=== PATIENT | male | born 1935 | race Hispanic/Latino ===

== ENCOUNTER 2017-11-13 14:32 | Inpatient (IN) | payer OTHER ==
[2017-11-13 15:50] LABS: Absolute Monocytes 0.7 K/uL (0.1-1.3); Absolute Neutrophil 5.6 K/uL (1.8-8.0); Basophils % 0.9 % (0-1.3); Eosinophils % 1.7 % (0-4.4); Hematocrit 37.2 % (39.6-49.0); Lymphocytes % 23.7 % (15.3-44.8); MCH 30.5 pg (27.0-35.0); MPV 8.4 fL (7.6-11.3); RBC Red Blood Cell Count 4.05 M/uL (4.33-5.43)
[2017-11-13 16:01] LABS: Potassium 4.8 mEq/L (3.6-5.0)
[2017-11-13 16:06] LABS: Albumin 3.4 g/dL (3.2-5.5); Bilirubin Total 0.5 mg/dL (0.3-1.2); Protein, Total 6.9 g/dL (6.0-8.3)
--- NOTE | 2017-11-13 17:07 | RAD REPORT ---
EXAM DESCRIPTION: RAD - Chest Single View - 11/13/2017 5:02 pm CLINICAL HISTORY: Chest pain. COMPARISON: 11/08/2014 FINDINGS: Portable technique limits examination quality. The lungs are grossly clear. The heart is normal in size. No displaced fractures.Mild aortic atherosc lerosis. IMPRESSION: No acute intrathoracic process suspected.
--- NOTE | 2017-11-13 17:12 | EDPHYS ---
Physician Documentation [facility] Name: Sina William Age: 82 yrs Sex: Male : 1935 Arrival Date: 11/13/2017 Time: 14:36 Bed 30 Private MD: Pau Carranza ED Physician Sushant Garcia HPI: 11/13 16:04 This 82 yrs old Male presents to ER via Ambulatory with complaints of Abnormal jmm Lab Results. 16:04 Patient states that he was advised to the go the emergency department by his PCP due to jmm abnormal lab results. Patient states having a history of DM and HTN which he treats with diet and non prescription medications. Patient states he drinks approx 1 gallon of water a day due to being outside in the heat. Patient denies swelling to his legs or inability to urinate. The patient complains of intermittent episodes of sob which are non exertional. . Historical: - Allergies: 15:16 No Known Allergies; iw - PMHx: 17:18 Hypertension; Arthritis; iw - PSHx: 15:16 Disc surgery; cataracts; iw - Immunization history:: Adult Immunizations up to date. - Social history:: Smoking status: . - Ebola Screening: : Patient negative for fever greater than or equal to 101.5 degrees Fahrenheit, and additional compatible Ebola Virus Disease symptoms Patient denies exposure to infectious person Patient denies travel to an Ebola-affected area in the 21 days before illness onset No symptoms or risks identified at this time. ROS: 16:04 Constitutional: Negative for fever, chills, and weight loss, Cardiovascular: Negative jmm for chest pain, palpitations, and edema. 16:04 Back: Negative for injury and pain, MS/Extremity: Negative for injury and deformity, Skin: Negative for injury, rash, and discoloration, Neuro: Negative for headache, weakness, numbness, tingling, and seizure. 16:04 Respiratory: Positive for shortness of breath. 16:04 All other systems are negative. Exam: 16:04 Head/Face: atraumatic. Chest/axilla: Normal chest wall appearance and motion. jmm Nontender with no deformity. No lesions are appreciated. Cardiovascular: Regular rate and rhythm. No gallops, murmurs, or rubs. Full/Equal distal pulses. Respiratory: Lungs have equal breath sounds bilaterally, clear to auscultation. No rales, rhonchi or wheezes noted. No increased work of breathing, no retractions or nasal flaring. 16:04 Constitutional: The patient appears in no acute distress, alert, awake. 16:04 Musculoskeletal/extremity: no pedal edema appreciated. 16:04 Skin: Appearance: Color: normal in color. 16:04 Neuro: Orientation: is normal, Mentation: is normal, Memory: is normal, Gait: is steady. Vital Signs: 15:15 BP 129 / 73; Pulse 69; Resp 18 S; Temp 97.5; Pulse Ox 95% on R/A; Pain 0/10; iw 17:16 BP 146 / 72; Pulse 64; Resp 18 S; Pulse Ox 98% on R/A; Pain 0/10; iw MDM: 16:02 Patient medically screened. [facility] 17:30 Data reviewed: vital signs, nurses notes, lab test result(s), radiologic studies, plain [facility] films. 17:30 Physician consultation: Willem Houser DO accepted admission. [facility] 11/13 15:33 Order name: CBC with Diff; Complete Time: 16:03 11/13 15:38 Order name: CMP; Complete Time: 16:38 [facility] 11/13 17:06 Order name: CPK [facility] 11/13 17:06 Order name: Creatine Phosphokinase [facility] 11/13 17:25 Order name: Urine Dipstick--Ancillary (enter results) 11/13 17:31 Order name: Creatine Phosphokinase [facility] 11/13 17:31 Order name: Urinalysis [facility] 11/13 17:31 Order name: Basic Metabolic Panel [facility] 11/13 17:31 Order name: Basic Metabolic Panel [facility] 11/13 17:31 Order name: Basic Metabolic Panel [facility] 11/13 17:31 Order name: Basic Metabolic Panel [facility] 11/13 17:31 Order name: CBC with Automated Diff [facility] 11/13 17:31 Order name: CBC with Automated Diff [facility] 11/13 16:03 Order name: Chest Single View XRAY; Complete Time: 17:07 [facility] 11/13 17:31 Order name: Echo with Doppler [facility] 11/13 17:31 Order name: CBC with Automated Diff [facility] 11/13 17:31 Order name: CBC with Automated Diff [facility] 11/13 17:31 Order name: Hemoglobin A1C [facility] 11/13 17:31 Order name: Hemoglobin A1C [facility] 11/13 17:31 Order name: Lipid Profile [facility] 11/13 17:31 Order name: Lipid Profile [facility] 11/13 17:31 Order name: Magnesium [facility] 11/13 17:31 Order name: Magnesium [facility] 11/13 17:31 Order name: Magnesium [facility] 11/13 17:31 Order name: Magnesium [facility] 11/13 17:31 Order name: T4 Free [facility] 11/13 17:31 Order name: T4 Free [facility] 11/13 17:31 Order name: Thyroid Stimulating Hormone [facility] 11/13 17:31 Order name: Thyroid Stimulating Hormone [facility] 11/13 15:33 Order name: EKG - Nurse/Tech; Complete Time: 16:17 11/13 15:33 Order name: EKG; Complete Time: 15:34 11/13 17:25 Order name: Urine Dipstick-Ancillary (obtain specimen); Complete Time: 17:25 11/13 17:31 Order name: CONS Physician Consult [facility] 11/13 17:31 Order name: Renal [facility] 11/13 17:31 Order name: Renal Ultrasound-Complete EDMS Administered Medications: No medications were administered Disposition: 18:51 Co-signature as Attending Physician, Sushant Garcia MD I agree with the assessment and kdr plan of care. Disposition: 11/13/17 17:11 Hospitalization ordered by Willem Houser for Inpatient Admission. Preliminary diagnosis is Injury of kidney. - Bed requested for Telemetry/MedSurg (Inpatient). - Status is Inpatient Admission. iw - Condition is Stable. - Problem is new. - Symptoms are unchanged. UTI on Admission? No Signatures: Dis[facility] Merry Sin Kevin, MD MD [facility] Martin Rodriges PA PA jmm Crystal Parkinson, VERNON RN iw Corrections: (The following items were deleted from the chart) 15:44 15:33 BASIC METABOLIC PANEL+C.LAB.BRZ ordered. [facility] 18:00 17:11 Hospitalization Ordered by Willem Houser DO for Inpatient Admission. Preliminary bd diagnosis is Injury of kidney. Bed requested for Telemetry/MedSurg (Inpatient). Status is Inpatient Admission. Condition is Stable. Problem is new. Symptoms are unchanged. UTI on Admission? No. celsom 18:36 18:00 11/13/2017 17:11 Hospitalization Ordered by Willem Houser DO for Inpatient iw Admission. Preliminary diagnosis is Injury of kidney. Bed requested for Telemetry/MedSurg (Inpatient). Status is Inpatient Admission. Condition is Stable. Problem is new. Symptoms are unchanged. UTI on Admission? No. bd 21:22 16:04 Patient states that he was advised to the go the emergency department by his PCP [place] due to abnormal lab results. Patient states having a history of DM and HTN which he treats with diet and non prescription medications. Patient states he drinks approx 1 gallon of water a day. Patient denies swelling to his legs or inability to urinate. The patient complains of intermittent episodes of sob which are non exertional. . [facility]
--- NOTE | 2017-11-13 17:12 | ER ---
Nurse's Notes [facility] Name: Sina William Age: 82 yrs Sex: Male : 1935 Arrival Date: 11/13/2017 Time: 14:36 Bed 30 Private MD: Pau Carranza Diagnosis: Injury of kidney Presentation: 11/13 15:11 Presenting complaint: Patient states: was sent by Dr. Carranza today, had labs drawn iw this morning, was told to come to ER for unknown lab results. Creatinine=5.98, no hx of kidney disease, potassium=5.1. Transition of care: patient was not received from another setting of care. Onset of symptoms was November 13, 2017. Risk Assessment: Do you want to hurt yourself or someone else? Patient reports no desire to harm self or others. Initial Sepsis Screen: Does the patient meet any 2 criteria? No. Patient's initial sepsis screen is negative. Does the patient have a suspected source of infection? No. Patient's initial sepsis screen is negative. Care prior to arrival: None. 15:11 Method Of Arrival: Ambulatory iw 15:11 Acuity: CLYDE 3 iw Historical: - Allergies: 15:16 No Known Allergies; iw - PMHx: 17:18 Hypertension; Arthritis; iw - PSHx: 15:16 Disc surgery; cataracts; iw - Immunization history:: Adult Immunizations up to date. - Social history:: Smoking status: . - Ebola Screening: : Patient negative for fever greater than or equal to 101.5 degrees Fahrenheit, and additional compatible Ebola Virus Disease symptoms Patient denies exposure to infectious person Patient denies travel to an Ebola-affected area in the 21 days before illness onset No symptoms or risks identified at this time. Screenin:44 Abuse screen: Denies threats or abuse. Denies injuries from another. Nutritional iw screening: No deficits noted. Tuberculosis screening: No symptoms or risk factors identified. Fall Risk IV access (20 points). Assessment: 15:45 General: Appears in no apparent distress. Behavior is calm, cooperative. Pain: Denies iw pain. Neuro: Level of Consciousness is awake, alert, obeys commands, Oriented to person, place, time, Moves all extremities. Full function. Cardiovascular: Patient's skin is warm and dry. Respiratory: Respiratory effort is even, unlabored, Respiratory pattern is regular, symmetrical. GI: Abdomen is. GI: Bowel sounds present X 4 quads. Patient currently denies diarrhea, vomiting. : Reports urinary frequency. Derm: Skin is pink, warm \T\ dry. normal. Musculoskeletal: Range of motion:. Vital Signs: 15:15 BP 129 / 73; Pulse 69; Resp 18 S; Temp 97.5; Pulse Ox 95% on R/A; Pain 0/10; iw 17:16 BP 146 / 72; Pulse 64; Resp 18 S; Pulse Ox 98% on R/A; Pain 0/10; iw ED Course: 14:36 Patient arrived in ED. mr 14:36 Pau Carranza MD is Private Physician. mr 15:03 Crystal Parkinson, RN is Primary Nurse. iw 15:14 Triage completed. iw 15:15 Arm band placed on. 15:31 Martin Rodriges PA is PHCP. [facility] 15:31 Sushant Garcia MD is Attending Physician. [facility] 15:44 Initial lab(s) drawn, by la, sent to lab. Inserted saline lock: 20 gauge in right iw antecubital area, using aseptic technique. Blood collected. 15:45 Patient has correct armband on for positive identification. 15:49 EKG done, by supervisor sound technician. reviewed by Martin HILL. 3 16:59 X-ray completed. Portable x-ray completed in exam room. Patient tolerated procedure ml well. 17:01 Chest Single View XRAY In Process Unspecified. EDMS 17:10 Willem Houser DO is Hospitalizing Provider. [facility] 18:36 No provider procedures requiring assistance completed. Patient admitted, IV remains in iw place. Administered Medications: No medications were administered Outcome: 17:11 Decision to Hospitalize by Provider. m 18:35 Admitted to Med/surg accompanied by tech, via wheelchair, room 406, Report called to davonte Kimbrough RN 18:35 Condition: good 18:35 Discharge instructions given to patient, family, Instructed on the need for admit, Demonstrated understanding of instructions. 18:36 Patient left the ED. Signatures: Dispatcher [employer] EDMS Martin Rodriges PA PA Mary Ellen Cooper mr Crystal Parkinson, RN RN Ileana Chance Shakira 3
[2017-11-13] MEDS ORDERED: ACETAMINOPHEN 500 MG TAB PO PRN (17:24)
[2017-11-13] MEDS ORDERED: ONDANSETRON 4 MG/2 ML VIAL IV PRN (17:24)
--- NOTE | 2017-11-13 17:39 | P.HP ---
Certification for Inpatient Patient admitted to: Observation With expected LOS: <2 Midnights Patient will require the following post-hospital care: None Practitioner: I am a practitioner with admitting privileges, knowledge of patient current condition, hospital course, and medical plan of care. Services: Services provided to patient in accordance with Admission requirements found in Title 42 Section 412.3 of the Code of Federal Regulations Patient History Date of Service: 11/13/17 Primary Care Provider: Dr. Carranza Reason for admission: Abnormal lab History of Present Illness: 82 yo HM presented to the ER after he was sent to the ER by his PCP due to abnormal lab. He was told that his renal function was worse. He was seen by the PCP earlier in the week for a follow up. He has DM, HTN, and history of CVA but does not take medication. For the last 3 months he has taken himself off medication for his chronic conditions. He is now only taking multiple oral supplements and vitamins. He is taking an ASA 81 mg daily. He has noted some fatigue. He has been working outside in the sun lately. In the ER, repeat lab was done. His Creatinine was 5.73 with BUN of 84 and GFR of 10. In 12/2016 his creatinine was 1.93 and GFR was 33. CBC is stable. CXR was unremarkable. UA showed some blood and protein. CPK is pending. Patient admitted for further evaluation. He is stable. No other complaints. Allergies No Known Drug Allergies Allergy (Unverified 11/08/14 23:39) Unknown Home medications list reviewed: Yes - Past Medical/Surgical History Diabetic: Yes -: DM-Type 2 -: HTN -: History of CVA -: Former Tobacco use Psychosocial/ Personal History: , Children-9 - Family History Father -: Heart disease, Hypertension, Kidney disease Mother -: Heart disease, Hypertension, Kidney disease - Social History Smoking Status: Former smoker Alcohol use: Yes CD- Drugs: No Caffeine use: Yes Place of Residence: Home Review of Systems General: Weakness, Malaise Eyes: Unremarkable ENT: Unremarkable Respiratory: Shortness of Breath, As per HPI Cardiovascular: Unremarkable Gastrointestinal: Unremarkable Genitourinary: Unremarkable Musculoskeletal: Unremarkable Integumentary: Unremarkable Neurological: Unremarkable Lymphatics: Unremarkable Physical Examination - Physical Exam General: Alert, In no apparent distress, Oriented x3, Cooperative HEENT: Atraumatic, Normocephalic, PERRLA, Mucous membr. moist/pink Neck: Supple, No Thyromegaly Respiratory: Clear to auscultation bilaterally, Normal air movement Cardiovascular: Normal pulses, Regular rate/rhythm Gastrointestinal: Normal bowel sounds, Soft and benign, Non-distended, No tenderness, No masses, No rebound, No guarding Musculoskeletal: No erythema, No tenderness, No warmth Integumentary: No tenderness/swelling, No erythema, No warmth, No cyanosis Neurological: Normal speech, Normal strength at 5/5 x4 extr, Normal tone, Normal affect - Studies Laboratory Data (last 24 hrs) 11/13/17 15:35: Sodium 134 L, Potassium 4.8, BUN 84 H, Creatinine 5.73 H*, Glucose 94, Total Bilirubin 0.5, AST 24, ALT 21, Alkaline Phosphatase 77 11/13/17 15:35: WBC 8.6, Hgb 12.4 L, Hct 37.2 L, Plt Count 293 11/13/17 15:33: Sodium Cancelled, Potassium Cancelled, BUN Cancelled, Creatinine Cancelled, Glucose Cancelled Assessment and Plan - Problems (Diagnosis) (1) Chronic renal disease Current Visit: Yes Status: Acute Plan: Acute on chronic renal disease suspected. Will evaluate for rhabdomyolysis. Will start IV fluids. Will check ECHO and renal US. Will continue Nephrology to address. He has been using multiple vitamins and supplements OTC. He has not taken his medication for HTN/DM in quite some time. Will check and monitor lab. Qualifiers: Chronic kidney disease stage: stage 4 (severe) Qualified Code(s): N18.4 - Chronic kidney disease, stage 4 (severe) (2) Dehydration Current Visit: Yes Status: Acute Plan: Continue as above. Will start IV fluids. (3) HTN (hypertension) Current Visit: Yes Status: Chronic Plan: History of HTN but BP stable. Will provide IV medication as needed. Qualifiers: Hypertension type: essential hypertension Qualified Code(s): I10 - Essential (primary) hypertension (4) Diabetes mellitus Current Visit: Yes Status: Chronic Plan: Will check A1c. Will provide sliding scale. Qualifiers: Diabetes mellitus type: type 2 Diabetes mellitus vermin exterminator insulin use: without vermin exterminator use Diabetes mellitus complication status: with kidney complications Diabetes mellitus complication detail: with chronic kidney disease Chronic kidney disease stage: stage 4 (severe) Qualified Code(s): E11.22 - Type 2 diabetes mellitus with diabetic chronic kidney disease; N18.4 - Chronic kidney disease, stage 4 (severe) (5) History of CVA (cerebrovascular accident) Current Visit: Yes Status: Chronic Plan: Will provide ASA and DVT prophylaxis. Discharge Plan: Home Plan to discharge in: 24 Hours - Advance Directives Does patient have a Living Will: No Does patient have a Durable POA for Healthcare: No - Code Status/Comfort Care Code Status Assessed: Yes Time Spent Managing Pts Care (In Minutes): 55
[2017-11-13 18:39] LABS: Urine Blood 2+ (NEG); Urine Glucose TRACE (NEG); Urine Protein 3+ (NEG)
[2017-11-13] MEDS: NA CHLORIDE 0.9% 1,000 ML IV SCH (19:40)
[2017-11-13] MEDS: ENOXAPARIN 30 MG/0.3 ML SQ SCH (19:41)
[2017-11-13] MEDS: HYDRALAZINE HCL 20 MG/ML VIAL IV PRN (20:33)
[2017-11-13] MEDS: INSULIN -REGULAR HUMAN 50 UNIT/0.5 ML ML SQ SCH (21:00)
--- NOTE | 2017-11-13 21:33 | RAD REPORT ---
EXAM DESCRIPTION: US - Renal Ultrasound-Complete - 11/13/2017 9:14 pm CLINICAL HISTORY: . Acute and chronic renal failure COMPARISON: None. FINDINGS: The right kidney measures 12 cm with an increased echotexture. The left kidney measures 12 cm with an increase echotexture. Hydronephrosis is not seen. IMPRESSION: Unremarkable renal ultrasound.
[2017-11-14] MEDS: NA CHLORIDE 0.9% 1,000 ML IV SCH ×4 (04:27→23:55)
[2017-11-14] MEDS: PANTOPRAZOLE 40MG TABLET PO SCH (05:48)
[2017-11-14 05:58] LABS: Absolute Lymphocytes (CBC) 1.8 K/uL (0.7-4.9); Absolute Monocytes 0.6 K/uL (0.1-1.3); Basophils % 0.7 % (0-1.3); Eosinophils % 4.5 % (0-4.4); Hematocrit 35.2 % (39.6-49.0); Lymphocytes % 26.3 % (15.3-44.8); MCH 30.9 pg (27.0-35.0); MCV 92.7 fL (80-100); MPV 8.6 fL (7.6-11.3); Monocytes % 9.1 % (3.3-12.3)
[2017-11-14 06:12] LABS: Potassium 5.1 mEq/L (3.6-5.0)
[2017-11-14 06:20] LABS: Magnesium 3.1 mg/dL (1.8-2.5)
[2017-11-14 06:57] LABS: Thyroid Stimulating Hormone 8.45 uIU/mL (0.34-5.60)
[2017-11-14] MEDS: INSULIN -REGULAR HUMAN 50 UNIT/0.5 ML ML SQ SCH ×4 (07:30→21:00)
--- NOTE | 2017-11-14 07:56 | EKG ---
Test Date: 2017-11-13 Test Time: 15:41:35 Store Stocker: GREGG MEASUREMENT RESULTS: Intervals: Rate: 59 ND: 190 QRSD: 128 QT: 444 QTc: 439 Hammond: P: -3 ND: 190 QRS: 5 T: 110 INTERPRETIVE STATEMENTS: Sinus bradycardia Right bundle branch block T wave abnormality, consider lateral ischemia Abnormal ECG Compared to ECG 11/08/2014 21:38:01 Atrial premature complex(es) no longer present T-wave abnormality still present Possible ischemia still present Electronically Signed On 11-14-17 07:54:59 CDT by Farhan Shipley
--- NOTE | 2017-11-14 08:28 | P.PN ---
Subjective Date of Service: 11/14/17 Primary Care Provider: Dr. Carranza Chief Complaint: Abnormal lab Subjective: Doing well Physical Examination - Vital Signs Temperature: 97.2 F Blood Pressure: 144/65 Pulse: 53 Respirations: 19 Pulse Ox (%): 97 - Physical Exam General: Alert, In no apparent distress, Oriented x3, Cooperative HEENT: Atraumatic, Mucous membr. moist/pink Neck: Supple Respiratory: Clear to auscultation bilaterally, Normal air movement Cardiovascular: Normal pulses, Regular rate/rhythm Gastrointestinal: Normal bowel sounds, Soft and benign, Non-distended, No tenderness, No masses, No rebound, No guarding Musculoskeletal: No erythema, No tenderness, No warmth Integumentary: No tenderness/swelling, No erythema, No warmth, No cyanosis Neurological: Normal speech, Normal strength at 5/5 x4 extr, Normal tone, Normal affect Lymphatics: No axilla or inguinal lymphadenopathy - Studies Laboratory Data (last 24 hrs) 11/13/17 15:35: Sodium 134 L, Potassium 4.8, BUN 84 H, Creatinine 5.73 H*, Glucose 94, Total Bilirubin 0.5, AST 24, ALT 21, Alkaline Phosphatase 77 11/13/17 15:35: WBC 8.6, Hgb 12.4 L, Hct 37.2 L, Plt Count 293 11/13/17 15:33: Sodium Cancelled, Potassium Cancelled, BUN Cancelled, Creatinine Cancelled, Glucose Cancelled Medications List Reviewed: Yes Assessment & Plan - Problems (Diagnosis) (1) Chronic renal disease Current Visit: Yes Status: Acute Plan: Acute on chronic renal disease suspected. No significant change in renal function. Patient may require dialysis. Renal ultrasound unremarkable. Will discuss case with nephrology. Will continue IV fluids. Hepatitis panel obtained Qualifiers: Chronic kidney disease stage: stage 4 (severe) Qualified Code(s): N18.4 - Chronic kidney disease, stage 4 (severe) (2) Dehydration Current Visit: Yes Status: Acute Plan: Continue as above. Continue with IV fluids. (3) HTN (hypertension) Current Visit: Yes Status: Chronic Plan: History of HTN but BP stable. Will provide IV medication as needed. Qualifiers: Hypertension type: essential hypertension Qualified Code(s): I10 - Essential (primary) hypertension (4) Diabetes mellitus Current Visit: Yes Status: Chronic Plan: Will check A1c. Will provide sliding scale. Patient reports history of diabetes but blood sugars well controlled. Qualifiers: Diabetes mellitus type: type 2 Diabetes mellitus long term care social worker insulin use: without long term care social worker use Diabetes mellitus complication status: with kidney complications Diabetes mellitus complication detail: with chronic kidney disease Chronic kidney disease stage: stage 4 (severe) Qualified Code(s): E11.22 - Type 2 diabetes mellitus with diabetic chronic kidney disease; N18.4 - Chronic kidney disease, stage 4 (severe) (5) History of CVA (cerebrovascular accident) Current Visit: Yes Status: Chronic Plan: Will provide ASA and DVT prophylaxis. (6) Anemia Current Visit: Yes Status: Chronic Plan: This is likely of chronic disease Hemoglobin stable. Will check iron and B12 studies. Qualifiers: Anemia type: due to chronic kidney disease Chronic kidney disease stage: stage 4 (severe) Qualified Code(s): N18.4 - Chronic kidney disease, stage 4 ( severe); D63.1 - Anemia in chronic kidney disease Discharge Plan: Home Plan to discharge in: Greater than 2 days Time Spent Managing Pts Care (In Minutes): 55
[2017-11-14] MEDS ORDERED: ENOXAPARIN 40 MG/0.4 ML SQ SCH (09:00)
[2017-11-14 09:13] LABS: Ferritin 45.1 ng/ml (23.9-336.2)
[2017-11-14] MEDS: ASPIRIN EC 81 MG TAB PO SCH (09:19)
[2017-11-14] MEDS ORDERED: NA CHLORIDE 0.9% 1,000 ML IV ONE (14:22)
[2017-11-14 15:50] LABS: UR CREAT 23.5 mg/dL (20-370); Urine Protein/Creatinine Ratio 4.26 ratio (<0.15)
[2017-11-14] MEDS: ENOXAPARIN 30 MG/0.3 ML SQ SCH (17:39)
[2017-11-15] MEDS: HYDRALAZINE HCL 20 MG/ML VIAL IV PRN (04:03)
[2017-11-15] MEDS: PANTOPRAZOLE 40MG TABLET PO SCH (05:40)
[2017-11-15 05:55] LABS: Absolute Lymphocytes (CBC) 1.5 K/uL (0.7-4.9); Absolute Monocytes 0.7 K/uL (0.1-1.3); Absolute Neutrophil 5.1 K/uL (1.8-8.0); Basophils % 0.8 % (0-1.3); Eosinophils % 5.1 % (0-4.4); Hematocrit 33.8 % (39.6-49.0); Lymphocytes % 19.8 % (15.3-44.8); MCH 31.4 pg (27.0-35.0); MCV 90.8 fL (80-100); MPV 8.2 fL (7.6-11.3); Monocytes % 8.9 % (3.3-12.3); RBC Red Blood Cell Count 3.72 M/uL (4.33-5.43)
[2017-11-15 06:13] LABS: Albumin 2.4 g/dL (3.2-5.5); Magnesium 2.6 mg/dL (1.8-2.5); Phosphorus 4.8 mg/dL (2.5-4.3); Potassium 4.7 mEq/L (3.6-5.0)
[2017-11-15] MEDS: INSULIN -REGULAR HUMAN 50 UNIT/0.5 ML ML SQ SCH ×4 (07:30→21:00)
[2017-11-15] MEDS: ASPIRIN EC 81 MG TAB PO SCH (08:16)
[2017-11-15] MEDS: NA CHLORIDE 0.9% 1,000 ML IV SCH ×2 (08:16→20:41)
[2017-11-15 08:27] LABS: A1c Component 0.55 mg/dL; Hemoglobin A1c 6.5 % (4-6.0)
--- NOTE | 2017-11-15 08:54 | P.PN ---
Subjective Date of Service: 11/15/17 Primary Care Provider: Dr. Carranza Chief Complaint: Abnormal lab Subjective: Doing well Physical Examination - Vital Signs Temperature: 97.1 F Blood Pressure: 131/60 Pulse: 56 Respirations: 18 Pulse Ox (%): 98 - Physical Exam General: Alert, In no apparent distress, Oriented x3, Cooperative HEENT: Atraumatic, Mucous membr. moist/pink Neck: Supple Respiratory: Clear to auscultation bilaterally, Normal air movement Cardiovascular: Normal pulses, Regular rate/rhythm Gastrointestinal: Normal bowel sounds, Soft and benign, Non-distended, No tenderness, No masses, No rebound, No guarding Musculoskeletal: No erythema, No tenderness, No warmth Integumentary: No tenderness/swelling, No erythema, No warmth, No cyanosis Neurological: Normal speech, Normal strength at 5/5 x4 extr, Normal tone, Normal affect Lymphatics: No axilla or inguinal lymphadenopathy - Studies Medications List Reviewed: Yes Assessment & Plan - Problems (Diagnosis) (1) Chronic renal disease Current Visit: Yes Status: Acute Plan: Acute on chronic renal disease suspected. Patient given IV fluids yesterday. Slight improvement in renal function. Will discuss case with nephrology. Will continue to monitor closely. Will continue with IV fluids. Qualifiers: Chronic kidney disease stage: stage 4 (severe) Qualified Code(s): N18.4 - Chronic kidney disease, stage 4 (severe) (2) Dehydration Current Visit: Yes Status: Acute Plan: Continue as above. Continue with IV fluids. (3) HTN (hypertension) Current Visit: Yes Status: Chronic Plan: History of HTN but BP stable. Will provide IV medication as needed. Overall stable. Qualifiers: Hypertension type: essential hypertension Qualified Code(s): I10 - Essential (primary) hypertension (4) Diabetes mellitus Current Visit: Yes Status: Chronic Plan: Hemoglobin A1c 6.5. Will continue with diet. Sliding scale in place. Blood sugars stable. Qualifiers: Diabetes mellitus type: type 2 Diabetes mellitus alf insulin use: without alf use Diabetes mellitus complication status: with kidney complications Diabetes mellitus complication detail: with chronic kidney disease Chronic kidney disease stage: stage 4 (severe) Qualified Code(s): E11.22 - Type 2 diabetes mellitus with diabetic chronic kidney disease; N18.4 - Chronic kidney disease, stage 4 (severe) (5) History of CVA (cerebrovascular accident) Current Visit: Yes Status: Chronic Plan: Will provide ASA and DVT prophylaxis. (6) Anemia Current Visit: Yes Status: Chronic Plan: This is likely of chronic disease. Hemoglobin stable. Will monitor closely. Qualifiers: Anemia type: due to chronic kidney disease Chronic kidney disease stage: stage 4 (severe) Qualified Code(s): N18.4 - Chronic kidney disease, stage 4 ( severe); D63.1 - Anemia in chronic kidney disease Discharge Plan: Home Plan to discharge in: 48 Hours Time Spent Managing Pts Care (In Minutes): 55
--- NOTE | 2017-11-15 14:09 | PN ---
Date of Progress Note: 11/15/2017 Subjective: The patient feeling well. No nausea. No vomiting. The patient had good urine output. Physical Examination: Vital Signs: Blood pressure 131/60, pulse of 56, afebrile. The patient had urine output of 950. Chest: Clear to auscultation. Heart: S1, S2. Regular. Abdomen: Soft, nontender. Extremities: No edema. Neurologic: Alert and oriented x3. No tremor. Laboratory Data: WBC 7.7, H and H 11.7/33.8, platelets 253. Sodium 139, potassium 4.7, bicarb 22, BUN 68, creatinine 5, GFR of 11, calcium of 8, phosphorus 4.8, magnesium 2.6, albumin 2.4. PTH is still pending. TSH 8.4. Urinalysis, protein creatinine 4.2. Serology still pending. Medications: Current medications the patient on its include aspirin, Lovenox, hydralazine, Tylenol, pantoprazole, normal saline at 700 per hour. Assessment And Plan: 1. Acute kidney injury on chronic kidney disease, stage IIIB wih nephrotic range proteinuria UA no activity, but proteinuric. I do not know if this is sequela of his rhabdomyolysis that happened 1 week ago or different incident secondary to dehydration. I am going to continue the IV fluid for another day. We will send for full serology, doubt to be autoimmune disease. We will follow up the serology. If the serology came positive, the patient may need kidney biopsy for evaluation. If his serology neg creatinine continue to improve, it could be this needs slow improvement after long rhabdomyolysis. For that reason, at that time, we can discontinue IV fluid and watch him and followup as outpatient. 2. Hypertension, controlled, optimal. Continue to monitor. I am not going to be in favor of adding any KAYLEY inhibitor for the time being given the kidney function. 3. Nephrotic range of proteinuria as above. 4. Dehydration. Continue IV fluid. 5. Hypothyroidism. We will start the patient on levothyroxine. We will follow up. PATRICIA Voice ID: [id number] Report ID: [id number] MARIANA
[2017-11-15] MEDS: ENOXAPARIN 30 MG/0.3 ML SQ SCH (18:43)
[2017-11-16 05:00] LABS: Absolute Lymphocytes (CBC) 1.7 K/uL (0.7-4.9); Absolute Monocytes 0.5 K/uL (0.1-1.3); Absolute Neutrophil 4.1 K/uL (1.8-8.0); Basophils % 0.6 % (0-1.3); Eosinophils % 4.5 % (0-4.4); Hematocrit 31.2 % (39.6-49.0); Lymphocytes % 25.6 % (15.3-44.8); MCH 30.8 pg (27.0-35.0); MCV 92.7 fL (80-100); MPV 8.5 fL (7.6-11.3); Monocytes % 8.2 % (3.3-12.3); RBC Red Blood Cell Count 3.37 M/uL (4.33-5.43)
[2017-11-16 05:09] LABS: Albumin 2.4 g/dL (3.2-5.5); Magnesium 2.4 mg/dL (1.8-2.5); Phosphorus 4.8 mg/dL (2.5-4.3); Potassium 4.6 mEq/L (3.6-5.0)
[2017-11-16] MEDS: PANTOPRAZOLE 40MG TABLET PO SCH (05:51)
[2017-11-16] MEDS: LEVOTHYROXINE SOD 0.025 MG TAB PO SCH (05:51)
[2017-11-16] MEDS: NA CHLORIDE 0.9% 1,000 ML IV SCH ×2 (06:04→17:33)
[2017-11-16] MEDS: INSULIN -REGULAR HUMAN 50 UNIT/0.5 ML ML SQ SCH ×4 (07:30→21:00)
[2017-11-16] MEDS: ASPIRIN EC 81 MG TAB PO SCH (09:28)
--- NOTE | 2017-11-16 09:53 | CON ---
Date of Consultation: 11/14/2017 Reason For Consultation: Elevated BUN, creatinine. History Of Present Illness: This is a pleasant 82-year-old gentleman with significant past medical h istory of hypertension, diabetes, complicated with neuropathy and nephropathy, chronic kidney disease , baseline creatinine around 1.7 to 1.9, hypertension, CVA without any residual, patient was in his r egular state of health. Apparently, the patient had been convinced that his diabetes can be controll ed by diet. So he stopped his medication and also stopped his blood pressure medication as he was duran ving side effects to it. The patient in the last couple of weeks was feeling weak, shortness of lucretia th. For that reason, he reported to the emergency room. In the emergency room, found to have creati nine 5.7, with GFR of 10, used to have creatinine 1.9 and GFR of 33 back in 2017. The patient denied taking a nonsteroidal. No IV contrast. No recent antibiotic. Allergies: NO KNOWN DRUG ALLERGIES. Medications: Home medications include aspirin, cholecalciferol, and multivitamin. Current medicatio ns include aspirin, Lovenox, hydralazine, Zofran, pantoprazole. Review of Systems: Head and Neck: No red eye. No ear pain. GI: No nausea, no vomiting. : No polyuria. No dysuria. No hematuria. MEDIA SERVICES COORDINATOR: Not applicable. Respiratory: No shortness of breath. Cardiovascular: No chest pain. Neuro: No weakness. Laboratory Data: WBC 6.7, H and H 11.7/35.2, platelet 274. Sodium 139, potassium 5.1, bicarb 25, BU N 84, creatinine 5.8. Calcium 8.5, magnesium 3.1. Urine analysis, protein creatinine is 4. Hepatit is was negative. Renal ultrasound showing normal size kidney 12 x 12. No hydro. Assessment And Plan: 1.Acute kidney injury on chronic kidney disease secondary to diabetes nephropathy, glucose diuresis, poor medication intake superimposed with the KAYLEY inhibitor. a.I am going to start the patient on hydration. b.We will stabilize the patient. c.With nephrotic range of proteinuria, I rather send for full serology and SPEP and will follow up. 2.Hypertension, controlled, optimal. Continue current medication. 3.Secondary hyperparathyroidism, stable. 4.Hyperkalemia has been resolved. 5.Acidosis. Continue bicarb drip. Has oral. Thank you for allowing us to participate in the care of your patient. PATRICIA Voice ID: [id number] Report ID: [id number]
--- NOTE | 2017-11-16 10:57 | ECHO ---
HEIGHT: 5 ft 7 in WEIGHT: 187 lb 11.2 oz DATE OF STUDY: 11/16/[address]: Willem Houser DO 2-DIMENSIONAL: YES M.MODE: YES DOPPLER: YES COLOR FLOW: YES TDS: NO PORTABLE: NO DEFINITY: NO BUBBLE STUDY: NO DIAGNOSIS: ACUTE/CHRONIC RENAL FAILURE, SHORTNESS OF BREATH CARDIAC HISTORY: CATHERIZATION: NO SURGERY: NO PROSTHETIC VALVE: NO PACEMAKER: NO MEASUREMENTS (cm) DIASTOLIC (NORMALS) SYSTOLIC (NORMALS) IVSd 1.2 (0.6-1.2) LA Diam 4.2 (1.9-4.0) LVEF 72% LVIDd 5.1 (3.5-5.7) LVIDs 3.0 (2.0-3.5) %FS 41% LVPWd 1.3 (0.6-1.2) Ao Diam 3.5 (2.0-3.7) 2 DIMENSIONAL ASSESSMENT: RIGHT ATRIUM: NORMAL LEFT ATRIUM: DILATED RIGHT VENTRICLE: NORMAL LEFT VENTRICLE: LEFT VENTRICULAR HYPERTROPHY TRICUSPID VALVE: NORMAL MITRAL VALVE: NORMAL PULMONIC VALVE: NORMAL AORTIC VALVE: MILD SCLEROSIS PERICARDIAL EFFUSION: NONE AORTIC ROOT: NORMAL LEFT VENTRICULAR WALL MOTION: NORMAL. DOPPLER/COLOR FLOW: MILD MITRAL REGURGITATION. IMPAIRED LEFT VENTRICULAR RELAXATION. COMMENTS: NORMAL LEFT VENTRICULAR EJECTION FRACTION. LEFT VENTRICULAR HYPERTROPHY. MILD AORTIC SCLEROSIS WITH NO AORTIC STENOSIS OR REGURGITATION. IMPAIRED LEFT VENTRICULAR RELAXATION. MILD RUSLAN REGURGITATION. TECHNOLOGIST: VERONICA JUAN
--- NOTE | 2017-11-16 14:02 | PN ---
Subjective: The patient is seen and examined. Chart reviewed and case discussed with RN. The patie nt had question about his fluid restrictions. Otherwise, denies any acute events overnight. Review of Systems: Negative except as above. Medications: Reviewed. Physical Examination: Vital Signs: Temperature 97.3, heart rate 52, blood pressure 142/66, respirations 18, O2 99% on room air. General: Awake, alert, oriented x3, not in any acute distress. Elderly male, obese. CV: S1, S2. No murmurs. Regular rate and rhythm. Peripheral pulses present. Respiratory: Diminished breath sounds, otherwise moving air well. Gastrointestinal: Abdomen is soft, nontender, and nondistended. Positive bowel sounds. Extremities: No clubbing, cyanosis. Trace edema. Neuro: Nonfocal. Laboratory Data: Sodium 141, potassium 4.6, chloride 114, CO2 23, BUN 64, creatinine 4.59, glucose 1 05, calcium 7.8, phosphorus 4.8, magnesium 2.4, albumin 2.4. WBC 6.7, H and H 10.4 and 31.2, platele ts 239. Assessment And Plan: An 82-year-old male with: 1.Acute on chronic kidney disease, stage IIIB. Nephrology on board. The patient is on IV fluids. The patient has been noncompliant with his blood pressure medications and diabetes medications for qu ite sometime. The renal ultrasound and echocardiogram are pending. His renal ultrasound did not vernell w any abnormalities. 2.Diabetes mellitus type 2 without long-term use of insulin with chronic kidney disease. We will ch janet hemoglobin A1c 6.5%. We will continue current treatment. Monitor Accu-Chek. 3.Acute dehydration. Continue with IV fluids. 4.Essential hypertension. Continue medications. 5.History of cerebrovascular accident. Continue aspirin. 6.Gastrointestinal and deep venous thrombosis prophylaxis with PPI and Lovenox. 7.Noncompliance. Counseled. Plan: Follow up with Neurology. The patient may need a kidney biopsy. We will discuss with Nephrol marla. /BELLE Voice ID: [id number] Report ID: [id number]
[2017-11-16] MEDS: HYDRALAZINE HCL 20 MG/ML VIAL IV PRN (16:10)
[2017-11-16] MEDS: ENOXAPARIN 30 MG/0.3 ML SQ SCH (17:33)
[2017-11-17] MEDS: NA CHLORIDE 0.9% 1,000 ML IV SCH ×2 (02:00→05:37)
--- NOTE | 2017-11-17 02:03 | PN ---
Date of Progress Note: 11/16/2017 Chief Complaint: Acute kidney injury on chronic kidney disease stage 3. Subjective: The patient was found to have acute kidney injury associated with proteinuria. Renal function has not improved significantly over the last 24 hours. BUN is 64, creatinine 4.59. Yesterday, BUN was 68, creatinine 5.02. The patient has nonoliguric urine output. Electrolytes remain in stable ranges. Review of Systems: The patient denies complaints. Denies fever or chills. Physical Examination: Lungs: Clear to auscultation bilaterally. Heart: S1, S2. Abdomen: Soft, benign. Extremities: No edema. Laboratory Data: Sodium 139, potassium 4.7, chloride 112, CO2 of 22. BUN 68, creatinine 5.02, magnesium 2.6, phosphorus 4.8, and calcium 8.0. Diagnostic Data: Renal ultrasound is unremarkable. Right kidney 12 cm with increased echotexture. Left kidney 12 cm in length with increased echotexture. Urinalysis showed 3+ protein. Urine protein-creatinine ratio is 4.26. Leukocyte esterase negative. Urine blood 2+. Impression And Plan: 1. Acute on chronic kidney injury, remains nonoliguric and electrolytes are stable. The patient has history of underlying chronic kidney disease. Baseline creatinine level was 1.23 up to 1.9. Renal function has been plateauing over the last few days and urine output is nonoliguric. Over last 24 hrs urine output is up 2400 ml which may indicate polyuria of recovery phase. Plan is to monitor electrolytes closely and adjust IV fluids as needed. 2. There is no evidence of obstructive uropathy. There is severe acute kidney injury on chronic kidney disease. Urinalysis showed positive blood. Plan is to check microscopic examination to rule out hematuria. The patient has nephrotic range proteinuria. He may need renal biopsy to evaluate pathology of nephrotic syndrome to find out possible etiology of severe proteinuria. At this point, due to the fact that the patient has acute kidney injury, KAYLEY inhibitor is on hold. I spent total 36 min including 26 min to coordinate care plan. PHILLIP/BELLE Voice ID: [id number] Report ID: [id number] MARIANA
[2017-11-17 04:07] LABS: Absolute Lymphocytes (CBC) 1.8 K/uL (0.7-4.9); Absolute Monocytes 0.7 K/uL (0.1-1.3); Absolute Neutrophil 4.6 K/uL (1.8-8.0); Basophils % 0.7 % (0-1.3); Eosinophils % 4.5 % (0-4.4); Hematocrit 32.7 % (39.6-49.0); Lymphocytes % 23.8 % (15.3-44.8); MCH 30.8 pg (27.0-35.0); MCV 92.1 fL (80-100); MPV 8.3 fL (7.6-11.3); Monocytes % 8.9 % (3.3-12.3); RBC Red Blood Cell Count 3.55 M/uL (4.33-5.43)
[2017-11-17 04:23] LABS: Albumin 2.7 g/dL (3.2-5.5); Phosphorus 4.6 mg/dL (2.5-4.3); Potassium 4.9 mEq/L (3.6-5.0)
[2017-11-17 04:52] VITALS: BMI 29.3
[2017-11-17] MEDS: LEVOTHYROXINE SOD 0.025 MG TAB PO SCH (05:37)
[2017-11-17] MEDS: PANTOPRAZOLE 40MG TABLET PO SCH (05:37)
[2017-11-17 05:41] LABS: Urine Appearance CLEAR; Urine Bilirubin NEGATIVE (NEG); Urine Blood 1+ (NEG); Urine Color YELLOW; Urine Glucose TRACE (NEG); Urine Protein 3+ (NEG); Urine Urobilinogen 0.2 mg/dL (0.2-1.0)
[2017-11-17 05:42] LABS: Urine Bacteria <20 /HPF (NONE SEEN); Urine RBC <5 /HPF (NONE SEEN)
[2017-11-17 05:43] LABS: Urine Culture Reflex Order NOT NEEDED
[2017-11-17] MEDS: INSULIN -REGULAR HUMAN 50 UNIT/0.5 ML ML SQ SCH ×3 (07:30→16:08)
[2017-11-17] MEDS: ASPIRIN EC 81 MG TAB PO SCH (09:08)
[2017-11-17 16:38] VITALS: O2SAT 99
[2017-11-17 16:44] VITALS: BP 170/68; TEMP 97.4
[2017-11-17 23:32] LABS: HBsAG Nonreactive (Nonreactive); Hepatitis A IgM Antibody Nonreactive
--- NOTE | 2017-11-18 02:12 | PN ---
Date of Progress Note: 11/17/2017 Subjective: The patient was admitted with acute kidney injury. Kidney function has been plateaued a fter hydration. Objective: Vital Signs: When I saw the patient, blood pressure of 170/68, pulse of 62. Chest: Clear to auscultation. Heart: S1, S2. Regular. Abdomen: Soft, nontender. Extremities: No edema. Laboratory Data: H and H 10.9/32.7. Sodium 143, potassium 4.9, bicarb 24, BUN 58, creatinine 4.5, c alcium 8.4, phosphorus 4.6. Serology still negative, still pending. Medications: Current medications the patient on is include, 1.Tylenol. 2.Aspirin. 3.Lovenox. 4.Hydralazine p.r.n. 5.Levothyroxine. 6.Pantoprazole. Laboratory Data: As above. 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 Plan for kidney biopsy. The patient been on aspirin. We have to discontinue the aspirin for a week, possibl e discharge the patient, followup as outpatient, and we will arrange for the biopsy. 2.Hypertension, controlled optimal. Continue current medication. 3.Secondary hyperparathyroidism, stable. 4.Nephrotic range of proteinuria. Serology still pending. Waiting for kidney biopsy. PATRICIA Voice ID: [id number] Report ID: [id number]
[2017-11-18 04:04] LABS: Anti-Cardiolipin IgA Antibody <11 APL (<=11)
[2017-11-18 14:37] LABS: HIV 1/2 Antibody Diff Not indicated.; HIV AG/AB 4TH GEN Non-reactive (Non-reactive)
[2017-11-19 17:07] LABS: Scleroderma Antibody (Scl-70) <1.0 AI (<1.0)
[2017-11-19 21:48] LABS: Albumin, (SPE) 2.4 g/dL (3.8-4.8); Alpha-1-Globulins 0.2 g/dL (0.2-0.3); Alpha-2-Globulins 0.8 g/dL (0.5-0.9); Gamma Globulins 0.8 g/dL (0.8-1.7); INTERPRETATION REPORT
[2017-11-21 20:30] LABS: P-ANCA Anti-Myeloperoxidase Ab <1.0 AI (<1.0)
--- NOTE | 2017-11-27 16:13 | DS ---
Date of Discharge: 11/17/2017 Consultants: Lilly Mccormick M.D., with Nephrology. Admitting Diagnosis: 1.Acute on chronic kidney injury stage 4. 2.Dehydration. 3.Essential hypertension. 4.Diabetes mellitus type 2, without long-term use of insulin with kidney complications. 5.History of cerebrovascular accident. Discharge Diagnosis: 1.Acute on chronic kidney disease stage 3B. 2.Diabetes mellitus type 2 with long-term use of insulin with chronic kidney disease. Hemoglobin A1 c 6.5%. 3.Acute dehydration. 4.Noncompliance. 5.Essential hypertension. 6.History of cerebrovascular accident. 7.Hypertensive heart disease. Hospital Course: The patient is an 82-year-old male, who comes into the hospital for abnormal labs, sent by his PCP. Found to have elevated creatinine level. The patient has not been taking his medic ations. His creatinine was found to be 5.73. Baseline in 2017 was 1.93. The patient was admitted t o the hospital, started on IV fluids. He was somewhat dehydrated. Kidney ultrasound was done, which showed unremarkable renal ultrasound. Dr. Lei and Dr. Mccormick with Nephrology were also involved in the case. The patient also had echocardiogram done, which showed EF of 72%, left ventricular hype rtrophy. The patient was continued on IV fluids. His kidney function did not improve significantly, came down to 4.58. His electrolytes remained stable. Hepatitis panel, HIV panel, and immunology khurram dies were sent off. Workup for acute deterioration of kidney function was done. The patient was rec ommended to have a renal biopsy, which will be set up as outpatient. He will have to discontinue asp irin for week and have biopsy arranged. The patient was then stable for discharge. His vital signs were stable. He was afebrile. His kidney function had plateaued and was discharged from Nephrology standpoint. He was then discharged home in a stable condition. Activity: As tolerated. Medications: As per medication reconciliation list. Diet: Renal. Followup: With PCP, Dr. Carranza in 2-3 days. Follow up with electron beam welder, Dr. Mccormick in 1 week. Repeat CMP in 2-3 days. Return to ER for worsening condition. Renal advised to discuss that as ou tpatient. The patient will hold aspirin and had a repeat INR level in a.m. The patient was then dis charged. For physical exam findings, please see progress note dictated. Physical Examination: General: Awake, alert, no acute distress. CV: S1, S2. No murmurs. Respiratory: moving air well bilaterally. Abdomen: Soft, nontender, nondistended. Positive bowel sounds. Extremities: No clubbing, cyanosis, edema. Total time spent discharging the patient was 32 minutes. /BELLE Voice ID: [id number] Report ID: [id number]
--- NOTE | 2017-12-02 16:19 | DS ---
Date of Discharge: 11/17/2017 Consultants: Dr. Mccormick, Nephrology. Admitting Diagnoses: 1.Acute on chronic kidney disease. 2.Dehydration. 3.Essential hypertension. 4.Diabetes mellitus type 2 without long-term use of insulin with kidney complications. 5.History of cerebrovascular accident. Discharge Diagnoses: 1.Acute on chronic kidney injury. 2.History of cerebrovascular accident. 3.Essential hypertension. 4.Diabetes mellitus type 2 without long-term use of insulin with chronic kidney disease. 5.Noncompliance. 6.Hypertensive heart disease. Hospital Course: The patient is an 82-year-old male comes into the hospital for abnormal labs, found by his PCP. The patient does have some chronic kidney dysfunction along with diabetes and hypertens ion. His creatinine was found to be 5.73, last known creatinine was 1.93. This was felt to be due t o rhabdomyolysis and the patient was started on IV fluids. Ultrasound was done of the kidneys, which was unremarkable. Echocardiogram was also obtained, which showed an EF of 72%, left ventricular hyp ertrophy. The patient did not have much improvement with his creatinine with IV fluids. Serology wo rkup and protein electrophoresis were sent off. Nephrology was on the case. The patient was initial ly on bicarb drip as well. The patient's kidney function improved slightly from 5.73 to 4.58. He is making urine well. Immunology with serology workup is still pending. The patient due to the fact t hat he is on aspirin, unable to have renal biopsy done immediately. Therefore, the patient will be s et up as an outpatient for renal biopsy to rule out reversible causes. The patient was then cleared by Nephrology to go home in a stable condition, to follow up with them. The patient will need INR, P T, and PTT in a.m. as outpatient and will have kidney biopsy scheduled with Radiology. Total time spent discharging the patient was 32 minutes. Physical Examination: General: Awake, alert, and oriented. No acute distress. CV: S1, S2. No murmurs. Respiratory: M oving air well bilaterally. No wheezing. Abdomen: Soft, nontender, and nondistended. Positive bow el sounds. Extremities: No clubbing, cyanosis, or edema. Neurologic: Nonfocal. SA/MODL Voice ID: [id number] Report ID: [id number]
== END 2017-11-17 18:21 | disposition home or self-care (01) | DRG 683 ==
LOC: ER 14:32 → ERHOLD 17:25 → INTOOBSV 17:25 → OBSVTOIN 17:25 → 4TH 18:29 → OBSVTOIN 11-17 10:13 → INTOOBSV 11-17 10:14 → OBSVTOIN 11-17 10:14 → UNDODISIN 11-17 18:21
PROVIDERS: ADMIT Family Medicine; ATTEND Family Medicine
DX: N17.9 Acute kidney failure, unspecified (principal); E87.2 Acidosis; M62.82 Rhabdomyolysis; E11.22 Type 2 diabetes mellitus with diabetic chronic kidney disease; E86.0 Dehydration; Z86.73 Personal history of transient ischemic attack (TIA), and cerebral infarction without residual deficits; I13.10 Hypertensive heart and chronic kidney disease without heart failure, with stage 1 through stage 4 chronic kidney disease, or unspecified chronic kidney disease; N18.3 Chronic kidney disease, stage 3 (moderate); Z91.14 Patient's other noncompliance with medication regimen; Z79.82 Long term (current) use of aspirin; N25.81 Secondary hyperparathyroidism of renal origin; E11.40 Type 2 diabetes mellitus with diabetic neuropathy, unspecified; E11.21 Type 2 diabetes mellitus with diabetic nephropathy; E87.5 Hyperkalemia; E03.9 Hypothyroidism, unspecified; D63.1 Anemia in chronic kidney disease; Z87.891 Personal history of nicotine dependence
CPT/HCPCS: 36415; 71045; 76770; 80048; 80053; 80061; 80069; 80074; 81001; 81003; 82550; 82570; 82607; 82728; 82962; 83036; 83520; 83540; 83735; 83970; 84132; 84156; 84165; 84439; 84443; 84466; 85025; 86021; 86038; 86147; 86160; 86225; 86235; 86317; 86704; 87389; 93005; 93306; 99285; G0378; J0360; J1650; J7030

== ENCOUNTER 2017-11-25 08:40 | Day surgery (SDC) | payer OTHER ==
[2017-11-25] MEDS ORDERED: NA CHLORIDE 0.9% 1,000 ML ONE (09:12)
[2017-11-25] MEDS ORDERED: FENTANYL CITR 100 MCG/2 ML ONE (09:50)
[2017-11-25] MEDS ORDERED: MIDAZOLAM HCL 2 MG/2 ML INJ ONE (09:51)
[2017-11-25 10:00] VITALS: BMI 28.3
--- NOTE | 2017-11-25 13:27 | RAD REPORT ---
EXAM DESCRIPTION: - Renal Biopsy CT - 11/25/2017 11:47 am CLINICAL HISTORY: Renal failure, acute on chronic COMPARISON: Renal ultrasound November 13 TECHNIQUE: Patient presents for image guided renal biopsy to evaluate acute on chronic renal failure . The CT-guided biopsy procedure, risks and alternatives were discussed with the patient in detail. A fter answering all questions, both oral and written consent were obtained. A time-out procedure was p erformed. Patient had no contraindicated allergy or medication history. Patient has been off aspirin therapy for 7 days. IV access and physiologic monitors were in place. Preliminary imaging identified an access site in th e lower pole left kidney. Patient was pre-medicated with Versed 1.0 milligram and fentanyl 100 microg valeri IV. Posterior access site was prepped and draped in the usual sterile fashion. Skin and deeper t issues were anesthetized with 1% lidocaine. Under CT guidance the introducer needle was advanced. Tip was placed at the posterior inferior margin of the left kidney. An 18 gauge biopsy needle was advanc ed through the introducer needle. Based on positioning, the needle was angled inferiorly and a 2 cent imeter core biopsy was obtained. A second core biopsy was obtained. The biopsy needle was placed for a third biopsy. CT imaging was repeated to assure positioning. Again, the needle was angled inferiorl y prior to obtaining biopsy. A third and final 2 centimeter core biopsy was obtained. Needle was with drawn and direct pressure applied to the skin puncture site. All biopsy material was given to pathology for histologic evaluation. Conscious sedation time was 30 minutes. Post biopsy imaging was obtained at 5 minutes, 10 minutes an approximately 1 hour after biopsy. The 5 minutes post biopsy image shows small amount of hemorrhage posterior to the lower pole left kid maegan. This increased slightly on the 10 minutes post biopsy image. At 1 hour, there was no further inc rease in the amount of hemorrhage. IMPRESSION: CT-guided left renal biopsy was performed as detailed. There were no immediate complica tions. Vital signs were stable throughout the procedure. Patient was being monitored in same-day surg milagros at the time of this dictation.
[2017-11-25 15:11] VITALS: BP 169/60; TEMP 97.4; O2SAT 99
== END 2017-11-25 14:45 | disposition home or self-care (01) ==
LOC: DS 08:40
PROVIDERS: ATTEND Internal Medicine
DX: N19 Unspecified kidney failure (principal); N04.0 Nephrotic syndrome with minor glomerular abnormality
CPT/HCPCS: 50200; 88300; J2250; J3010; J7030

== ENCOUNTER 2018-01-04 07:12 | Day surgery (SDC) | payer OTHER ==
[2017-12-31 16:03] LABS: Absolute Lymphocytes (CBC) 1.9 K/uL (0.7-4.9); Absolute Monocytes 0.7 K/uL (0.1-1.3); Absolute Neutrophil 4.8 K/uL (1.8-8.0); Basophils % 0.7 % (0-1.3); Eosinophils % 3.5 % (0-4.4); Hematocrit 33.6 % (39.6-49.0); Lymphocytes % 24.7 % (15.3-44.8); MCH 31.5 pg (27.0-35.0); MCV 92.3 fL (80-100); MPV 8.6 fL (7.6-11.3); Monocytes % 9.1 % (3.3-12.3); RBC Red Blood Cell Count 3.64 M/uL (4.33-5.43)
[2017-12-31 16:25] LABS: Potassium 4.6 mmol/L (3.5-5.1)
[~2018-01-04 07:12] MED LIST: CEFAZOLIN/SWI 1gm 1 GM/10 ML SYR IVP SCH
[2018-01-04] MEDS ORDERED: NA CHLORIDE 0.9% 500 ML ONE (07:47)
[2018-01-04] MEDS ORDERED: CEFAZOLIN SODIUM 1 GM/VIAL ONE (07:47)
[2018-01-04] MEDS ORDERED: CEFAZOLIN/SWI 1gm 1 GM/10 ML SYR ONE (07:48)
[2018-01-04] MEDS ORDERED: NS 0.9% VIAL 10 ML ONE (08:11)
[2018-01-04] MEDS ORDERED: HEPARIN 5000 UNIT/ML 1 ML VIAL ONE (08:12)
[2018-01-04] MEDS ORDERED: NA CHLORIDE 0.9% 100 ML IV ONE (08:12)
[2018-01-04] MEDS ORDERED: LIDOCAINE 2% MPF 5 ML VIAL ONE (08:13)
[2018-01-04] MEDS ORDERED: PROPOFOL 200 MG/20 ML VIAL IV ONE (08:13)
[2018-01-04] MEDS ORDERED: LIDOCAINE 1% MPF 5 ML VIAL ONE (08:15)
--- NOTE | 2018-01-04 09:54 | RAD REPORT ---
EXAM DESCRIPTION: RAD - Chest Single View - 01/04/2018 9:42 am CLINICAL HISTORY: Right-side Tessio catheter placement COMPARISON: December 31 TECHNIQUE: AP portable chest image was obtained 0931 hours . FINDINGS: Right-sided Tessio catheter placement performed. Catheter tips are in the proximal and mid SVC. Heart and vasculature are normal. No measurable pleural effusion and no pneumothorax. IMPRESSION: Right-sided Tessio catheter in good position. No pneumothorax.
--- NOTE | 2018-01-04 10:06 | RAD REPORT ---
EXAM DESCRIPTION: RAD - Fluoroscopy <1 Hour - 01/04/2018 9:21 am FINDINGS: Fluoroscopic assisted placement of a Tessio catheter be performed. A single fluoroscopic i mage was submitted. Fluoro time was less than 0.1 minutes. Cumulative dose was calculated as 0.294 mG y.
[2018-01-04] MEDS ORDERED: HYDROCODONE/APAP 7.5/325 MG TAB ONE (10:39)
[2018-01-04 11:12] VITALS: TEMP 97.3; O2SAT 99
--- NOTE | 2018-01-04 11:28 | OP ---
Date of Procedure: 01/04/2018 Surgeon: Luis Fernando Rodriguez MD Preoperative Diagnosis: Acute renal failure. Postoperative Diagnosis: Acute renal failure. Procedure: Placement of right IJ Tesio catheter and interpretation of intraoperative of fluoroscopy. Estimated Blood Loss: Minimal. Specimen: None. Findings: Normal anatomy. Anesthesia: MAC. Complications: None. Disposition: The patient tolerated the procedure in stable condition and taken to Recovery in good g eneral condition. Procedure In Detail: The patient was brought to the OR and placed in supine position. MAC anesthesi a was begun. The patient was prepped and draped in the usual sterile fashion. Lidocaine 1% infiltra susie locally. An 18-gauge needle was used to access the right IJ vein. Guidewire was passed. Positi on was confirmed with fluoroscopy. A counterincision was made. Tunneling device was used to tunnel the catheter between the 2 wounds. Seldinger technique used. Tip of the catheter placed in the SVC under fluoroscopy. Catheter was flushed with heparin and packed with heparin with good blood flow, a nd then 3-0 chromic was used to approximate the subcutaneous tissue and 3-0 nylon was used to secure the tube to the chest wall. Sterile dressing was applied. The patient was awakened and taken to Rec overy in good general condition. Chest x-ray has been ordered. If the chest x-ray is okay, the shira ent will be discharged to home. Disposition: Home. Condition: Stable. Discharge Instructions: Resume home medications and diet. Activity as tolerated. No heavy lifting. Remove outer dressing in 2 days. Shower. Keep wound clean and dry. Follow up in my office in 2 w eeks. Call for appointment. Follow up with dialysis center. /MODL Voice ID: [id number] Report ID: [id number]
[2018-01-04 11:44] VITALS: BP 156/63
== END 2018-01-04 11:30 | disposition home or self-care (01) ==
LOC: OR 07:12
PROVIDERS: ATTEND Surgery
PROC: B513ZZA Fluoroscopy of Right Jugular Veins, Guidance (ICD-10-PCS; 2018-01-04)
PROC: 05HM33Z Insertion of Infusion Device into Right Internal Jugular Vein, Percutaneous Approach (ICD-10-PCS; principal; 2018-01-04 08:30)
DX: I12.9 Hypertensive chronic kidney disease with stage 1 through stage 4 chronic kidney disease, or unspecified chronic kidney disease (principal); E11.22 Type 2 diabetes mellitus with diabetic chronic kidney disease; N18.9 Chronic kidney disease, unspecified; N17.9 Acute kidney failure, unspecified
CPT/HCPCS: 01922; 36415 ×2; 36558; 71045; 71046; 77001; 80048 ×2; 82040; 82962 ×2; 84100; 84550; 85025 ×2; 86704; 86705; 86706; 87340; C1752; J0690; J1644; 76000; 81003; 81015

== ENCOUNTER 2018-01-17 12:30 | Emergency (ER) | payer OTHER ==
[2018-01-17] MEDS ORDERED: NA CHLORIDE 0.9% 250 ML ONE (13:19)
[2018-01-17 13:43] LABS: Absolute Lymphocytes (CBC) 1.3 K/uL (0.7-4.9); Absolute Monocytes 0.7 K/uL (0.1-1.3); Absolute Neutrophil 5.8 K/uL (1.8-8.0); Basophils % 0.8 % (0-1.3); Eosinophils % 1.7 % (0-4.4); Hematocrit 28.4 % (39.6-49.0); Lymphocytes % 16.4 % (15.3-44.8); MCH 31.6 pg (27.0-35.0); MCV 92.4 fL (80-100); MPV 8.4 fL (7.6-11.3); Monocytes % 8.9 % (3.3-12.3); RBC Red Blood Cell Count 3.08 M/uL (4.33-5.43)
[2018-01-17 14:41] LABS: Potassium 3.3 mmol/L (3.5-5.1)
--- NOTE | 2018-01-17 14:45 | RAD REPORT ---
EXAM DESCRIPTION: RAD - Chest Single View - 01/17/2018 2:20 pm CLINICAL HISTORY: Transient alteration of awareness, shortness of breath COMPARISON: January 04 TECHNIQUE: AP portable chest image was obtained 1408 hour . FINDINGS: No peripheral mass, consolidation or pulmonary edema pattern. Dialysis catheter is in plac e. Heart size is prominent but stable. No acute vascular engorgement. No measurable pleural effusion and no pneumothorax. No gross bony abnormality seen. No acute aortic findings suspected. IMPRESSION: No acute cardiopulmonary process. No new or significant finding since prior study.
--- NOTE | 2018-01-17 15:33 | RAD REPORT ---
EXAM DESCRIPTION: CT - Head Brain Wo Cont - 01/17/2018 2:55 pm CLINICAL HISTORY: Transient alteration of awareness COMPARISON: CT study April 2017 TECHNIQUE: Axial 5 mm thick images of the head were obtained without IV contrast. All CT scans are performed using dose optimization technique as appropriate and may include automated exposure control or mA/KV adjustment according to patient size. FINDINGS: No intracranial hemorrhage, mass, edema or shift of mid-line structures. No acute cortical based infarction. No cortical edema or sulcal effacement. Mild to moderate atrophy and chronic ische arya changes are present. Ventricular size is in proportion. No abnormal extra-axial fluid collections . Arterial and physiologic calcifications are present. Intracranial findings are not significantly di fferent from comparison. Mastoid air cells and visualized portions of the paranasal sinuses are clear. No acute bony findings. IMPRESSION: Negative non-contrast CT head examination for acute finding. Mild to moderate atrophy and chronic ischemic change similar to comparison.
--- NOTE | 2018-01-17 16:16 | ER ---
Nurse's Notes [facility] Name: Sina William Age: 82 yrs Sex: Male : 1935 Arrival Date: 01/17/2018 Time: 12:32 Bed 2 Private MD: Pau Carranza Diagnosis: Dizziness and giddiness;End stage renal disease;Hypotension;Pulmonary edema Presentation: 01/17 12:40 Presenting complaint: Presenting complaint: Daughter reports he is dizzy, drowsy, and hb confused today, home SBP 70s, BGL 178. Last seen normal yesterday after HD at approx 1700. 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 Started D 2 weeks ago, //Thu. 12:49 Transition of care: patient was not received from another setting of care. Onset of hb symptoms was January 17, 2018. Risk Assessment: Do you want to hurt yourself or someone else? Patient reports no desire to harm self or others. Care prior to arrival: None. 12:49 Method Of Arrival: Wheelchair hb 12:49 Acuity: CLYDE 2 hb 13:09 Initial Sepsis Screen: Does the patient meet any 2 criteria? No. Patient's initial sv sepsis screen is negative. Does the patient have a suspected source of infection? No. Patient's initial sepsis screen is negative. Historical: - Allergies: 12:55 No Known Allergies; hb - Home Meds: 13:08 levothyroxine 25 mcg tab 1 tab once daily [Active]; carvedilol 3.125 mg oral tab 1 tab sv 2 times per day [Active]; calcifediol [Active]; cod liver oil oral oral [Active]; Glucosamine oral oral [Active]; 13:10 Tums Oral [Active]; sv - PMHx: 12:55 Arthritis; Hypertension; Amyloid CA; HD - //Thu; hb - PSHx: 12:55 cataracts; Disc surgery; hb - Immunization history:: Adult Immunizations up to date. - Social history:: Smoking status: Patient/guardian denies using tobacco. - Ebola Screening: : No symptoms or risks identified at this time. - Family history:: not pertinent. - Hospitalizations: : No recent hospitalization is reported. Screenin:50 Abuse screen: Denies threats or abuse. Denies injuries from another. Nutritional sv screening: No deficits noted. Tuberculosis screening: No symptoms or risk factors identified. Fall Risk None identified. Assessment: 12:50 General: Appears in no apparent distress. comfortable, well developed, Behavior is sv calm, cooperative, appropriate for age. Pain: Denies pain. Neuro: Level of Consciousness is awake, alert, obeys commands, Oriented to person, place, time, situation, Moves all extremities. Full function Gait is steady, Speech is normal. Cardiovascular: Patient's skin is warm and dry. Pulses are 3+ in right radial artery and left radial artery. Cardiovascular: Rhythm is sinus rhythm. Respiratory: Respiratory effort is even, unlabored, Respiratory pattern is regular, symmetrical. Derm: Skin is pink, warm \T\ dry. 13:08 Reassessment: Dr. Casillas for HD, Dr Barnett for oncology, Dr Carranza for PCP. sv 15:00 Reassessment: Patient appears in no apparent distress at this time. Patient and/or sv family updated on plan of care and expected duration. Pain level reassessed. Patient is alert, oriented x 3, equal unlabored respirations, skin warm/dry/pink. 16:31 Reassessment: Patient appears in no apparent distress at this time. Patient and/or sv family updated on plan of care and expected duration. Pain level reassessed. Patient is alert, oriented x 3, equal unlabored respirations, skin warm/dry/pink. Vital Signs: 12:45 BP 79 / 46; Pulse 60; Resp 15; Temp 97.4; Pulse Ox 98% on R/A; Pain 0/10; hb 12:53 BP 95 / 54; hb 13:12 BP 121 / 57; Pulse 61; Resp 18; Pulse Ox 98% ; sv 13:33 BP 112 / 64; Pulse 65; Resp 18; Pulse Ox 97% ; sv 14:15 BP 120 / 59; Pulse 67; Resp 18; Pulse Ox 98% ; sv 14:54 BP 131 / 74; Pulse 68; Resp 16; Pulse Ox 99% on R/A; dh3 15:43 BP 157 / 74; Pulse 57; Resp 15; Pulse Ox 97% ; sv ED Course: 12:32 Patient arrived in ED. sb2 12:32 Pau Carranza MD is Private Physician. sb2 12:41 Eddie Syed MD is Attending Physician. rn 12:50 Patient has correct armband on for positive identification. Bed in low position. Side sv rails up X2. Adult w/ patient. environmental monitoring technician on. Pulse ox on. NIBP on. Door closed. Head of bed elevated. 12:50 Initial lab(s) drawn, by me, sent to lab. Inserted saline lock: 18 gauge in right sv antecubital area, using aseptic technique. Blood collected. Flushed right antecubital with 5 ml normal saline. 12:53 Triage completed. hb 12:53 Arm band placed on right wrist. hb 12:54 Rosanne Vazquez, RN is Primary Nurse. sv 13:30 First set of blood cultures drawn by me, by venipuncture 23G to left ac. Lab(s) dh3 recollected, by me, sent to lab. 14:04 Second set of blood cultures drawn by me, by venipuncture 23G to left forearm. dh3 14:20 XRAY Chest (1 view) In Process Unspecified. EDMS 14:46 Notified ED physician of a critical lab result(s). creatinine 6.2. hb 14:55 CT completed. Patient tolerated procedure well. Patient moved back from CT. bq 14:55 CT Head Brain wo Cont In Process Unspecified. EDMS 16:16 Pau Carranza MD is Referral Physician. rn 16:32 No provider procedures requiring assistance completed. IV discontinued, intact, sv bleeding controlled, No redness/swelling at site. Pressure dressing applied. Administered Medications: 13:22 Drug: NS 0.9% 250 ml Route: IV; Rate: 1 bolus; Site: right antecubital; sv 13:45 Follow up: Response: No adverse reaction; IV Status: Completed infusion; IV Intake: sv 250ml Point of Care Testing: Blood Glucose: 12:59 Blood Glucose: 116 mg/dL; sg Ranges: Intake: 13:45 IV: 250ml; Total: 250ml. sv Outcome: 16:16 Discharge ordered by . rn 16:32 Discharged to home via wheelchair, with family. sv 16:32 Condition: stable 16:32 Discharge instructions given to patient, family, Instructed on discharge instructions, follow up and referral plans. Demonstrated understanding of instructions, follow-up care. 16:32 Patient left the ED. sv Signatures: Dispatcher [employer] EDPR Yisel Garcia RN RN aj1 Taylor, RosanneVERNON logan RN, Steven, RN RN sg Quilty, Betty bq Nieto, Roman, MD MD rn Baxter, Heather, RN RN Callie Huston [facility] Felecia Escalante 2 Corrections: (The following items were deleted from the chart) 12:53 12:40 Presenting complaint: aj1 hb 13:10 13:08 Home Meds: amlodipine 5 mg tab 1 tab once daily; sv sv 15:52 15:43 Pulse 57bpm; Resp 15bpm; Pulse Ox 97%; sv sv
--- NOTE | 2018-01-17 16:17 | EDPHYS ---
Physician Documentation [facility] Name: Sina William Age: 82 yrs Sex: Male : 1935 Arrival Date: 01/17/2018 Time: 12:32 Bed 2 Private MD: Pau Carranza ED Physician Eddie Syed HPI: 01/17 14:06 This 82 yrs old Male presents to ER via Wheelchair with complaints of LOW rn BLOOD PRESSURE. 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 Feels better now that is inside. No fever. . Onset: The symptoms/episode began/occurred this morning. Severity of symptoms: At their worst the symptoms were moderate in the emergency department the symptoms have improved. The patient has experienced similar episodes in the past. The patient has been recently seen by a physician:. Historical: - Allergies: 12:55 No Known Allergies; hb - Home Meds: 13:08 levothyroxine 25 mcg tab 1 tab once daily [Active]; carvedilol 3.125 mg oral tab 1 tab sv 2 times per day [Active]; calcifediol [Active]; cod liver oil oral oral [Active]; Glucosamine oral oral [Active]; 13:10 Tums Oral [Active]; sv - PMHx: 12:55 Arthritis; Hypertension; Amyloid CA; HD - //Thu; hb - PSHx: 12:55 cataracts; Disc surgery; hb - Immunization history:: Adult Immunizations up to date. - Social history:: Smoking status: Patient/guardian denies using tobacco. - Ebola Screening: : No symptoms or risks identified at this time. - Family history:: not pertinent. - Hospitalizations: : No recent hospitalization is reported. ROS: 14:06 Constitutional: Negative for fever, chills, and weight loss, Eyes: Negative for injury, rn pain, redness, and discharge, Neck: Negative for injury, pain, and swelling, Cardiovascular: Negative for chest pain, palpitations Respiratory: Negative for cough, wheezing, and pleuritic chest pain, Abdomen/GI: Negative for abdominal pain, nausea, vomiting, diarrhea, and constipation, MS/Extremity: Negative for injury and deformity, Skin: Negative for injury, rash, and discoloration, Neuro: Negative for headache, numbness, tingling, and seizure. Exam: 16:04 Constitutional: This is a well developed, well nourished patient who is awake, alert, rn and in no acute distress. Head/Face: Normocephalic, atraumatic. Eyes: Pupils equal round and reactive to light, extra-ocular motions intact. Lids and lashes normal. Conjunctiva and sclera are non-icteric and not injected. Cornea within normal limits. Periorbital areas with no swelling, redness, or edema. Neck: Trachea midline, no thyromegaly or masses palpated, and no cervical lymphadenopathy. Supple, full range of motion without nuchal rigidity, or vertebral point tenderness. No Meningismus. Cardiovascular: Regular rate and rhythm with a normal S1 and S2. No gallops, murmurs, or rubs. Normal PMI, no JVD. No pulse deficits. Respiratory: Mild tachypnea, intermittent, light bibasilar crackles, no wheezing, no retractions Abdomen/GI: Soft, non-tender, with normal bowel sounds. No distension or tympany. No guarding or rebound. No evidence of tenderness throughout. MS/ Extremity: Pulses equal, no cyanosis. Neurovascular intact. Full, normal range of motion. Equal circumference. Neuro: Awake and alert, GCS 15, oriented to person, place, time, and situation. Cranial nerves II-XII grossly intact. Motor strength 5/5 in all extremities. Sensory grossly intact. Cerebellar exam normal. Vital Signs: 12:45 BP 79 / 46; Pulse 60; Resp 15; Temp 97.4; Pulse Ox 98% on R/A; Pain 0/10; hb 12:53 BP 95 / 54; hb 13:12 BP 121 / 57; Pulse 61; Resp 18; Pulse Ox 98% ; sv 13:33 BP 112 / 64; Pulse 65; Resp 18; Pulse Ox 97% ; sv 14:15 BP 120 / 59; Pulse 67; Resp 18; Pulse Ox 98% ; sv 14:54 BP 131 / 74; Pulse 68; Resp 16; Pulse Ox 99% on R/A; dh3 15:43 BP 157 / 74; Pulse 57; Resp 15; Pulse Ox 97% ; sv MDM: 12:41 Patient medically screened. rn 16:04 Differential Diagnosis dehydration, PNA, amyloidosis, pulmonary edema. Data reviewed: rn vital signs, nurses notes, lab test result(s), EKG, radiologic studies, CT scan, plain films, and as a result, I will discharge patient. Counseling: I had a detailed discussion with the patient and/or guardian regarding: the historical points, exam findings, and any diagnostic results supporting the discharge/admit diagnosis, lab results, radiology results, the need for outpatient follow up, to return to the emergency department if symptoms worsen or persist or if there are any questions or concerns that arise at home. Response to treatment: the patient's symptoms have markedly improved after treatment, the patient's condition has returned to base line, the patient is now symptom free, and as a result, I will discharge patient. ED course: Offered admission/observation for elevated BNP, trop likely elevated due to pulmonary edema, could benefit from extra dialysis and observation, patient wants to go home, is asymptomatic at this time, only 250cc bolus given and BP currently 159/74, denies chest pain/dyspnea at this time, family discussed with him and all agree to go home, will f/uw ith normally scheduled dialysis in 2 days, return precautions given and understood.. 01/17 13:07 Order name: Basic Metabolic Panel; Complete Time: 14:53 rn 01/17 13:07 Order name: CBC with Diff; Complete Time: 14:53 rn 01/17 13:07 Order name: Troponin (emerg Dept Use Only); Complete Time: 14:53 rn 01/17 13:07 Order name: Blood Culture Adult (2) rn 01/17 13:07 Order name: EKG; Complete Time: 13:07 rn 01/17 13:07 Order name: Cardiac monitoring; Complete Time: 13:11 rn 01/17 13:07 Order name: Procalcitonin; Complete Time: 14:53 rn 01/17 13:07 Order name: XRAY Chest (1 view); Complete Time: 14:53 rn 01/17 13:07 Order name: N-Terminal Pro-brain Natriuretic Peptide; Complete Time: 14:53 rn 01/17 13:46 Order name: Glucose, Ancillary Testing; Complete Time: 14:53 EDMS 01/17 14:10 Order name: CT Head Brain wo Cont; Complete Time: 15:39 rn 01/17 13:07 Order name: EKG - Nurse/Tech; Complete Time: 13:24 rn 01/17 13:07 Order name: IV Saline Lock; Complete Time: 13:11 rn 01/17 13:07 Order name: Labs collected and sent; Complete Time: 13:11 rn 01/17 13:07 Order name: NPO; Complete Time: 13:11 rn 01/17 13:07 Order name: O2 Per Protocol; Complete Time: 13:12 rn 01/17 13:07 Order name: O2 Sat Monitoring; Complete Time: 13:12 rn Administered Medications: 13:22 Drug: NS 0.9% 250 ml Route: IV; Rate: 1 bolus; Site: right antecubital; sv 13:45 Follow up: Response: No adverse reaction; IV Status: Completed infusion; IV Intake: sv 250ml Point of Care Testing: Blood Glucose: 12:59 Blood Glucose: 116 mg/dL; sg Ranges: Critical Glucose Levels:Adult <50 mg/dl or >400 mg/dl <40 mg/dl or >180 mg/dl Disposition: 01/17/18 16:16 Discharged to Home. Impression: Dizziness and giddiness, End stage renal disease, Hypotension, Pulmonary edema. - Condition is Stable. - Discharge Instructions: Dizziness, Pulmonary Edema, Dialysis. - Medication Reconciliation Form, Thank You Letter, Antibiotic Education, Prescription Opioid Use form. - Follow up: Pau Carranza MD; When: As needed; Reason: Recheck today's complaints, Re-evaluation by your physician. - Problem is new. - Symptoms have improved. Signatures: Dispatcher [employer] [facility] Rosanne Vazquez RN RN sv Nieto, Roman, MD MD rn Baxter, Heather, RN RN Corrections: (The following items were deleted from the chart) 13:10 13:08 Home Meds: amlodipine 5 mg tab 1 tab once daily; [facility] 16:32 16:16 01/17/2018 16:16 Discharged to Home. Impression: Dizziness and giddiness; End sv stage renal disease; Hypotension; Pulmonary edema. Condition is Stable. Forms are Medication Reconciliation Form, Thank You Letter, Antibiotic Education, Prescription Opioid Use. Follow up: Pau Carranza; When: As needed; Reason: Recheck today's complaints, Re-evaluation by your physician. Problem is new. Symptoms have improved. rn
[2018-01-17 16:37] VITALS: TEMP 97.4
[2018-01-17 16:44] VITALS: BP 157/74; O2SAT 97
--- NOTE | 2018-01-18 05:43 | EKG ---
Test Date: 2018-01-17 Test Time: 13:19:13 [place] Supervisor: GEOFFREY MEASUREMENT RESULTS: Intervals: Rate: 61 KS: 188 QRSD: 140 QT: 482 QTc: 485 [place]: P: 103 KS: 188 QRS: 18 T: 75 INTERPRETIVE STATEMENTS: Sinus rhythm with premature atrial complexes Incomplete right bundle branch block Abnormal ECG Compared to ECG 11/13/2017 15:41:35 Atrial premature complex(es) now present Sinus bradycardia no longer present Right bundle-branch block no longer present Electronically Signed On 01-18-18 05:43:11 CDT by Bryn Almodovar
== END 2018-01-17 16:32 | disposition home or self-care (01) ==
LOC: ER 12:30
DX: I95.9 Hypotension, unspecified (principal); I12.0 Hypertensive chronic kidney disease with stage 5 chronic kidney disease or end stage renal disease; N18.6 End stage renal disease; Z99.2 Dependence on renal dialysis; J81.1 Chronic pulmonary edema
CPT/HCPCS: 36415; 70450; 71045; 80048; 82962; 83880; 84145; 84484; 85025; 87040; 93005; 96360; 96365; 99285

== ENCOUNTER 2018-06-03 17:09 | Emergency (ER) | payer OTHER ==
--- NOTE | 2018-06-03 18:52 | RAD REPORT ---
EXAM DESCRIPTION: RAD - Knee Left 3 View - 06/03/2018 6:39 pm CLINICAL HISTORY: PAIN Trauma, pain COMPARISON: No comparisons FINDINGS: Moderate medial compartment space narrowing is present with small osteophytes compatible w ith right knee medial compartment osteoarthritis. No acute fracture or dislocation seen. No intra-art icular joint effusion.
--- NOTE | 2018-06-03 18:53 | RAD REPORT ---
EXAM DESCRIPTION: RAD - Knee Right 3 View - 06/03/2018 6:40 pm CLINICAL HISTORY: PAIN COMPARISON: No comparisons Fall, trauma, pain FINDINGS: Moderate right medial compartment space narrowing is present compatible with osteoarthriti s. No acute fracture or dislocation. No intra-articular joint effusion.
--- NOTE | 2018-06-03 18:56 | RAD REPORT ---
EXAM DESCRIPTION: RAD - Foot Right 3 View - 06/03/2018 6:39 pm CLINICAL HISTORY: PAIN Fall, pain COMPARISON: No comparisons FINDINGS: Moderate right flatfoot deformity is seen. Vascular calcifications are noted. No acute fra cture or dislocation. Prominent calcaneal spurs.
--- NOTE | 2018-06-03 19:43 | ER ---
Nurse's Notes [facility] Name: Sina William Age: 83 yrs Sex: Male : 1935 Arrival Date: 06/03/2018 Time: 17:12 Bed 13 Private MD: Pau Carranza Diagnosis: Pain in left knee;Pain in right knee;Fall on same level from slipping, tripping and stumbling;Pain in right foot Presentation: 06/03 17:27 Presenting complaint: Patient states: I got my foot caught up in my walker and tripped ph and fell." Pt reports pain in kate feet and knees worse on R side, denies head injury or LOC. Transition of care: patient was not received from another setting of care. Onset of symptoms was June 03, 2018. Risk Assessment: Do you want to hurt yourself or someone else? Patient reports no desire to harm self or others. Care prior to arrival: None. 17:27 Method Of Arrival: Wheelchair ph 17:27 Acuity: CLYDE 3 ph Historical: - Allergies: 17:31 No Known Drug Allergies; ph - Home Meds: 17:31 levothyroxine 25 mcg tab 1 tab once daily [Active]; calcifediol [Active]; Acyclovir ph Oral [Active]; Dexamethasone Oral [Active]; aspirin 81 mg Oral chew [Active]; sevelamer HCl oral oral [Active]; - PMHx: 17:31 Amyloid CA; Arthritis; HD - //Sat; Hypertension; chemo; Osteoporosis; ph - PSHx: 17:31 cataracts; Disc surgery; ph - Immunization history:: Adult Immunizations up to date. Screenin:09 Abuse screen: Denies threats or abuse. Denies injuries from another. Nutritional aj1 screening: No deficits noted. Tuberculosis screening: No symptoms or risk factors identified. Assessment: 18:09 General: Appears in no apparent distress. uncomfortable, Behavior is calm, cooperative, aj1 appropriate for age. Pain: Complains of pain in dorsum of right foot, right ankle, right knee and left knee Pain does not radiate. Pain currently is 5 out of 10 on a pain scale. Quality of pain is described as aching. Neuro: Level of Consciousness is awake, alert, obeys commands, Oriented to person, place, time, situation. Cardiovascular: Patient's skin is warm and dry. Respiratory: Airway is patent Respiratory effort is even, unlabored, Respiratory pattern is regular, symmetrical. GI: No signs and/or symptoms were reported involving the gastrointestinal system. : EENT: No signs and/or symptoms were reported regarding the EENT system. Derm: No signs and/or symptoms reported regarding the dermatologic system. Skin is pink, warm \\T\\ dry. normal. Musculoskeletal: Range of motion: intact in right ankle limited in left knee and right knee. 19:10 General: Appears in no apparent distress. uncomfortable, Behavior is calm, cooperative, rr5 appropriate for age. Pain: Complains of pain in bilateral knee Pain does not radiate. Pain currently is 4 out of 10 on a pain scale. Quality of pain is described as aching, Pain began suddenly, Is intermittent. 19:10 Neuro: Level of Consciousness is awake, alert, obeys commands, Oriented to person, rr5 place, time, situation. Cardiovascular: Capillary refill < 3 seconds Patient's skin is warm and dry. Respiratory: Airway is patent Respiratory effort is even, unlabored, Respiratory pattern is regular, symmetrical. GI: No signs and/or symptoms were reported involving the gastrointestinal system. : No signs and/or symptoms were reported regarding the genitourinary system. EENT: No signs and/or symptoms were reported regarding the EENT system. Derm: Skin is intact, Skin is pink, warm \\T\\ dry. normal. Derm: Bruising that is dark purple, on bilateral knee. Musculoskeletal: Range of motion: limited in left knee and right knee. 20:06 Reassessment: Patient appears in no apparent distress at this time. Patient and/or rr5 family updated on plan of care and expected duration. Pain level reassessed. discharge instruction given and explained with no complaints made. Patient states symptoms have improved. Vital Signs: 17:31 BP 170 / 73; Pulse 75; Resp 18; Temp 97.8; Pulse Ox 98% on R/A; Weight 77.11 kg; Height ph 5 ft. 7 in. (170.18 cm); 19:10 BP 181 / 75; Pulse 70; Resp 17; Pulse Ox 99% ; Pain 4/10; rr5 20:00 BP 168 / 75; Pulse 71; Resp 17; Pulse Ox 100% ; rr5 17:31 Body Mass Index 26.63 (77.11 kg, 170.18 cm) ED Course: 17:12 Patient arrived in ED. mr 17:14 Pau Carranza MD is Private Physician. mr 17:28 Triage completed. ph 17:32 Arm band placed on. ph 17:36 Yisel Garcia, RN is Primary Nurse. aj1 17:52 Julia Manning FNP-C [facility]. kb 17:52 Faraz Chaney MD is Attending Physician. kb 18:09 Patient has correct armband on for positive identification. Placed in gown. Bed in low aj1 position. Call light in reach. 18:09 No provider procedures requiring assistance completed. aj1 18:40 Foot Right 3 View XRAY In Process Unspecified. EDMS 18:40 Knee Left 3 View XRAY In Process Unspecified. EDMS 18:40 Knee Right 3 View XRAY In Process Unspecified. EDMS 20:07 Patient did not have IV access during this emergency room visit. rr5 Administered Medications: No medications were administered Outcome: 19:42 Discharge ordered by MD. kb 20:00 Discharged to home via wheelchair, with family. rr5 20:00 Condition: stable 20:00 Discharge instructions given to patient, Instructed on discharge instructions, follow up and referral plans. Demonstrated understanding of instructions, follow-up care. 20:08 Patient left the ED. rr5 Signatures: Dispatcher [employer] EDMS Julia Manning, Yisel Miller RN RN [facility] Theodora Hester Jaylyn Davis RN RN Dwayne Edwards RN RN rr5
--- NOTE | 2018-06-03 19:43 | EDPHYS ---
Physician Documentation [facility] Name: Sina William Age: 83 yrs Sex: Male : 1935 Arrival Date: 06/03/2018 Time: 17:12 Bed 13 Private MD: Pau Carranza ED Physician Faraz Chaney HPI: 06/03 19:42 This 83 yrs old Male presents to ER via Wheelchair with complaints of Fall kb Injury. 19:42 Details of fall: The patient fell from an upright position. Onset: The symptoms/episode kb began/occurred today. Associated injuries: The patient sustained right foot and right knee and left knee, painful injury. Severity of symptoms: At their worst the symptoms were mild, moderate, in the emergency department the symptoms are unchanged. The patient has not experienced similar symptoms in the past. The patient has not recently seen a physician. Historical: - Allergies: 17:31 No Known Drug Allergies; ph - Home Meds: 17:31 levothyroxine 25 mcg tab 1 tab once daily [Active]; calcifediol [Active]; Acyclovir ph Oral [Active]; Dexamethasone Oral [Active]; aspirin 81 mg Oral chew [Active]; sevelamer HCl oral oral [Active]; - PMHx: 17:31 Amyloid CA; Arthritis; HD - //Thu; Hypertension; chemo; Osteoporosis; ph - PSHx: 17:31 cataracts; Disc surgery; ph - Immunization history:: Adult Immunizations up to date. ROS: 19:58 Constitutional: Negative for fever, chills, and weight loss, Cardiovascular: Negative kb for chest pain, palpitations, and edema, Respiratory: Negative for shortness of breath, cough, wheezing, and pleuritic chest pain, Abdomen/GI: Negative for abdominal pain, nausea, vomiting, diarrhea, and constipation, Skin: Negative for injury, rash, and discoloration, Neuro: Negative for headache, weakness, numbness, tingling, and seizure. 19:58 MS/extremity: Positive for injury or acute deformity, pain, swelling, tenderness, of the right foot and right knee and left knee. Exam: 19:58 Constitutional: This is a well developed, well nourished patient who is awake, alert, kb and in no acute distress. Head/Face: Normocephalic, atraumatic. Chest/axilla: Normal chest wall appearance and motion. Nontender with no deformity. No lesions are appreciated. Cardiovascular: Regular rate and rhythm with a normal S1 and S2. No gallops, murmurs, or rubs. Normal PMI, no JVD. No pulse deficits. Respiratory: Lungs have equal breath sounds bilaterally, clear to auscultation and percussion. No rales, rhonchi or wheezes noted. No increased work of breathing, no retractions or nasal flaring. Abdomen/GI: Soft, non-tender, with normal bowel sounds. No distension or tympany. No guarding or rebound. No evidence of tenderness throughout. Skin: Warm, dry with normal turgor. Normal color with no rashes, no lesions, and no evidence of cellulitis. Neuro: Awake and alert, GCS 15, oriented to person, place, time, and situation. Cranial nerves II-XII grossly intact. Motor strength 5/5 in all extremities. Sensory grossly intact. Cerebellar exam normal. Normal gait. 19:58 Musculoskeletal/extremity: Extremities: grossly normal except: noted in the right foot and right knee and left knee: decreased ROM, pain, swelling, tenderness, ROM: intact in all extremities, Circulation is intact in all extremities. Sensation intact. Weight bearing: can bear weight with assistance only, uses walker. Vital Signs: 17:31 BP 170 / 73; Pulse 75; Resp 18; Temp 97.8; Pulse Ox 98% on R/A; Weight 77.11 kg; Height ph 5 ft. 7 in. (170.18 cm); 19:10 BP 181 / 75; Pulse 70; Resp 17; Pulse Ox 99% ; Pain 4/10; rr5 20:00 BP 168 / 75; Pulse 71; Resp 17; Pulse Ox 100% ; rr5 17:31 Body Mass Index 26.63 (77.11 kg, 170.18 cm) ph MDM: 17:52 Patient medically screened. kb 19:55 Data reviewed: vital signs, nurses notes. Data interpreted: Pulse oximetry: on room air kb is 98 %. Interpretation: normal. Counseling: I had a detailed discussion with the patient and/or guardian regarding: the historical points, exam findings, and any diagnostic results supporting the discharge/admit diagnosis, radiology results, the need for outpatient follow up, a family practitioner, to return to the emergency department if symptoms worsen or persist or if there are any questions or concerns that arise at home. 06/03 17:57 Order name: Foot Right 3 View XRAY; Complete Time: 18:57 kb 06/03 17:57 Order name: Knee Left 3 View XRAY; Complete Time: 18:56 kb 06/03 17:57 Order name: Knee Right 3 View XRAY; Complete Time: 18:56 kb Administered Medications: No medications were administered Disposition: 06/03/18 19:42 Discharged to Home. Impression: Pain in left knee, Pain in right knee, Fall on same level from slipping, tripping and stumbling, Pain in right foot. - Condition is Stable. - Discharge Instructions: Musculoskeletal Pain, Fall Prevention in the Home, [id number]. - Medication Reconciliation Form, Thank You Letter, Antibiotic Education, Prescription Opioid Use form. - Follow up: Emergency Department; When: As needed; Reason: Worsening of condition. Follow up: Private Physician; When: 2 - 3 days; Reason: Recheck today's complaints, Continuance of care, Re-evaluation by your physician. Addendum: 06/05/2018 15:34 Co-signature as Attending Physician, Faraz Chaney MD. m a2 Signatures: Dispatcher [employer] EDMS Julia Manning, FAMILY LAW SPECIALIST-C FAMILY LAW SPECIALIST-Ckb Yisel Garcia RN RN aj1 Jaylyn Davis RN RN Faraz Chaney MD MD ma2 Dwayne Edwards RN RN rr5 Corrections: (The following items were deleted from the chart) 06/03 20:08 19:42 06/03/2018 19:42 Discharged to Home. Impression: Pain in left knee; Pain in right rr5 knee; Fall on same level from slipping, tripping and stumbling; Pain in right foot. Condition is Stable. Forms are Medication Reconciliation Form, Thank You Letter, Antibiotic Education, Prescription Opioid Use. Follow up: Emergency Department; When: As needed; Reason: Worsening of condition. Follow up: Private Physician; When: 2 - 3 days; Reason: Recheck today's complaints, Continuance of care, Re-evaluation by your physician. kb
[2018-06-03 21:20] VITALS: TEMP 97.8
[2018-06-03 21:22] VITALS: BP 168/75; O2SAT 100
== END 2018-06-03 20:08 | disposition home or self-care (01) ==
LOC: ER 17:09
DX: M25.561 Pain in right knee (principal); M25.562 Pain in left knee; M79.671 Pain in right foot; W01.0XXA Fall on same level from slipping, tripping and stumbling without subsequent striking against object, initial encounter; M77.31 Calcaneal spur, right foot; M21.41 Flat foot [pes planus] (acquired), right foot; I10 Essential (primary) hypertension; M19.90 Unspecified osteoarthritis, unspecified site; M81.0 Age-related osteoporosis without current pathological fracture; Z79.82 Long term (current) use of aspirin; Z79.899 Other long term (current) drug therapy
CPT/HCPCS: 99283

== ENCOUNTER 2018-08-15 23:28 | Emergency (ER) | payer OTHER ==
[2018-08-16] MEDS ORDERED: cloNIDine HCl 0.1 MG TAB ONE (01:34)
--- NOTE | 2018-08-16 02:26 | EDPHYS ---
Physician Documentation [facility] Name: Sina William Age: 83 yrs Sex: Male : 1935 Arrival Date: 08/16/2018 Time: 00:12 Bed 17 Private MD: ED Physician Mike Menjivar HPI: 08/16 02:32 This 83 yrs old Male presents to ER via Ambulatory with complaints of Blood tw4 Pressure Problem. 02:32 The patient has elevated blood pressure and discovered this at home, with a home tw4 device. Onset: The symptoms/episode began/occurred today. Modifying factors:. Associated signs and symptoms: The patient has no apparent associated signs or symptoms. Severity of symptoms: At its worst the blood pressure was 200 mm Hg. The patient has not experienced similar symptoms in the past. Historical: - Allergies: 00:24 No Known Allergies; bb - Home Meds: 00:24 metoprolol succinate 25 mg oral Tb24 1 tab once daily [Active]; aspirin 81 mg Oral chew bb [Active]; Acyclovir Oral [Active]; cod liver oil Oral [Active]; calcifediol [Active]; sevelamer HCl Oral [Active]; levothyroxine 25 mcg tab 1 tab once daily [Active]; - PMHx: 00:24 Amyloid CA; Arthritis; HD - //Thu; Hypertension; Osteoporosis; bb - PSHx: 00:24 cataracts; Disc surgery; bb - Immunization history:: Adult Immunizations up to date. - Social history:: Smoking status: Patient/guardian denies using tobacco. - Ebola Screening: : No symptoms or risks identified at this time. ROS: 02:32 Constitutional: Negative for fever, chills, and weight loss, Eyes: Negative for injury, tw4 pain, redness, and discharge, Cardiovascular: Negative for chest pain, palpitations, and edema, Respiratory: Negative for shortness of breath, cough, wheezing, and pleuritic chest pain, Abdomen/GI: Negative for abdominal pain, nausea, vomiting, diarrhea, and constipation, Back: Negative for injury and pain, MS/Extremity: Negative for injury and deformity, Skin: Negative for injury, rash, and discoloration, Neuro: Negative for headache, weakness, numbness, tingling, and seizure. Exam: 02:32 Constitutional: This is a well developed, well nourished patient who is awake, alert, tw4 and in no acute distress. Head/Face: Normocephalic, atraumatic. Chest/axilla: Normal chest wall appearance and motion. Nontender with no deformity. No lesions are appreciated. Cardiovascular: Regular rate and rhythm with a normal S1 and S2. No gallops, murmurs, or rubs. Normal PMI, no JVD. No pulse deficits. Respiratory: Lungs have equal breath sounds bilaterally, clear to auscultation and percussion. No rales, rhonchi or wheezes noted. No increased work of breathing, no retractions or nasal flaring. Abdomen/GI: Soft, non-tender, with normal bowel sounds. No distension or tympany. No guarding or rebound. No evidence of tenderness throughout. Back: No spinal tenderness. No costovertebral tenderness. Full range of motion. MS/ Extremity: Pulses equal, no cyanosis. Neurovascular intact. Full, normal range of motion. Neuro: Awake and alert, GCS 15, oriented to person, place, time, and situation. Cranial nerves II-XII grossly intact. Motor strength 5/5 in all extremities. Sensory grossly intact. Cerebellar exam normal. Normal gait. Psych: Awake, alert, with orientation to person, place and time. Behavior, mood, and affect are within normal limits. Vital Signs: 00:24 BP 198 / 80; Pulse 61; Resp 18 S; Temp 98.8(O); Pulse Ox 95% on R/A; Weight 77.11 kg bb (R); Height 5 ft. 7 in. (170.18 cm) (R); Pain 5/10; 00:42 BP 192 / 74; Pulse 57; Resp 18; Pulse Ox 98% on R/A; tl2 01:30 BP 177 / 72; Pulse 51; Resp 18; Pulse Ox 96% on R/A; tl2 02:02 BP 138 / 65; Pulse 48; Resp 18; Pulse Ox 96% on R/A; tl2 00:24 Body Mass Index 26.63 (77.11 kg, 170.18 cm) bb MDM: 00:59 Patient medically screened. tw4 02:32 Differential diagnosis: hypertensive crisis, Malignant HTN. Data reviewed: vital signs, tw4 nurses notes. Data interpreted: quality assurance monitor chassis: Pulse oximetry: Interpretation: normal. Counseling: I had a detailed discussion with the patient and/or guardian regarding: the historical points, exam findings, and any diagnostic results supporting the discharge/admit diagnosis. Special discussion: I discussed with the patient/guardian in detail that at this point there is no indication for admission to the hospital. It is understood, however, that if the symptoms persist or worsen the patient needs to return immediately for re-evaluation. 02:34 Medication response: clonidine reduced the patient's elevated blood pressure to within tw4 acceptable limits. Response to treatment: and as a result, I will discharge patient. Administered Medications: 01:23 CANCELLED (Duplicate Order): cloNIDine 0.2 mg PO once bb 01:26 Drug: cloNIDine 0.2 mg Route: PO; tl2 02:32 Follow up: Response: No adverse reaction; Blood pressure is lowered tl2 Disposition: 08/16/18 02:25 Discharged to Home. Impression: Hypertension secondary to other renal disorders. - Condition is Stable. - Discharge Instructions: Hypertension, Hypertension, [id number]. - Medication Reconciliation Form, Thank You Letter, Antibiotic Education, Prescription Opioid Use form. - Follow up: Private Physician; When: Upon discharge from the Emergency Department; Reason: If symptoms return, Recheck today's complaints, Continuance of care. - Problem is new. - Symptoms have improved. Signatures: Trina Molina RN RN bb Yudi Rodríguez RN RN tl2 Mike Menjivar MD MD tw4 Corrections: (The following items were deleted from the chart) 01:23 01:00 cloNIDine 0.2 mg PO once ordered. tl2 bb 02:34 02:25 08/16/2018 02:25 Discharged to Home. Impression: Hypertension secondary to other tl2 renal disorders. Condition is Stable. Forms are Medication Reconciliation Form, Thank You Letter, Antibiotic Education, Prescription Opioid Use. Follow up: Private Physician; When: Upon discharge from the Emergency Department; Reason: If symptoms return, Recheck today's complaints, Continuance of care. Problem is new. Symptoms have improved. tw4
--- NOTE | 2018-08-16 02:26 | ER ---
Nurse's Notes [facility] Name: Sina William Age: 83 yrs Sex: Male : 1935 Arrival Date: 08/16/2018 Time: 00:12 Bed 17 Private MD: Diagnosis: Hypertension secondary to other renal disorders Presentation: 08/16 00:19 Presenting complaint: Patient states: he has been having blood pressure problems for bb about a week with his BP being elevated pt was recently put on new BP medication and pt is a dialysis pt. Transition of care: patient was not received from another setting of care. Onset of symptoms is unknown. Risk Assessment: Do you want to hurt yourself or someone else? Patient reports no desire to harm self or others. Initial Sepsis Screen: Does the patient meet any 2 criteria? No. Patient's initial sepsis screen is negative. Does the patient have a suspected source of infection? No. Patient's initial sepsis screen is negative. Care prior to arrival: None. 00:19 Method Of Arrival: Ambulatory bb 00:19 Acuity: CLYDE 2 bb Historical: - Allergies: 00:24 No Known Allergies; bb - Home Meds: 00:24 metoprolol succinate 25 mg oral Tb24 1 tab once daily [Active]; aspirin 81 mg Oral chew bb [Active]; Acyclovir Oral [Active]; cod liver oil Oral [Active]; calcifediol [Active]; sevelamer HCl Oral [Active]; levothyroxine 25 mcg tab 1 tab once daily [Active]; - PMHx: 00:24 Amyloid CA; Arthritis; HD - //Thu; Hypertension; Osteoporosis; bb - PSHx: 00:24 cataracts; Disc surgery; bb - Immunization history:: Adult Immunizations up to date. - Social history:: Smoking status: Patient/guardian denies using tobacco. - Ebola Screening: : No symptoms or risks identified at this time. Screenin:42 Abuse screen: Denies threats or abuse. Nutritional screening: No deficits noted. tl2 Tuberculosis screening: No symptoms or risk factors identified. Fall Risk None identified. Assessment: 00:42 General: Appears in no apparent distress. comfortable, Behavior is calm, cooperative, tl2 appropriate for age, Pt reports that his BP med was changed from Amlodipine 5 mg to Metoprolol 25 mg last week and his BP has been high since then. Pain: Denies pain. Neuro: Level of Consciousness is awake, alert, obeys commands, Oriented to person, place, time, situation. Cardiovascular: Denies chest pain. Respiratory: Airway is patent Respiratory effort is even, unlabored, Respiratory pattern is regular, symmetrical. GI: No signs and/or symptoms were reported involving the gastrointestinal system. : No signs and/or symptoms were reported regarding the genitourinary system. Derm: Skin is pink, warm \T\ dry. 01:30 Reassessment: Patient appears in no apparent distress at this time. Patient and/or tl2 family updated on plan of care and expected duration. Pain level reassessed. Patient is alert, oriented x 3, equal unlabored respirations, skin warm/dry/pink. 02:30 Reassessment: Patient appears in no apparent distress at this time. Patient and/or tl2 family updated on plan of care and expected duration. Pain level reassessed. Patient is alert, oriented x 3, equal unlabored respirations, skin warm/dry/pink. pt verbalized understanding of discharge instructions, need for follow up Patient states feeling better. Vital Signs: 00:24 BP 198 / 80; Pulse 61; Resp 18 S; Temp 98.8(O); Pulse Ox 95% on R/A; Weight 77.11 kg bb (R); Height 5 ft. 7 in. (170.18 cm) (R); Pain 5/10; 00:42 BP 192 / 74; Pulse 57; Resp 18; Pulse Ox 98% on R/A; tl2 01:30 BP 177 / 72; Pulse 51; Resp 18; Pulse Ox 96% on R/A; tl2 02:02 BP 138 / 65; Pulse 48; Resp 18; Pulse Ox 96% on R/A; tl2 00:24 Body Mass Index 26.63 (77.11 kg, 170.18 cm) bb ED Course: 00:12 Patient arrived in ED. es 00:20 Triage completed. bb 00:24 Arm band placed on Patient placed in an exam room, on a stretcher, on electronic device monitor, bb on pulse oximetry. 00:35 Yudi Rodríguez, RN is Primary Nurse. tl2 00:42 Patient has correct armband on for positive identification. Bed in low position. Call tl2 light in reach. Side rails up X 1. 00:59 Mike Menjivar MD is Attending Physician. tw4 02:30 No provider procedures requiring assistance completed. Patient did not have IV access tl2 during this emergency room visit. Administered Medications: 01:23 CANCELLED (Duplicate Order): cloNIDine 0.2 mg PO once bb 01:26 Drug: cloNIDine 0.2 mg Route: PO; tl2 02:32 Follow up: Response: No adverse reaction; Blood pressure is lowered tl2 Outcome: 02:25 Discharge ordered by . tw4 02:30 Discharged to home ambulatory. tl2 02:30 Condition: stable 02:30 Discharge instructions given to patient, Instructed on discharge instructions, follow up and referral plans. Demonstrated understanding of instructions, follow-up care. 02:34 Patient left the ED. tl2 Signatures: Melinda Poe Brenda RN RN bb Yudi Rodríguez RN RN tl2 Mike Menjivar MD MD tw4
[2018-08-16 03:12] VITALS: TEMP 98.8
[2018-08-16 03:15] VITALS: O2SAT 96
[2018-08-16 03:16] VITALS: BP 138/65
== END 2018-08-16 02:34 | disposition home or self-care (01) ==
LOC: ER 23:28
DX: I15.1 Hypertension secondary to other renal disorders (principal); M81.0 Age-related osteoporosis without current pathological fracture; Z79.82 Long term (current) use of aspirin
CPT/HCPCS: 99283

== ENCOUNTER 2018-09-05 16:45 | Emergency (ER) | payer OTHER ==
[2018-09-05] MEDS ORDERED: cloNIDine HCl 0.1 MG TAB ONE (18:28)
[2018-09-05 18:29] LABS: Absolute Monocytes 0.7 K/uL (0.1-1.3); Basophils % 0.5 % (0-1.3); Eosinophils % 6.1 % (0-4.4); Hematocrit 36.3 % (39.6-49.0); Lymphocytes % 20.7 % (15.3-44.8); MPV 8.9 fL (7.6-11.3); Monocytes % 13.6 % (3.3-12.3); RBC Red Blood Cell Count 3.68 M/uL (4.33-5.43)
[2018-09-05 18:41] LABS: Potassium 4.8 mmol/L (3.5-5.1)
--- NOTE | 2018-09-05 18:51 | RAD REPORT ---
EXAM DESCRIPTION: CT - Head Brain Wo Cont - 09/05/2018 6:44 pm CLINICAL HISTORY: Hyperglycemia, transient alteration of awareness, headache, hypertension COMPARISON: CT study January 2018 TECHNIQUE: Axial 5 mm thick images of the head were obtained without IV contrast. All CT scans are performed using dose optimization technique as appropriate and may include automated exposure control or mA/KV adjustment according to patient size. FINDINGS: No intracranial hemorrhage, mass, edema or shift of mid-line structures. No acute infarcti on changes seen. No cortical edema or sulcal effacement. Moderate atrophy and chronic ischemic change s are present. Ventricular size is in proportion to the amount of volume loss. Arterial and physiolog ic calcifications are present. Mastoid air cells and visualized portions of the paranasal sinuses are clear. No acute bony findings. IMPRESSION: Moderate severity for age atrophy and chronic ischemic change. Findings are similar to A ugust 2018. No hemorrhage, mass or acute intracranial finding.
--- NOTE | 2018-09-05 18:56 | EDPHYS ---
Physician Documentation [facility] Name: Sina William Age: 83 yrs Sex: Male : 1935 Arrival Date: 09/05/2018 Time: 16:45 Bed 6 Private MD: out of town, doctor ED Physician Eddie Syed HPI: 09/05 18:22 This 83 yrs old Male presents to ER via Wheelchair with complaints of High rn Blood Pressure. 18:22 The patient has elevated blood pressure and discovered this at home. Onset: The rn symptoms/episode began/occurred at an unknown time. Modifying factors:. Severity of symptoms: At its worst the blood pressure was moderate, in the emergency department the blood pressure is improved. The patient has experienced similar episodes in the past. Reports dialysis patient, has had high blood pressure for a while, more difficult to control recently, just had lisinopril increased to BID, denies focal neurological complaints, no chest pain, had mild sob today but now resolved, no abd pain/vomiting. Told by home health nurse to come in for evaluation. Last dialysis yesterday. . Historical: - Allergies: 17:13 No Known Allergies; la1 - Home Meds: 17:13 Acyclovir Oral [Active]; aspirin 81 mg Oral chew [Active]; calcifediol [Active]; cod hj liver oil Oral [Active]; levothyroxine 25 mcg tab 1 tab once daily [Active]; metoprolol succinate 25 mg Oral Tb24 1 tab once daily [Active]; sevelamer HCl Oral [Active]; - PMHx: 17:13 Amyloid CA; Arthritis; HD - //Thu; Hypertension; Osteoporosis; la1 - PSHx: 17:13 cataracts; Disc surgery; hj - Immunization history:: Adult Immunizations up to date. - Social history:: Smoking status: Patient/guardian denies using tobacco. - Ebola Screening: : No symptoms or risks identified at this time. - Family history:: not pertinent. - Hospitalizations: : No recent hospitalization is reported. ROS: 18:22 Constitutional: Negative for fever, chills, and weight loss, Eyes: Negative for injury, rn pain, redness, and discharge, Neck: Negative for injury, pain, and swelling, Cardiovascular: Negative for chest pain, palpitations, and edema, Respiratory: Negative for cough, wheezing, and pleuritic chest pain, Abdomen/GI: Negative for abdominal pain, nausea, vomiting, diarrhea, and constipation, MS/Extremity: Negative for injury and deformity, Skin: Negative for injury, rash, and discoloration, Neuro: Negative for weakness, numbness, tingling, and seizure. Exam: 18:22 Constitutional: This is a well developed, well nourished patient who is awake, alert, rn and in no acute distress. Head/Face: Normocephalic, atraumatic. Eyes: Pupils equal round and reactive to light, extra-ocular motions intact. Lids and lashes normal. Conjunctiva and sclera are non-icteric and not injected. Cornea within normal limits. Periorbital areas with no swelling, redness, or edema. ENT: MMM Cardiovascular: Regular rate and rhythm, No pulse deficits. Respiratory: Lungs have equal breath sounds bilaterally, clear to auscultation, No increased work of breathing, no retractions or nasal flaring. Abdomen/GI: soft, non-tender Skin: Warm, dry MS/ Extremity: + LUE thrill over AV fistula Neuro: Awake and alert, GCS 15, oriented to person, place, time, and situation. Cranial nerves II-XII grossly intact. Motor strength 5/5 in all extremities. Sensory grossly intact. Cerebellar exam normal. Vital Signs: 17:13 BP 196 / 75; Pulse 56; Resp 16; Temp 97.4; Pulse Ox 98% on R/A; Weight 77.11 kg; Height la1 5 ft. 7 in. (170.18 cm); Pain 0/10; 17:48 BP 209 / 83; Pulse 56; Resp 18; Pulse Ox 100% on R/A; hj 18:21 BP 206 / 87; Pulse 57; Resp 18; Pulse Ox 100% on R/A; hj 18:35 BP 191 / 82; Pulse 59; Resp 18; Pulse Ox 97% on R/A; hj 17:13 Body Mass Index 26.63 (77.11 kg, 170.18 cm) la1 MDM: 17:53 Patient medically screened. rn 18:25 ED course: Had long discussion with patient and family regarding hypertension and rn especially regarding hypertension in dialysis patients, will rule out hypertensive emergency with ct head and labs, but anticipate dc home if all normal, recommend BP diary, and PCP f/u for further BP management. Told him anticipate addition of 1 or 2 more BP medication down the road.. 18:54 Differential diagnosis: hypertensive crisis, Malignant HTN. Data reviewed: vital signs, rn nurses notes, lab test result(s), EKG, radiologic studies, CT scan, and as a result, I will discharge patient. Counseling: I had a detailed discussion with the patient and/or guardian regarding: the historical points, exam findings, and any diagnostic results supporting the discharge/admit diagnosis, lab results, radiology results, the need for outpatient follow up, to return to the emergency department if symptoms worsen or persist or if there are any questions or concerns that arise at home. Response to treatment: the patient's symptoms have mildly improved after treatment, and as a result, I will discharge patient. Special discussion: I discussed with the patient/guardian in detail that at this point there is no indication for admission to the hospital. It is understood, however, that if the symptoms persist or worsen the patient needs to return immediately for re-evaluation. 09/05 18:14 Order name: CBC with Diff; Complete Time: 18:46 rn 09/05 18:14 Order name: Basic Metabolic Panel; Complete Time: 18:46 rn 09/05 17:49 Order name: EKG - Nurse/Tech; Complete Time: 17:49 09/05 18:14 Order name: CT Head Brain wo Cont; Complete Time: 18:54 rn 09/05 18:14 Order name: IV Start; Complete Time: 18:15 rn 09/05 18:14 Order name: EKG - Nurse/Tech; Complete Time: 18:15 rn Administered Medications: 18:14 Drug: cloNIDine 0.2 mg Route: PO; 18:19 Follow up: Response: No adverse reaction; Blood sugar is lowered Disposition: 09/05/18 18:55 Discharged to Home. Impression: End stage renal disease, Hypertension. - Condition is Stable. - Discharge Instructions: Hypertension, End-Stage Kidney Disease. - Medication Reconciliation Form, Thank You Letter, Antibiotic Education, Prescription Opioid Use form. - Follow up: Private Physician; When: 2 - 3 days; Reason: Recheck today's complaints, Re-evaluation by your physician. - Problem is an ongoing problem. - Symptoms have improved. Signatures: Dispatcher [employer] EDEddie Romeo MD MD rn Attema, Tyron, RN RN la1 Luis Fay RN VERNON Corrections: (The following items were deleted from the chart) 18:24 18:22 Constitutional: Negative for fever, chills, and weight loss, Eyes: Negative for rn injury, pain, redness, and discharge, Neck: Negative for injury, pain, and swelling, Cardiovascular: Negative for chest pain, palpitations, and edema, Respiratory: Negative for cough, wheezing, and pleuritic chest pain, Abdomen/GI: Negative for abdominal pain, nausea, vomiting, diarrhea, and constipation, MS/Extremity: Negative for injury and deformity, Skin: Negative for injury, rash, and discoloration, Neuro: Negative for headache, weakness, numbness, tingling, and seizure, rn 19:08 18:55 09/05/2018 18:55 Discharged to Home. Impression: End stage renal disease; la1 Hypertension. Condition is Stable. Forms are Medication Reconciliation Form, Thank You Letter, Antibiotic Education, Prescription Opioid Use. Follow up: Private Physician; When: 2 - 3 days; Reason: Recheck today's complaints, Re-evaluation by your physician. Problem is an ongoing problem. Symptoms have improved. rn
--- NOTE | 2018-09-05 18:56 | ER ---
Nurse's Notes [facility] Name: Sina William Age: 83 yrs Sex: Male : 1935 Arrival Date: 09/05/2018 Time: 16:45 Bed 6 Private MD: out of town, doctor Diagnosis: End stage renal disease;Hypertension Presentation: 09/05 17:12 Presenting complaint: Patient states: I am a dialysis pt and my BP is running high, it la1 has been in the 180s-200s systolic for the last couple weeks but today it hit 205 systolic. Pt denies CP, reports some SOB. Transition of care: patient was not received from another setting of care. Onset of symptoms was September 05, 2018. Risk Assessment: Do you want to hurt yourself or someone else? Patient reports no desire to harm self or others. Initial Sepsis Screen: Does the patient meet any 2 criteria? No. Patient's initial sepsis screen is negative. Does the patient have a suspected source of infection? No. Patient's initial sepsis screen is negative. Care prior to arrival: None. 17:12 Method Of Arrival: Wheelchair la1 17:27 Acuity: CLYDE 3 la1 Triage Assessment: 17:45 General: Appears in no apparent distress. uncomfortable, Behavior is calm, cooperative, hj appropriate for age. Pain: Denies pain. Historical: - Allergies: 17:13 No Known Allergies; la1 - Home Meds: 17:13 Acyclovir Oral [Active]; aspirin 81 mg Oral chew [Active]; calcifediol [Active]; cod hj liver oil Oral [Active]; levothyroxine 25 mcg tab 1 tab once daily [Active]; metoprolol succinate 25 mg Oral Tb24 1 tab once daily [Active]; sevelamer HCl Oral [Active]; - PMHx: 17:13 Amyloid CA; Arthritis; HD - //Sat; Hypertension; Osteoporosis; la1 - PSHx: 17:13 cataracts; Disc surgery; hj - Immunization history:: Adult Immunizations up to date. - Social history:: Smoking status: Patient/guardian denies using tobacco. - Ebola Screening: : No symptoms or risks identified at this time. - Family history:: not pertinent. - Hospitalizations: : No recent hospitalization is reported. Screenin:44 Abuse screen: Denies threats or abuse. Denies injuries from another. Nutritional hj screening: No deficits noted. Tuberculosis screening: No symptoms or risk factors identified. Fall Risk None identified. Assessment: 17:13 General: Appears in no apparent distress. uncomfortable, Behavior is calm, cooperative, hj appropriate for age. Pain: Denies pain. Neuro: Level of Consciousness is awake, alert, obeys commands, Oriented to person, place, time, situation, Appropriate for age. Cardiovascular: Capillary refill < 3 seconds Patient's skin is warm and dry. Respiratory: Airway is patent Respiratory effort is even, unlabored, Respiratory pattern is regular, symmetrical. GI: No signs and/or symptoms were reported involving the gastrointestinal system. : No signs and/or symptoms were reported regarding the genitourinary system. EENT: No signs and/or symptoms were reported regarding the EENT system. Derm: No signs and/or symptoms reported regarding the dermatologic system. Musculoskeletal: No signs and/or symptoms reported regarding the musculoskeletal system. 18:36 Reassessment: sent to CT;. hj 18:49 Reassessment: Patient and/or family updated on plan of care and expected duration. Pain hj level reassessed. Patient is alert, oriented x 3, equal unlabored respirations, skin warm/dry/pink. back from CT:. Vital Signs: 17:13 BP 196 / 75; Pulse 56; Resp 16; Temp 97.4; Pulse Ox 98% on R/A; Weight 77.11 kg; Height la1 5 ft. 7 in. (170.18 cm); Pain 0/10; 17:48 BP 209 / 83; Pulse 56; Resp 18; Pulse Ox 100% on R/A; hj 18:21 BP 206 / 87; Pulse 57; Resp 18; Pulse Ox 100% on R/A; hj 18:35 BP 191 / 82; Pulse 59; Resp 18; Pulse Ox 97% on R/A; hj 17:13 Body Mass Index 26.63 (77.11 kg, 170.18 cm) la1 ED Course: 16:45 Patient arrived in ED. mr 16:45 out of town, doctor is Private Physician. mr 17:13 Arm band placed on left wrist. la1 17:27 Triage completed. la1 17:44 Luis Fay, RN is Primary Nurse. hj 17:45 Patient has correct armband on for positive identification. Placed in gown. Bed in low hj position. Call light in reach. Side rails up X 1. Adult w/ patient. 17:49 EKG done, by ED staff. jb1 17:50 Inserted saline lock: 20 gauge in right antecubital area, using aseptic technique. jb1 Blood collected. 17:53 Eddie Syed MD is Attending Physician. rn 18:44 CT Head Brain wo Cont In Process Unspecified. EDMS 19:07 No provider procedures requiring assistance completed. IV discontinued, intact, la1 bleeding controlled, No redness/swelling at site. Pressure dressing applied. Administered Medications: 18:14 Drug: cloNIDine 0.2 mg Route: PO; hj 18:19 Follow up: Response: No adverse reaction; Blood sugar is lowered hj Outcome: 18:55 Discharge ordered by . rn 19:08 Discharged to home via wheelchair, with family. la1 19:08 Condition: stable 19:08 Discharge instructions given to patient, family, Instructed on discharge instructions, follow up and referral plans. Demonstrated understanding of instructions, follow-up care. 19:08 Patient left the ED. la1 Signatures: Dispatcher [employer] EDMS Nikko Agustin jb1 MirTheodora mr Eddie Syed MD MD rn Attema, Lee, RN RN la1 Joaquin, Henry, RN RN
[2018-09-05 19:14] VITALS: TEMP 97.4
[2018-09-05 19:19] VITALS: BP 191/82; O2SAT 97
== END 2018-09-05 19:08 | disposition home or self-care (01) ==
LOC: ER 16:45
DX: I12.0 Hypertensive chronic kidney disease with stage 5 chronic kidney disease or end stage renal disease (principal); N18.6 End stage renal disease; Z99.2 Dependence on renal dialysis; Z79.82 Long term (current) use of aspirin
CPT/HCPCS: 36415; 70450; 80048; 85025; 99284

== ENCOUNTER 2018-09-14 08:38 | Observation (INO) | payer OTHER ==
[2018-09-14 09:08] LABS: Absolute Lymphocytes (CBC) 0.9 K/uL (0.7-4.9); Absolute Monocytes 0.6 K/uL (0.1-1.3); Absolute Neutrophil 3.6 K/uL (1.8-8.0); Basophils % 0.8 % (0-1.3); Eosinophils % 5.1 % (0-4.4); Hematocrit 33.3 % (39.6-49.0); Lymphocytes % 16.4 % (15.3-44.8); MPV 9.1 fL (7.6-11.3); Monocytes % 10.9 % (3.3-12.3); RBC Red Blood Cell Count 3.39 M/uL (4.33-5.43)
[2018-09-14 09:13] LABS: Protime INR 0.97
--- NOTE | 2018-09-14 09:13 | RAD REPORT ---
EXAM DESCRIPTION: CT - Head Brain Wo Cont - 09/14/2018 9:04 am CLINICAL HISTORY: right leg weakness, muscle spasm Headache, hypertension, history of CVA COMPARISON: Head Brain Wo Cont dated 09/05/2018; Head Brain Wo Cont dated 01/17/2018 TECHNIQUE: All CT scans are performed using dose optimization technique as appropriate and may inclu de automated exposure control or mA/KV adjustment according to patient size. FINDINGS: No intracranial hemorrhage, hydrocephalus or extra-axial fluid collection.Mild generalized brain atrophy is present with mild periventricular and deep white matter chronic microvascular ische arya changes.No areas of brain edema or evidence of midline shift. The paranasal sinuses and mastoids are clear. The calvarium is intact. Right vertebral artery is athe rosclerotic. IMPRESSION: No acute intracranial abnormality.
[2018-09-14 09:37] LABS: Magnesium 2.7 mg/dL (1.8-2.4); Potassium 5.4 mmol/L (3.5-5.1); Troponin (Emerg Dept Use Only) 0.11 ng/mL (0.0-0.045)
[2018-09-14] MEDS ORDERED: LORazepam 2 MG/ML VIAL ONE (10:19)
--- NOTE | 2018-09-14 10:27 | ER ---
Nurse's Notes [facility] Name: Sina William Age: 83 yrs Sex: Male : 1935 Arrival Date: 09/14/2018 Time: 08:41 Bed 23 Private MD: Diagnosis: Myoclonus;Weakness;End stage renal disease Presentation: 09/14 08:47 Presenting complaint: EMS states: WHOLE BODY TWITCHING, RLE TINGLING SINCE THURSDAY. bp Transition of care: patient was not received from another setting of care. Onset of symptoms is unknown. Risk Assessment: Do you want to hurt yourself or someone else? Patient reports no desire to harm self or others. Initial Sepsis Screen: Does the patient meet any 2 criteria? No. Patient's initial sepsis screen is negative. Does the patient have a suspected source of infection? No. Patient's initial sepsis screen is negative. Care prior to arrival: Glucose check: 95. 08:47 Method Of Arrival: EMS: [facility] bp 08:47 Acuity: CLYDE 3 bp Triage Assessment: 08:54 General: Appears distressed, comfortable, Behavior is cooperative, appropriate for age, bp anxious. Pain: Denies pain. 08:54 EENT: No deficits noted. Neuro: Denies TWITCHING. bp 08:54 Cardiovascular: Rhythm is sinus rhythm. Respiratory: Airway is patent Respiratory bp effort is even, unlabored, Respiratory pattern is regular, symmetrical. GI: No signs and/or symptoms were reported involving the gastrointestinal system. : No signs and/or symptoms were reported regarding the genitourinary system. Derm: No deficits noted. Musculoskeletal: DECREASED STRENGTH RLE. Historical: - Allergies: 08:54 No Known Allergies; bp - Home Meds: 08:54 acyclovir 200 mg oral cap 1 cap daily [Active]; aspirin 81 mg Oral chew 1 tab once bp daily [Active]; cod liver oil oral cap daily [Active]; sevelamer HCl 800 MG Oral 1 tab daily [Active]; lisinopril 10 mg oral tab 1 tab twice a day [Active]; gabapentin 300 mg oral cap 1 cap twice a day [Active]; - PMHx: 08:54 Amyloid CA; Arthritis; HD - //Sat; Hypertension; Osteoporosis; CVA; bp - Immunization history:: Adult Immunizations up to date. - Social history:: Smoking status: Patient/guardian denies using tobacco. - Ebola Screening: : Patient negative for fever greater than or equal to 101.5 degrees Fahrenheit, and additional compatible Ebola Virus Disease symptoms Patient denies exposure to infectious person Patient denies travel to an Ebola-affected area in the 21 days before illness onset No symptoms or risks identified at this time. - Family history:: not pertinent. - Hospitalizations: : No recent hospitalization is reported. Screenin:03 Abuse screen: Denies threats or abuse. Denies injuries from another. Nutritional bp screening: No deficits noted. Tuberculosis screening: No symptoms or risk factors identified. Fall Risk None identified. Assessment: 09:00 General: SEE TRIAGE NOTE. bp 10:34 Reassessment: MRI PENDING, ADMIT IN PROCESS. VS STABLE ON MONITOR. bp 10:44 Reassessment: PT TO MRI WITH TRADE MARK ATTORNEY. bp 19:14 Reassessment: patient in dialysis unit now. mg2 Vital Signs: 09:00 BP 157 / 77; Pulse 66; Resp 17; Temp 98; Pulse Ox 96% ; Weight 79.38 kg; bp 09:48 BP 168 / 100; Pulse 66; Resp 18; Pulse Ox 95% ; bp 10:33 BP 159 / 99; Pulse 55; Resp 16; Pulse Ox 92% ; bp ED Course: 08:41 Patient arrived in ED. bp 08:42 Eddie Syed MD is Attending Physician. rn 08:45 Arm band placed on. bp 08:46 Sam Taveras, VERNON is Primary Nurse. bp 08:48 Triage completed. bp 09:00 Maintain EMS IV. Dressing intact. Good blood return noted. Site clean \T\ dry. Gauge \T\ bp site: 22 GAUGE R AC. 09:02 CT completed. Patient tolerated procedure well. Patient moved to CT via stretcher. [id number] Patient moved back from CT. 09:03 Patient has correct armband on for positive identification. Placed in gown. Bed in low bp position. Call light in reach. Side rails up X2. Adult w/ patient. 09:04 CT Head Brain wo Cont In Process Unspecified. EDMS 09:22 EKG done, by gas technician. reviewed by Eddie Syed MD. at1 10:26 Sally De MD is Hospitalizing Provider. rn 11:10 Patient moved to MRI via stretcher. em2 12:44 No provider procedures requiring assistance completed. Patient admitted, IV remains in bp place. Administered Medications: 09:23 CANCELLED (BP improved): cloNIDine 0.2 mg PO once rn 10:00 Drug: Ativan 0.5 mg Route: IVP; Site: right antecubital; bp Outcome: 10:26 Decision to Hospitalize by Provider. rn 19:46 Patient left the ED. bb Signatures: Dispatcher [employer] EDMS Trina Molina RN RN bb Eddie Syed MD MD rn Montes, Enrique em2 Keren Jimenez, bunker worker EKG Tat1 Sam Taveras RN RN bp Slava Vega RN RN [facility] [place] Dia jg6 Corrections: (The following items were deleted from the chart) : 08:54 BP 210 / 100; bp bp
--- NOTE | 2018-09-14 10:27 | EDPHYS ---
Physician Documentation [facility] Name: Sina William Age: 83 yrs Sex: Male : 1935 Arrival Date: 09/14/2018 Time: 08:41 Bed 23 Private MD: ED Physician Eddie Seyd HPI: 09/14 09:06 This 83 yrs old Male presents to ER via EMS with complaints of Tremor. rn 09:06 Reports not feeling right since Thursday, reports trouble speaking, + whole body tremor, rn and increased RLE weakness. NO headache/chest pain/sob/abd pain. . Severity of symptoms: At their worst the symptoms were moderate in the emergency department the symptoms are unchanged. The patient has not experienced similar symptoms in the past. Seen by me for HTN last week, seen by PCP, only medication change was increase in lisinopril. . Historical: - Allergies: 08:54 No Known Allergies; bp - Home Meds: 08:54 acyclovir 200 mg oral cap 1 cap daily [Active]; aspirin 81 mg Oral chew 1 tab once bp daily [Active]; cod liver oil oral cap daily [Active]; sevelamer HCl 800 MG Oral 1 tab daily [Active]; lisinopril 10 mg oral tab 1 tab twice a day [Active]; gabapentin 300 mg oral cap 1 cap twice a day [Active]; - PMHx: 08:54 Amyloid CA; Arthritis; HD - Tu/Th/Sat; Hypertension; Osteoporosis; CVA; bp - Immunization history:: Adult Immunizations up to date. - Social history:: Smoking status: Patient/guardian denies using tobacco. - Ebola Screening: : Patient negative for fever greater than or equal to 101.5 degrees Fahrenheit, and additional compatible Ebola Virus Disease symptoms Patient denies exposure to infectious person Patient denies travel to an Ebola-affected area in the 21 days before illness onset No symptoms or risks identified at this time. - Family history:: not pertinent. - Hospitalizations: : No recent hospitalization is reported. ROS: 09:06 Constitutional: Negative for fever, chills, and weight loss, Eyes: Negative for injury, rn pain, redness, and discharge, Neck: Negative for injury, pain, and swelling, Cardiovascular: Negative for chest pain, palpitations, and edema, Respiratory: Negative for shortness of breath, cough, wheezing, and pleuritic chest pain, Abdomen/GI: Negative for abdominal pain, nausea, vomiting, diarrhea, and constipation, MS/Extremity: Negative for injury and deformity, Skin: Negative for injury, rash, and discoloration, Neuro: + tremor and weakness Exam: 09:06 Constitutional: This is a well developed, well nourished patient who is awake, alert, rn appears frustrates and frequent tremor/twitches Head/Face: Normocephalic, atraumatic. Eyes: Pupils equal round and reactive to light, extra-ocular motions intact. Lids and lashes normal. Conjunctiva and sclera are non-icteric and not injected. Cornea within normal limits. Periorbital areas with no swelling, redness, or edema. ENT: MMM Neck: Trachea midline, no thyromegaly or masses palpated, and no cervical lymphadenopathy. Supple, full range of motion without nuchal rigidity, or vertebral point tenderness. No Meningismus. Cardiovascular: Regular rate and rhythm, No pulse deficits. Respiratory: Lungs have equal breath sounds bilaterally, clear to auscultation Abdomen/GI: soft, non-tender MS/ Extremity: Pulses equal, no cyanosis. Neurovascular intact. Full, normal range of motion. Equal circumference. Neuro: Awake and alert, GCS 15, oriented to person, place, time, and situation. Cranial nerves II-XII grossly intact. Motor strength 5/5 in all extremities. Sensory grossly intact. + mild slurred speech difficult to assess due to frequent muscular contractions. 4-/5 strength RLE, 5/5 strength elsewhere. 10:15 ECG was reviewed by the Attending Physician. rn Vital Signs: 09:00 BP 157 / 77; Pulse 66; Resp 17; Temp 98; Pulse Ox 96% ; Weight 79.38 kg; bp 09:48 BP 168 / 100; Pulse 66; Resp 18; Pulse Ox 95% ; bp 10:33 BP 159 / 99; Pulse 55; Resp 16; Pulse Ox 92% ; bp MDM: 08:42 Patient medically screened. rn 10:24 Differential Diagnosis metabolic derangement, myoclonus from gabapentin, CVA. Data rn reviewed: vital signs, nurses notes, lab test result(s), radiologic studies, CT scan, and as a result, I will admit patient. Counseling: I had a detailed discussion with the patient and/or guardian regarding: the historical points, exam findings, and any diagnostic results supporting the discharge/admit diagnosis, lab results, radiology results, the need for further work-up and treatment in the hospital. Response to treatment: the patient's symptoms have mildly improved after treatment, and as a result, I will admit patient. Admission orders: after a detailed discussion of the patient's condition and case, the admit orders are written by me. ED course: Pt most likely with myoclonus from gabapentin as he has had an adverse reaction to it before, still having symptoms, last dose last night, will hold and admit given unable to walk and having speech problems. CT head negative, getting MRI, and admitted to Dr. De. . 18:05 ED course: Awake, feels better, and finished his meal, less twitching/myoclonus. rn 09/14 08:44 Order name: Basic Metabolic Panel; Complete Time: 09:41 rn 09/14 08:44 Order name: CBC with Diff; Complete Time: 09:15 rn 09/14 08:44 Order name: CPK; Complete Time: 09:41 rn 09/14 08:44 Order name: Magnesium; Complete Time: 09:41 rn 09/14 08:44 Order name: Protime (+inr); Complete Time: 09:22 rn 09/14 08:44 Order name: Ptt, Activated; Complete Time: 09:22 rn 09/14 08:44 Order name: CT Head Brain wo Cont; Complete Time: 09:15 rn 09/14 08:44 Order name: Troponin (emerg Dept Use Only); Complete Time: 09:41 rn 09/14 09:42 Order name: Brain Wo Cont MRI rn 09/14 09:52 Order name: N-Terminal Pro-brain Natriuretic Peptide; Complete Time: 12:10 rn 09/14 12:34 Order name: MRI; Complete Time: 13:09 EDMS 09/14 14:53 Order name: RAD; Complete Time: 18:05 EDMS 09/14 08:44 Order name: EKG; Complete Time: 08:45 rn 09/14 08:44 Order name: Cardiac monitoring; Complete Time: 09:09 rn 09/14 08:44 Order name: EKG - Nurse/Tech; Complete Time: 09:10 rn 09/14 08:44 Order name: IV Saline Lock; Complete Time: rn 09/14 08:44 Order name: Labs collected and sent; Complete Time: rn 09/14 08:44 Order name: NPO; Complete Time: rn 09/14 08:44 Order name: O2 Per Protocol; Complete Time: rn 09/14 08:44 Order name: O2 Sat Monitoring; Complete Time: rn EC:15 Rate is 63 beats/min. Rhythm is regular. QRS [place] is Normal. NC interval is normal. QRS rn interval is prolonged. QT interval is normal. No Q waves. T waves are Normal. No ST changes noted. Clinical impression: NSR w/ Non-specific ST/T Changes. Interpreted by me. Reviewed by me. Administered Medications: 09:23 CANCELLED (BP improved): cloNIDine 0.2 mg PO once rn 10:00 Drug: Ativan 0.5 mg Route: IVP; Site: right antecubital; bp Disposition: 09/14/18 10:26 Hospitalization ordered by Sally De for Observation. Preliminary diagnosis are Myoclonus, Weakness, End stage renal disease. - Bed requested for Telemetry/MedSurg (observation). - Status is Observation. bb - Condition is Stable. - Problem is new. - Symptoms have improved. UTI on Admission? No Signatures: Dispatcher [employer] EDNM Trina Molina RN Crystal De La Cruz RN VERNON iw Eddie Syed MD MD rn Fitzgerald, Diane, Sam Saul RN RN RN bp Corrections: (The following items were deleted from the chart) 09:23 09:16 cloNIDine 0.2 mg PO once ordered. rn rn 09:55 09:53 PROBNP+C.LAB.BRZ ordered. EDNM EDMS 11:49 10:26 Hospitalization Ordered by Sally De MD for Observation. Preliminary diagnosis iw is Myoclonus; Weakness; End stage renal disease. Bed requested for Telemetry/MedSurg (observation). Status is Observation. Condition is Stable. Problem is new. Symptoms have improved. UTI on Admission? No. rn 11:49 11:49 09/14/2018 10:26 Hospitalization Ordered by Sally De MD for Observation. iw Preliminary diagnosis is Myoclonus; Weakness; End stage renal disease. Bed requested for [facility] ER HOLD. Status is Observation. Condition is Stable. Problem is new. Symptoms have improved. UTI on Admission? No. iw 18:30 11:49 09/14/2018 10:26 Hospitalization Ordered by Sally De MD for Observation. df Preliminary diagnosis is Myoclonus; Weakness; End stage renal disease. Bed requested for [facility] ER HOLD. Status is Observation. Condition is Stable. Problem is new. Symptoms have improved. UTI on Admission? No. iw 19:46 18:30 09/14/2018 10:26 Hospitalization Ordered by Sally De MD for Observation. bb Preliminary diagnosis is Myoclonus; Weakness; End stage renal disease. Bed requested for Telemetry/MedSurg (observation). Status is Observation. Condition is Stable. Problem is new. Symptoms have improved. UTI on Admission? No. df
--- NOTE | 2018-09-14 11:43 | EKG ---
Test Date: 2018-09-14 Test Time: 09:17:39 Surgical Scrub Technologist: PRASANNA MEASUREMENT RESULTS: Intervals: Rate: 63 AZ: 184 QRSD: 134 QT: 466 QTc: 476 Grady: P: AZ: 184 QRS: 19 T: 49 INTERPRETIVE STATEMENTS: Normal sinus rhythm Right bundle branch block Abnormal ECG Compared to ECG 09/05/2018 17:41:44 Right bundle-branch block now present Sinus bradycardia no longer present Myocardial infarct finding no longer present Electronically Signed On 09-14-18 09:57:25 CDT by Bryn Almodovar
--- NOTE | 2018-09-14 12:33 | RAD REPORT ---
EXAM DESCRIPTION: MRI - Brain Wo Cont - 09/14/2018 12:22 pm CLINICAL HISTORY: weakness, speech problem Headache, CVA symptomology COMPARISON: Head Brain Wo Cont dated 09/14/2018 TECHNIQUE: Multi-sequence, multiplanar MR imaging of the brain was performed without contrast. FINDINGS: No intracranial hemorrhage, hydrocephalus or extra-axial fluid collections.Mild brain atro phy is seen with mild to moderate periventricular and deep white matter chronic microvascular ischemi c changes. No edema or shift of midline structures. No findings to suspect brain mass. DWI is negativ e for acute CVA. Midline structures are normally formed. Mastoid air cells and paranasal sinuses are clear. IMPRESSION: Negative for acute CVA or other acute intracranial process.
--- NOTE | 2018-09-14 14:52 | RAD REPORT ---
EXAM DESCRIPTION: RAD - Lumbar Spine 3 Views - 09/14/2018 2:47 pm CLINICAL HISTORY: pain Radiculopathy COMPARISON: LSPINE WITH BENDING VIEWS dated 01/27/2014 FINDINGS: Mild degenerative dextroscoliosis of the lumbar spine is present. Multilevel degenerative changes present at the lower lumbar levels with prominent facet hypertrophy. 8 mm degenerative retrol isthesis L2 on 3 is seen. No acute compression fracture present.
[2018-09-14] MEDS ORDERED: NA CHLORIDE 0.9% 1,000 ML IV PRN (15:34)
[2018-09-14] MEDS: HYDRALAZINE HCL 25 MG TABLET PO SCH ×2 (16:00→22:57)
[2018-09-14] MEDS ORDERED: ALBUMIN HUMAN 25% 50 ML IV SCH (16:00)
[2018-09-14] MEDS ORDERED: CARVEDILOL 6.25 MG TAB ONE (17:10)
[2018-09-14] MEDS: CARVEDILOL 25 MG TAB PO SCH (17:49)
--- NOTE | 2018-09-14 17:58 | CON ---
Date of Consultation: 09/14/2018 Additional Consulting Physician: Dr. AGUIRRE. Reason For Consultation: Elevated BUN and creatinine, hyperkalemia. 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 The patient is dialysis dependent apparently for the last few weeks. The patient blood pressure duran s been uncontrolled even after we increase his blood pressure medication including doubling on the li sinopril to be 20 b.i.d. and we will start challenging the patient to establish better volume control . The patient blood pressure continue to be high around 190. According to the family today, the pat ruben started having tremor or generalized body shaking with altered mental status. For that reason, they brought him to the hospital. The patient also started having recurrent fall and has pain with w eakness on the leg, more prominent on the right leg. The patient when arrived has hyperkalemia, bloo d pressure around 170. According to the family when the EMS arrived, blood pressure was around 200. Past Medical History: Include: 1.Diabetes complicated with neuropathy and nephropathy. 2.Hypertension. 3.Hyperlipidemia. 4.End-stage renal disease, on hemodialysis, TTS at [facility]. 5.Hypertension. 6.Multiple myeloma. Allergies: NO KNOWN DRUG ALLERGY. Review of Systems: Head and Neck: No red eye. No ear pain. GI: No nausea, no vomiting. : No polyuria, no dysuria, no hematuria. Casino Worker: Not applicable. Respiratory: No shortness of breath. Cardiovascular: Has elevation in blood pressure. No leg edema. Endocrine: No polydipsia. Skin: No rash. Neuro: Has a tremor, has neuropathy. Musculoskeletal: No joint pain. Medications: Home medications include levothyroxine, gabapentin, carvedilol 3.125 b.i.d., amlodipine 5, lisinopril 20 b.i.d. Current medications, the patient is still in the ER. Allergies: NO KNOWN DRUGS ALLERGY. Social History: Denies smoking, denies drinking, denies drug abuse. Past Surgical History: Includes AV fistula, bone marrow, PermCath placement. Physical Examination: Vital Signs: When I saw the patient, blood pressure 170/68, pulse of 62. Chest: Faint crackles bilateral. Heart: S1, S2. Systolic murmur. Abdomen: Soft, nontender. Extremities: Trace edema. Neuro: The patient receive Ativan. Moving 4 extremity without any weakness. Laboratory Data: H and H 10.9/33.3. Sodium 136, potassium 5.4, bicarb 24, BUN 107, creatinine 12.3, calcium 8.3, magnesium 2.7. Chest x-ray, cardiomegaly. CT head was negative. MRI of the brain neg ative for CVA. Assessment And Plan: 1.End-stage renal disease, over volume and hyperkalemia. We will get the patient for dialysis today . We will challenge the patient and we will do dialysis today and tomorrow. 2.Secondary hyperparathyroidism, stable. 3.Anemia of chronic kidney disease/multiple myeloma. Continue LAMAR. 4.Hyperkalemia. The patient is going to be dialyzed on low-potassium bath. 5.Hypertension, uncontrolled. Resume lisinopril, add hydralazine, increase carvedilol and we will f ollow up the patient. 6.Questionable seizure, altered mental status as by primary. CVA has been ruled out. ASCENCION/BELLE Voice ID: [id number] Report ID: [id number]
--- NOTE | 2018-09-14 18:05 | P.HP ---
Certification for Inpatient Patient admitted to: Observation With expected LOS: <2 Midnights Practitioner: I am a practitioner with admitting privileges, knowledge of patient current condition, hospital course, and medical plan of care. Services: Services provided to patient in accordance with Admission requirements found in Title 42 Section 412.3 of the Code of Federal Regulations Patient History Date of Service: 09/14/18 Reason for admission: "Could not walk, could not talk" History of Present Illness: This is a 83 yr old male with a Hx of DM2, HTN, Hx of CVA and ESRD on HD admitted for myoclonus. Per patient, he was in his usual state of health 2 days prior to admission. The day prior to admission, he stated that he was started on gabapentin by his PCP. He started to develop myoclonus, tremors, unable to walk or talk. This got progressively worse and scared him which brought him to the hospital. He denied any other symptoms of cp, sob, headache , vision changes, fevers, chills, GI or complaints. In the ED, patient initially was having tremors and shaking. He was given Ativan in the ED, which helped his symptoms. His labs were unremarkable except for Creatinine of 12.3 and potassium of 5.4, and troponin of 0.11. His CT head was negative for any acute abnormalities and MRI of the head was negative for acute CVA. He did miss his dialysis session today. At the time of my exam, patient was AAOx3, in no acute distress and hemodynamically stable. Patient stated that his tremors were much improved, his speech was also much improved. Allergies No Known Drug Allergies Allergy (Verified 01/04/18 08:15) Unknown No Known Allergies Allergy (Uncoded 01/17/18 16:37) Unknown Home medications list reviewed: Yes Home Medications: Amlodipine [Norvasc*] 5 mg PO DAILY 01/04/18 Calcifediol [Rayaldee] 1 tab PO DAILY 01/04/18 Carvedilol [Coreg*] 3.125 mg PO BID 01/04/18 Cod Liver Oil 1 tab PO DAILY 01/04/18 Glucosamine/D3/Boswellia Elise [Glucosamine Complex Tablet] 1 each PO DAILY Levothyroxine [Synthroid*] 0.05 mg PO DAILY 01/04/18 Gabapentin 1 tab PO BID 09/14/18 - Past Medical/Surgical History Has patient received pneumonia vaccine in the past: Yes Diabetic: Yes -: DM-Type 2 -: HTN -: History of CVA -: Former Tobacco use -: disc surgery -: cataract surgery Psychosocial/ Personal History: , Children-9 - Family History Father -: Heart disease, Hypertension, Kidney disease Mother -: Heart disease, Hypertension, Kidney disease - Social History Smoking Status: Never smoker Alcohol use: No CD- Drugs: No Caffeine use: Yes Review of Systems 10-point ROS is otherwise unremarkable Physical Examination - Vital Signs Temperature: 98 F Blood Pressure: 211/91 Pulse: 67 Respirations: 18 Pulse Ox (%): 98 - Physical Exam General: Alert, In no apparent distress, Oriented x3 HEENT: Atraumatic, PERRLA, Mucous membr. moist/pink, EOMI, Sclerae nonicteric Neck: Supple, 2+ carotid pulse no bruit, No LAD, Without JVD or thyroid abnormality Respiratory: Clear to auscultation bilaterally, Normal air movement Cardiovascular: Regular rate/rhythm, Normal S1 S2 Gastrointestinal: Normal bowel sounds, No tenderness Musculoskeletal: No tenderness Integumentary: No rashes Neurological: Normal speech, Normal strength at 5/5 x4 extr, Normal tone, Cranial nerves 3-12 intact, Normal affect, Other (Gait not tested in ED; Generalized, intermittent whole body tremors noted during exam. ) Lymphatics: No axilla or inguinal lymphadenopathy - Studies Laboratory Data (last 24 hrs) 09/14/18 08:55: PT 11.5, INR 0.97, APTT 28.3 09/14/18 08:55: WBC 5.4, Hgb 10.9 L, Hct 33.3 L, Plt Count 166 09/14/18 08:55: Sodium 136, Potassium 5.4 H, BUN 107 H, Creatinine 12.30 H* D, Glucose 93, Magnesium 2.7 H Assessment and Plan - Problems (Diagnosis) (1) Myoclonus Current Visit: Yes Status: Acute (2) Adverse drug reaction Current Visit: Yes Status: Acute (3) Hyperkalemia Current Visit: Yes Status: Acute (4) ESRD (end stage renal disease) on dialysis Current Visit: Yes Status: Chronic (5) Thyroid disease Current Visit: No Status: Chronic (6) Diabetes mellitus Onset Date: 11/16/17 Current Visit: No Status: Chronic Qualifiers: Diabetes mellitus type: type 2 Diabetes mellitus chemical plant manager insulin use: without chemical plant manager use Diabetes mellitus complication status: with kidney complications Diabetes mellitus complication detail: with chronic kidney disease Chronic kidney disease stage: stage 4 (severe) Qualified Code(s): E11.22 - Type 2 diabetes mellitus with diabetic chronic kidney disease; N18.4 - Chronic kidney disease, stage 4 (severe) (7) HTN (hypertension) Onset Date: 11/16/17 Current Visit: No Status: Chronic Qualifiers: Hypertension type: essential hypertension Qualified Code(s): I10 - Essential (primary) hypertension (8) History of CVA (cerebrovascular accident) Current Visit: No Status: Chronic - Plan This is a 83 year old male with: Myoclonus Drug adverse reaction Symptoms are imroving. Will hold gabapentin to see if this is the cause Imaging of the head negative so far. Will continue to monitor Ativan prn ESRD on HD Hyperkalemia Nephrology, Dr. Mccormick consulted. Patient is due for his dialysis today. Will conitnue to monitor via AM labs. DM2 Accu-cheks ACHS and mild sliding scale insulin We will continue to adjust as needed. HTN Stable, Continue home coreg and amlodipine Hx of CVA Stable, continue home medications. MRI of head negative for acute CVA Hypothyroid Continue home medications DVT Prophylaxis: Lovenox GI prophylaxis: None Diet: Renal Disposition: Admit to floor for obs with tele. Pending dialysis today. - Advance Directives Does patient have a Living Will: No Does patient have a Durable POA for Healthcare: No
[2018-09-14] MEDS ORDERED: CARVEDILOL 3.125 MG TAB PO SCH (21:00)
[2018-09-14] MEDS ORDERED: GABAPENTIN 300 MG CAP PO SCH (21:00)
[2018-09-14] MEDS: LISINOPRIL 20 MG TAB PO SCH (22:57)
[2018-09-15 04:34] LABS: Absolute Lymphocytes (CBC) 0.6 K/uL (0.7-4.9); Absolute Monocytes 0.4 K/uL (0.1-1.3); Absolute Neutrophil 2.7 K/uL (1.8-8.0); Basophils % 0.8 % (0-1.3); Eosinophils % 7.4 % (0-4.4); Hematocrit 31.6 % (39.6-49.0); Lymphocytes % 13.9 % (15.3-44.8); MPV 9.4 fL (7.6-11.3); Monocytes % 11.2 % (3.3-12.3); RBC Red Blood Cell Count 3.24 M/uL (4.33-5.43)
[2018-09-15 05:00] LABS: Albumin 3.1 g/dL (3.4-5.0); Bilirubin Total 0.5 mg/dL (0.2-1.0); Potassium 4.6 mmol/L (3.5-5.1); Protein, Total 6.3 g/dL (6.4-8.2)
[2018-09-15] MEDS: CARVEDILOL 25 MG TAB PO SCH ×2 (06:00→17:03)
[2018-09-15] MEDS: LEVOTHYROXINE SOD 0.05 MG TABLET PO SCH (06:34)
[2018-09-15] MEDS ORDERED: COD LIVER OIL PO SCH (09:00)
[2018-09-15] MEDS ORDERED: D3 PO SCH (09:00)
[2018-09-15] MEDS ORDERED: GLUCOSAMINE PO SCH (09:00)
[2018-09-15] MEDS ORDERED: BOSWELLIA SERRA PO SCH (09:00)
[2018-09-15] MEDS ORDERED: CALCIFEDIOL PO SCH (09:00)
[2018-09-15] MEDS: HYDRALAZINE HCL 25 MG TABLET PO SCH ×3 (10:17→21:49)
[2018-09-15] MEDS: LISINOPRIL 20 MG TAB PO SCH ×2 (10:18→21:50)
[2018-09-15] MEDS ORDERED: EPOETIN ALFA 10,000 UNIT/ML VIAL IV SCH (10:30)
[2018-09-15] MEDS ORDERED: GLUCAGON 1 MG/VIAL IM PRN (10:52)
[2018-09-15] MEDS ORDERED: D50W 25 GM/50 ML SYRINGE IV PRN (10:52)
[2018-09-15] MEDS: INSULIN -REGULAR HUMAN 50 UNIT/0.5 ML ML SQ SCH ×3 (11:30→21:00)
--- NOTE | 2018-09-15 16:05 | PN ---
Date of Progress Note: 09/15/2018 Subjective: The patient was admitted with altered mental status, tremor/seizure, uncontrolled seizur e, uncontrolled blood pressure. The patient was started on carvedilol and lisinopril. The patient's blood pressure being controlled better. The patient had dialysis yesterday, tolerated dialysis well. Physical Examination: Vital Signs: Blood pressure 160/70, pulse of 60. Afebrile. Chest: Clear to auscultation. Heart: S1, S2. Systolic murmur. Abdomen: Soft, nontender. Extremities: Trace edema. Laboratory Data: H and H 10.5/31.6. Sodium 136, potassium 4.6, bicarb 27, BUN 61, creatinine 8.1, c alcium 7.9. Current Medications: The patient on its include; 1.Hydralazine 50 t.i.d. 2.Carvedilol 25 b.i.d. 3.Lisinopril 20 b.i.d. 4.Levothyroxine. 5.Rayaldee. 6.Liver oil. Assessment And Plan: 1.End-stage renal disease. We will continue the patient on dialysis. The patient is going to be sc heduled for another dialysis tomorrow and we will follow up the patient. We will continue to challen ge the patient. 2.Hypertension, better controlled. We just increased carvedilol and hydralazine. Blood pressure ye sterday after dialysis in the 130s. I am going to go ahead and continue current treatment. We will consider rechallenge the patient tomorrow to establish better volume control and we will follow up. 3.Hyperkalemia, resolved. 4.Tremor, questionable if it is related to medication gabapentin/uncontrolled blood pressure. We wi ll follow up tomorrow. Keep holding gabapentin. 5.Anemia of chronic kidney disease. Given that the blood pressure currently controlled, I am going to resume his Epogen. 6.Low back pain, weakness on the right leg, giving the history of multiple myeloma. X-ray was negat ute. We will go ahead and proceed with the MRI. 7.Secondary hyperparathyroidism, discontinue Rayaldee as the patient in end-stage renal disease. ASCENCION/BELLE Voice ID: [id number] Report ID: [id number]
--- NOTE | 2018-09-15 18:12 | P.PN ---
Subjective Date of Service: 09/15/18 Chief Complaint: "Could not walk, could not talk" Patient seen and examined at bedside. No family at bedside. Chart reviewed and case discussed with nursing staff. Symptoms much improved. Seen sitting up in chair, walking around a walker. Tremors of improved. No acute events noted overnight. No complaints this morning. Review of Systems 10-point ROS is otherwise unremarkable Physical Examination - Vital Signs Temperature: 97.7 F Blood Pressure: 162/72 Pulse: 52 Respirations: 16 Pulse Ox (%): 98 - Physical Exam General: Alert, In no apparent distress HEENT: Atraumatic, PERRLA, EOMI Neck: Supple, JVD not distended Respiratory: Clear to auscultation bilaterally, Normal air movement Cardiovascular: Regular rate/rhythm, Normal S1 S2 Gastrointestinal: Normal bowel sounds, No tenderness Musculoskeletal: No tenderness Integumentary: No rashes Neurological: Normal speech, Normal tone, Normal affect Lymphatics: No axilla or inguinal lymphadenopathy Assessment And Plan - Current Problems (Diagnosis) (1) Myoclonus Current Visit: Yes Status: Acute (2) Adverse drug reaction Current Visit: Yes Status: Acute (3) Hyperkalemia Current Visit: Yes Status: Acute (4) ESRD (end stage renal disease) on dialysis Current Visit: Yes Status: Chronic (5) Thyroid disease Current Visit: No Status: Chronic (6) Diabetes mellitus Onset Date: 11/16/17 Current Visit: No Status: Chronic Qualifiers: Diabetes mellitus type: type 2 Diabetes mellitus intermediate project manager insulin use: without group home use Diabetes mellitus complication status: with kidney complications Diabetes mellitus complication detail: with chronic kidney disease Chronic kidney disease stage: stage 4 (severe) Qualified Code(s): E11.22 - Type 2 diabetes mellitus with diabetic chronic kidney disease; N18.4 - Chronic kidney disease, stage 4 (severe) (7) HTN (hypertension) Onset Date: 11/16/17 Current Visit: No Status: Chronic Qualifiers: Hypertension type: essential hypertension Qualified Code(s): I10 - Essential (primary) hypertension (8) History of CVA (cerebrovascular accident) Current Visit: No Status: Chronic - Plan This is a 83 year old male with: Myoclonus Drug adverse reaction Symptoms are improving. Continue to hold gabapentin to see if this is the cause. We will discontinue this medication on discharge Imaging of the head negative so far. Will continue to monitor Ativan prn ESRD on HD Hyperkalemia Nephrology, Dr. Mccormick consulted. Patient is due for his dialysis today. Will conitnue to monitor via AM labs. DM2 Accu-cheks ACHS and mild sliding scale insulin We will continue to adjust as needed. HTN Uncontrolled, at home. Dosage of coreg increased. Continue hydralazine and lisinopril. Hx of CVA Stable, continue home medications. MRI of head negative for acute CVA Hypothyroid Continue home medications History of multiple myeloma Chronic back pain Chronic left lower extremity weakness Patient with a history of multiple myeloma, he did receive some treatment in the past but it was stopped as patient was thought to be unresponsive to treatment. MRI of the lumbar region of ordered, pending Physical therapy consult DVT Prophylaxis: Lovenox GI prophylaxis: None Diet: Renal Disposition: Continue to monitor floor. Continue to monitor another 24 hr, he will receive dialysis tomorrow. Potential discharge after dialysis tomorrow if continues remain stable.
[2018-09-15 18:50] VITALS: BMI 24.7
--- NOTE | 2018-09-15 20:31 | RAD REPORT ---
EXAM DESCRIPTION: MRI - Lumbar Spine Wo Con - 09/15/2018 8:08 pm CLINICAL HISTORY: Lumbar pain radiating into the right lower extremity, history of falls COMPARISON: None. TECHNIQUE: Sagittal T1-weighted, T2-weighted and T2-STIR weighted sequences were obtained. Axial T1 -weighted and heavily T2-weighted sequenceswere obtained through the lumbar disc levels. FINDINGS: Lumbar bodies are normal in height. No acute compression fracture. No marrow edema or santiago ow replacing process. Patient has a large hemangioma filling the majority of the right L3 body. Heman gioma changes are present in T12-L2 as well. Patient has scattered fatty marrow degenerative changes. Anterior subluxation of L4 on L5 noted secondary to degenerative changes subsequently detailed. Conus is normal with no clumping or thickening of the cauda equina. T12-L1 level: No significant findings. L1-2 level: Disc is desiccated. Bulging of disc material is seen across the central canal and minimal ly into each exit foramen. No spinal stenosis or significant foraminal encroachment. Mild facet degen erative change present. L2-3 level: Loss in disc height with desiccation. Disc bulge and endplate spurring changes extend acr oss the central canal and into each exit foramen. No central spinal stenosis. Right foraminal encroac hment is mild to moderate. Significant left foraminal stenosis is present with effacement of the yvette neural fat. L3-4 level: Mild desiccation changes are present. There is bilateral foraminal disc bulge without farrah tral canal disc bulge. Facet degenerative changes mild. Mild to moderate foraminal encroachment murray es are present from the disc bulge. L4-5 level: Disc is desiccated. There is circumferential bulging of disc material. Focal herniation i s present midline and left central canal. There is flattening of the thecal sac. Severe facet joint d egenerative changes are present. Fluid is present in the facet joints. Central spinal stenosis to 3-4 mm is present from the combined effects of disc herniation, disc bulge, endplate spurring, ligamento us thickening and severe facet degenerative change. Severe stenosis extends into the L5 left lateral recess. Moderate right-sided and severe left-sided foraminal stenosis. L5-S1 level: Disc bulge and desiccation present. No central spinal stenosis. Facet degenerative murray es are present. Moderate right and moderately severe left foraminal stenosis. IMPRESSION: Severe central spinal stenosis L4-5 down to 3-4 mm. Significant foraminal stenosis also present. L4-5 changes are secondary to disc bulge, left paracentral disc herniation, severe facet joint degene rative change and ligamentous thickening. Degenerative changes are present elsewhere in the lumbar spine as detailed above. No other central sp inal stenosis seen. Multiple levels show significant foraminal stenosis. Fatty marrow degenerative changes and multiple vertebral body hemangiomas are present. No compression fracture or acute marrow process.
[2018-09-15] MEDS: ACETAMINOPHEN 325 MG TABLET PO PRN (22:00)
[2018-09-16 01:44] VITALS: O2SAT 94
[2018-09-16] MEDS: CARVEDILOL 25 MG TAB PO SCH (06:00)
[2018-09-16] MEDS: LEVOTHYROXINE SOD 0.05 MG TABLET PO SCH (06:26)
[2018-09-16] MEDS: INSULIN -REGULAR HUMAN 50 UNIT/0.5 ML ML SQ SCH ×2 (07:30→11:30)
[2018-09-16] MEDS: LISINOPRIL 20 MG TAB PO SCH (08:27)
[2018-09-16] MEDS: HYDRALAZINE HCL 25 MG TABLET PO SCH (08:27)
[2018-09-16] MEDS ORDERED: COD LIVER OIL PO SCH (09:00)
[2018-09-16] MEDS ORDERED: GLUCOSAMINE CHONDROITIN MSM PO SCH (09:00)
[2018-09-16] MEDS: ACETAMINOPHEN 325 MG TABLET PO PRN (11:00)
[2018-09-16] MEDS ORDERED: CARVEDILOL 6.25 MG TAB PO ONE (12:57)
[2018-09-16] MEDS ORDERED: HYDRALAZINE HCL 25 MG TABLET PO SCH (14:00)
--- NOTE | 2018-09-16 15:51 | P.DS ---
Admission Date: 09/14/18 Discharge Date: 09/16/18 Disposition: ROUTINE DISCHARGE Discharge Condition: GOOD Reason for Admission: "Could not walk, could not talk" Consultations: Nephrology, Dr Mccormick - Problems (1) Myoclonus Current Visit: Yes Status: Acute (2) Adverse drug reaction Current Visit: Yes Status: Acute (3) Hyperkalemia Current Visit: Yes Status: Acute (4) ESRD (end stage renal disease) on dialysis Current Visit: Yes Status: Chronic (5) Thyroid disease Current Visit: No Status: Chronic (6) Diabetes mellitus Onset Date: 11/16/17 Current Visit: No Status: Chronic Qualifiers: Diabetes mellitus type: type 2 Diabetes mellitus lobsterman insulin use: without lobsterman use Diabetes mellitus complication status: with kidney complications Diabetes mellitus complication detail: with chronic kidney disease Chronic kidney disease stage: stage 4 (severe) Qualified Code(s): E11.22 - Type 2 diabetes mellitus with diabetic chronic kidney disease; N18.4 - Chronic kidney disease, stage 4 (severe) (7) HTN (hypertension) Onset Date: 11/16/17 Current Visit: No Status: Chronic Qualifiers: Hypertension type: essential hypertension Qualified Code(s): I10 - Essential (primary) hypertension (8) History of CVA (cerebrovascular accident) Current Visit: No Status: Chronic (9) Multiple myeloma Current Visit: No Status: Chronic Brief History of Present Illness: This is a 83 yr old male with a Hx of DM2, HTN, Hx of CVA and ESRD on HD admitted for myoclonus. Per patient, he was in his usual state of health 2 days prior to admission. The day prior to admission, he stated that he was started on gabapentin by his PCP. He started to develop myoclonus, tremors, unable to walk or talk. This got progressively worse and scared him which brought him to the hospital. He denied any other symptoms of cp, sob, headache , vision changes, fevers, chills, GI or complaints. In the ED, patient initially was having tremors and shaking. He was given Ativan in the ED, which helped his symptoms. His labs were unremarkable except for Creatinine of 12.3 and potassium of 5.4, and troponin of 0.11. His CT head was negative for any acute abnormalities and MRI of the head was negative for acute CVA. He did miss his dialysis session today. At the time of my exam, patient was AAOx3, in no acute distress and hemodynamically stable. Patient stated that his tremors were much improved, his speech was also much improved. Hospital Course: This is a 83 year old male with: Myoclonus Drug adverse reaction This could have been possibly secondary to gabapentin. Medication was help and his Symptoms did resolve. We will discontinue this medication on discharge Imaging of the head negative. ESRD on HD Hyperkalemia Nephrology, Dr. Mccormick consulted. Patient received dialysis per schedule. DM2 Stable, no medication changes at discharge. HTN Uncontrolled, at home. His blood pressure was also uncontrolled throughout the stay. His BP medications were adjusted to incfreased hydralazine 100 TID, lisnoprili 20 mg daily and coreg 6.25 mg daily. His BP improved prior to discharge. He will follow up with Dr. Mccormick in 1-2 weeks. Hx of CVA Stable, continue home medications. MRI of head was negative for acute CVA Hypothyroid Continue home medications History of multiple myeloma Chronic back pain Chronic left lower extremity weakness Patient with a history of multiple myeloma, he did receive some treatment in the past but it was stopped as patient was thought to be unresponsive to treatment. MRI of the lumbar region of ordered, it does show severe central spinal stenosis in L4-5, foraminal stenosis, disc bulge. Results were discussed with him and it was discussed that he will need outpatient follow up for further management. Vital Signs/Physical Exam: Temp Pulse Resp BP Pulse Ox 97.8 F 62 16 164/76 H 97 09/16/18 12:45 09/16/18 14:05 09/16/18 12:45 09/16/18 14:05 09/16/18 12:45 General: Alert, In no apparent distress, Oriented x3 HEENT: Atraumatic, PERRLA, EOMI Neck: Supple, JVD not distended Respiratory: Clear to auscultation bilaterally, Normal air movement Cardiovascular: Regular rate/rhythm, Normal S1 S2 Gastrointestinal: Normal bowel sounds, No tenderness Musculoskeletal: No tenderness Integumentary: No rashes Neurological: Normal speech, Normal tone, Normal affect Lymphatics: No axilla or inguinal lymphadenopathy Laboratory Data at Discharge: WBC 4.0 K/uL (4.3-10.9) L D 09/15/18 03:48 Hgb 10.5 g/dL (13.6-17.9) L 09/15/18 03:48 Hct 31.6 % (39.6-49.0) L 09/15/18 03:48 Plt Count 154 K/uL (152-406) 09/15/18 03:48 PT 11.5 SECONDS (9.5-12.5) 09/14/18 08:55 INR 0.97 09/14/18 08:55 APTT 28.3 SECONDS (24.3-36.9) 09/14/18 08:55 Sodium 138 mmol/L (136-145) 09/16/18 13:13 Potassium 4.0 mmol/L (3.5-5.1) 09/16/18 13:13 BUN 37 mg/dL (7-18) H D 09/16/18 13:13 Creatinine 5.79 mg/dL (0.55-1.3) H* D 09/16/18 13:13 Glucose 87 mg/dL (74-106) 09/16/18 13:13 Magnesium 2.7 mg/dL (1.8-2.4) H 09/14/18 08:55 Total Bilirubin 0.5 mg/dL (0.2-1.0) 09/15/18 03:48 AST 24 U/L (15-37) 09/15/18 03:48 ALT 21 U/L (12-78) 09/15/18 03:48 Alkaline Phosphatase 87 U/L (45-117) 09/15/18 03:48 Home Medications: Calcifediol [Rayaldee] 1 tab PO DAILY 01/04/18 Cod Liver Oil 1 tab PO DAILY 01/04/18 Glucosamine/D3/Boswellia Elise [Glucosamine Complex Tablet] 1 each PO DAILY Levothyroxine [Synthroid*] 0.05 mg PO DAILY 01/04/18 Sevelamer Carbonate [Renvela*] 800 mg PO TIDWM 09/15/18 Carvedilol [Coreg] 6.25 mg PO BID #60 tab 09/16/18 Hydralazine HCl [Apresoline] 100 mg PO TID #90 tablet 09/16/18 Lisinopril [Prinivil*] 20 mg PO BID #60 tab 09/16/18 New Medications: Carvedilol [Coreg] 6.25 mg PO BID #60 tab Hydralazine HCl [Apresoline] 100 mg PO TID #90 tablet Lisinopril [Prinivil*] 20 mg PO BID #60 tab Patient Discharge Instructions: Please follow up with your Primary care physician in 1-2 weeks. Meidcation changes: (1) Disconitnue Gabapentin (2) Start Hydralazine 100 mg three times a day. (3) Lisinopril 20 mg twice a day (4 ) Coreg 6.25 mg twice a day. Monitor your Blood pressure at home. Return to the Emergency room with worsening symptoms. Diet: Renal Activity: Ad july Followup: Lilly Mccormick MD [ACTIVE - CAN ADMIT] - 1-2 Weeks Time spent managing pt's care (in minutes): 55
[2018-09-16 16:27] VITALS: BP 175/75; TEMP 98
--- NOTE | 2018-09-17 03:28 | PN ---
Date of Progress Note: 09/16/2018 Subjective: The patient was admitted with tremor, questionable seizure, uncontrolled blood pressure. The patient after being dialyzed [id number] and with challenge the patient's blood pressure being maintained better. Physical Examination: Vital Signs: When I saw the patient, blood pressure of 162/76, pulse of 52. Chest: Clear to auscultation. Heart: S1 and S2. Systolic murmur. Abdomen: Soft, nontender. Extremities: Trace edema. Neuro: Oriented x3. No focal. Laboratory Data: H and H 10.5/31.6, platelet of 154. Sodium 138, potassium 4, bicarb 31, BUN 37, cr eatinine 5.7, calcium of 9. Current Medications: The patient on its include hydralazine 50 t.i.d., carvedilol 6.25 b.i.d., Epoge n, lisinopril 20 daily. Assessment And Plan: 1.End-stage renal disease, slightly on the wet side, status post dialysis today. We managed to lian ve 3.5 L. We will continue to challenge the patient. 2.Hypertension, uncontrolled, but better. I am going to go ahead and increase hydralazine to 100, i ncrease carvedilol to 25, and we will follow up the patient. 3.Diabetes, as by primary. 4.Spinal stenosis confirmed with MRI complicated with weakness in the arm and the leg. We will refe r to Neurology for further evaluation. The patient is cleared from the renal standpoint for discharge planning to follow up in the office on the dialysis. PATRICIA Voice ID: [id number] Report ID: [id number]
== END 2018-09-16 18:15 | disposition home or self-care (01) ==
LOC: ER 08:38 → ERHOLD 11:25 → 4TH 22:21
PROVIDERS: ADMIT Family Medicine; ATTEND Family Medicine
PROC: 5A1D70Z Performance of Urinary Filtration, Intermittent, Less than 6 Hours Per Day (ICD-10-PCS; principal; 2018-09-14)
PROC: 5A1D70Z Performance of Urinary Filtration, Intermittent, Less than 6 Hours Per Day (ICD-10-PCS; 2018-09-16)
DX: G25.3 Myoclonus (principal); T42.6X5A Adverse effect of other antiepileptic and sedative-hypnotic drugs, initial encounter; E87.5 Hyperkalemia; E11.22 Type 2 diabetes mellitus with diabetic chronic kidney disease; I12.0 Hypertensive chronic kidney disease with stage 5 chronic kidney disease or end stage renal disease; N18.6 End stage renal disease; N18.4 Chronic kidney disease, stage 4 (severe); E07.9 Disorder of thyroid, unspecified; D63.1 Anemia in chronic kidney disease; M48.061 Spinal stenosis, lumbar region without neurogenic claudication; C90.00 Multiple myeloma not having achieved remission; Y92.9 Unspecified place or not applicable; Z99.2 Dependence on renal dialysis; Z86.73 Personal history of transient ischemic attack (TIA), and cerebral infarction without residual deficits
CPT/HCPCS: 93005; 85025 ×2; 80048 ×2; 36415 ×2; 83735; 82550; 85610; 82962 ×7; 85730; 84484; 80053; 83880; 70450; 72100; 90935 ×2; 70551; 72148; 96374; 99285; Q4081; J1644 ×2; G0378 ×2

== ENCOUNTER 2018-10-06 17:14 | Emergency (ER) | payer OTHER ==
--- NOTE | 2018-10-06 18:22 | EDPHYS ---
Physician Documentation [facility] Name: Sina William Age: 83 yrs Sex: Male : 1935 Arrival Date: 10/06/2018 Time: 17:17 Bed 16 Private MD: ED Physician Faraz Chaney HPI: 10/06 18:08 This 83 yrs old Male presents to ER via Wheelchair with complaints of Surgical jr8 site reopened. 18:08 The affected area is on the chest. The patient has not experienced similar symptoms in jr8 the past. The patient has been recently seen by a physician: the patient's primary care provider. Patient had dialysis catheter removed this afternoon from right jugular. Incision site at right chest wall. Daughter of patient stated that he was pushing and pulling on stuff at home and popped one of his stitches. Noticed mild bleeding and mild swelling since then. Had some swelling and bruising earlier from procedure . Historical: - Allergies: 17:30 No Known Allergies; aa5 - PMHx: 17:30 Amyloid CA; Arthritis; CVA; HD - //Thu; Hypertension; Osteoporosis; aa5 - Immunization history:: Adult Immunizations up to date. - Ebola Screening: : No symptoms or risks identified at this time. - Social history:: Smoking status: Patient/guardian denies using tobacco. ROS: 18:08 Eyes: Negative for injury, pain, redness, and discharge, ENT: Negative for injury, jr8 pain, and discharge, Neck: Negative for injury, pain, and swelling, Cardiovascular: Negative for chest pain, palpitations, and edema, Respiratory: Negative for shortness of breath, cough, wheezing, and pleuritic chest pain, Abdomen/GI: Negative for abdominal pain, nausea, vomiting, diarrhea, and constipation, Back: Negative for injury and pain, MS/Extremity: Negative for injury and deformity, Neuro: Negative for headache, weakness, numbness, tingling, and seizure. 18:08 Skin: Positive for ecchymosis, swelling, of the chest. Exam: 18:08 Eyes: Pupils equal round and reactive to light, extra-ocular motions intact. Lids and jr8 lashes normal. Conjunctiva and sclera are non-icteric and not injected. Cornea within normal limits. Periorbital areas with no swelling, redness, or edema. ENT: Nares patent. No nasal discharge, no septal abnormalities noted. Tympanic membranes are normal and external auditory canals are clear. Oropharynx with no redness, swelling, or masses, exudates, or evidence of obstruction, uvula midline. Mucous membranes moist. Neck: Trachea midline, no thyromegaly or masses palpated, and no cervical lymphadenopathy. Supple, full range of motion without nuchal rigidity, or vertebral point tenderness. No Meningismus. Cardiovascular: Regular rate and rhythm with a normal S1 and S2. No gallops, murmurs, or rubs. Normal PMI, no JVD. No pulse deficits. Respiratory: Lungs have equal breath sounds bilaterally, clear to auscultation and percussion. No rales, rhonchi or wheezes noted. No increased work of breathing, no retractions or nasal flaring. Abdomen/GI: Soft, non-tender, with normal bowel sounds. No distension or tympany. No guarding or rebound. No evidence of tenderness throughout. Back: No spinal tenderness. No costovertebral tenderness. Full range of motion. Skin: Warm, dry with normal turgor. Normal color with no rashes, no lesions, and no evidence of cellulitis. MS/ Extremity: Pulses equal, no cyanosis. Neurovascular intact. Full, normal range of motion. Neuro: Awake and alert, GCS 15, oriented to person, place, time, and situation. Cranial nerves II-XII grossly intact. Motor strength 5/5 in all extremities. Sensory grossly intact. Cerebellar exam normal. Normal gait. 18:08 Chest/axilla: Patient has approximately 2.5 cm incision site noted where dialysis catheter was removed. No active bleeding at this time. [address] Mild bruising with small hematoma noted to anterior right chest wall . Vital Signs: 17:49 BP 150 / 70; Pulse 54; Resp 18; Temp 98.1(O); Pulse Ox 96% on R/A; mh5 18:30 BP 141 / 65; Pulse 56; Resp 16; Temp 98.1; Pulse Ox 96% ; bp MDM: 17:44 Patient medically screened. 8 18:08 Data reviewed: vital signs, nurses notes, and as a result, I will discharge patient. 8 Data interpreted: Pulse oximetry: on room air is 96 %. Interpretation: normal. Counseling: I had a detailed discussion with the patient and/or guardian regarding: the historical points, exam findings, and any diagnostic results supporting the discharge/admit diagnosis, the need for outpatient follow up, a family practitioner, to return to the emergency department if symptoms worsen or persist or if there are any questions or concerns that arise at home. ED course: Discussed with daughter and patient that he should do no physical activity for next 5 days to allow for healing. Two keep close eye on wound to see if more hematoma were to form. Light pressure with ice periodically at home to help with hemostasis. If worse or more hematoma were to form to come back for reevaluation . Administered Medications: No medications were administered Disposition: 18:39 Co-signature as Attending Physician, Faraz Chaney MD. ma2 Disposition: 10/06/18 18:20 Discharged to Home. Impression: Hematoma right chest wall . - Condition is Stable. - Discharge Instructions: Hematoma. - Medication Reconciliation Form, Thank You Letter, Antibiotic Education, Prescription Opioid Use form. - Follow up: Private Physician; When: 1 - 2 days; Reason: Wound Recheck, Recheck today's complaints, Continuance of care, Re-evaluation by your physician. - Problem is new. - Symptoms have improved. Signatures: Cherrie Segura RN RN aa5 Andrey Marsh PA PA jr8 Sam Taveras RN RN bp Faraz Chaney MD MD ma2 Corrections: (The following items were deleted from the chart) 18:32 18:20 10/06/2018 18:20 Discharged to Home. Impression: Hematoma right chest wall . bp Condition is Stable. Forms are Medication Reconciliation Form, Thank You Letter, Antibiotic Education, Prescription Opioid Use. Follow up: Private Physician; When: 1 - 2 days; Reason: Wound Recheck, Recheck today's complaints, Continuance of care, Re-evaluation by your physician. Problem is new. Symptoms have improved. jr8
--- NOTE | 2018-10-06 18:22 | ER ---
Nurse's Notes [facility] Name: Sina William Age: 83 yrs Sex: Male : 1935 Arrival Date: 10/06/2018 Time: 17:17 Bed 16 Private MD: Diagnosis: Hematoma right chest wall Presentation: 10/06 17:33 Presenting complaint: Pt's family states "he just got his dialysis port taken out in [address] today but one of the sutures come out and it's bleeding". 17:33 Transition of care: patient was not received from another setting of care. Onset of [facility] symptoms was October 06, 2018. Risk Assessment: Do you want to hurt yourself or someone else? Patient reports no desire to harm self or others. Care prior to arrival: None. 17:33 Method Of Arrival: Wheelchair [facility] 17:33 Acuity: CLYDE 4 aa5 17:35 Initial Sepsis Screen: Does the patient meet any 2 criteria? No. Patient's initial bp sepsis screen is negative. Does the patient have a suspected source of infection? No. Patient's initial sepsis screen is negative. Triage Assessment: 17:30 General: Appears in no apparent distress. comfortable, Behavior is calm, cooperative, bp appropriate for age. Pain: Denies pain. EENT: No deficits noted. Neuro: No deficits noted. Cardiovascular: No deficits noted. Respiratory: Airway is patent Respiratory effort is even, unlabored, Respiratory pattern is regular, symmetrical. GI: No signs and/or symptoms were reported involving the gastrointestinal system. : No signs and/or symptoms were reported regarding the genitourinary system. Derm: No deficits noted. Musculoskeletal: Circulation, motion, and sensation intact. Range of motion: intact in all extremities. Historical: - Allergies: 17:30 No Known Allergies; aa5 - PMHx: 17:30 Amyloid CA; Arthritis; CVA; HD - //Sat; Hypertension; Osteoporosis; aa5 - Immunization history:: Adult Immunizations up to date. - Ebola Screening: : No symptoms or risks identified at this time. - Social history:: Smoking status: Patient/guardian denies using tobacco. Screenin:30 Abuse screen: Denies threats or abuse. Denies injuries from another. Nutritional bp screening: No deficits noted. Tuberculosis screening: No symptoms or risk factors identified. Fall Risk None identified. Assessment: 17:30 General: SEE TRIAGE NOTE. bp 18:30 Reassessment: PT D/C HOME VIA W/C WITH FAMILY, DX WITH RIGHT CHEST WALL HEMATOMA. bp Vital Signs: 17:49 BP 150 / 70; Pulse 54; Resp 18; Temp 98.1(O); Pulse Ox 96% on R/A; mh5 18:30 BP 141 / 65; Pulse 56; Resp 16; Temp 98.1; Pulse Ox 96% ; bp ED Course: 17:17 Patient arrived in ED. mr 17:30 Patient has correct armband on for positive identification. Bed in low position. Call bp light in reach. Side rails up X2. Adult w/ patient. 17:33 Arm band placed on Patient placed in an exam room, on a stretcher. aa5 17:34 Sam Taveras, VERNON is Primary Nurse. bp 17:38 Triage completed. aa5 17:44 Andrey Marsh PA is PHCP. [facility] 17:44 Faraz Chaney MD is Attending Physician. jr8 18:11 No provider procedures requiring assistance completed. Patient did not have IV access bp during this emergency room visit. Wound care: to SURGICAL located on anterior aspect of right upper chest was dressed with 4X4s, Patient tolerated well. Administered Medications: No medications were administered Outcome: 18:20 Discharge ordered by . jr8 18:31 Discharged to home via wheelchair, with family. bp 18:31 Condition: stable 18:31 Discharge instructions given to patient, Instructed on discharge instructions, follow up and referral plans. wound care, Demonstrated understanding of instructions, follow-up care, wound care. 18:32 Patient left the ED. bp Signatures: Theodora Hester mr SeguraCherrie, VERNON RN Andrey Coulter PA PA Mary Ellen Feliciano [facility] Sam Taveras, VERNON RN bp
[2018-10-06 18:57] VITALS: TEMP 98.1; O2SAT 96
[2018-10-06 18:58] VITALS: BP 141/65
== END 2018-10-06 18:32 | disposition home or self-care (01) ==
LOC: ER 17:14
DX: S20.211A Contusion of right front wall of thorax, initial encounter (principal); Z99.2 Dependence on renal dialysis

== ENCOUNTER 2019-04-11 17:11 | Observation (INO) | payer OTHER ==
[2019-04-11] MEDS ORDERED: ACETAMINOPHEN 500 MG TAB ONE (18:14)
[2019-04-11 18:29] LABS: Absolute Lymphocytes (CBC) 0.3 K/uL (0.7-4.9); Basophils % 0.3 % (0-1.3); Hematocrit 32.9 % (39.6-49.0); Lymphocytes % 6.2 % (15.3-44.8); MPV 9.8 fL (7.6-11.3); RBC Red Blood Cell Count 3.37 M/uL (4.33-5.43)
[2019-04-11 18:45] LABS: Albumin 3.3 g/dL (3.4-5.0); Bilirubin Direct 0.2 mg/dL (0-0.2); Bilirubin Total 0.5 mg/dL (0.2-1.0); Potassium 4.8 mmol/L (3.5-5.1); Troponin (Emerg Dept Use Only) 0.08 ng/mL (0.0-0.045)
[2019-04-11 19:07] LABS: Protime INR 1.04
--- NOTE | 2019-04-11 19:56 | RAD REPORT ---
EXAM DESCRIPTION: RAD - Chest Single View - 04/11/2019 6:24 pm CLINICAL HISTORY: Cough, fever COMPARISON: January 24 TECHNIQUE: AP portable chest image was obtained 1807 hours . FINDINGS: No focal mass or consolidation. Lung markings are prominent but not clearly different. No significant failure or volume overload. Heart and vasculature are normal. No measurable pleural effusion and no pneumothorax. No acute bony abnormality seen. No acute aortic findings suspected. IMPRESSION: No acute cardiopulmonary process. No significant change from comparison.
--- NOTE | 2019-04-11 20:33 | EDPHYS ---
Physician Documentation [facility] Name: Sina William Age: 83 yrs Sex: Male : 1935 Arrival Date: 04/11/2019 Time: 17:17 Bed 24 Private MD: ED Physician Brady Wilkins HPI: 04/11 18:14 This 83 yrs old Male presents to ER via EMS with complaints of Fever, General wa Weakness. 18:14 The patient reports fever, not measured (subjective). Onset: The symptoms/episode wa began/occurred 4 day(s) ago. Modifying factors: there are no obvious modifying factors. Associated signs and symptoms: Pertinent negatives: night sweats, runny nose, sore throat, swelling. Severity of symptoms: At their worst the symptoms were moderate in the emergency department the symptoms are unchanged. The patient has not recently seen a physician. ESRD. cough x 4 days. SOB. subjective fever. denied chest pain. Historical: - Allergies: 17:31 GABAPENTIN; tr5 - Home Meds: 17:31 acyclovir 200 mg Oral cap 1 cap daily [Active]; aspirin 81 mg Oral chew 1 tab once tr5 daily [Active]; cod liver oil Oral cap daily [Active]; lisinopril 10 mg Oral tab 1 tab twice a day [Active]; sevelamer HCl 800 MG Oral 1 tab daily [Active]; - PMHx: 17:31 Diabetes - NIDDM; Amyloid CA; Arthritis; CVA; HD - //Sat; Hypertension; tr5 Osteoporosis; ADD/ADHD; - Immunization history:: Adult Immunizations up to date. - Social history:: Smoking status: unknown. - Ebola Screening: : No symptoms or risks identified at this time. - Family history:: not pertinent. - Hospitalizations: : No recent hospitalization is reported. ROS: 18:17 Eyes: Negative for injury, pain, redness, and discharge, ENT: Negative for injury, wa pain, and discharge, Neck: Negative for injury, pain, and swelling, Cardiovascular: Negative for chest pain, palpitations, and edema, Abdomen/GI: Negative for abdominal pain, nausea, vomiting, diarrhea, and constipation, Back: Negative for injury and pain, : Negative for injury, bleeding, discharge, and swelling, MS/Extremity: Negative for injury and deformity, Skin: Negative for injury, rash, and discoloration, Neuro: Negative for headache, weakness, numbness, tingling, and seizure, Psych: Negative for depression, anxiety, suicide ideation, homicidal ideation, and hallucinations. 18:17 Constitutional: Positive for body aches, chills, fever, Negative for malaise, poor PO intake, weight loss. 18:17 Respiratory: Positive for cough, shortness of breath, at rest. 18:17 All other systems are negative. Exam: 18:18 Constitutional: This is a well developed, well nourished patient who is awake, alert, wa and in no acute distress. Head/Face: Normocephalic, atraumatic. Eyes: Pupils equal round and reactive to light, extra-ocular motions intact. Lids and lashes normal. Conjunctiva and sclera are non-icteric and not injected. Cornea within normal limits. Periorbital areas with no swelling, redness, or edema. ENT: Nares patent. No nasal discharge, no septal abnormalities noted. Tympanic membranes are normal and external auditory canals are clear. Oropharynx with no redness, swelling, or masses, exudates, or evidence of obstruction, uvula midline. Mucous membranes moist. Neck: Trachea midline, no thyromegaly or masses palpated, and no cervical lymphadenopathy. Supple, full range of motion without nuchal rigidity, or vertebral point tenderness. No Meningismus. Chest/axilla: Normal chest wall appearance and motion. Nontender with no deformity. No lesions are appreciated. Abdomen/GI: Soft, non-tender, with normal bowel sounds. No distension or tympany. No guarding or rebound. No evidence of tenderness throughout. Back: No spinal tenderness. No costovertebral tenderness. Full range of motion. Skin: Warm, dry with normal turgor. Normal color with no rashes, no lesions, and no evidence of cellulitis. MS/ Extremity: Pulses equal, no cyanosis. Neurovascular intact. Full, normal range of motion. Neuro: Awake and alert, GCS 15, oriented to person, place, time, and situation. Cranial nerves II-XII grossly intact. Motor strength 5/5 in all extremities. Sensory grossly intact. Cerebellar exam normal. Normal gait. Psych: Awake, alert, with orientation to person, place and time. Behavior, mood, and affect are within normal limits. 18:18 Cardiovascular: Rate: normal, Rhythm: regular, Pulses: no pulse deficits are appreciated, Heart sounds: normal, Edema: is not appreciated, JVD: is noted bilaterally, to 1 cm. 18:18 Respiratory: the patient does not display signs of respiratory distress, Respirations: normal, Breath sounds: crackles. bilateral. Vital Signs: 17:31 BP 164 / 67; Pulse 66; Resp 17; Temp 98.9; Pulse Ox 90% on R/A; Weight 74.39 kg; Height tr5 5 ft. 7 in. (170.18 cm); 18:32 BP 165 / 65; Pulse 63; Resp 21; Pulse Ox 95% on 3 lpm NC; rv 19:30 BP 140 / 56; Pulse 60; Resp 18; Pulse Ox 96% on 2 lpm NC; rv 20:15 BP 156 / 61; Pulse 60; Resp 15; Pulse Ox 97% on 2 lpm NC; rv 21:00 BP 145 / 69; Pulse 60; Resp 16; Pulse Ox 96% on 2 lpm NC; rv 22:22 BP 156 / 61; Pulse 60; Resp 16; Pulse Ox 97% on 2 lpm NC; rv 17:31 Body Mass Index 25.69 (74.39 kg, 170.18 cm) tr5 MDM: 17:23 Patient medically screened. oh 18:19 Differential diagnosis: viral Infection, bacterial infection, URI, bronchitis, wa pneumonia. Data reviewed: vital signs, nurses notes. 20:29 Test interpretation: by ED physician or midlevel provider: labs noted for anemia at wa 10.9/32.9. plt 141. mild trop elevation at 0.08. EKG: interp by me. HR 63. nml sinus. LAD. RBBB. Response to treatment: the patient's symptoms have markedly improved after treatment. ED course: CXR does not show significant infiltrate however due to pt's comorbities, will cover with abx, admit for obs and reassessment. 04/11 17:46 Order name: Basic Metabolic Panel; Complete Time: 19:12 oh 04/11 17:46 Order name: Blood Culture Adult (2) oh 04/11 17:46 Order name: CBC with Diff; Complete Time: 19:12 oh 04/11 17:46 Order name: CPK; Complete Time: 19:13 oh 04/11 17:46 Order name: Lactate; Complete Time: 19:13 oh 04/11 17:46 Order name: LFT's; Complete Time: 19:13 oh 04/11 17:46 Order name: Lipase; Complete Time: 19:13 oh 04/11 17:46 Order name: Procalcitonin; Complete Time: 19:13 oh 04/11 17:46 Order name: Protime (+inr); Complete Time: 20:28 oh 04/11 17:46 Order name: Troponin (emerg Dept Use Only); Complete Time: 19:13 oh 04/11 17:46 Order name: Urine Microscopic Only oh 04/11 17:46 Order name: Flu; Complete Time: 19:12 oh 04/11 21:54 Order name: CBC with Automated Diff EDMS 04/11 21:54 Order name: CBC with Automated Diff EDMS 04/11 17:46 Order name: Chest Single View XRAY; Complete Time: 20:06 oh 04/11 17:46 Order name: Accucheck; Complete Time: 18:01 oh 04/11 17:46 Order name: Cardiac monitoring; Complete Time: 18:01 oh 04/11 17:46 Order name: EKG - Nurse/Tech; Complete Time: 18:01 oh 04/11 21:54 Order name: CONS Pharmacy Consult [facility] 04/11 21:54 Order name: CONS Physician Consult [facility] 04/11 21:54 Order name: Renal EDAZ 04/11 21:54 Order name: Comprehensive Metabolic Panel [facility] 04/11 21:54 Order name: Comprehensive Metabolic Panel [facility] 04/11 21:54 Order name: Chest Single View EDAZ 04/11 21:54 Order name: Chest Single View EDAZ 04/11 21:56 Order name: NT PRO-BNP EDAZ 04/11 21:56 Order name: NT PRO-BNP EDAZ 04/11 17:46 Order name: IV Saline Lock - Large Bore; Complete Time: 18:02 oh 04/11 17:46 Order name: Labs collected and sent; Complete Time: 18:02 oh 04/11 17:46 Order name: O2 Per Protocol; Complete Time: 18:02 oh 04/11 17:46 Order name: O2 Sat Monitoring; Complete Time: 18:02 oh Administered Medications: 19:30 Drug: Rocephin - (cefTRIAXone) 2 grams Route: IVPB; Infused Over: 30 mins; Site: right rv antecubital; 20:16 Follow up: IV Status: Completed infusion rv 20:16 Drug: Zithromax 500 mg Route: IVPB; Infused Over: 1 hrs; Site: right antecubital; rv 22:23 Follow up: IV Status: Completed infusion rv 22:24 Not Given (N/A): Tylenol 1000 mg PO once rv Disposition: 04/11/19 20:32 Hospitalization ordered by Faraz Ponce for Observation. Preliminary diagnosis are Generalized wekaness, fever, cough. - Bed requested for Telemetry/MedSurg (observation). - Status is Observation. rv - Condition is Stable. - Problem is new. - Symptoms have improved. UTI on Admission? No Signatures: Dispatcher [employer] Carolyn Gorman, VERNON RN Brady Wilkins MD MD wa Vicente, Ronaldo, RN RN Josue Donald RN RN tr5 Corrections: (The following items were deleted from the chart) 22:07 20:32 Hospitalization Ordered by Faraz Ponce MD for Observation. Preliminary cg diagnosis is Generalized wekaness; fever; cough. Bed requested for Telemetry/MedSurg (observation). Status is Observation. Condition is Stable. Problem is new. Symptoms have improved. UTI on Admission? No. oh 22:33 22:07 04/11/2019 20:32 Hospitalization Ordered by Faraz Ponce MD for Observation. rv Preliminary diagnosis is Generalized wekaness; fever; cough. Bed requested for Telemetry/MedSurg (observation). Status is Observation. Condition is Stable. Problem is new. Symptoms have improved. UTI on Admission? No.
--- NOTE | 2019-04-11 20:33 | ER ---
Nurse's Notes [facility] Name: Sina William Age: 83 yrs Sex: Male : 1935 Arrival Date: 04/11/2019 Time: 17:17 Bed 24 Private MD: Diagnosis: Generalized wekaness;fever;cough Presentation: 04/11 17:21 Presenting complaint: EMS states: Patient has been feeling weak all over and has had tr5 some fevers so he wanted to come in to get checked out .Pt goes to dialysis //Thu. He was unable to do dialysis due to problems with his fistula so he went today to get dialyzed and is supposed to return tomorrow to be dialyzed again. Transition of care: patient was not received from another setting of care. Onset of symptoms was April 11, 2019. Risk Assessment: Do you want to hurt yourself or someone else? Patient reports no desire to harm self or others. Initial Sepsis Screen: Does the patient meet any 2 criteria? No. Patient's initial sepsis screen is negative. Does the patient have a suspected source of infection? No. Patient's initial sepsis screen is negative. Care prior to arrival: IV initiated. 18 GA, in the right antecubital area. 17:21 Method Of Arrival: EMS: [facility] tr5 17:21 Acuity: CLYDE 5 tr5 17:21 Acuity: CLYDE 4 tr5 Historical: - Allergies: 17:31 GABAPENTIN; tr5 - Home Meds: 17:31 acyclovir 200 mg Oral cap 1 cap daily [Active]; aspirin 81 mg Oral chew 1 tab once tr5 daily [Active]; cod liver oil Oral cap daily [Active]; lisinopril 10 mg Oral tab 1 tab twice a day [Active]; sevelamer HCl 800 MG Oral 1 tab daily [Active]; - PMHx: 17:31 Diabetes - NIDDM; Amyloid CA; Arthritis; CVA; HD - //Thu; Hypertension; tr5 Osteoporosis; ADD/ADHD; - Immunization history:: Adult Immunizations up to date. - Social history:: Smoking status: unknown. - Ebola Screening: : No symptoms or risks identified at this time. - Family history:: not pertinent. - Hospitalizations: : No recent hospitalization is reported. Screenin:31 Abuse screen: Denies threats or abuse. Denies injuries from another. Nutritional rv screening: No deficits noted. Tuberculosis screening: No symptoms or risk factors identified. Fall Risk None identified. Assessment: 18:30 General: Appears in no apparent distress. comfortable, Behavior is calm, cooperative. rv Pain: Denies pain. Neuro: Level of Consciousness is awake, alert, obeys commands, Oriented to person, place, time, situation. Cardiovascular: Patient's skin is warm and dry. Respiratory: Reports. GI: No signs and/or symptoms were reported involving the gastrointestinal system. : No signs and/or symptoms were reported regarding the genitourinary system. EENT: No signs and/or symptoms were reported regarding the EENT system. Derm: Skin is intact. Musculoskeletal: Reports weakness in general. 20:00 Reassessment: Patient appears in no apparent distress at this time. Patient and/or rv family updated on plan of care and expected duration. Pain level reassessed. Patient is alert, oriented x 3, equal unlabored respirations, skin warm/dry/pink. 21:04 Reassessment: Patient appears in no apparent distress at this time. Patient and/or rv family updated on plan of care and expected duration. Pain level reassessed. Patient is alert, oriented x 3, equal unlabored respirations, skin warm/dry/pink. awaiting admitting orders. patient updated on plan of care. Vital Signs: 17:31 BP 164 / 67; Pulse 66; Resp 17; Temp 98.9; Pulse Ox 90% on R/A; Weight 74.39 kg; Height tr5 5 ft. 7 in. (170.18 cm); 18:32 BP 165 / 65; Pulse 63; Resp 21; Pulse Ox 95% on 3 lpm NC; rv 19:30 BP 140 / 56; Pulse 60; Resp 18; Pulse Ox 96% on 2 lpm NC; rv 20:15 BP 156 / 61; Pulse 60; Resp 15; Pulse Ox 97% on 2 lpm NC; rv 21:00 BP 145 / 69; Pulse 60; Resp 16; Pulse Ox 96% on 2 lpm NC; rv 22:22 BP 156 / 61; Pulse 60; Resp 16; Pulse Ox 97% on 2 lpm NC; rv 17:31 Body Mass Index 25.69 (74.39 kg, 170.18 cm) tr5 ED Course: 17:17 Patient arrived in ED. tr5 17:20 Maintain EMS IV. Dressing intact. Good blood return noted. Site clean \T\ dry. Gauge \T\ rv site: 20 right AC. 17:20 First set of blood cultures drawn by me. rv 17:21 Josue Donald, RN is Primary Nurse. tr5 17:23 Brady Wilkins MD is Attending Physician. wa 17:26 Triage completed. tr5 17:55 Second set of blood cultures drawn by me. rv 18:01 Raciel Leal RN is Primary Nurse. rv 18:24 Chest Single View XRAY In Process Unspecified. EDMS 18:31 Patient has correct armband on for positive identification. Placed in gown. Bed in low rv position. Call light in reach. Side rails up X 1. Pulse ox on. NIBP on. 18:32 Splint/sling/ice applied as appropriate. Patient placed in the treatment room, on a rv stretcher, on security program manager, on pulse oximetry, Patient notified of wait time. 18:55 Notified ED physician of a critical lab result(s). Creatinine 7.61. tr5 20:31 Faraz Ponce MD is Hospitalizing Provider. wa 22:31 No provider procedures requiring assistance completed. Patient admitted, IV remains in rv place. Administered Medications: 19:30 Drug: Rocephin - (cefTRIAXone) 2 grams Route: IVPB; Infused Over: 30 mins; Site: right rv antecubital; 20:16 Follow up: IV Status: Completed infusion rv 20:16 Drug: Zithromax 500 mg Route: IVPB; Infused Over: 1 hrs; Site: right antecubital; rv 22:23 Follow up: IV Status: Completed infusion rv 22:24 Not Given (N/A): Tylenol 1000 mg PO once rv Outcome: 20:32 Decision to Hospitalize by Provider. wa 22:32 Admitted to Med/surg accompanied by tech, via wheelchair, room 214, with chart, Report rv called to nolan grimm 22:32 Condition: good 22:32 Instructed on the need for admit. 22:33 Patient left the ED. rv Signatures: Dispatcher [employer] EDMN Brady Wilkins MD MD wa Vicente, Ronaldo, VERNON RN rv Josue Donald RN RN tr5 Corrections: (The following items were deleted from the chart) 22:32 22:31 Patient did not have IV access during this emergency room visit. rv rv
[2019-04-11] MEDS ORDERED: ALBUTEROL 2.5 MG/3 ML NEB SOL NEB PRN (21:46)
[2019-04-11] MEDS ORDERED: MORPHINE 2 MG/ML SYR IV PRN (21:46)
[2019-04-11] MEDS ORDERED: ACETAMINOPHEN 500 MG TAB PO PRN (21:46)
[2019-04-11] MEDS ORDERED: IPRATROPIUM BROM 0.5MG/2.5ML NEB PRN (21:46)
[2019-04-11] MEDS ORDERED: ONDANSETRON 4 MG/2 ML VIAL IV PRN (21:46)
[2019-04-11] MEDS ORDERED: HYDROCODONE/CHLORPHEN 5 ML/OSYR PO PRN (21:55)
[2019-04-11 23:07] VITALS: BMI 24.7
[2019-04-11] MEDS: HYDRALAZINE HCL 25 MG TABLET PO SCH (23:11)
[2019-04-11] MEDS: METHYLPREDNISOLONE 125 MG INJ IV SCH (23:11)
[2019-04-11] MEDS: CEFTRIAXONE/SWI 1gm 1 GM/10 ML SYR IV SCH (23:16)
[2019-04-11] MEDS ORDERED: PNEUMOCOCCAL VACCINE 0.5 ML IMVAC ONE (23:42)
[2019-04-12] MEDS: METHYLPREDNISOLONE 125 MG INJ IV SCH ×3 (05:25→17:30)
[2019-04-12 05:41] LABS: Absolute Lymphocytes (CBC) 0.3 K/uL (0.7-4.9); Basophils % 0.1 % (0-1.3); Hematocrit 33.8 % (39.6-49.0); Lymphocytes % 5.9 % (15.3-44.8); MPV 9.6 fL (7.6-11.3); RBC Red Blood Cell Count 3.46 M/uL (4.33-5.43)
[2019-04-12 05:49] LABS: Albumin 3.3 g/dL (3.4-5.0); Bilirubin Total 0.5 mg/dL (0.2-1.0); Potassium 4.9 mmol/L (3.5-5.1); Protein, Total 7.4 g/dL (6.4-8.2)
[2019-04-12 08:17] LABS: Blood Morphology Comment NOT SEEN (NOT SEEN); Platelet Estimate ADEQ
--- NOTE | 2019-04-12 08:19 | RAD REPORT ---
EXAM DESCRIPTION: Manuel Single View04/12/2019 6:49 am CLINICAL HISTORY: Cough COMPARISON: April 11 FINDINGS: The lungs appear clear of acute infiltrate. The heart is borderline enlarged IMPRESSION: No acute abnormalities displayed
[2019-04-12] MEDS: HYDRALAZINE HCL 25 MG TABLET PO SCH ×2 (08:36→13:13)
[2019-04-12] MEDS: CEFTRIAXONE/SWI 1gm 1 GM/10 ML SYR IV SCH (08:36)
[2019-04-12] MEDS: SEVELAMER CARBONATE 800 MG TABLET PO SCH ×3 (08:37→17:00)
[2019-04-12] MEDS ORDERED: carvediloL 6.25 MG TAB PO SCH (09:00)
--- NOTE | 2019-04-12 09:01 | P.HP ---
Certification for Inpatient Patient admitted to: Observation With expected LOS: <2 Midnights Patient will require the following post-hospital care: None Practitioner: I am a practitioner with admitting privileges, knowledge of patient current condition, hospital course, and medical plan of care. Services: Services provided to patient in accordance with Admission requirements found in Title 42 Section 412.3 of the Code of Federal Regulations Patient History Date of Service: 04/11/19 Reason for admission: Shortness of breath History of Present Illness: Patient is an 83-year-old gentleman who came to the hospital with shortness of breath. Patient had cough and congestion and came into the emergency room. However, the workup in the ER did not reveal any significant abnormality. Patient has not been feeling well and he missed dialysis. There is an issue with his hemodialysis fistula. Apparently had profuse bleeding afterwards. He apparently has not been dialyzed since this weekend. We will go ahead and admit him to the hospital and monitor his upper respiratory symptoms. Will also talk with Nephrology in the morning and discuss if patient needs any intervention prior to hemodialysis. If not then hopefully we can dialyze him and afterwards he will be discharged home. There is concern that he is fluid overloaded even though this was not see on the x-ray. It is on like him to cough as much as he had been. He is having some pleuritic chest pain with the persistent coughing. Will need observation. Allergies gabapentin Allergy (Verified 04/11/19 23:16) Itching No Known Drug Allergies Allergy (Verified 01/04/18 08:15) Unknown No Known Allergies Allergy (Uncoded 01/17/18 16:37) Unknown Home Medications: Calcifediol [Rayaldee] 1 tab PO DAILY 01/04/18 Cod Liver Oil 1 tab PO DAILY 01/04/18 Glucosamine/D3/Boswellia Elise [Glucosamine Complex Tablet] 1 each PO DAILY Levothyroxine [Synthroid*] 0.05 mg PO DAILY 01/04/18 Sevelamer Carbonate [Renvela*] 800 mg PO TIDWM 09/15/18 Carvedilol [Coreg] 6.25 mg PO BID #60 tab 09/16/18 Hydralazine HCl [Apresoline] 100 mg PO TID #90 tablet 09/16/18 Lisinopril [Prinivil*] 20 mg PO BID #60 tab 09/16/18 - Past Medical/Surgical History Has patient received pneumonia vaccine in the past: No Diabetic: Yes -: DM-Type 2 -: HTN -: History of CVA -: Former Tobacco use -: ESRD -: disc surgery -: cataract surgery -: fistula Psychosocial/ Personal History: , Children-9 - Family History Father Medical History: Heart disease, Hypertension, Kidney disease Mother Medical History: Heart disease, Hypertension, Kidney disease - Social History Smoking Status: Never smoker Alcohol use: No CD- Drugs: No Caffeine use: Yes Place of Residence: Home Review of Systems 10-point ROS is otherwise unremarkable Physical Examination - Vital Signs Temperature: 97.8 F Blood Pressure: 182/84 Pulse: 73 Respirations: 16 Pulse Ox (%): 93 - Physical Exam General: Alert, In no apparent distress, Oriented x3 HEENT: Atraumatic, PERRLA, Mucous membr. moist/pink, EOMI, Sclerae nonicteric Neck: Supple, 2+ carotid pulse no bruit, No LAD, Without JVD or thyroid abnormality Respiratory: Diminished, Crackles/rales Cardiovascular: Regular rate/rhythm, Normal S1 S2, Systolic murmur Gastrointestinal: Normal bowel sounds, Soft and benign, Non-distended, No tenderness Musculoskeletal: No clubbing, No swelling, No tenderness Integumentary: No rashes Neurological: Normal gait, Normal speech, Normal strength at 5/5 x4 extr, Normal tone, Sensation intact, Cranial nerves 3-12 intact, Normal affect Lymphatics: No axilla or inguinal lymphadenopathy - Studies Laboratory Data (last 24 hrs) 04/11/19 17:20: PT 12.2, INR 1.04 04/11/19 17:20: WBC 5.4, Hgb 10.9 L, Hct 32.9 L, Plt Count 141 L 04/11/19 17:20: Sodium 135 L, Potassium 4.8, BUN 59 H, Creatinine 7.61 H*, Glucose 89, Total Bilirubin 0.5, AST 38 H, ALT 30, Alkaline Phosphatase 93, Lipase 134 Microbiology Data (last 24 hrs): 04/11/19 18:00 Nasopharnyx Influenza Type A Antigen Screen - Final 04/11/19 18:00 Nasopharnyx Influenza Type B Antigen Screen - Final Assessment & Plan - Problems (Diagnosis) (1) COPD (chronic obstructive pulmonary disease) Status: Chronic Qualifiers: COPD type: chronic bronchitis (2) Cough Status: Acute (3) Diabetes mellitus Onset Date: 11/16/17 Status: Chronic Qualifiers: Diabetes mellitus type: type 2 Diabetes mellitus buttermaker continuous churn insulin use: with group home use Diabetes mellitus complication status: with kidney complications Diabetes mellitus complication detail: with chronic kidney disease Chronic kidney disease stage: on chronic dialysis Qualified Code(s) : E11.22 - Type 2 diabetes mellitus with diabetic chronic kidney disease; N18.6 - End stage renal disease; Z79.4 - penitentiary (current) use of insulin; Z99.2 - Dependence on renal dialysis (4) ESRD (end stage renal disease) on dialysis Status: Chronic (5) HTN (hypertension) Onset Date: 11/16/17 Status: Chronic Qualifiers: Hypertension type: essential hypertension (6) History of CVA (cerebrovascular accident) Status: Chronic (7) Multiple myeloma Status: Chronic Qualifiers: Multiple myeloma remission status: in remission Qualified Code(s): C90.01 - Multiple myeloma in remission - Plan 1. Nephrology consultation for HD 2. DISCUSSED WITH NEPHROLOGY REGARDING FISTULA 3. COUGH MEDICATION 4. REPEAT CHEST X-RAY IN THE MORNING 5. STRICT BLOOD PRESSURE AND BLOOD SUGAR CONTROL 6. GI AND DVT PROPHYLAXIS Discharge Plan: Home Plan to discharge in: Greater than 2 days - Advance Directives Does patient have a Living Will: No Does patient have a Durable POA for Healthcare: No - Code Status/Comfort Care Code Status Assessed: Yes Code Status: Full Code Critical Care: No Time Spent Managing PTS Care (In Minutes): 45
--- NOTE | 2019-04-12 11:55 | P.SSS ---
Patient History Date of Service: 04/12/19 Reason for admission: Shortness of breath History of Present Illness: See HPI Allergies gabapentin Allergy (Verified 04/11/19 23:16) Itching No Known Drug Allergies Allergy (Verified 01/04/18 08:15) Unknown No Known Allergies Allergy (Uncoded 01/17/18 16:37) Unknown Home Medications: Calcifediol [Rayaldee] 1 tab PO DAILY 01/04/18 Cod Liver Oil 1 tab PO DAILY 01/04/18 Glucosamine/D3/Boswellia Elise [Glucosamine Complex Tablet] 1 each PO DAILY Levothyroxine [Synthroid*] 0.05 mg PO DAILY 01/04/18 Sevelamer Carbonate [Renvela*] 800 mg PO TIDWM 09/15/18 Carvedilol [Coreg] 6.25 mg PO BID #60 tab 09/16/18 Hydralazine HCl [Apresoline] 100 mg PO TID #90 tablet 09/16/18 Lisinopril [Prinivil*] 20 mg PO BID #60 tab 09/16/18 - Past Medical/Surgical History Has patient received pneumonia vaccine in the past: No Diabetic: Yes -: DM-Type 2 -: HTN -: History of CVA -: Former Tobacco use -: disc surgery -: cataract surgery Psychosocial/ Personal History: , Children-9 - Family History Father -: Heart disease, Hypertension, Kidney disease Mother -: Heart disease, Hypertension, Kidney disease - Social History Smoking Status: Never smoker Alcohol use: No CD- Drugs: No Caffeine use: Yes Place of Residence: Home Review of Systems 10-point ROS is otherwise unremarkable Physical Examination - Vital Signs Temperature: 97.8 F Blood Pressure: 182/84 Pulse: 73 Respirations: 16 Pulse Ox (%): 93 - Physical Exam General: Alert, In no apparent distress HEENT: Atraumatic, PERRLA, Mucous membr. moist/pink, EOMI, Sclerae nonicteric Neck: Supple, 2+ carotid pulse no bruit, No LAD, Without JVD or thyroid abnormality Respiratory: Clear to auscultation bilaterally, Normal air movement Cardiovascular: Regular rate/rhythm, Normal S1 S2 Gastrointestinal: Normal bowel sounds, No tenderness Musculoskeletal: No tenderness Integumentary: No rashes Neurological: Normal gait, Normal speech, Normal strength at 5/5 x4 extr, Normal tone, Normal affect Lymphatics: No axilla or inguinal lymphadenopathy - Studies Laboratory Data (last 24 hrs) 04/11/19 17:20: PT 12.2, INR 1.04 04/11/19 17:20: WBC 5.4, Hgb 10.9 L, Hct 32.9 L, Plt Count 141 L 04/11/19 17:20: Sodium 135 L, Potassium 4.8, BUN 59 H, Creatinine 7.61 H*, Glucose 89, Total Bilirubin 0.5, AST 38 H, ALT 30, Alkaline Phosphatase 93, Lipase 134 Microbiology Data (last 24 hrs): 04/11/19 18:00 Nasopharnyx Influenza Type A Antigen Screen - Final 04/11/19 18:00 Nasopharnyx Influenza Type B Antigen Screen - Final - Diagnosis (Problem(s)) (1) Volume overload Current Visit: Yes Status: Resolved Qualifiers: Hypervolemia type: other Qualified Code(s): E87.79 - Other fluid overload (2) COPD (chronic obstructive pulmonary disease) Current Visit: Yes Status: Chronic Qualifiers: COPD type: chronic bronchitis (3) Diabetes mellitus Onset Date: 11/16/17 Current Visit: No Status: Chronic Qualifiers: Diabetes mellitus type: type 2 Diabetes mellitus termite helper insulin use: with halfway use Diabetes mellitus complication status: with kidney complications Diabetes mellitus complication detail: with chronic kidney disease Chronic kidney disease stage: on chronic dialysis Qualified Code(s) : E11.22 - Type 2 diabetes mellitus with diabetic chronic kidney disease; N18.6 - End stage renal disease; Z79.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; Z99.2 - Dependence on renal dialysis (4) ESRD (end stage renal disease) on dialysis Current Visit: No Status: Chronic (5) HTN (hypertension) Onset Date: 11/16/17 Current Visit: No Status: Chronic Qualifiers: Hypertension type: essential hypertension (6) History of CVA (cerebrovascular accident) Current Visit: No Status: Chronic (7) Multiple myeloma Current Visit: No Status: Chronic Qualifiers: Multiple myeloma remission status: in remission Qualified Code(s): C90.01 - Multiple myeloma in remission (8) Thyroid disease Current Visit: No Status: Chronic Treatment Summary: Patient was initially admitted to the hospital for dyspnea was found to have volume overload. Patient had missed hemodialysis which probably was causing his volume overload. Patient was scheduled for hemodialysis here in the hospital after nephrology was consulted. Patient had dialysis done here in the hospital had marked improvement in his symptoms. Repeated x-ray showed marked improvement in his volume status. Patient thus was discharged home under stable condition was asked to continue with his dialysis outpatient. Patient demonstrate understanding and thus he was discharged home under stable condition. - Disposition Disposition: ROUTINE DISCHARGE Condition: GOOD Diet: Regular Activity: Ad july
--- NOTE | 2019-04-12 12:21 | EKG ---
Test Date: 2019-04-11 Test Time: 19:34:21 Supervising Airplane Pilot: JOYT MEASUREMENT RESULTS: Intervals: Rate: 63 WA: 176 QRSD: 126 QT: 468 QTc: 478 [place]: P: 102 WA: 176 QRS: -49 T: 60 INTERPRETIVE STATEMENTS: Normal sinus rhythm Left axis deviation Right bundle branch block Abnormal ECG Compared to ECG 09/14/2018 09:17:39 Left-axis deviation now present Electronically Signed On 04-12-19 12:19:26 COMMAND AND CONTROL SPECIALIST by Farhan Shipley
[2019-04-12] MEDS ORDERED: NA CHLORIDE 0.9% 1,000 ML IV PRN (14:54)
[2019-04-12] MEDS ORDERED: ALBUMIN HUMAN 25% 50 ML IV SCH (15:00)
--- NOTE | 2019-04-12 15:31 | CON ---
Date of Consultation: 04/12/2019 Reason For Consultation: Over volume, elevated BUN and creatinine, end-stage renal disease. History Of Present Illness: This is a pleasant 83-year-old gentleman, well known to me from dialysis with significant past medical history of end-stage renal disease on hemodialysis at [facility] odialysis Unit through left arm AV fistula TTS, diabetes complicated with neuropathy and nephropathy, CVA without any residual, multiple myeloma. Patient yesterday apparently in the dialysis. He came for extra treatment, but he developed hematoma. For that reason, dialysis was not complete. Patient today could not get up from bed, feeling weak with shortness of breath. For that reason, family tamar led EMS, approached to the hospital, found hypoxemia, over volume. For that reason, we have been con sulted. We took the patient for urgent dialysis. Patient denied taking any nonsteroidal, no IV cont rast. Past Medical History: 1.Diabetes complicated with neuropathy and nephropathy. 2.Hypertension. 3.Hyperlipidemia. 4.End-stage renal disease, on hemodialysis TTS through left arm AV fistula. 5.Multiple myeloma. Allergies: NO KNOWN DRUG ALLERGIES. Past Surgical History: AV fistula creation, bone marrow biopsy, PermCath placement and removal. Social History: Denies smoking. Denies drinking. Denies drug abuse. Review of Systems: Head and Neck: No red eye. No ear pain. GI: No nausea. No vomiting. : No polyuria. No dysuria. No hematuria. SVP BUSINESS DEVELOPMENT: Not applicable. Respiratory: Has shortness of breath. Has cough. Cardiovascular: No chest pain. Endocrine: No polydipsia. Skin: No rash. Neuro: Has neuropathy. Musculoskeletal: Low back pain. Medications: Home medications include Renvela 800 with each meal, lisinopril 20 b.i.d., levothyroxin e, hydralazine 100 t.i.d., carvedilol, Rayaldee. Current medications in hospital include carvedilol, ceftriaxone, hydralazine, Solu-Medrol, Renvela. Assessment And Plan: 1.End-stage renal disease, over volume. We will challenge the patient today. 2.Hypertension. We will utilize blood pressure for more ultrafiltration. 3.Secondary hyperparathyroidism. Continue Renvela. 4.Anemia of chronic kidney disease. No need for LAMAR. 5.Congestive heart failure exacerbation secondary to missing dialysis. We will challenge today the patient. We will repeat chest x-ray. If chest x-ray has been improved, patient will be cleared from the renal standpoint for discharge planning. 6.Diabetes, as by primary. Dr. Edmondson for allowing us to participate in the care of your patient. PATRICIA Voice ID: [id number] Report ID: [id number]
[2019-04-12 19:04] VITALS: O2SAT 94
[2019-04-12 22:31] VITALS: BP 182/84; TEMP 97.8
--- OUTSIDE RECORDS SUMMARY | 2019-04-17 21:47 | XMS REPORT ---
:1935 [facility] Address [address] [place] [address] Dr. Ramirez [address] [place] [id number] Care Team Providers Name Role Phone Unavailable Unavailable Unavailable Problems This patient has no known problems. Allergies, Adverse Reactions, Alerts This patient has no known allergies or adverse reactions. Medications This patient has no known medications.
== END 2019-04-12 19:41 | disposition home or self-care (01) ==
LOC: ER 17:11 → ERHOLD 22:17 → 2ND 22:18
PROVIDERS: ADMIT Hospitalist; ATTEND Family Medicine
PROC: 5A1D70Z Performance of Urinary Filtration, Intermittent, Less than 6 Hours Per Day (ICD-10-PCS; principal; 2019-04-12)
DX: I13.2 Hypertensive heart and chronic kidney disease with heart failure and with stage 5 chronic kidney disease, or end stage renal disease (principal); E11.40 Type 2 diabetes mellitus with diabetic neuropathy, unspecified; E11.22 Type 2 diabetes mellitus with diabetic chronic kidney disease; N18.6 End stage renal disease; J44.9 Chronic obstructive pulmonary disease, unspecified; C90.01 Multiple myeloma in remission; N25.81 Secondary hyperparathyroidism of renal origin; D63.1 Anemia in chronic kidney disease; I50.9 Heart failure, unspecified; Z23 Encounter for immunization; Z99.2 Dependence on renal dialysis; Z87.891 Personal history of nicotine dependence; Z86.73 Personal history of transient ischemic attack (TIA), and cerebral infarction without residual deficits
CPT/HCPCS: 96365; 96367; 93005; 87040 ×2; 85025 ×2; 80048; 36415 ×2; 82550; 85610; 82947 ×3; 80076; 83605; 84484; 83690; 80053; 84145; 83880; 87804 ×2; 71045 ×2; 90935; 90471; 90670; 99285; 96366; J1644; J0696; J2930 ×3; G0378 ×3

== ENCOUNTER 2019-06-30 16:34 | Observation (INO) | payer OTHER ==
--- OUTSIDE RECORDS SUMMARY | 2019-06-30 16:36 | XMS REPORT ---
:1935 [facility] Address [address] [place] [address] Dr. Ramirez [address] [place] [id number] Care Team Providers Name Role Phone Unavailable Unavailable Unavailable Problems This patient has no known problems. Allergies, Adverse Reactions, Alerts This patient has no known allergies or adverse reactions. Medications This patient has no known medications.
--- NOTE | 2019-06-30 17:43 | RAD REPORT ---
EXAM DESCRIPTION: RAD - Chest Single View - 06/30/2019 5:38 pm CLINICAL HISTORY: hypotension Chest pain. COMPARISON: No comparisonsChest Single View dated 04/12/2019; Chest Single View dated 04/11/2019; Ches t Pa And Lat (2 Views) dated 01/24/2019; Chest Pa And Lat (2 Views) dated 10/11/2018 FINDINGS: Portable technique limits examination quality. The lungs are grossly clear. The heart is normal in size. No displaced fractures.Aortic atheroscleros is. IMPRESSION: No acute intrathoracic process suspected.
[2019-06-30 17:58] LABS: Absolute Lymphocytes (CBC) 0.9 K/uL (0.7-4.9); Basophils % 0.9 % (0-1.3); Hematocrit 40.5 % (39.6-49.0); Lymphocytes % 20.9 % (15.3-44.8); MPV 7.9 fL (7.6-11.3); RBC Red Blood Cell Count 4.05 M/uL (4.33-5.43)
[2019-06-30 18:09] LABS: Protime INR 0.96
[2019-06-30] MEDS ORDERED: NA CHLORIDE 0.9% 250 ML ONE ×2 (18:23→19:52)
[2019-06-30 19:00] LABS: Albumin 4.2 g/dL (3.4-5.0); Bilirubin Direct 0.2 mg/dL (0-0.2); Bilirubin Total 0.5 mg/dL (0.2-1.0); Magnesium 2.6 mg/dL (1.8-2.4); Potassium 5.1 mmol/L (3.5-5.1); Troponin (Emerg Dept Use Only) 0.02 ng/mL (0.0-0.045)
--- NOTE | 2019-06-30 19:35 | EDPHYS ---
Physician Documentation [facility] Name: Sina William Age: 84 yrs Sex: Male : 1935 Arrival Date: 06/30/2019 Time: 16:35 Bed 7 Private MD: Yobani Edmondson ED Physician Eddie Syed HPI: 06/30 17:25 This 84 yrs old Male presents to ER via Wheelchair with complaints of Low bp. cp 17:25 low blood pressure. cp 17:25 Onset: The symptoms/episode began/occurred this morning. Severity of symptoms: in the emergency department the symptoms are unchanged. Patient reports he was at dialysis this morning and blood pressure was measured to be low. Patient reports he completed dialysis. Historical: - Allergies: 17:00 GABAPENTIN; iw - Home Meds: 17:00 acyclovir 200 mg Oral cap 1 cap daily [Active]; aspirin 81 mg Oral chew 1 tab once iw daily [Active]; cod liver oil Oral cap daily [Active]; lisinopril 10 mg Oral tab 1 tab twice a day [Active]; sevelamer HCl 800 mg Oral 1 tab daily [Active]; - PMHx: 17:00 ADD/ADHD; Amyloid CA; Arthritis; CVA; Diabetes - NIDDM; HD - //Thu; Hypertension; iw Osteoporosis; Anemia; - Immunization history:: Adult Immunizations up to date. - Social history:: Smoking status: Patient denies any tobacco usage or history of. - Ebola Screening: : Patient negative for fever greater than or equal to 101.5 degrees Fahrenheit, and additional compatible Ebola Virus Disease symptoms Patient denies exposure to infectious person Patient denies travel to an Ebola-affected area in the 21 days before illness onset No symptoms or risks identified at this time. ROS: 17:30 Constitutional: Negative for body aches, chills, fever, poor PO intake. cp 17:30 Eyes: Negative for injury, pain, redness, and discharge. cp 17:30 ENT: Negative for drainage from ear(s), ear pain, sore throat, difficulty swallowing, difficulty handling secretions. 17:30 Cardiovascular: Negative for chest pain, edema, palpitations. 17:30 Respiratory: Negative for cough, shortness of breath, wheezing. 17:30 Abdomen/GI: Negative for abdominal pain, nausea, vomiting, and diarrhea, black/tarry stool, rectal bleeding. 17:30 Skin: Negative for rash. 17:30 Neuro: Negative for altered mental status, dizziness, headache, weakness. 17:30 All other systems are negative. Exam: 17:35 Constitutional: The patient appears in no acute distress, alert, awake, cp non-diaphoretic, non-toxic, well developed, well nourished. 17:35 Head/Face: Normocephalic, atraumatic. cp 17:35 Eyes: Periorbital structures: appear normal, Pupils: equal, round, and reactive to light and accomodation, Extraocular movements: intact throughout, Conjunctiva: normal, no exudate, no injection, Sclera: no appreciated abnormality, Lids and lashes: appear normal, bilaterally. 17:35 ENT: External ear(s): are unremarkable, Ear canal(s): are normal, clear, TM's: bulging, is not appreciated, bilaterally, dullness, bilaterally, erythema, is not appreciated, bilaterally, Nose: is normal, Mouth: Lips: moist, Oral mucosa: pink and intact, moist, Posterior pharynx: is normal, airway is patent, no erythema, no exudate. 17:35 Neck: ROM/movement: is normal, is supple, no meningismus, no nuchal rigidity. 17:35 Chest/axilla: Inspection: normal, Palpation: is normal, no crepitus, no tenderness. 17:35 Cardiovascular: Rate: normal, Rhythm: regular, Edema: is not appreciated, JVD: is not appreciated. 17:35 Respiratory: the patient does not display signs of respiratory distress, Respirations: normal, no use of accessory muscles, no retractions, labored breathing, is not present, Breath sounds: decreased breath sounds, are not appreciated, wheezing: is not appreciated. 17:35 Abdomen/GI: Inspection: abdomen appears normal, Palpation: abdomen is soft and non-tender, in all quadrants. 17:35 Skin: no rash present. 17:35 Neuro: Orientation: to person, place \T\ time. Mentation: is normal, Cerebellar function: is grossly normal, Motor: moves all fours, strength is normal. Vital Signs: 17:00 BP 84 / 59; Pulse 67; Resp 16; Temp 97.8; Pulse Ox 96% ; Weight 68.04 kg; Pain 0/10; iw 18:19 BP 109 / 64; Pulse 62; Pulse Ox 95% ; tw2 19:00 BP 139 / 64; Pulse 59; Resp 16; Pulse Ox 99% on R/A; rv 19:30 BP 143 / 69; Pulse 58; Resp 15; Pulse Ox 100% on R/A; rv 20:00 BP 116 / 63; Pulse 57; Resp 16; Pulse Ox 97% on R/A; rv 21:00 BP 128 / 66; Pulse 61; Resp 16; Pulse Ox 99% on R/A; rv 21:46 BP 122 / 52; Pulse 60; Resp 16; Pulse Ox 100% ; rv MDM: 17:19 Patient medically screened. cp 06/30 17:19 Order name: Basic Metabolic Panel; Complete Time: 19:18 cp 06/30 19:18 Interpretation: Normal except: BUN 33; CRE 6.23; GFR 9. cp 06/30 17:19 Order name: CBC with Diff; Complete Time: 18:34 cp 06/30 18:34 Interpretation: Normal except: WBC 4.1; RBC 4.05; HGB 13.4; MCV 100.1; RDW 18.5. cp 06/30 17:19 Order name: LFT's; Complete Time: 19:18 cp 06/30 17:19 Order name: Magnesium; Complete Time: 19:18 cp 06/30 17:19 Order name: NT PRO-BNP; Complete Time: 19:18 cp 06/30 17:19 Order name: PT-INR; Complete Time: 18:34 cp 06/30 17:19 Order name: Troponin (emerg Dept Use Only); Complete Time: 19:18 cp 06/30 17:19 Order name: XRAY Chest (1 view); Complete Time: 18:34 cp 06/30 17:20 Order name: Blood Culture Adult (2) cp 06/30 17:20 Order name: Procalcitonin; Complete Time: 19:18 cp 06/30 17:20 Order name: Lactate; Complete Time: 18:34 cp 06/30 18:35 Order name: Urine Microscopic Only cp 06/30 17:19 Order name: EKG; Complete Time: 17:20 cp 06/30 17:19 Order name: Cardiac monitoring; Complete Time: 18:44 cp 06/30 17:19 Order name: EKG - Nurse/Tech; Complete Time: 18:44 cp 06/30 17:19 Order name: IV Saline Lock; Complete Time: 18:44 cp 06/30 17:19 Order name: Labs collected and sent; Complete Time: 18:44 cp 06/30 17:19 Order name: O2 Per Protocol; Complete Time: 18:44 cp 06/30 17:19 Order name: O2 Sat Monitoring; Complete Time: 18:44 cp 06/30 19:25 Order name: Cath; Complete Time: 20:01 cp Administered Medications: 18:17 Drug: NS 0.9% 250 ml Route: IV; Rate: bolus; Site: right antecubital; hb 20:02 Follow up: IV Status: Completed infusion rv 19:55 Drug: Cefepime 2 grams Route: IVPB; Rate: 200 ml/hr; Infused Over: 30 mins; Site: right rv antecubital; 21:05 Follow up: IV Status: Completed infusion; IV Intake: 100ml rv 21:05 Drug: vancoMYCIN 1 grams Route: IVPB; Infused Over: 2 hrs; Site: right antecubital; rv 21:47 Follow up: IV Status: Completed infusion; IV Intake: 250ml rv Disposition: 06/30/19 19:35 Hospitalization ordered by Rosalinda Mallory for Inpatient Admission. Preliminary diagnosis is Hypotension. - Bed requested for Telemetry/MedSurg (Inpatient). - Status is Inpatient Admission. rv - Condition is Stable. - Problem is new. - Symptoms have improved. UTI on Admission? No Addendum: 07/02/2019 19:47 Co-signature as Attending Physician, Eddie Syed MD. r n Signatures: Dispatcher [employer] Crystal Asencio RN RN iw Nieto, Roman, MD MD rn Page, Corey, PA PA cp Carolyn Dia RN RN cg Beatriz Deras, VERNON JUNIOR Raciel Leal RN RN rv Corrections: (The following items were deleted from the chart) 06/30 21:11 19:35 Hospitalization Ordered by Rosalinda Mallory MD for Inpatient Admission. Preliminary cg diagnosis is Hypotension. Bed requested for Telemetry/MedSurg (Inpatient). Status is Inpatient Admission. Condition is Stable. Problem is new. Symptoms have improved. UTI on Admission? No. cp 22:26 21:11 06/30/2019 19:35 Hospitalization Ordered by Rosalinda Mallory MD for Inpatient rv Admission. Preliminary diagnosis is Hypotension. Bed requested for Telemetry/MedSurg (Inpatient). Status is Inpatient Admission. Condition is Stable. Problem is new. Symptoms have improved. UTI on Admission? No. cg
--- NOTE | 2019-06-30 19:35 | ER ---
Nurse's Notes [facility] Name: Sina William Age: 84 yrs Sex: Male : 1935 Arrival Date: 06/30/2019 Time: 16:35 Bed 7 Private MD: Yobani Edmondson Diagnosis: Hypotension Presentation: 06/30 16:57 Presenting complaint: Patient states: BP was low this morning and at dialysis it was iw low, has not had any BP meds since this morning, pt state she feels the same whether his BP was high or low, daughter states when he was on the phone earlier he was barely talking to her. Transition of care: patient was not received from another setting of care. Onset of symptoms was June 30, 2019. Risk Assessment: Do you want to hurt yourself or someone else? Patient reports no desire to harm self or others. Initial Sepsis Screen: Does the patient meet any 2 criteria? No. Patient's initial sepsis screen is negative. Does the patient have a suspected source of infection? No. Patient's initial sepsis screen is negative. Care prior to arrival: None. 16:57 Method Of Arrival: Wheelchair iw 16:57 Acuity: CLYDE 3 iw Historical: - Allergies: 17:00 GABAPENTIN; iw - Home Meds: 17:00 acyclovir 200 mg Oral cap 1 cap daily [Active]; aspirin 81 mg Oral chew 1 tab once iw daily [Active]; cod liver oil Oral cap daily [Active]; lisinopril 10 mg Oral tab 1 tab twice a day [Active]; sevelamer HCl 800 mg Oral 1 tab daily [Active]; - PMHx: 17:00 ADD/ADHD; Amyloid CA; Arthritis; CVA; Diabetes - NIDDM; HD - //Sat; Hypertension; iw Osteoporosis; Anemia; - Immunization history:: Adult Immunizations up to date. - Social history:: Smoking status: Patient denies any tobacco usage or history of. - Ebola Screening: : Patient negative for fever greater than or equal to 101.5 degrees Fahrenheit, and additional compatible Ebola Virus Disease symptoms Patient denies exposure to infectious person Patient denies travel to an Ebola-affected area in the 21 days before illness onset No symptoms or risks identified at this time. Screenin:24 Abuse screen: Denies threats or abuse. Denies injuries from another. Nutritional hb screening: No deficits noted. Tuberculosis screening: No symptoms or risk factors identified. Fall Risk None identified. Assessment: 17:25 General: Appears in no apparent distress. Behavior is calm, cooperative. Pain: Denies hb pain. Neuro: Level of Consciousness is awake, alert, obeys commands, Oriented to person, place, time, situation. Cardiovascular: Heart tones S1 S2 present Capillary refill < 3 seconds Patient's skin is warm and dry. Respiratory: Airway is patent Respiratory effort is even, unlabored, Respiratory pattern is regular, symmetrical, Breath sounds are clear bilaterally. GI: No signs and/or symptoms were reported involving the gastrointestinal system. : No signs and/or symptoms were reported regarding the genitourinary system. EENT: No signs and/or symptoms were reported regarding the EENT system. Derm: Skin is pink, warm \T\ dry. Musculoskeletal: No signs and/or symptoms reported regarding the musculoskeletal system. 18:30 Reassessment: Patient appears in no apparent distress at this time. Patient and/or hb family updated on plan of care and expected duration. Pain level reassessed. Patient is alert, oriented x 3, equal unlabored respirations, skin warm/dry/pink. 20:02 Reassessment: straight cath was done but with no urine output. referred to tamy Dos Santos. Vital Signs: 17:00 BP 84 / 59; Pulse 67; Resp 16; Temp 97.8; Pulse Ox 96% ; Weight 68.04 kg; Pain 0/10; iw 18:19 BP 109 / 64; Pulse 62; Pulse Ox 95% ; tw2 19:00 BP 139 / 64; Pulse 59; Resp 16; Pulse Ox 99% on R/A; rv 19:30 BP 143 / 69; Pulse 58; Resp 15; Pulse Ox 100% on R/A; rv 20:00 BP 116 / 63; Pulse 57; Resp 16; Pulse Ox 97% on R/A; rv 21:00 BP 128 / 66; Pulse 61; Resp 16; Pulse Ox 99% on R/A; rv 21:46 BP 122 / 52; Pulse 60; Resp 16; Pulse Ox 100% ; rv ED Course: 16:35 Patient arrived in ED. mr 16:35 Apolinar Edmondson MD is Private Physician. mr 16:35 Yobani Edmondson DO is Private Physician. mr 16:59 Triage completed. iw 17:00 Bed in low position. Call light in reach. Side rails up X2. ekg monitor on. Pulse tw2 ox on. NIBP on. 17:15 Ted Fernando PA is PHCP. cp 17:15 Eddie Syed MD is Attending Physician. cp 17:24 Arm band placed on. hb 17:25 Inserted saline lock: 20 gauge in right antecubital area, using aseptic technique. hb Blood collected. 17:28 Beatriz Deras, VERNON is Primary Nurse. hb 17:38 XRAY Chest (1 view) In Process Unspecified. EDMS 19:34 Rosalinda Mallory MD is Hospitalizing Provider. cp 21:51 No provider procedures requiring assistance completed. Patient admitted, IV remains in rv place. Administered Medications: 18:17 Drug: NS 0.9% 250 ml Route: IV; Rate: bolus; Site: right antecubital; hb 20:02 Follow up: IV Status: Completed infusion rv 19:55 Drug: Cefepime 2 grams Route: IVPB; Rate: 200 ml/hr; Infused Over: 30 mins; Site: right rv antecubital; 21:05 Follow up: IV Status: Completed infusion; IV Intake: 100ml rv 21:05 Drug: vancoMYCIN 1 grams Route: IVPB; Infused Over: 2 hrs; Site: right antecubital; rv 21:47 Follow up: IV Status: Completed infusion; IV Intake: 250ml rv Intake: 21:05 IV: 100ml; Total: 100ml. rv 21:47 IV: 250ml; Total: 350ml. rv Outcome: 19:35 Decision to Hospitalize by Provider. cp 21:51 Admitted to Med/surg accompanied by tech, room 221, with chart, Report called to rv VALERIA JUNIOR 21:51 Condition: good 21:51 Discharge instructions given to patient, Instructed on the need for admit, Demonstrated understanding of instructions. 22:26 Patient left the ED. rv Signatures: Dispatcher [employer] EDMI Theodora HesterCrystal, RN VERNON Ted Fernando PA PA cp Beatriz Deras, VERNON JUNIOR Marivel Verde RN RN tw2 Raciel Leal RN RN rv
[2019-06-30] MEDS ORDERED: CEFEPIME 2 GM VIAL ONE (19:52)
[2019-06-30] MEDS ORDERED: VANCOMYCIN 1 GM/VIAL ONE (19:52)
[2019-06-30] MEDS ORDERED: NA CHLORIDE 0.9% 100 ML IV ONE (19:52)
[2019-06-30] MEDS ORDERED: ONDANSETRON 4 MG/2 ML VIAL IV PRN (21:01)
[2019-06-30] MEDS ORDERED: ACETAMINOPHEN 325 MG TABLET PO PRN (21:01)
[2019-06-30] MEDS: INSULIN -REGULAR HUMAN 50 UNIT/0.5 ML ML SQ SCH (21:01)
--- NOTE | 2019-06-30 21:15 | P.HP ---
Certification for Inpatient Patient admitted to: Observation With expected LOS: <2 Midnights Patient will require the following post-hospital care: None Practitioner: I am a practitioner with admitting privileges, knowledge of patient current condition, hospital course, and medical plan of care. Services: Services provided to patient in accordance with Admission requirements found in Title 42 Section 412.3 of the Code of Federal Regulations Patient History Date of Service: 06/30/19 Reason for admission: hypotension/lightheadedness History of Present Illness: misha britton is a 84yoM w/ pmhx of ESRD on HD on TTS, with amyloid cancer/ bone marrow issue, DM, HTN and BRANDEN on CPAP who presents to the ED on the recommendation of the HD clinic due to his low BP. he states that he was only supposed to take one of his antiHTN medications in the morning but instead he took 3 pills to control and lower his BP and then went to HD in the morning. he reports that although his BP was low he still underwent his HD treatment but then was recommended to seek further medical care in the ER due to sustained hypotension, which was noted to have as low of SBP as 84. He denies any fever, chills, REYNOLDS, dizziness, CP, SOB, N/V/lower extremity swelling, blood in stool/urine/cough, cough, AVILEZ, orthopnea or sick contacts. he states that he feels ok and currently during evaluation SBP ~113. he denies tobacco and drugs he reports occasionally drinking 1/2 glass of wine at night. Allergies gabapentin Allergy (Verified 04/11/19 23:16) Itching No Known Drug Allergies Allergy (Verified 01/04/18 08:15) Unknown No Known Allergies Allergy (Uncoded 01/17/18 16:37) Unknown Home Medications: Calcifediol [Rayaldee] 1 tab PO DAILY 01/04/18 Cod Liver Oil 1 tab PO DAILY 01/04/18 Glucosamine/D3/Boswellia Elise [Glucosamine Complex Tablet] 1 each PO DAILY Levothyroxine [Synthroid*] 0.05 mg PO DAILY 01/04/18 Sevelamer Carbonate [Renvela*] 800 mg PO TIDWM 09/15/18 Hydralazine HCl [Apresoline] 100 mg PO TID #90 tablet 09/16/18 carvediloL [Coreg] 6.25 mg PO BID #60 tab 09/16/18 lisinopriL [Prinivil*] 20 mg PO BID #60 tab 09/16/18 - Past Medical/Surgical History Diabetic: Yes -: DM-Type 2 -: HTN -: History of CVA -: Former Tobacco use -: ESRD -: disc surgery -: cataract surgery -: fistula Psychosocial/ Personal History: , Children-9 - Family History Father -: Heart disease, Hypertension, Kidney disease Mother -: Heart disease, Hypertension, Kidney disease - Social History Alcohol use: No CD- Drugs: No Caffeine use: Yes Review of Systems General: As per HPI Eyes: As per HPI ENT: As per HPI Respiratory: As per HPI Cardiovascular: Other (hypotension), As per HPI Gastrointestinal: As per HPI Genitourinary: As per HPI Musculoskeletal: Unremarkable Integumentary: Unremarkable Neurological: Unremarkable Physical Examination - Physical Exam General: Alert, Oriented x3, Cooperative, Other (well groomed, interactive, conversational. a/ox3, NAD. no distress or confusion) Neck: Supple Respiratory: Clear to auscultation bilaterally, Normal air movement Cardiovascular: No edema, Normal pulses, Regular rate/rhythm Capillary refill: <2 Seconds Gastrointestinal: Normal bowel sounds, Soft and benign, Non-distended, No guarding Neurological: Normal speech, Other (gait not tested ) External genitalia: Deferred Rectal: Deferred - Studies Laboratory Data (last 24 hrs) 06/30/19 17:40: PT 11.4, INR 0.96 06/30/19 17:40: WBC 4.1 L, Hgb 13.4 L, Hct 40.5, Plt Count 256 06/30/19 17:40: Sodium 137, Potassium 5.1, BUN 33 H, Creatinine 6.23 H*, Glucose 98, Magnesium 2.6 H, Total Bilirubin 0.5, AST 23, ALT 27, Alkaline Phosphatase 89 Assessment and Plan - Plan 84yoMadmitted w/ hypotension - likely 2/2 medication overdose admitted to obs orthostatics in AM, amb w/ assistance tele and supplemental o2 as needed procal, tsh, a1c and lipid profile will trend CE and as well trend BP. ESRD completed his HD today will monitor and consider repeat session tomorrow if needed amyloid/bone marrow cancer follows up w/ outpatient H/O BRANDEN - family at the bedside states that they will bring his CPAP machine monitor o2 sat - Advance Directives Does patient have a Living Will: No Does patient have a Durable POA for Healthcare: No
[2019-06-30 22:16] VITALS: BMI 23.6
[2019-06-30 23:37] LABS: Thyroid Stimulating Hormone 2.13 uIU/mL (0.360-3.740); Troponin I 0.02 ng/mL (0.0-0.045)
[2019-07-01 06:08] LABS: Albumin 3.1 g/dL (3.4-5.0); Bilirubin Total 0.5 mg/dL (0.2-1.0); CKMB Creatine Kinase MB 1.2 ng/mL (0.3-3.6); Magnesium 2.6 mg/dL (1.8-2.4); Potassium 5.3 mmol/L (3.5-5.1); Protein, Total 6.7 g/dL (6.4-8.2); Troponin I 0.02 ng/mL (0.0-0.045)
[2019-07-01 06:16] LABS: Absolute Lymphocytes (CBC) 0.9 K/uL (0.7-4.9); Basophils % 0.6 % (0-1.3); Hematocrit 33.4 % (39.6-49.0); Lymphocytes % 18.8 % (15.3-44.8); RBC Red Blood Cell Count 3.29 M/uL (4.33-5.43)
[2019-07-01] MEDS: INSULIN -REGULAR HUMAN 50 UNIT/0.5 ML ML SQ SCH (07:30)
[2019-07-01 08:54] VITALS: BP 154/70; TEMP 98.2
[2019-07-01 09:40] VITALS: O2SAT 93
--- NOTE | 2019-07-01 13:15 | P.DS ---
Admission Date: 06/30/19 Discharge Date: 07/01/19 Disposition: ROUTINE DISCHARGE Discharge Condition: GOOD Reason for Admission: hypotension/lightheadedness - Problems (1) Hypotension due to drugs Status: Acute (2) Adverse drug reaction Status: Acute Brief History of Present Illness: "misha britton is a 84yoM w/ pmhx of ESRD on HD on TTS, with amyloid cancer/ bone marrow issue, DM, HTN and BRANDEN on CPAP who presents to the ED on the recommendation of the HD clinic due to his low BP. he states that he was only supposed to take one of his antiHTN medications in the morning but instead he took 3 pills to control and lower his BP and then went to HD in the morning. he reports that although his BP was low he still underwent his HD treatment but then was recommended to seek further medical care in the ER due to sustained hypotension, which was noted to have as low of SBP as 84. He denies any fever, chills, REYNOLDS, dizziness, CP, SOB, N/V/lower extremity swelling, blood in stool/urine/cough, cough, AVILEZ, orthopnea or sick contacts. he states that he feels ok and currently during evaluation SBP ~113. he denies tobacco and drugs he reports occasionally drinking 1/2 glass of wine at night" Hospital Course: Mr. Britton is 84-year-old male with a history of end-stage renal disease on HD who presented to the hospital with lightheadedness. Patient took 3 of his blood pressure medications, not as directed. After hemodialysis, he became hypotensive and symptomatic with lightheadedness. Patient was brought to the ER where he received IV fluid boluses. He was admitted to observation and monitor closely. There was no evidence of acute infection. Patient's procalcitonin was in elevated however chronic. He has clinically improved. His blood pressure has returned to baseline and now asymptomatic. He has been advised to take medications as directed. He remained hemodynamically stable for discharge home. Vital Signs/Physical Exam: Temp Pulse Resp BP Pulse Ox 98.2 F 58 15 154/70 H 93 07/01/19 08:00 07/01/19 08:00 07/01/19 08:00 07/01/19 08:00 07/01/19 08:00 General: Alert, In no apparent distress HEENT: Atraumatic, PERRLA, EOMI Neck: Supple, JVD not distended Respiratory: Clear to auscultation bilaterally, Normal air movement Cardiovascular: Regular rate/rhythm, Normal S1 S2 Gastrointestinal: Normal bowel sounds, No tenderness Musculoskeletal: No tenderness Integumentary: No rashes Neurological: Normal speech, Normal tone, Normal affect Lymphatics: No axilla or inguinal lymphadenopathy Laboratory Data at Discharge: WBC 4.7 K/uL (4.3-10.9) D 07/01/19 05:28 Hgb 11.0 g/dL (13.6-17.9) L 07/01/19 05:28 Hct 33.4 % (39.6-49.0) L D 07/01/19 05:28 Plt Count 188 K/uL (152-406) D 07/01/19 05:28 PT 11.8 SECONDS (9.5-12.5) 07/01/19 05:28 INR 1.00 07/01/19 05:28 Sodium 140 mmol/L (136-145) 07/01/19 05:28 Potassium 5.3 mmol/L (3.5-5.1) H 07/01/19 05:28 BUN 50 mg/dL (7-18) H 07/01/19 05:28 Creatinine 7.35 mg/dL (0.55-1.3) H* D 07/01/19 05:28 Glucose 87 mg/dL (74-106) 07/01/19 05:28 Magnesium 2.6 mg/dL (1.8-2.4) H 07/01/19 05:28 Total Bilirubin 0.5 mg/dL (0.2-1.0) 07/01/19 05:28 AST 17 U/L (15-37) 07/01/19 05:28 ALT 23 U/L (12-78) 07/01/19 05:28 Alkaline Phosphatase 70 U/L (45-117) 07/01/19 05:28 Troponin I 0.02 ng/mL (0.0-0.045) 07/01/19 05:28 Triglycerides 72 mg/dL (<150) 07/01/19 05:28 Cholesterol 120 mg/dL (<200) 07/01/19 05:28 HDL Cholesterol 55 mg/dL (40-60) 07/01/19 05:28 Cholesterol/HDL Ratio 2.18 07/01/19 05:28 Home Medications: Levothyroxine [Synthroid*] 50 mcg PO DAILY 01/04/18 Sevelamer Carbonate [Renvela*] 800 mg PO TIDWM 09/15/18 Hydralazine HCl [Apresoline] 100 mg PO TID #90 tablet 09/16/18 lisinopriL [Prinivil*] 20 mg PO BID #60 tab 09/16/18 Atorvastatin Calcium [Lipitor*] 20 mg PO DAILY 07/01/19 carvediloL [Coreg*] 12.5 mg PO BID 07/01/19 Patient Discharge Instructions: Take medications only as directed Diet: Renal Activity: Fall precautions Followup: Yobani Edmondson, [Primary Care Provider] - 1 Week
== END 2019-07-01 11:30 | disposition home or self-care (01) ==
LOC: ER 16:34 → ERHOLD 20:24 → 2ND 21:46
PROVIDERS: ADMIT Internal Medicine; ATTEND Hospitalist
DX: T46.5X1A Poisoning by other antihypertensive drugs, accidental (unintentional), initial encounter (principal); I95.2 Hypotension due to drugs; Y92.009 Unspecified place in unspecified non-institutional (private) residence as the place of occurrence of the external cause; I12.0 Hypertensive chronic kidney disease with stage 5 chronic kidney disease or end stage renal disease; E11.22 Type 2 diabetes mellitus with diabetic chronic kidney disease; N18.6 End stage renal disease; Z86.73 Personal history of transient ischemic attack (TIA), and cerebral infarction without residual deficits
CPT/HCPCS: 36415; 71045; 80048; 80053; 80061; 80076; 82553; 82947; 83036; 83605; 83735; 83880; 84145; 84443; 84484; 85025; 85610; 87040; 96361; 96365; 96367; 99285; G0378; J0692; J7030

== ENCOUNTER 2020-01-25 09:56 | Emergency (ER) | payer OTHER ==
[2020-01-25 10:52] LABS: Absolute Lymphocytes (CBC) 0.4 K/uL (0.7-4.9); Basophils % 0.5 % (0-1.3); Hematocrit 35.3 % (39.6-49.0); Lymphocytes % 6.6 % (15.3-44.8); MPV 8.8 fL (7.6-11.3); RBC Red Blood Cell Count 3.54 M/uL (4.33-5.43)
[2020-01-25 11:02] LABS: Protime INR 0.97
--- NOTE | 2020-01-25 11:03 | RAD REPORT ---
EXAM DESCRIPTION: RAD - Chest Single View - 01/25/2020 10:45 am CLINICAL HISTORY: vomiting, headache COMPARISON: Portable June 30, 2019 TECHNIQUE: AP portable chest image was obtained 01/25/2020 10:45 am . FINDINGS: Low lung volumes noted. No peripheral mass or consolidation. No significant failure or vol ume overload. Interstitial pattern is similar to comparison. Heart and vasculature are normal. No measurable pleural effusion and no pneumothorax. No acute bony abnormality seen. No acute aortic findings suspected. IMPRESSION: No acute cardiopulmonary process. No significant change from comparison.
[2020-01-25] MEDS ORDERED: ONDANSETRON 4 MG/2 ML VIAL ONE (11:07)
[2020-01-25] MEDS ORDERED: ACETAMINOPHEN 325 MG TABLET ONE (11:07)
[2020-01-25 11:37] LABS: Albumin 3.8 g/dL (3.4-5.0); Bilirubin Direct 0.3 mg/dL (0-0.2); Bilirubin Total 0.5 mg/dL (0.2-1.0); Magnesium 2.5 mg/dL (1.8-2.4); Potassium 5.2 mmol/L (3.5-5.1); Protein, Total 7.8 g/dL (6.4-8.2); Troponin (Emerg Dept Use Only) 0.03 ng/mL (0.0-0.045)
--- NOTE | 2020-01-25 11:52 | RAD REPORT ---
EXAM DESCRIPTION: CT - Head Brain Wo Cont - 01/25/2020 11:17 am CLINICAL HISTORY: HEADACHE COMPARISON: Head Brain Wo Cont dated 09/14/2018 TECHNIQUE: Axial 5 mm thick images of the head were obtained without IV contrast. All CT scans are performed using dose optimization technique as appropriate and may include automated exposure control or mA/KV adjustment according to patient size. FINDINGS: No intracranial hemorrhage, mass, edema or shift of mid-line structures. No acute infarcti on changes seen. No cortical edema or sulcal effacement. Moderate severity atrophy and chronic ischem ic changes are present. Ventricles are in proportion to volume loss. Findings are similar to the Apri l 2019 study. Dense arterial tree calcifications are present. Mastoid air cells and visualized portions of the paranasal sinuses are clear. No acute bony findings. IMPRESSION: No hemorrhage or other acute intracranial finding. Moderate severity atrophy and chronic ischemic change similar to comparison. Chronic ischemic change can mask acute nonhemorrhagic ischemia. They have CVA is a clinical consider ation, MR imaging could be performed as warranted.
[2020-01-25] MEDS ORDERED: lisinopriL 20 MG TAB ONE (12:48)
[2020-01-25 12:57] LABS: Blood Morphology Comment NOT SEEN (NOT SEEN); Platelet Estimate ADEQ; White Blood Cell Scan OK
--- NOTE | 2020-01-25 14:41 | ER ---
Nurse's Notes [facility] Name: Sina William Age: 84 yrs Sex: Male : 1935 Arrival Date: 01/25/2020 Time: 09:58 Bed 13 Private MD: Diagnosis: Hypertensive heart disease-Poorly controlled Presentation: 01/24 10:04 Chief complaint: Patient states: BP was high this morning over 200 systolic, took his iw BP meds this morning, also has a mild headache and not feeling well, vomited once this morning, thinks he threw up his BP medicine , is a , , Sat dialysis , last dialyzed yesterday. Coronavirus screen: At this time, the client does not indicate any symptoms associated with coronavirus-19. Ebola Screen: Patient negative for fever greater than or equal to 101.5 degrees Fahrenheit, and additional compatible Ebola Virus Disease symptoms Patient denies exposure to infectious person. Patient denies travel to an Ebola-affected area in the 21 days before illness onset. No symptoms or risks identified at this time. Initial Sepsis Screen: Does the patient meet any 2 criteria? No. Patient's initial sepsis screen is negative. Does the patient have a suspected source of infection? No. Patient's initial sepsis screen is negative. Risk Assessment: Do you want to hurt yourself or someone else? Patient reports no desire to harm self or others. Onset of symptoms was January 25, 2020. 10:04 Method Of Arrival: Wheelchair iw 10:04 Acuity: CLYDE 3 iw Historical: - Allergies: 10:06 GABAPENTIN; iw - Home Meds: 10:06 acyclovir 200 mg Oral cap 1 cap daily [Active]; aspirin 81 mg Oral chew 1 tab once iw daily [Active]; cod liver oil Oral cap daily [Active]; lisinopril 10 mg Oral tab 1 tab twice a day [Active]; sevelamer HCl 800 mg Oral 1 tab daily [Active]; - PMHx: 10:06 ADD/ADHD; Amyloid CA; Anemia; Arthritis; CVA; Diabetes - NIDDM; HD - //Sat; iw Hypertension; Osteoporosis; - Immunization history:: Adult Immunizations up to date. - Social history:: Smoking status: Patient denies any tobacco usage or history of. Screenin:15 Abuse screen: Denies threats or abuse. Denies injuries from another. Nutritional jr10 screening: No deficits noted. Tuberculosis screening: No symptoms or risk factors identified. Fall Risk IV access (20 points). Assessment: 10:00 General: Appears in no apparent distress. Behavior is calm, cooperative, appropriate jr10 for age. Pain: Complains of pain in generalized REYNOLDS pain. Neuro: No deficits noted. Level of Consciousness is awake, alert, obeys commands, Oriented to person, place, time, situation, Appropriate for age Wine Maker are equal bilaterally Moves all extremities. Gait is steady, Speech is normal, Facial symmetry appears normal, Pupils are PERRLA, Intact Reports headache Denies blurred vision dizziness. Cardiovascular: No deficits noted. Denies chest pain, Rhythm is sinus rhythm. Respiratory: No deficits noted. Airway is patent Respiratory effort is even, unlabored, Respiratory pattern is regular, symmetrical, Breath sounds are clear bilaterally. Denies shortness of breath. GI: No deficits noted. No signs and/or symptoms were reported involving the gastrointestinal system. Reports nausea, Patient currently denies vomiting. : No deficits noted. No signs and/or symptoms were reported regarding the genitourinary system. : pt is HD Tues, Th, Sat. Reports last dialysis completed yesterday; fistula noted to left lower arm with +thrill/bruit. EENT: No deficits noted. No signs and/or symptoms were reported regarding the EENT system. Derm: No deficits noted. No signs and/or symptoms reported regarding the dermatologic system. Musculoskeletal: No deficits noted. No signs and/or symptoms reported regarding the musculoskeletal system. 10:15 Reassessment: Pt noted to have short episode of v tach on monitor, at the time of jr10 occurrence this nurse was in the room completing initial assessment. Pt denies any cp, sob at time of occurrence. Pt appears in NAD, denies any hx of irregular heartbeat, reports that he went to dialysis yesterday and was able to complete treatment. 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 Dr Garcia notified and aware of occurrence, EKG obtained and shown to Dr. Garcia. Pt remains on cardiac cath lab manager with NSR noted, will continue to monitor and assess. 11:32 Reassessment: Pt family contact information: Michelle Jama (daughter): [phone]. jr10 Vital Signs: 10:04 BP 170 / 79; Pulse 82; Resp 16; Temp 98.1; Pulse Ox 98% on R/A; Weight 70.31 kg; Height iw 5 ft. 7 in. (170.18 cm); Pain 3/10; 10:30 BP 180 / 73; Pulse 73; Resp 20; Pulse Ox 98% on R/A; jr10 11:30 BP 192 / 80; Pulse 75; Resp 20; Pulse Ox 99% on R/A; jr10 12:30 BP 182 / 80; Pulse 72; Resp 20; Pulse Ox 99% on R/A; jr10 14:00 BP 181 / 75; Pulse 74; Resp 19; Pulse Ox 98% on R/A; mt 14:26 BP 166 / 63; Pulse 78; Resp 17; Pulse Ox 98% on R/A; mt 10:04 Body Mass Index 24.28 (70.31 kg, 170.18 cm) iw ED Course: 09:58 Patient arrived in ED. rg4 10:03 Sushant Garcia MD is Attending Physician. kdr 10:06 Triage completed. iw 10:07 Arm band placed on. iw 10:09 Judy Hester, VERNON is Primary Nurse. jr10 10:15 Patient has correct armband on for positive identification. Bed in low position. Call jr10 light in reach. Side rails up X2. residential monitor on. Pulse ox on. NIBP on. 10:20 Inserted saline lock: 20 gauge in right forearm, using aseptic technique. IV is patent, jr10 is intact, with good blood return, Flushed. 10:40 No provider procedures requiring assistance completed. jr10 10:45 XRAY Chest (1 view) In Process Unspecified. EDMS 11:17 CT Head Brain wo Cont In Process Unspecified. EDMS 15:03 IV discontinued, intact, bleeding controlled, No redness/swelling at site. Pressure jr10 dressing applied. Administered Medications: 11:40 Drug: Tylenol 650 mg Route: PO; jr10 12:01 Follow up: Response: No adverse reaction jr10 11:40 Drug: Zofran (Ondansetron) 4 mg Route: IVP; Site: right forearm; jr10 12:01 Follow up: Response: No adverse reaction jr10 12:42 Drug: Lisinopril 20 mg Route: PO; jr10 15:02 Follow up: Response: No adverse reaction; Blood pressure is lowered jr10 Outcome: 14:40 Discharge ordered by . kdr 15:03 Discharged to home via wheelchair. jr10 15:03 Condition: improved 15:03 Discharge instructions given to patient, Instructed on discharge instructions, follow up and referral plans. Demonstrated understanding of instructions, follow-up care, medications, Prescriptions given X 1. 15:03 Patient left the ED. jr10 Signatures: Dispatcher [employer] EDMS Sushant Garcia MD MD kdr Williams, Irene, RN RN Jenifer Ortiz4 Richie Kooah Judy Kerr RN RN jr10
--- NOTE | 2020-01-25 14:41 | EDPHYS ---
Physician Documentation [facility] Name: Sina William Age: 84 yrs Sex: Male : 1935 Arrival Date: 01/25/2020 Time: 09:58 Bed 13 Private MD: ED Physician Sushant Garcia HPI: 01/25 12:28 This 84 yrs old Male presents to ER via Wheelchair with complaints of High kdr Blood Pressure. 12:28 The patient has elevated blood pressure and discovered this at home, with a home kdr device. Onset: The symptoms/episode began/occurred at an unknown time. The patient has a prior history - this seems to be an exacerbation. Modifying factors: The symptoms are aggravated by Though the patient took his BP meds this morning, he may have vomited them up a short time later. Associated signs and symptoms: Pertinent positives: nausea, vomiting, Pertinent negatives: chest pain, dizziness, dyspnea, headache, lightheadedness, visual changes, weakness. Severity of symptoms: At its worst the blood pressure was severe, just prior to arrival, 200 mm Hg, in the emergency department the blood pressure is improved, moderately. The patient has not experienced similar symptoms in the past. The patient has not recently seen a physician. Historical: - Allergies: 01/24 10:06 GABAPENTIN; iw - Home Meds: 10:06 acyclovir 200 mg Oral cap 1 cap daily [Active]; aspirin 81 mg Oral chew 1 tab once iw daily [Active]; cod liver oil Oral cap daily [Active]; lisinopril 10 mg Oral tab 1 tab twice a day [Active]; sevelamer HCl 800 mg Oral 1 tab daily [Active]; - PMHx: 10:06 ADD/ADHD; Amyloid CA; Anemia; Arthritis; CVA; Diabetes - NIDDM; HD - //Thu; iw Hypertension; Osteoporosis; - Immunization history:: Adult Immunizations up to date. - Social history:: Smoking status: Patient denies any tobacco usage or history of. ROS: 01/25 12:28 Constitutional: Negative for fever, chills, and weight loss, Eyes: Negative for injury, kdr pain, redness, and discharge, ENT: Negative for injury, pain, and discharge, Neck: Negative for injury, pain, and swelling, Cardiovascular: Negative for chest pain, palpitations, and edema, Respiratory: Negative for shortness of breath, cough, wheezing, and pleuritic chest pain, Back: Negative for injury and pain, : Negative for injury, bleeding, discharge, and swelling, MS/Extremity: Negative for injury and deformity, Skin: Negative for injury, rash, and discoloration, Neuro: Negative for headache, weakness, numbness, tingling, and seizure activity. Psych: Negative for depression, anxiety, suicide ideation, homicidal ideation, and hallucinations, Allergy/Immunology: Negative for hives, rash, and allergies, Endocrine: Negative for neck swelling, polydipsia, polyuria, polyphagia, and marked weight changes, Hematologic/Lymphatic: Negative for swollen nodes, abnormal bleeding, and unusual bruising. Abdomen/GI: Positive for nausea and vomiting, Negative for abdominal pain, diarrhea, constipation, abdominal cramps, abdominal distension, anorexia, dysphagia, hematemesis, black/tarry stool, rectal pain. Exam: 01/24 19:32 ECG was reviewed by the Attending Physician. kdr 01/25 12:28 Constitutional: This is a well developed, well nourished patient who is awake, alert, kdr and in no acute distress. Head/Face: Normocephalic, atraumatic. Eyes: Pupils equal round and reactive to light, extra-ocular motions intact. Lids and lashes normal. Conjunctiva and sclera are non-icteric and not injected. Cornea within normal limits. Periorbital areas with no swelling, redness, or edema. Neck: Trachea midline, no thyromegaly or masses palpated, and no cervical lymphadenopathy. Supple, full range of motion without nuchal rigidity, or vertebral point tenderness. No Meningismus. Chest/axilla: Normal chest wall appearance and motion. Nontender with no deformity. No lesions are appreciated. Cardiovascular: Regular rate and rhythm with a normal S1 and S2. No gallops, murmurs, or rubs. Normal PMI, no JVD. No pulse deficits. Respiratory: Lungs have equal breath sounds bilaterally, clear to auscultation and percussion. No rales, rhonchi or wheezes noted. No increased work of breathing, no retractions or nasal flaring. Abdomen/GI: Soft, non-tender, with normal bowel sounds. No distension or tympany. No guarding or rebound. No evidence of tenderness throughout. Back: No spinal tenderness. No costovertebral tenderness. Full range of motion. Skin: Warm, dry with normal turgor. Normal color with no rashes, no lesions, and no evidence of cellulitis. MS/ Extremity: Pulses equal, no cyanosis. Neurovascular intact. Full, normal range of motion. Neuro: Awake and alert, GCS 15, oriented to person, place, time, and situation. Cranial nerves II-XII grossly intact. Motor strength 5/5 in all extremities. Sensory grossly intact. Cerebellar exam normal. Normal gait. Psych: Awake, alert, with orientation to person, place and time. Behavior, mood, and affect are within normal limits. Vital Signs: 01/24 10:04 BP 170 / 79; Pulse 82; Resp 16; Temp 98.1; Pulse Ox 98% on R/A; Weight 70.31 kg; Height iw 5 ft. 7 in. (170.18 cm); Pain 3/10; 10:30 BP 180 / 73; Pulse 73; Resp 20; Pulse Ox 98% on R/A; jr10 11:30 BP 192 / 80; Pulse 75; Resp 20; Pulse Ox 99% on R/A; jr10 12:30 BP 182 / 80; Pulse 72; Resp 20; Pulse Ox 99% on R/A; jr10 14:00 BP 181 / 75; Pulse 74; Resp 19; Pulse Ox 98% on R/A; mt 14:26 BP 166 / 63; Pulse 78; Resp 17; Pulse Ox 98% on R/A; mt 10:04 Body Mass Index 24.28 (70.31 kg, 170.18 cm) iw MDM: 14:40 Patient medically screened. kdr 01/25 12:28 Data reviewed: vital signs, nurses notes, lab test result(s), EKG, radiologic studies. kdr Counseling: I had a detailed discussion with the patient and/or guardian regarding: the historical points, exam findings, and any diagnostic results supporting the discharge/admit diagnosis, lab results, radiology results, the need for outpatient follow up. 01/24 10:32 Order name: Basic Metabolic Panel; Complete Time: 12:08 iw 01/24 10:32 Order name: CBC with Diff; Complete Time: 13:26 iw 01/24 10:32 Order name: LFT's; Complete Time: 12:08 iw 01/24 10:32 Order name: Magnesium; Complete Time: 12:08 iw 01/24 10:32 Order name: NT PRO-BNP; Complete Time: 12:08 iw 01/24 10:32 Order name: PT-INR; Complete Time: 12:08 iw 01/24 10:32 Order name: Troponin (emerg Dept Use Only); Complete Time: 12:08 iw 01/24 10:32 Order name: XRAY Chest (1 view); Complete Time: 12:08 iw 01/24 10:32 Order name: EKG; Complete Time: 10:33 iw 01/24 10:47 Order name: CT Head Brain wo Cont; Complete Time: 12:08 kdr 01/24 12:57 Order name: CBC Smear Scan; Complete Time: 13:26 EDMS 01/24 10:32 Order name: Cardiac monitoring; Complete Time: 10:36 iw 01/24 10:32 Order name: EKG - Nurse/Tech; Complete Time: 10:36 iw 01/24 10:32 Order name: IV Saline Lock; Complete Time: 10:36 iw 01/24 10:32 Order name: Labs collected and sent; Complete Time: 10:36 iw 01/24 10:32 Order name: O2 Per Protocol; Complete Time: 10:36 iw 01/24 10:32 Order name: O2 Sat Monitoring; Complete Time: 10:36 iw EC/19 19:32 Rate is 74 beats/min. Rhythm is regular, Normal Sinus Rhythm with No ectopy, Right kdr bundle branch block. QRS Sheldon is Normal. CO interval is normal. QRS interval is normal. QT interval is normal. Clinical impression: NSR w/ Non-specific ST/T Changes. Administered Medications: 11:40 Drug: Tylenol 650 mg Route: PO; jr10 12:01 Follow up: Response: No adverse reaction jr10 11:40 Drug: Zofran (Ondansetron) 4 mg Route: IVP; Site: right forearm; jr10 12:01 Follow up: Response: No adverse reaction jr10 12:42 Drug: Lisinopril 20 mg Route: PO; jr10 15:02 Follow up: Response: No adverse reaction; Blood pressure is lowered jr10 Disposition: 01/25/20 14:40 Discharged to Home. Impression: Hypertensive heart disease - Poorly controlled. - Condition is Stable. - Discharge Instructions: Hypertension, [id number], Vomiting, Adult. - Prescriptions for Zofran 4 mg Oral Tablet - take 1 tablet by ORAL route every 12 hours As needed; 6 tablet. - Medication Reconciliation Form, Thank You Letter form. - Follow up: Private Physician; When: 2 - 3 days; Reason: If symptoms return, Recheck today's complaints, Continuance of care, Re-evaluation by your physician. - Problem is new. - Symptoms have improved. - Notes: Continue your medications as directed and as usual. Signatures: Dispatcher [employer] EDMS Sushant Garcia MD MD kdr Crystal Parkinson RN RN iw Judy Hester RN RN jr10 Corrections: (The following items were deleted from the chart) 15:03 14:40 01/25/2020 14:40 Discharged to Home. Impression: Hypertensive heart disease - jr10 Poorly controlled. Condition is Stable. Forms are Medication Reconciliation Form, Thank You Letter, Antibiotic Education, Prescription Opioid Use. Follow up: Private Physician; When: 2 - 3 days; Reason: If symptoms return, Recheck today's complaints, Continuance of care, Re-evaluation by your physician. Problem is new. Symptoms have improved. kdr
[2020-01-25 15:30] VITALS: TEMP 98.1
[2020-01-25 15:35] VITALS: O2SAT 98
[2020-01-25 15:36] VITALS: BP 166/63
--- NOTE | 2020-01-26 08:43 | EKG ---
Test Date: 2020-01-25 Test Time: 10:25:09 Crew Director: GOVIND MEASUREMENT RESULTS: Intervals: Rate: 74 WV: 204 QRSD: 136 QT: 454 QTc: 503 [place]: P: WV: 204 QRS: 29 T: 27 INTERPRETIVE STATEMENTS: Normal sinus rhythm Right bundle branch block Abnormal ECG Compared to ECG 04/11/2019 19:34:21 Left-axis deviation no longer present Electronically Signed On 01-26-20 08:38:37 CDT by Farhan Shipley
== END 2020-01-25 15:03 | disposition home or self-care (01) ==
LOC: ER 09:56
DX: I11.9 Hypertensive heart disease without heart failure (principal); I10 Essential (primary) hypertension; E11.9 Type 2 diabetes mellitus without complications; Z79.82 Long term (current) use of aspirin; Z88.8 Allergy status to other drugs, medicaments and biological substances
CPT/HCPCS: 93005; 85025; 80048; 36415; 83735; 85610; 80076; 84484; 83880; 70450; 71045; 96374; 99284; J2405

== ENCOUNTER 2020-01-29 15:18 | Observation (INO) | payer OTHER ==
--- OUTSIDE RECORDS SUMMARY | 2020-01-29 15:20 | XMS REPORT | Clinical Summary ---
:1935 Author Organization [facility] Address [address] [place] [id number] Care Team Providers Name Role Phone Yobani Edmondson Primary Care Provider Allergies Active Allergy Reactions Severity Noted Date Comments Gabapentin 01/15/2019 Medications Medication Sig Dispensed Refills Start Date End Date Status acyclovir (ZOVIRAX) 200 3 04/30/2018 Active MG capsule amLODIPine (NORVASC) 5 mg TK 1 T PO QD 3 06/07/2018 Active tablet cyclophosphamide 2 06/10/2018 Ac tive (CYTOXAN) 50 mg chemo capsule dexamethasone (DECADRON) 3 05/21/2018 Active 4 MG tablet levothyroxine (SYNTHROID, TK 1 T PO QAM 5 8 Active LEVOXYL) 50 mcg tablet ON EMPTY STOMACH sevelamer (RENVELA) 800 take 1 tablet 0 06/11/2018 Active mg tablet with each meal and 1 tablet with each snack hydrALAZINE (APRESOLINE) Take 100 mg by 0 Active 100 MG tablet mouth 3 (three) times a day. aspirin (ECOTRIN) 81 MG Take 81 mg by 0 Active enteric coated tablet mouth daily. lisinopril Take 20 mg by 0 Activ e (PRINIVIL,ZESTRIL) 20 mg mouth 2 (two) tablet times a day. carvedilol (COREG) 6.25 Take 6.25 mg by 0 Active MG tablet mouth 2 (two) times a day with meals. vit B complex-vitamin Take 1 tablet 0 Active C-folic acid (NEPHRO-JOSE E by mouth daily. OTC) 0.8 mg tablet NON FORMULARY Take 1 tablet 0 Ac tive by mouth daily. Calcium lactate NON FORMULARY Take 1 tablet 0 Ac tive by mouth daily. 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 Last Filed Vital Signs Not on file Plan of Treatment Health Maintenance Due Date Last Done Comments DIABETIC RETINAL EYE EXAM 1935 DIABETIC FOOT EXAM 1945 URINE MICROALBUMIN 1945 SHINGLES VACCINES (#1) 1984 65+ PNEUMOCOCCAL VACCINE (1 of 2 - PCV13) 1999 INFLUENZA VACCINE 03/08/2020 Implants Implanted Type Area Medical Staff Physician Device Shelf Model / Identifier Expiration Serial / Date Lot Catheter Hmodial Dura-Flow Prcrv Bsc Valved Pelbl Shth 28cm - [id number] Central N/A: N/A [employer] [id number] / Implanted: 01/17/2019 at [facility] (Quantity not on file) Ven[employer] / Catheters Results Not on fileafter 01/28/2019 Insurance Payer Benefit Plan / Subscriber ID Effective Dates Phone Addre ss Type Group MEDICARE MEDICARE PART A xxxxxxxxxxx 1999-Present [place] Medicare AND B FOR LIFE xxxxxxxxxxx 2001-Present [facility] SUPPLEMENT Advance Directives For more information, please contact: [phone] Type Date Recorded Patient Patient Service Technician Pst Explanati on Advance Directives, Living Will 01/15/2019 1:55 PM and Medical Power of Manager Mobility
--- OUTSIDE RECORDS SUMMARY | 2020-01-29 15:20 | XMS REPORT | Continuity of Care Document ---
:1935 Author Organization [facility] t Address [address] [place] [address] Care Team Providers Name Role Phone Yobani Edmondsonesh Primary Care Physician Problems Condition Condition Condition Status Onset Resolution Last Treating Co mments Source Name Details Category Date Date Treatment Clinician Date 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 01-15 [facility] graft for graft for 00:00: st dialysis dialysis 00 Hypertensi Hypertensi Disease Active [place] on on 01-15 [facility] 00:00: st 00 Type 2 Type 2 Disease Active [place] diabetes diabetes 01-15 [facility] mellitus mellitus 00:00: st 00 ESRD (end ESRD (end Disease Active Nathan ston stage stage 8 [facility] renal renal 00:00: st disease) disease) 00 on on dialysis dialysis H/O: H/O: Disease Active [place] stroke stroke 01-15 [facility] 00:00: st 00 Hyperkalem Hyperkalem Disease Active [facility] [place] 01-15 [facility] 00:00: st 00 Anemia of Anemia of Disease Active Nathan ston chronic chronic 01-15 [facility] illness illness 00:00: st 00 Allergies, Adverse Reactions, Alerts Allergy Allergy Status Severity Reaction(s) Onset Inactive Treating Comm ents Source Name Type Date Date Clinician Gabapent Propensi Active [place] in ty to 810 [facility] adverse 00:00: st reaction 00 s to drug Social History Social Habit Start Date Stop Date Quantity Comments Source History of tobacco Cigar Smoker [place] [facility] use Sex Assigned At Mel[facility] Cuauhtemoc dunne Alcohol intake 2019-01-19 2019-01-19 [facility] 00:00:00 00:00:00 Smoking Status Start Date Stop Date Source Former smoker 2019-01-19 00:00:00 2019-01-19 00:00:00 [facility] Medications Ordered Filled Start Stop Current Ordering Indication Dosage Frequency Signature Comments Components Source Medication Medication Date Date Medication? Clinician (SIG) Name Name hydrALAZINE Yes 100mg [id number] Take 100 Melendrez (APRESOLINE 8-14 [id number] mg by Cuauhtemoc castanon ) 100 MG 13:34: 3D mouth 3 st tablet 48 (three) times a day. aspirin Yes 81mg QD Take 81 mg [place] (ECOTRIN) 8-14 by mouth [facility] i 81 MG 13:34: daily. st enteric 48 coated tablet lisinopril Yes 20mg Q.5D Take 20 mg [place] (PRINIVIL,Z 8-14 by mouth 2 Me thodi ESTRIL) 20 13:34: (two) st mg tablet 48 times a day. carvedilol Yes 6.25mg Q.5D Take 6.25 Melendrez (COREG) 8-14 mg by [facility] 6.25 MG 13:34: mouth 2 st tablet 48 (two) times a day with meals. vit B Yes 1{tbl} QD Take 1 Melendrez complex-vit 8-14 tablet by Met marilyn gupta 13:34: mouth st C-folic 48 daily. acid (NEPHRO-VIT E OTC) 0.8 mg tablet NON Yes 1{tbl} QD Take 1 [place] FORMULARY 8-14 tablet by Metho di 13:34: mouth st 48 daily. Calcium lactate NON 2019- Yes 1{tbl} QD Take 1 [place] FORMULARY 8-14 tablet by Metho di 13:34: mouth st 48 daily. Tumeric triple gold sevelamer Yes take 1 [place] (RENVELA) 1-04 tablet [facility] 800 mg 00:00: with each st tablet 00 meal and 1 tablet with each snack cyclophosph 2018- Yes [place] amide 1-03 [facility] (CYTOXAN) 00:00: st 50 mg chemo 00 capsule amLODIPine 2018-1 Yes TK 1 T PO [place] ne[place] (NORVASC) 5 2-31 QD [facility] mg tablet 00:00: st 00 dexamethaso 2017-06 Yes [place] n ne 2-14 [facility] (DECADRON) 00:00: st 4 MG tablet 00 acyclovir 2017-06 Yes Aneesh (ZOVIRAX) 1-23 [facility] 200 MG 00:00: st capsule 00 levothyroxi 2017-06 Yes TK 1 T PO [place] ne 1-03 QAM ON [facility] (SYNTHROID, 00:00: EMPTY st LEVOXYL) 50 00 STOMACH mcg tablet Procedures This patient has no known procedures. Plan of Care Planned Activity Planned Date Details Comments Source Future Scheduled 2020-03-08 INFLUENZA VACCINE [facility] Test 00:00:00 [code = INFLUENZA VACCINE] Future Scheduled 1999 65+ PNEUMOCOCCAL [facility] Test 00:00:00 VACCINE (1 of 2 - PCV13) [code = 65+ PNEUMOCOCCAL VACCINE (1 of 2 - PCV13)] Future Scheduled 1984 SHINGLES VACCINES (#1) [place] [facility] Test 00:00:00 [code = SHINGLES VACCINES (#1)] Future Scheduled 1944 DIABETIC FOOT EXAM [place] [facility] 00:00:00 [code = DIABETIC FOOT EXAM] Future Scheduled 1944 URINE MICROALBUMIN [place] [facility] Test 00:00:00 [code = URINE MICROALBUMIN] Future Scheduled 1934 DIABETIC RETINAL EYE Nathan cheng [facility] Test 00:00:00 EXAM [code = DIABETIC RETINAL EYE EXAM] Results This patient has no known results.
[2020-01-29 16:15] LABS: Absolute Lymphocytes (CBC) 0.7 K/uL (0.7-4.9); Basophils % 0.6 % (0-1.3); Hematocrit 34.7 % (39.6-49.0); Lymphocytes % 13.4 % (15.3-44.8); MPV 8.9 fL (7.6-11.3); RBC Red Blood Cell Count 3.45 M/uL (4.33-5.43)
[2020-01-29] MEDS ORDERED: cloNIDine HCL 0.1 MG TAB ONE (16:18)
[2020-01-29 16:19] LABS: Protime INR 0.92
--- NOTE | 2020-01-29 16:34 | RAD REPORT ---
EXAM DESCRIPTION: CT - Head Brain Wo Cont - 01/29/2020 4:17 pm CLINICAL HISTORY: elevated bp, double vision, hypertension COMPARISON: Head Brain Wo Cont dated 01/25/2020 TECHNIQUE: Axial 5 mm thick images of the head were obtained without IV contrast. All CT scans are performed using dose optimization technique as appropriate and may include automated exposure control or mA/KV adjustment according to patient size. FINDINGS: No intracranial hemorrhage, mass, edema or shift of mid-line structures. No acute infarcti on changes seen. No cortical edema or sulcal effacement. Moderate atrophy changes are present. Ventri cles are in proportion. Arterial and physiologic calcifications are present. Moderate severity chroni c ischemic changes are present. Dense arterial tree calcifications. Mastoid air cells and visualized portions of the paranasal sinuses are clear. No acute bony findings. IMPRESSION: No acute intracranial finding identifiable. Moderate severity atrophy chronic ischemic change similar to comparison.
[2020-01-29 17:13] LABS: Albumin 3.9 g/dL (3.4-5.0); Bilirubin Direct 0.2 mg/dL (0-0.2); Bilirubin Total 0.5 mg/dL (0.2-1.0); Magnesium 2.4 mg/dL (1.8-2.4); Potassium 4.4 mmol/L (3.5-5.1); Protein, Total 7.6 g/dL (6.4-8.2); Troponin (Emerg Dept Use Only) 0.04 ng/mL (0.0-0.045)
[2020-01-29] MEDS ORDERED: HYDRALAZINE HCL 20 MG/ML VIAL ONE (17:30)
[2020-01-29] MEDS ORDERED: ACETAMINOPHEN 325 MG TABLET ONE (17:41)
[2020-01-29] MEDS ORDERED: LABETALOL 20 MG/4ML SYRINGE IV ONE (18:08)
--- NOTE | 2020-01-29 18:13 | RAD REPORT ---
EXAM DESCRIPTION: CT - Stone Protocol - 01/29/2020 5:59 pm CLINICAL HISTORY: abdominal pain, vomiting COMPARISON: No comparisons TECHNIQUE: Axial [address] imaging of the abdomen and pelvis was performed without IV contrast. No IV contrast was given because of allergy, abnormal renal function, patient refusal or physician re quest. No oral contrast administered. All CT scans are performed using dose optimization technique as appropriate and may include automated exposure control or mA/KV adjustment according to patient size. FINDINGS: No suspicious findings in the lung bases. Liver shows no suspicious finding. No spleen or pancreatic abnormality. The least 1 large gallstone i s present and a well filled gallbladder. Additional stones could be occult. Gallbladder wall does not appear thickened or edematous. No pericholecystic fluid seen. Biliary tree is not dilated. No hydronephrosis or suspicious renal mass. No significant adrenal finding. Isodense renal masses an d pyelonephritis cannot be excluded in the absence of IV contrast. Patient has marked enlargement of the prostate gland at least 8 cm in transverse diameter. Urinary bladder is fully contracted which pr ecludes accurate assessment of any possible wall thickening or mass. No bladder calculi seen. Patient has numerous phleboliths along with arterial tree calcifications along the pelvic floor. No dilated bowel loops or bowel wall thickening. Moderate stool volume throughout the colon. Prominen t sigmoid diverticulosis is present. No acute diverticulitis identified. No free air, free fluid or i nflammatory stranding. No bulky lymphadenopathy, omental thickening or large mass lesion. Prominent disc and bony degenerative changes are present in the spine. No compression fracture or acu te bone finding. IMPRESSION: Patient has at least 1 large gallstone in a well filled gallbladder. No wall thickening or pericholecystic fluid. Additional stones could be occult. No biliary tree dilatation. No acute pancreatic process seen. No acute GI process seen. Moderate stool volume present throughout the colon. There is prominent sigm oid diverticulosis without diverticulitis. Significant enlargement of the prostate gland projecting into the base of a collapsed urinary bladder . Bladder cannot be adequately assessed in this setting. Full assessment is limited is the absence of IV contrast.
--- NOTE | 2020-01-29 18:14 | RAD REPORT ---
EXAM DESCRIPTION: RAD - Chest Single View - 01/29/2020 6:07 pm CLINICAL HISTORY: SOB COMPARISON: Portable January 24 TECHNIQUE: AP portable chest image was obtained 01/29/2020 6:07 pm . FINDINGS: Lungs are clear. Interstitial pattern matches comparison. Heart and vasculature are normal . No measurable pleural effusion and no pneumothorax. No acute bony abnormality seen. No acute aortic findings suspected. IMPRESSION: No acute cardiopulmonary process.
--- NOTE | 2020-01-29 18:32 | ER ---
Nurse's Notes [facility] Name: Sina William Age: 84 yrs Sex: Male : 1935 Arrival Date: 01/29/2020 Time: 15:20 Bed 4 Private MD: Yobani Edmondson Diagnosis: Hypertension;Headache;Vomiting Presentation: 01/28 15:31 Chief complaint: Patient's son or daughter states: "He was here last week and released jl7 with a BP of 168 over I don't know what the other number was, and I don't think he should have been released with that high blood pressure." Pt is on dialysis T/T/S and had dialysis yesterday. "His BP is really high and he's been nauseous and vomiting and having a bad headache.". Coronavirus screen: Client denies travel out of the [place] in the last 14 days. At this time, the client does not indicate any symptoms associated with coronavirus-19. Ebola Screen: No symptoms or risks identified at this time. Initial Sepsis Screen: Does the patient meet any 2 criteria? No. Patient's initial sepsis screen is negative. Does the patient have a suspected source of infection? No. Patient's initial sepsis screen is negative. Risk Assessment: Do you want to hurt yourself or someone else? Patient reports no desire to harm self or others. Onset of symptoms is unknown. Care prior to arrival: None. Transition of care: patient was not received from another setting of care. 15:31 Method Of Arrival: Wheelchair jl7 15:31 Acuity: CLYDE 2 jl7 Triage Assessment: 15:39 General: Appears in no apparent distress. uncomfortable, Behavior is calm, cooperative, jl7 appropriate for age. Pain: Complains of pain in REYNOLDS Pain currently is 4 out of 10 on a pain scale. Historical: - Allergies: 15:38 GABAPENTIN; jl7 - Home Meds: 15:38 aspirin 81 mg Oral chew 1 tab once daily [Active]; cod liver oil Oral cap daily jl7 [Active]; lisinopril 10 mg Oral tab 1 tab twice a day [Active]; Lipitor Oral [Active]; 18:58 hydralazine 100 mg oral tab 1 tab 2 times per day [Active]; nifedipine 30 mg oral TbER jl7 1 tab once daily [Active]; levothyroxine 50 mcg oral tab 1 tab once daily [Active]; sevelamer HCl 800 mg Oral 3 tabs with each meal [Active]; - PMHx: 15:38 ADD/ADHD; Amyloid CA; Anemia; Arthritis; CVA; Diabetes - NIDDM; HD - //Thu; jl7 Hypertension; Osteoporosis; - Immunization history:: Adult Immunizations up to date. - Social history:: Smoking status: Patient denies any tobacco usage or history of. Screenin:45 Abuse screen: Denies threats or abuse. Denies injuries from another. Nutritional bp screening: No deficits noted. Tuberculosis screening: No symptoms or risk factors identified. Fall Risk None identified. Assessment: 15:45 General: SEE TRIAGE NOTE. bp 16:15 Reassessment: PT TO RADIOLOGY. bp 17:14 Reassessment: Received lab alert for Creatinine 7.21, VERNON Vargas notified. rb1 17:49 Reassessment: CT PENDING. PT REMAINS HYPERTENSIVE. bp 19:30 General: Appears in no apparent distress. comfortable, Behavior is calm, cooperative. mg2 Pain: Denies pain. Neuro: Level of Consciousness is awake, alert, obeys commands, Oriented to person, place, time, situation. Cardiovascular: Capillary refill < 3 seconds Patient's skin is warm and dry. Respiratory: Airway is patent Respiratory effort is even, unlabored, Respiratory pattern is regular, symmetrical. GI: No signs and/or symptoms were reported involving the gastrointestinal system. : No signs and/or symptoms were reported regarding the genitourinary system. EENT: No signs and/or symptoms were reported regarding the EENT system. Derm: Skin is intact, is healthy with good turgor. Musculoskeletal: Circulation, motion, and sensation intact. Capillary refill < 3 seconds. Vital Signs: 15:31 BP 203 / 83; Pulse 67; Resp 19 S; Temp 98.1(O); Pulse Ox 98% on R/A; Weight 68.04 kg jl7 (R); Pain 4/10; 16:14 BP 210 / 75; Pulse 67; Resp 16; Pulse Ox 99% ; bp 17:14 BP 209 / 92; Pulse 70; Resp 7; Pulse Ox 100% ; bp 17:44 BP 201 / 83; Pulse 72; Resp 14; Pulse Ox 99% ; bp 18:30 BP 193 / 78; Pulse 69; Resp 19; Pulse Ox 99% ; rb1 18:45 BP 182 / 76; Pulse 67; Resp 16; Pulse Ox 96% on 2 lpm NC; bp 19:30 BP 174 / 72; Pulse 63; Resp 18; Pulse Ox 99% on R/A; mg2 20:56 BP 161 / 63; Pulse 62; Resp 18; Temp 98.1; Pulse Ox 98% on R/A; mg2 ED Course: 15:20 Patient arrived in ED. ag5 15:20 Apolinar Edmondson MD is Private Physician. ag5 15:20 Yobani Edmondson DO is Private Physician. ag5 15:34 Triage completed. jl7 15:39 Arm band placed on right wrist. jl7 15:40 Martin Rodriges PA is PHCP. jmm 15:40 Ted Carrillo MD is Attending Physician. jmm 15:45 Patient has correct armband on for positive identification. Bed in low position. Call bp light in reach. Side rails up X2. 16:03 Sam Taveras, VERNON is Primary Nurse. bp 16:05 Initial lab(s) drawn, by sc, sent to lab. Inserted saline lock: in right antecubital kj1 area, using aseptic technique. Blood collected. 16:18 CT Head Brain wo Cont In Process Unspecified. EDMS 17:59 CT Stone Protocol In Process Unspecified. EDMS 18:06 Chest Single View XRAY In Process Unspecified. EDMS 18:30 Chano Batista MD is Hospitalizing Provider. jmm 18:33 Dustin Mcpherson MD is Hospitalizing Provider. jmm 19:08 Dwayne Syed MD is Hospitalizing Provider. la1 19:30 No provider procedures requiring assistance completed. mg2 20:55 Patient admitted, IV remains in place. mg2 Administered Medications: 16:05 Drug: cloNIDine 0.2 mg Route: PO; bp 16:45 Follow up: Response: No adverse reaction bp 17:23 Drug: hydrALAZINE 10 mg {Note: bp 209/92, p 65.} Route: IV; Rate: calculated rate; rb1 Site: right antecubital; 18:10 Drug: Labetalol 5 mg Route: IVP; Site: right antecubital; bp 19:29 Follow up: Response: No adverse reaction mg2 18:10 Drug: Tylenol 650 mg Route: PO; bp 19:29 Follow up: Response: No adverse reaction mg2 Outcome: 18:32 Decision to Hospitalize by Provider. akosua 20:55 Admitted to Med/surg accompanied by tech, via stretcher, room 203, with chart, Report mg2 called to VERNON Mooney 20:55 Condition: stable 20:55 Instructed on the need for admit, Demonstrated understanding of instructions. 20:59 Patient left the ED. mg2 Signatures: Dispatcher [employer] EDMS Martin Rodriges PA PA Tyron Tamayo, PRODUCTION MATERIAL HANDLER-C PRODUCTION MATERIAL HANDLER-Cla1 Mercedes Trevino, RN RN rb1 Brent Mayer RN RN jl7 Sam Taveras RN RN bp Slava Vega RN RN mg2 Tanja Myers 5 Sandra Manning kj1 Corrections: (The following items were deleted from the chart) 18:58 15:38 Home Meds: Hydralazine Oral; jl7 jl7 18:58 15:38 Home Meds: Nifedipine Oral; ryley7 jl7 18:58 15:38 Home Meds: levothyroxine oral; jl7 jl7 18:58 15:38 Home Meds: sevelamer HCl 800 mg Oral 1 tab daily; jl7 jl7
--- NOTE | 2020-01-29 18:32 | EDPHYS ---
Physician Documentation [facility] Name: Sina William Age: 84 yrs Sex: Male : 1935 Arrival Date: 01/29/2020 Time: 15:20 Bed 4 Private MD: Yobani Edmondson ED Physician Ted Carrillo HPI: 01/28 15:55 This 84 yrs old Male presents to ER via Wheelchair with complaints of High jmm Blood Pressure. 15:55 Onset: The symptoms/episode began/occurred gradually, 4 day(s) ago. Modifying factors:. jm Associated signs and symptoms: Pertinent positives: visual changes, vomiting, Pertinent negatives: chest pain, dizziness. This is an 84 year old male with a history of HTN, CVA, DM that presents to the ED with complaints of elevated blood pressure. Patient states having some double vision, denies headache but states he vomited twice today. Denies chest pain, denies shortness of breath. . Historical: - Allergies: 15:38 GABAPENTIN; jl7 - Home Meds: 15:38 aspirin 81 mg Oral chew 1 tab once daily [Active]; cod liver oil Oral cap daily jl7 [Active]; lisinopril 10 mg Oral tab 1 tab twice a day [Active]; Lipitor Oral [Active]; 18:58 hydralazine 100 mg oral tab 1 tab 2 times per day [Active]; nifedipine 30 mg oral TbER jl7 1 tab once daily [Active]; levothyroxine 50 mcg oral tab 1 tab once daily [Active]; sevelamer HCl 800 mg Oral 3 tabs with each meal [Active]; - PMHx: 15:38 ADD/ADHD; Amyloid CA; Anemia; Arthritis; CVA; Diabetes - NIDDM; HD - //Thu; jl7 Hypertension; Osteoporosis; - Immunization history:: Adult Immunizations up to date. - Social history:: Smoking status: Patient denies any tobacco usage or history of. ROS: 15:55 Constitutional: Negative for fever, chills, and weight loss. jmm 15:55 ENT: Negative for injury, pain, and discharge, Neck: Negative for injury, pain, and swelling, Cardiovascular: Negative for chest pain, palpitations, and edema, Respiratory: Negative for shortness of breath, cough, wheezing, and pleuritic chest pain, Abdomen/GI: Negative for abdominal pain, nausea, diarrhea, and constipation. 15:55 Eyes: Positive for double vision. 15:55 Abdomen/GI: Positive for vomiting. 15:55 Neuro: Positive for visual changes. 15:55 All other systems are negative. Exam: 15:55 Constitutional: This is a well developed, well nourished patient who is awake, alert, jmm and in no acute distress. Head/Face: atraumatic. Eyes: EOMI, no conjunctival erythema appreciated ENT: Moist Mucus Membranes Neck: Trachea midline, Supple Chest/axilla: Normal chest wall appearance and motion. Cardiovascular: Regular rate and rhythm. No edema appreciated Respiratory: Normal respirations, no respiratory distress appreciated Abdomen/GI: Non distended, soft Back: Normal ROM Skin: General appearance color normal MS/ Extremity: Moves all extremities, no obvious deformities appreciated, no edema noted to the lower extremities Neuro: Awake and alert, normal gait Psych: Behavior is normal, Mood is normal, Patient is cooperative and pleasant 16:51 ECG was reviewed by the Attending Physician. [facility] Vital Signs: 15:31 BP 203 / 83; Pulse 67; Resp 19 S; Temp 98.1(O); Pulse Ox 98% on R/A; Weight 68.04 kg jl7 (R); Pain 4/10; 16:14 BP 210 / 75; Pulse 67; Resp 16; Pulse Ox 99% ; bp 17:14 BP 209 / 92; Pulse 70; Resp 7; Pulse Ox 100% ; bp 17:44 BP 201 / 83; Pulse 72; Resp 14; Pulse Ox 99% ; bp 18:30 BP 193 / 78; Pulse 69; Resp 19; Pulse Ox 99% ; rb1 18:45 BP 182 / 76; Pulse 67; Resp 16; Pulse Ox 96% on 2 lpm NC; bp 19:30 BP 174 / 72; Pulse 63; Resp 18; Pulse Ox 99% on R/A; mg2 20:56 BP 161 / 63; Pulse 62; Resp 18; Temp 98.1; Pulse Ox 98% on R/A; mg2 MDM: 15:46 Patient medically screened. [facility] 18:30 Data reviewed: vital signs, nurses notes. Counseling: I had a detailed discussion with [facility] the patient and/or guardian regarding: the historical points, exam findings, and any diagnostic results supporting the discharge/admit diagnosis, lab results, the need for further work-up and treatment in the hospital. ED course: I discussed the patient with Tyron Ramos whom accepted the patient. 01/28 15:52 Order name: Basic Metabolic Panel [facility] 01/28 15:52 Order name: CBC with Diff; Complete Time: 16:28 [facility] 01/28 15:52 Order name: LFT's [facility] 01/28 15:52 Order name: Magnesium; Complete Time: 17:26 [facility] 01/28 15:52 Order name: NT PRO-BNP; Complete Time: 17:26 [facility] 01/28 15:52 Order name: PT-INR; Complete Time: 16:49 [facility] 01/28 15:52 Order name: Troponin (emerg Dept Use Only); Complete Time: 17:26 [facility] 01/28 15:52 Order name: CT Head Brain wo Cont; Complete Time: 16:49 [facility] 01/28 15:52 Order name: Basic Metabolic Panel; Complete Time: 17:26 [facility] 01/28 15:52 Order name: Liver (Hepatic) Function; Complete Time: 17:26 [facility] 01/28 16:55 Order name: CT Stone Protocol; Complete Time: 18:18 [facility] 01/28 17:27 Order name: Chest Single View XRAY; Complete Time: 18:18 [facility] 01/28 20:48 Order name: COVID-19 bb 01/28 15:52 Order name: EKG; Complete Time: 15:52 [facility] 01/28 15:52 Order name: Cardiac monitoring; Complete Time: 16:11 [facility] 01/28 15:52 Order name: EKG - Nurse/Tech; Complete Time: 16:46 [facility] 01/28 15:52 Order name: IV Saline Lock; Complete Time: 16:11 [facility] 01/28 15:52 Order name: Labs collected and sent; Complete Time: 16:11 [facility] 01/28 15:52 Order name: O2 Per Protocol; Complete Time: 16:14 [facility] 01/28 15:52 Order name: O2 Sat Monitoring; Complete Time: 16:14 [facility] EC:51 Rate is 68 beats/min. Rhythm is regular. QRS [place] is Normal. SD interval is normal. QRS jmm interval is normal. QT interval is normal. No Q waves. T waves are Inverted in lead V1. No ST changes noted. Reviewed by me. Administered Medications: 16:05 Drug: cloNIDine 0.2 mg Route: PO; bp 16:45 Follow up: Response: No adverse reaction bp 17:23 Drug: hydrALAZINE 10 mg {Note: bp 209/92, p 65.} Route: IV; Rate: calculated rate; rb1 Site: right antecubital; 18:10 Drug: Labetalol 5 mg Route: IVP; Site: right antecubital; bp 19:29 Follow up: Response: No adverse reaction mg2 18:10 Drug: Tylenol 650 mg Route: PO; bp 19:29 Follow up: Response: No adverse reaction mg2 Disposition: 01/29 11:59 Co-signature as Attending Physician, Ted Carrillo MD I agree with the assessment and elizabeth plan of care. Disposition: 01/29/20 18:32 Hospitalization ordered by Dwayne Syed for Inpatient Admission. Preliminary diagnosis are Hypertension, Headache, Vomiting. - Bed requested for Telemetry/MedSurg (Inpatient). - Status is Inpatient Admission. mg2 - Condition is Stable. - Problem is new. - Symptoms have improved. Signatures: Dispatcher [employer] EDTed Brown MD MD cha Mickail, Joel, PA PA [facility] Tyron Ramos, BRUSH HAND-C BRUSH HAND-Cla1 Carolyn Dia, RN RN Mercedes Trevino, RN RN rb1 Brent Mayer RN RN jl7 Sam Taveras, VERNON RN bp Slava Vega, RN RN mg2 Corrections: (The following items were deleted from the chart) 01/28 18:33 18:32 Hospitalization Ordered by Chano Batista MD for Inpatient Admission. [facility] Preliminary diagnosis is Hypertension; Headache; Vomiting. Bed requested for Telemetry/MedSurg (Inpatient). Status is Inpatient Admission. Condition is Stable. Problem is new. Symptoms have improved. [facility] 18:58 15:38 Home Meds: Hydralazine Oral; jl7 jl7 18:58 15:38 Home Meds: Nifedipine Oral; ryley7 jl7 18:58 15:38 Home Meds: levothyroxine oral; ryley7 jl7 18:58 15:38 Home Meds: sevelamer HCl 800 mg Oral 1 tab daily; jl7 jl7 19:08 18:33 01/29/2020 18:32 Hospitalization Ordered by Dustin Mcpherson MD for Inpatient la1 Admission. Preliminary diagnosis is Hypertension; Headache; Vomiting. Bed requested for Telemetry/MedSurg (Inpatient). Status is Inpatient Admission. Condition is Stable. Problem is new. Symptoms have improved. jmm 19:58 19:08 01/29/2020 18:32 Hospitalization Ordered by Dwayne Syed MD for Inpatient cg Admission. Preliminary diagnosis is Hypertension; Headache; Vomiting. Bed requested for Telemetry/MedSurg (Inpatient). Status is Inpatient Admission. Condition is Stable. Problem is new. Symptoms have improved. la1 20:59 19:58 01/29/2020 18:32 Hospitalization Ordered by Dwayne Syed MD for Inpatient mg2 Admission. Preliminary diagnosis is Hypertension; Headache; Vomiting. Bed requested for Telemetry/MedSurg (Inpatient). Status is Inpatient Admission. Condition is Stable. Problem is new. Symptoms have improved. cg
--- NOTE | 2020-01-29 19:26 | P.HP ---
Certification for Inpatient Patient admitted to: Inpatient With expected LOS: >2 Midnights Patient will require the following post-hospital care: Home Health Services Practitioner: I am a practitioner with admitting privileges, knowledge of patient current condition, hospital course, and medical plan of care. Services: Services provided to patient in accordance with Admission requirements found in Title 42 Section 412.3 of the Code of Federal Regulations Patient History Date of Service: 01/29/20 Primary Care Provider: PCP- Delvis, Nephrology- Gina, Oncology- Anibal Reason for admission: Maligninat HTN History of Present Illness: 84-year-old male with history of end-stage renal disease on hemodialysis, hypertension, hyperlipidemia, diabetes mellitus type 2, and the like cancer presents emergency department with severe headache, significant hypertension, visual disturbances, vomiting. Patient reports he has been having the symptoms ongoing on and off for approximately 1 week. Patient with recent ED visit approximately 4 days ago where he was evaluated and discharged. Patient has since had worsening of his symptoms. During his evaluation in the emergency department patient was found to be hypertensive with blood pressure systolic around 210/100. Patient was given multiple rounds of IV blood pressure medications including hydralazine and labetalol, also some oral clonidine but his blood pressure maintained around 180s systolic. ED provider wishes to admit patient for further evaluation and management as he was significantly symptomatic upon time arrival. Patient also had CT scan of the head to rule out any intracranial bleeds or lesions. This was negative. When I saw the patient in the emergency department his blood pressure was approximately 186/95, he was alert, oriented x4 but reports that he is having increased memory loss recently and also today had severe headache and vomiting. At this time patient appears stable reports headache has improved. Patient was admitted for further evaluation and management. Allergies gabapentin Allergy (Verified 04/11/19 23:16) Itching No Known Drug Allergies Allergy (Verified 01/04/18 08:15) Unknown No Known Allergies Allergy (Uncoded 01/17/18 16:37) Unknown Home Medications: Levothyroxine [Synthroid*] 50 mcg PO DAILY 01/04/18 Sevelamer Carbonate [Renvela*] 800 mg PO TIDWM 09/15/18 Hydralazine HCl [Apresoline] 100 mg PO TID #90 tablet 09/16/18 lisinopriL [Prinivil*] 20 mg PO BID #60 tab 09/16/18 Atorvastatin Calcium [Lipitor*] 20 mg PO DAILY 07/01/19 carvediloL [Coreg*] 12.5 mg PO BID 07/01/19 - Past Medical/Surgical History Diabetic: Yes -: DM-Type 2 -: HTN -: History of CVA -: Former Tobacco use -: ESRD on dialysis TTS -: disc surgery -: cataract surgery -: fistula Psychosocial/ Personal History: , Children-9, currently living with her granddaughter - Family History Father -: Heart disease, Hypertension, Kidney disease Mother -: Heart disease, Hypertension, Kidney disease - Social History Smoking Status: Former smoker Alcohol use: Yes CD- Drugs: No Caffeine use: Yes Place of Residence: Home Review of Systems 10-point ROS is otherwise unremarkable Gastrointestinal: Nausea, Vomiting Neurological: As per HPI (Headache, changes in vision with hypertension) Physical Examination - Physical Exam General: Alert, In no apparent distress, Oriented x3 HEENT: Atraumatic, Normocephalic, PERRLA Neck: Supple Respiratory: Clear to auscultation bilaterally, Normal air movement Cardiovascular: No edema, Regular rate/rhythm, Normal S1 S2 Capillary refill: <2 Seconds Gastrointestinal: Normal bowel sounds, Soft and benign Musculoskeletal: No contractures, No erythema, No tenderness Integumentary: No significant lesion, No tenderness/swelling, No erythema Neurological: Normal speech, Normal strength at 5/5 x4 extr, Normal tone - Studies Laboratory Data (last 24 hrs) 01/29/20 16:07: PT 10.9, INR 0.92 01/29/20 16:07: WBC 5.5, Hgb 11.7 L, Hct 34.7 L, Plt Count 186 01/29/20 16:07: Sodium 136, Potassium 4.4, BUN 39 H, Creatinine 7.21 H*, Glucose 87, Magnesium 2.4, Total Bilirubin 0.5, AST 23, ALT 23, Alkaline Phosphatase 83 Assessment and Plan - Plan Assessment Malignant hypertension with headache, vomiting End-stage renal disease on hemodialysis Thursday Diabetes mellitus type 2 Amyloid cancer Memory loss History CVA Plan Malignant hypertension with headache, vomiting: Obtain home medications from daughter, have continued them. P.r.n. medications also in place. Blood pressure at this time around 180s systolic. Will continue to monitor throughout the night. Patient remain on telemetry throughout this hospitalization. Will also consult with nephrology in regards to adjustment of medications. Did increase lisinopril from 10 mg p.o. daily to 20 mg p.o. daily. DVT prophylaxis with heparin 5000 units subcutaneous twice daily. End-stage renal disease on hemodialysis Thursday: Consult Nephrology. Patient has been compliant with dialysis does not appear overloaded at this time. Diabetes mellitus type 2: A.c. HS Accu-Cheks, sliding scale insulin therapy. Will obtain A1c with morning labs. Amyloid cancer: Continue outpatient treatment. Patient not currently on chemo or radiation. This follows oncology. Memory loss: Patient likely benefit from seeing neurology on outpatient basis. No acute changes in mental status at this time. History CVA: Will continue patient's home medications. Discharge Plan: Home Plan to discharge in: 48 Hours - Advance Directives Does patient have a Living Will: No Does patient have a Durable POA for Healthcare: No - Code Status/Comfort Care Code Status Assessed: Yes (Patient is full code) Critical Care: No Time Spent Managing Pts Care (In Minutes): 55
[2020-01-29] MEDS: INSULIN -REGULAR HUMAN 50 UNIT/0.5 ML ML SQ SCH (21:36)
[2020-01-29] MEDS ORDERED: HYDRALAZINE HCL 20 MG/ML VIAL IV PRN (21:36)
[2020-01-29] MEDS: HYDRALAZINE HCL 25 MG TABLET PO SCH (22:15)
[2020-01-29] MEDS: HEPARIN 5000 UNIT/ML 1 ML VIAL SQ SCH (22:15)
[2020-01-30] MEDS ORDERED: NA CHLORIDE 0.9% 250 ML IV PRN (04:56)
[2020-01-30] MEDS: ACETAMINOPHEN 500 MG TAB PO PRN ×2 (05:13→09:39)
[2020-01-30] MEDS ORDERED: NA CHLORIDE 0.9% 250 ML ONE (05:18)
[2020-01-30 06:26] LABS: Absolute Lymphocytes (CBC) 0.9 K/uL (0.7-4.9); Basophils % 0.9 % (0-1.3); Hematocrit 31.5 % (39.6-49.0); Lymphocytes % 19.7 % (15.3-44.8); RBC Red Blood Cell Count 3.18 M/uL (4.33-5.43)
[2020-01-30 07:03] LABS: Potassium 4.3 mmol/L (3.5-5.1); Thyroid Stimulating Hormone 1.65 uIU/mL (0.360-3.740)
[2020-01-30] MEDS: INSULIN -REGULAR HUMAN 50 UNIT/0.5 ML ML SQ SCH ×4 (07:30→21:00)
[2020-01-30] MEDS: ONDANSETRON 4 MG/2 ML VIAL IV PRN (08:39)
[2020-01-30] MEDS: NIFEDIPINE XL 30 MG TABLET PO SCH (09:29)
[2020-01-30] MEDS: HYDRALAZINE HCL 25 MG TABLET PO SCH ×2 (09:29→20:59)
[2020-01-30] MEDS: lisinopriL 20 MG TAB PO SCH (09:30)
[2020-01-30] MEDS: SEVELAMER CARBONATE 800 MG TABLET PO SCH ×3 (09:31→16:50)
[2020-01-30] MEDS: HEPARIN 5000 UNIT/ML 1 ML VIAL SQ SCH ×2 (09:32→21:00)
--- NOTE | 2020-01-30 16:45 | P.PN ---
Subjective Date of Service: 01/30/20 Primary Care Provider: PCP- Delvis, Nephrology- Gina, Oncology- Anibal Chief Complaint: Maligninat HTN patient reports significant improvement this morning, continues with minor headache. Vision changes have resolved, denies chest pain, SOB, abdominal pain, new numbness/tingling. Physical Examination - Vital Signs Temperature: 97.4 F Blood Pressure: 141/64 Pulse: 60 Respirations: 18 Pulse Ox (%): 97 - Physical Exam General: Alert, In no apparent distress, Oriented x3 HEENT: EOMI, Sclerae nonicteric Neck: Supple, No Thyromegaly Respiratory: Clear to auscultation bilaterally, Normal air movement Cardiovascular: Regular rate/rhythm, Normal S1 S2 Capillary refill: <2 Seconds Gastrointestinal: Normal bowel sounds, Soft and benign, No tenderness Musculoskeletal: No swelling, No erythema Integumentary: No rashes, No breakdown Neurological: Normal speech, Normal affect - Studies Laboratory Data (last 24 hrs) 01/29/20 16:07: Sodium 136, Potassium 4.4, BUN 39 H, Creatinine 7.21 H*, Glucose 87, Magnesium 2.4, Total Bilirubin 0.5, AST 23, ALT 23, Alkaline Phosphatase 83 Assessment & Plan Plan to discharge in: 24 Hours Physician Review Additional Text: Medical Problem List: Malignant hypertension with headache, vomiting End-stage renal disease on hemodialysis Thursday Diabetes mellitus type 2 Amyloid cancer Memory loss History CVA Plan Malignant hypertension with headache, vomiting -pt reports some mild increase in confusion over past few days, unsure if he was taking his medication appropriately -continued on home medications, much improved. PRN as needed. Lisinopril increased from 10 -> 20mg daily PO -Nephrology consulted - appreciate assistance -DVT prophylaxis with heparin 5000 units subcutaneous twice daily. End-stage renal disease on hemodialysis Thursday -Consult Nephrology. Patient has been compliant with dialysis does not appear overloaded at this time. -possible dialysis today Diabetes mellitus type 2 -A.c. HS Accu-Cheks, sliding scale insulin therapy. A1c: 5.1 this morning Amyloid cancer: Continue outpatient treatment. Patient not currently on chemo or radiation. follows w/ oncology. Memory loss: Patient likely benefit from seeing neurology on outpatient basis. No acute changes in mental status at this time. History CVA: Will continue patient's home medications. Dispo: anticipate dc home in next 24 hours Time Spent Managing Pts Care (In Minutes): 35
--- NOTE | 2020-01-31 02:52 | CON ---
Date of Consultation: 01/30/2020 Chief Complaint: End-stage renal disease, on dialysis. History Of Present Illness: The patient has been dialyzed 3 times per week on Thursday, , and Thursday. He came to the hospital yesterday because of generalized weakness. He was found to have severe malignant hypertension and was started on IV medication for blood pressure control. He is 84- year-old man with history of end-stage renal disease, on dialysis. He has history of hypertension, d iabetes mellitus, and diabetic kidney disease. He presented to the hospital emergency department bec ause of severe headache, was found to have uncontrolled hypertension with visual disturbances, associ ated with vomiting. The patient was complaining of some progressively worse headache and weakness ov er the last several days. He came to emergency room approximately 4 days ago and was evaluated and d ischarged to home with additional recommendation to control blood pressure. The patient had a CT scan done to rule out intracranial abnormalities. It was negative for intracran ial bleed or any lesion. Blood pressure improved after IV medications were started and in the emerge ncy room was 186/95. The patient was alert, oriented, and he was complaining of some decreased memor y over recent days. Did not have melena, hematemesis. Review of Systems: Constitutional: Denies fever, chills. Eyes: Denies vision changes. Ears, Nose, Mouth, and Throat: Denies sore throat, earache. Respiratory: Denies PND, orthopnea. Cardiovascular: Denies chest pain, palpitation. GI: Denies nausea, vomiting. : Denies dysuria, hematuria. Musculoskeletal: Denies muscle aches or joint swelling. All other systems reviewed and all are negative. Past Medical History: Diabetes mellitus, hypertension, CVA, former tobacco smoker, end-stage renal d isease on dialysis, disk surgery, cataract surgery, AV fistula creation. Family History: Heart disease, hypertension, kidney. Social History: Currently, he denies tobacco. He is a former smoker. Denies alcohol, illicit drug. Physical Examination: General: Not in acute distress. Eyes: Anicteric sclerae. EOMI. Ears, Nose, Mouth, and Throat: Oral mucosa moist. No pallor. Neck: Supple. No bruits. Lungs: Diminished breath sounds at bases. Heart: S1, S2. Abdomen: Soft, benign. Extremities: No edema. Impression And Plan: 1.Malignant hypertension, improving with blood pressure adjustment. Continue by mouth medication to day. Blood pressure is at baseline. The patient denies any new complaints today. 2.Dialysis will be done to obtain negative fluid balance and ultrafiltration. 3.Anemia. Monitor hemoglobin level. LAMAR on hold. Hemoglobin is 11.7. 4.Diabetes mellitus. Continue insulin. 5.Renal osteodystrophy. Continue renal diet and binders. EB/MODL Voice ID: [id number] Report ID: [id number]
[2020-01-31] MEDS: ACETAMINOPHEN 500 MG TAB PO PRN ×4 (04:55→22:45)
[2020-01-31 06:41] LABS: Basophils % 0.7 % (0-1.3); Hematocrit 32.1 % (39.6-49.0); Lymphocytes % 18.2 % (15.3-44.8); RBC Red Blood Cell Count 3.26 M/uL (4.33-5.43)
[2020-01-31 07:00] LABS: Potassium 4.2 mmol/L (3.5-5.1)
[2020-01-31] MEDS: INSULIN -REGULAR HUMAN 50 UNIT/0.5 ML ML SQ SCH ×4 (07:30→21:00)
[2020-01-31] MEDS: ONDANSETRON 4 MG/2 ML VIAL IV PRN ×2 (08:13→22:36)
[2020-01-31] MEDS: HEPARIN 5000 UNIT/ML 1 ML VIAL SQ SCH ×2 (08:14→22:34)
[2020-01-31] MEDS: lisinopriL 20 MG TAB PO SCH ×2 (08:15→22:35)
[2020-01-31] MEDS: SEVELAMER CARBONATE 800 MG TABLET PO SCH ×3 (08:15→17:19)
[2020-01-31] MEDS: NIFEDIPINE XL 30 MG TABLET PO SCH (08:15)
[2020-01-31] MEDS: HYDRALAZINE HCL 25 MG TABLET PO SCH ×3 (08:16→23:31)
[2020-01-31] MEDS: DOXAZOSIN 2 MG TAB PO SCH ×2 (10:14→22:34)
--- NOTE | 2020-01-31 11:44 | RAD REPORT ---
EXAM DESCRIPTION: CT - CT ANGIO ABD/PELVIS W CONTRAST - 01/31/2020 10:58 am CLINICAL HISTORY: Abdominal pain/hypertension COMPARISON: January 29, 2020 cat scan TECHNIQUE: Dynamically enhanced 3 mm thick images of the chest, abdomen, and pelvis were obtained d uring administration of approximately 150mL Isovue 370 IV contrast. Sagittal and coronal reconstructi on images were generated and reviewed. 3D MIPS reconstruction performed All CT scans are performed using dose optimization technique as appropriate and may include automated exposure control or mA/KV adjustment according to patient size. FINDINGS: One main renal artery bilaterally There is a 6 millimeter area of moderate narrowing of the proximal right renal artery Mild narrowing involves the proximal left renal artery. Mild narrowing involves the celiac artery. Mild calcified plaque is present within the abdominal aorta, iliac and common femoral arteries. Spondylosis involves lumbar spine resulting spinal stenosis IMPRESSION: Moderate stenosis proximal right renal artery estimated to be between 55-65%
[2020-01-31] MEDS: LABETALOL 20 MG/4ML SYRINGE IV PRN (12:43)
--- NOTE | 2020-01-31 14:07 | PN ---
Date of Progress Note: 01/31/2020 Subjective: The patient was admitted with urgent hypertension symptomatic with headache. No nausea. No vomiting. The patient's blood pressure is still elevated. The patient denied any fevers, any chills. Physical Examination: Vital Signs: Blood pressure 198/85, pulse of 67, afebrile. Chest: Clear to auscultation. Heart: S1, S2 regular. Abdomen: Soft, nontender. Extremities: No edema. Neurologic: Alert and oriented x3. Nonfocal. Laboratory Data: WBC 5.3, H and H 11.1/32.1, platelet 162. Sodium 137, potassium 4.2, bicarb 29, BUN 29, creatinine 6.1, calcium of 8. Current Medications: The patient on include hydralazine 100 b.i.d., lisinopril 20 daily, nifedipine 30, Renvela. Assessment And Plan: 1. End-stage renal disease. I am going to continue the patient on dialysis Thursday, Thursday, Thursday and we will follow up the patient. I am going to try to challenge the patient to establish better volume control to help with the blood pressure. 2. Hypertension, not controlled in the presence of renal failure and the urgent hypertension. The patient has been on multiple medication. I am going to go ahead and increase lisinopril to b.i.d., hydralazine to 3 times a day, and nifedipine to 60, and we will go ahead and proceed with CT angio to evaluate the renal artery stenosis and we will follow up. 3. Anemia of chronic kidney disease with the presence of the degree of hypertension and hemoglobin. I am going to hold on LAMAR. 4. Secondary hyperparathyroidism. Continue binder. time 35 min discussing [facility] and arrange treatment with the staff ASCENCION/BELLE Voice ID: [id number] Report ID: [id number] MARIANA
--- NOTE | 2020-01-31 20:55 | P.PN ---
Subjective Date of Service: 01/31/20 Primary Care Provider: PCP- Delvis, Nephrology- Gina, Oncology- Anibal Chief Complaint: Maligninat HTN patient with elevated bP again this morning, with double vision and mild headache. Otherwise denies chest pain, SOB, abdominal pain, new numbness/t ingling. Review of Systems General: Unremarkable Eyes: Vision Change ENT: Unremarkable Respiratory: Unremarkable Cardiovascular: Unremarkable Gastrointestinal: Unremarkable Genitourinary: Unremarkable Musculoskeletal: Unremarkable Integumentary: Unremarkable Neurological: Unremarkable Lymphatics: Unremarkable Physical Examination - Vital Signs Temperature: 98.5 F Blood Pressure: 95/50 Pulse: 60 Respirations: 17 Pulse Ox (%): 95 - Physical Exam General: Alert, In no apparent distress HEENT: PERRLA, Mucous membr. moist/pink, EOMI Neck: Supple, No LAD Respiratory: Clear to auscultation bilaterally, Normal air movement Cardiovascular: Regular rate/rhythm, Normal S1 S2 Gastrointestinal: Normal bowel sounds, Soft and benign, Non-distended, No tenderness Musculoskeletal: No erythema, No tenderness Integumentary: No rashes Neurological: Normal speech, Normal affect Assessment & Plan Physician Review Additional Text: Medical Problem List: Malignant hypertension with headache, vomiting End-stage renal disease on hemodialysis Thursday Diabetes mellitus type 2 Amyloid cancer Memory loss History CVA Plan Malignant hypertension with headache, vomiting -pt reports some mild increase in confusion over past few days, unsure if he was taking his medication appropriately - discussed with daughter, she isn't 100% sure either, requesting neuro consult -still uncontrolled HTN (urgency), continues to be symptomatic, difficult to control necessitating inpatient management, medications increased today -Nephrology consulted - appreciate assistance, ordered CT angio to eval the r enal artery stenosis -DVT prophylaxis with heparin 5000 units subcutaneous twice daily. End-stage renal disease on hemodialysis Thursday -Consult Nephrology. Patient has been compliant with dialysis does not appear overloaded at this time. Diabetes mellitus type 2 -A.c. HS Accu-Cheks, sliding scale insulin therapy. A1c: 5.1 this morning Amyloid cancer: Continue outpatient treatment. Patient not currently on chemo or radiation. follows w/ oncology. Memory loss: Patient likely benefit from seeing neurology on outpatient basis. No acute changes in mental status at this time. History CVA: Will continue patient's home medications. Dispo: anticipate home in 24-48 hrs Time Spent Managing Pts Care (In Minutes): 35
[2020-02-01 05:49] LABS: Hematocrit 31.5 % (39.6-49.0); MPV 9.1 fL (7.6-11.3); RBC Red Blood Cell Count 3.19 M/uL (4.33-5.43)
[2020-02-01 06:12] LABS: Albumin 3.2 g/dL (3.4-5.0); Bilirubin Total 0.5 mg/dL (0.2-1.0); Potassium 4.5 mmol/L (3.5-5.1); Protein, Total 6.6 g/dL (6.4-8.2)
[2020-02-01] MEDS: ACETAMINOPHEN 500 MG TAB PO PRN ×3 (06:27→16:56)
[2020-02-01] MEDS: LABETALOL 20 MG/4ML SYRINGE IV PRN (06:42)
[2020-02-01] MEDS: INSULIN -REGULAR HUMAN 50 UNIT/0.5 ML ML SQ SCH ×4 (07:30→21:00)
--- NOTE | 2020-02-01 08:47 | RAD REPORT ---
EXAM DESCRIPTION: US - CP - 02/01/2020 8:32 am CLINICAL HISTORY: poss tia COMPARISON: No comparisons TECHNIQUE: Real-time sonographic evaluation of bilateral carotid and vertebral systems was performed . Bolden scale and Doppler interrogation were performed with waveform tracing bilaterally. FINDINGS: Normal high resistance waveforms are noted in both external carotid arteries. The common c arotid arteries and internal carotid arteries show normal low resistance waveforms. Calcified plaquing changes are present in the right carotid bulb and proximal internal carotid artery . Calcified plaquing changes are present in the left carotid bulb and in the midportion of the left i nternal carotid artery. On visual inspection, of the lumen narrowing is not regarded as significant. Internal carotid artery velocities are relatively elevated. ICA/CCA ratios are abnormally high a elana uring 1.9 on the right and 2.3 on the left. This likely exaggerates the severity of carotid stenosis due to relatively low common carotid artery velocities. No significant disease seen in either common carotid artery. Antegrade flow seen in both vertebral arteries. Velocity values and ratios were recorded and are retained in the patient's imaging records. IMPRESSION: Bilateral carotid bulb, proximal right ICA and mid left ICA hard calcified plaques. The ICA/ CCA ratios are abnormally high suggesting 60-80% stenoses. However, visual inspection does n ot support this degree of luminal narrowing. True degree of luminal narrowing is estimated at 50%. If warranted, CT angiography or MR angiography could be performed for further characterization.
[2020-02-01] MEDS: SEVELAMER CARBONATE 800 MG TABLET PO SCH ×3 (08:48→16:44)
[2020-02-01] MEDS: HEPARIN 5000 UNIT/ML 1 ML VIAL SQ SCH (08:48)
[2020-02-01] MEDS: HYDRALAZINE HCL 25 MG TABLET PO SCH ×3 (09:00→23:34)
[2020-02-01] MEDS: DOXAZOSIN 2 MG TAB PO SCH ×3 (09:00→21:56)
[2020-02-01] MEDS ORDERED: NIFEDIPINE XL 60 MG TABLET PO SCH (09:00)
[2020-02-01] MEDS: lisinopriL 20 MG TAB PO SCH ×2 (09:11→21:56)
--- NOTE | 2020-02-01 12:39 | P.PN ---
Subjective Date of Service: 02/01/20 Primary Care Provider: PCP- Delvis, Nephrology- Gina, Oncology- Anibal Chief Complaint: Maligninat HTN reports headache has improved but still present intermittently, continues with double vision, reports from left eye. Improves when he covers left eye with hand. Otherwise denies chest pain, SOB, abdominal pain, new numbness/tingling/weakness. Review of Systems 10-point ROS is otherwise unremarkable Physical Examination - Vital Signs Temperature: 97.4 F Blood Pressure: 212/95 Pulse: 64 Respirations: 16 Pulse Ox (%): 97 - Physical Exam General: Alert, In no apparent distress, Oriented x3 HEENT: Other (double vision from left eye, normalized when covering left eye with hand), EOMI Neck: JVD not distended Respiratory: Clear to auscultation bilaterally, Normal air movement Cardiovascular: No edema, Regular rate/rhythm, Normal S1 S2 Gastrointestinal: Soft and benign, Non-distended, No tenderness Musculoskeletal: No tenderness Integumentary: No rashes Neurological: Normal strength at 5/5 x4 extr, Normal affect Assessment & Plan Physician Review Additional Text: Medical Problem List: Malignant hypertension with headache, vomiting End-stage renal disease on hemodialysis Thursday Double vision Memory loss Amyloid cancer History CVA Diabetes mellitus type 2 Plan Malignant hypertension with headache, vomiting -pt reports some mild increase in confusion over past few days prior to admission, unsure if he was taking his medication appropriately - discussed with daughter, she isn't 100% sure either, requesting neuro consult (placed yesterday) -still uncontrolled HTN (urgency), continues to be symptomatic, difficult to control necessitating inpatient management -Nephrology consulted - appreciate assistance, CT angio: moderate ~55-60% one sided STEPHANI, unclear significance End-stage renal disease on hemodialysis Thursday -Consulted Nephrology. Patient has been compliant with dialysis does not appear overloaded at this time. -for dialysis today () now Double vision -seems related to when patient is hypertensive, however given focality of it today and h/o cancer/CVA, will obtain MRI -hold DVT prophylaxis until results Memory loss: -Neurology consulted. No acute changes in mental status at this time. Amyloid cancer: Continue outpatient treatment. Patient not currently on chemo or radiation. follows w/ oncology. History CVA: Will continue patient's home medications. Diabetes mellitus type 2 -A.c. HS Accu-Cheks, sliding scale insulin therapy. A1c: 5.1 this admission Dispo: anticipate home in 24-48 hrs Time Spent Managing Pts Care (In Minutes): 40
--- NOTE | 2020-02-01 14:56 | PN ---
Date of Progress Note: 02/01/2020 Subjective: The patient was admitted with urgent hypertension. Patient is today complaining of blurred vision. No weakness. Physical Examination: Vital Signs: When I saw the patient, patient had incident of low blood pressure down to 116 and 95 yesterday after medicating him. Currently, blood pressure 178/71, pulse of 62 afebrile. Chest: Clear to auscultation. Heart: S1, S2. Systolic murmur. Abdomen: Soft, nontender. Extremities: No edema. Neuro: Patient had decreased vision with double vision on the left eye. Ophthalmo exam could not appreciate any bleed. Laboratory Data: WBC 5.6, H and H 10.9/31.5. Sodium 135, potassium 4.5, bicarb 29, BUN 41, creatinine 8.3, calcium of 8. Current Medications: The patient on include Cardura 1 mg b.i.d., lisinopril 20 b.i.d., nifedipine. Renvela. Tylenol. Assessment And Plan: 1. End-stage renal disease. The patient is due for dialysis today. Patient is going to be dialyzed today. No heparin given the neuro symptoms. 2. Hypertension, currently better controlled. Given the incident of low blood pressure, I am going to hold nifedipine and we will monitor the patient after dialysis. 3. Blurred vision with the finding of blood pressure upon admission. I am going to go ahead and get MRI for the brain. We will consult Neurology and we will follow up the patient. time spent for face to face care , placing order and dicussing with staff and patient/ patient family 35 min PATRICIA Voice ID: [id number] Report ID: [id number] MTDRosa
--- NOTE | 2020-02-01 16:55 | RAD REPORT ---
EXAM DESCRIPTION: MRI - Brain Wo Cont - 02/01/2020 4:31 pm CLINICAL HISTORY: Blurred vision COMPARISON: January 25, [address] TECHNIQUE: Axial, sagittal, and coronal magnetic images of the brain were obtained. Contrast was not requested FINDINGS: Mild to moderate increased signal within periventricular, subcortical white matter probabl y ischemic changes secondary to small vessel disease. Diffusion-weighted/ADC mapping does not reveal evidence of acute infarction. The ventricles are normal caliber. An extra-axial fluid collection is not present Fluid within the sinuses/mastoids is not noted IMPRESSION: No acute abnormality is displayed
[2020-02-01] MEDS: PANTOPRAZOLE 40 MG INJ IVP SCH (22:01)
[2020-02-02 00:32] VITALS: O2SAT 96
--- NOTE | 2020-02-02 01:03 | CON ---
Date of Consultation: 01/31/2020 The patient was admitted on 01/29/[address] Syed. He was seen on 01/31/2020. Reason For Consultation: Hypertensive crisis, possible renal stenosis, and possible carotid stenosis . History Of Present Illness: Mr. William is an 84-year-old male. He is known to us from previous office visits. He is 84, has a history of end-stage renal disease on hemodialysis, hypertension, katty betes, CVA, attention deficit disorder. He came in with what was really altered mental status. He w as very hypertensive with blood pressure of 200. Did not really have any nausea or vomiting, but has had some diaphoresis. Had some confusion. He had some headache, had some blurry vision. He did duran ve some slight chest pain that was sharp. He denied any PND, orthopnea, pedal edema, palpitations, o r syncope. Denied any fever or chills. His workup so far has been fairly unremarkable from a cardio vascular standpoint. His creatinine was 8.34. His last blood pressure was 177/74. Troponin was 0.0 5. Past Medical History: As stated above. Allergies: TO NEURONTIN. Review of Systems: Negative. Social History: Negative. Family History: Noncontributory. Medications: Include aspirin, lisinopril, nifedipine, hydralazine, Renvela, and thyroid. Physical Examination: Vital Signs: Mr. William' blood pressure was 177/74. He was in a sinus rhythm, afebrile. HEENT: Negative. Neck: Supple without any bruit, lymphadenopathy, JVD, or thyromegaly. Chest: Clear to auscultation and percussion. Cardiac: Revealed a regular rhythm and rate without any murmurs or rubs. He had positive S4 gallops . Abdomen: Benign. Extremities: Revealed no clubbing, cyanosis, or edema. Diagnostic Data: Stated earlier. Impression And Plan: 1.Hypertensive crisis. CTA for renal stenosis is pending. He is on Hytrin, hydralazine, labetalol, lisinopril, and nifedipine. I think a carotid Doppler is indicated to rule out any carotid stenosis considering his symptoms. We will see what that shows before making any final decisions regarding a ngiography. 2.End-stage renal disease, on hemodialysis. 3.Hypertension. 4.Diabetes. 5.History of cerebrovascular accident. 6.Attention deficit disorder. 7.Elevated troponin 0.05, very nonspecific with his kidney failure. We will see what the carotid sh ows. Continue to follow. Agree with the plan. We will see what the CTA shows and the carotid Doppl er shows. CHIARA/BELLE Voice ID: [id number] Report ID: [id number]
--- NOTE | 2020-02-02 01:10 | PN ---
Date of Progress Note: 02/01/2020 Mr. William was seen for hypertensive crisis, possible carotid stenosis. He has end-stage renal d isease, hypertension, diabetes, CVA, and ADD. This morning, he is fairly asymptomatic, alert and cooper ented x3. Blood pressure has improved. He is on Hytrin, hydralazine, labetalol, lisinopril, and nif edipine. Carotid Doppler, which was ordered today, was read as bilateral carotid bulb, proximal righ t ICA and left ICA hard calcified plaque. The ratio suggested a 60% to 80% stenosis. However, visua l inspection does not support the degree of luminal narrowing. It is estimated to be at 50%. I thin k considering Mr. William' age and overall functional status, I think I would prefer not to do any angiography on him at this point. I am comfortable with him going home whenever it is okay with Dr. Syed. I will see him in the office as an outpatient. We will do a carotid Doppler on him in the n ext 6 months to a year and make further decisions then. CHIARA/BELLE Voice ID: [id number] Report ID: [id number]
[2020-02-02 06:21] LABS: MPV 9.3 fL (7.6-11.3)
[2020-02-02 06:39] VITALS: BMI 23.1
[2020-02-02 06:45] LABS: Potassium 3.9 mmol/L (3.5-5.1)
[2020-02-02] MEDS: INSULIN -REGULAR HUMAN 50 UNIT/0.5 ML ML SQ SCH ×4 (07:30→21:00)
[2020-02-02] MEDS: HYDRALAZINE HCL 25 MG TABLET PO SCH ×3 (08:45→22:50)
[2020-02-02] MEDS: PANTOPRAZOLE 40 MG INJ IVP SCH ×2 (08:45→22:50)
[2020-02-02] MEDS: SEVELAMER CARBONATE 800 MG TABLET PO SCH ×3 (08:45→16:01)
[2020-02-02] MEDS: lisinopriL 20 MG TAB PO SCH ×2 (08:46→22:50)
[2020-02-02] MEDS: DOXAZOSIN 2 MG TAB PO SCH ×2 (08:46→22:49)
[2020-02-02] MEDS: SODIUM CHLORIDE 0.9% 10ML INJ IV PRN (08:46)
[2020-02-02] MEDS: ACETAMINOPHEN 500 MG TAB PO PRN (12:29)
--- NOTE | 2020-02-02 15:28 | P.PN ---
Subjective Date of Service: 02/02/20 Primary Care Provider: PCP- Delvis, Nephrology- Gina, Oncology- Anibal Chief Complaint: Maligninat HTN continues with vision changes, improves temporarily with improvement with blood pressure. Sees double vision out of either eye, even with other one closed blood pressure remains very difficult to control. Continues to have mild level of congnitive impairment, forgets some of our previous conversations headache remains intermittent, currently mild Patient underwent dialysis yesterday, BP dropped temporarily to 90s/40s. Physical Examination - Vital Signs Temperature: 97.8 F Blood Pressure: 150/70 Pulse: 67 Respirations: 16 Pulse Ox (%): 97 - Physical Exam General: Alert, Oriented x2 HEENT: PERRLA, Other (covers one eye during converstion. +vertical diplopia), EOMI Neck: JVD not distended, No LAD Respiratory: Clear to auscultation bilaterally, Normal air movement Cardiovascular: No edema, Regular rate/rhythm, Normal S1 S2 Gastrointestinal: Normal bowel sounds, Soft and benign, Non-distended Musculoskeletal: No tenderness Neurological: Normal speech, Cranial nerves 3-12 intact, Normal affect Assessment & Plan Physician Review Additional Text: Medical Problem List: Malignant hypertension with headache, vomiting End-stage renal disease on hemodialysis Thursday Double vision Memory loss Amyloid cancer History CVA Diabetes mellitus type 2 Plan Malignant hypertension with headache, vomiting, diplopia -HTN urgency/emergency (neuro symptoms, persistent diplopia ?end organ damage) has been very difficult to control during his hospitalization, he continues to have neurologic symptoms as noted above, and their severity are directly related to his blood pressure -this is further complicated by his ESRD and requiring dialysis. This has made it difficult to lower his BP without dropping in severely -he is responding to oral medications and less IV medications have been needed, but a careful balance has been difficult, necessitating him to remain in the hospital -Nephrology has been consulted and assisting with BP regimen -In addition, CTangio showed moderate ~55-60% one sided renal artery stenosis, which may be contributing to the complexity of his BP management. -He reportedly was very sensitive to changes in his intravascular volume during dialysis yesterday -changes to his BP regimen have been made (jason) dc'd to avoid low BP in setting of HTN urgency / emergency -if patient remains stable (some permissive HTN) and dialysis goes well, he may likely be discharged home tomorrow End-stage renal disease on hemodialysis Thursday -Consulted Nephrology. Patient has been compliant with dialysis does not appear overloaded at this time. -for dialysis today (--) now Double vision -seems related to when patient is hypertensive -MRI done yesterday, no acute abnormalities -MRI consistent with small vessel ischemic changes - may explain some part of his ongoing confusion (?vascular dementia) -may need ophtho eval as outpatient if persists despite BP control -DVT prophylaxis restarted Memory loss: -Neurology consulted - ?vascular dementia as noted above Amyloid cancer: Continue outpatient treatment. Patient not currently on chemo or radiation. follows w/ oncology. History CVA: Will continue patient's home medications. Diabetes mellitus type 2 -ACHS Accu-Cheks, sliding scale insulin therapy. A1c: 5.1 this admission Dispo: anticipate home discharge tomorrow, will receive dialysis tomorrow discussed patient's case and relevant updates at length with his Daughter, Michelle Time Spent Managing Pts Care (In Minutes): 55 (more than 50% of time sepnt on counseling / coordination of care)
--- NOTE | 2020-02-02 15:49 | PN ---
Date of Progress Note: 02/02/2020 Subjective: The patient doing better today, has nausea only with smelling the egg. No vomiting. His headache has been subside. Still have some blurred vision on the left eye, but MRI was done yesterday and it was negative. Physical Examination: General: When I saw the patient was lying comfortable. Vital Signs: Blood pressure 144/67, pulse of 66, afebrile. Chest: Clear to auscultation. Heart: S1 and S2. Systolic murmur. Abdomen: Soft, nontender. Extremities: No edema. Neurologic: Alert and oriented. Has decrease vision on the left eye. No focality. Laboratory Data: WBC 5, H and H 10.5/31, platelets 150. Sodium 136, potassium 3.9, bicarb 29, BUN 23, creatinine 5.7, calcium 7.9. Current Medications: The patient on its include Cardura 1 mg b.i.d., hydralazine 100 t.i.d., lisinopril 20 b.i.d., Renvela, pantoprazole. Assessment/plan: 1. End-stage renal disease, looked to me normal volume. We going to continue dialysis Thursday, Thursday, Thursday. I am going to schedule the patient for hemodialysis tomorrow and we will monitor the patient. I am going to try to be conservative on the fluid removal as patient may have component of renal artery stenosis make him so sensitive to the fluid challenge. 2. Hypertension with questionable of renal artery stenosis. As above, we will continue maintaining current blood pressure medication and we will follow up. 3. Carotid stenosis, as by Cardiology. 4. Secondary hyperparathyroid, stable. 5. Anemia of chronic kidney disease, stable. Continue LAMAR. 6. Questionable of amyloid. The patient's MRI did not show any lighting up. We will follow up as outpatient with Dr. Gates. time spent for face to face care , placing order and dicussing with staff, other oracle drm consultant and patient/ patient family 35 min ASCENCION/BELLE Voice ID: [id number] Report ID: [id number] MARIANA
[2020-02-02] MEDS: ONDANSETRON 4 MG/2 ML VIAL IV PRN (16:04)
[2020-02-02 19:58] LABS: HBsAG Nonreactive (Nonreactive)
[2020-02-02] MEDS: HEPARIN 5000 UNIT/ML 1 ML VIAL SQ SCH (22:50)
[2020-02-03 05:07] LABS: Potassium 4.7 mmol/L (3.5-5.1)
[2020-02-03] MEDS: INSULIN -REGULAR HUMAN 50 UNIT/0.5 ML ML SQ SCH ×3 (07:30→15:55)
[2020-02-03 08:01] VITALS: TEMP 97.6
[2020-02-03] MEDS: lisinopriL 20 MG TAB PO SCH ×2 (09:00→14:43)
[2020-02-03] MEDS: HYDRALAZINE HCL 25 MG TABLET PO SCH ×3 (09:00→14:43)
[2020-02-03] MEDS: DOXAZOSIN 2 MG TAB PO SCH ×2 (09:00→14:43)
[2020-02-03] MEDS: SEVELAMER CARBONATE 800 MG TABLET PO SCH ×4 (09:33→15:55)
[2020-02-03] MEDS: PANTOPRAZOLE 40 MG INJ IVP SCH (09:33)
[2020-02-03] MEDS: SODIUM CHLORIDE 0.9% 10ML INJ IV PRN (09:34)
[2020-02-03] MEDS: HEPARIN 5000 UNIT/ML 1 ML VIAL SQ SCH (09:34)
--- NOTE | 2020-02-03 10:48 | P.PN ---
Subjective Date of Service: 02/03/20 Primary Care Provider: PCP- Delvis, Nephrology- Gina, Oncology- Anibal Chief Complaint: Maligninat HTN Subjective pt with ESRD on HD, HTN , admitted for headache, HTN urgency , and Diplopia Have vision problems , seen by noodle catalyst maker last month Today BP high , but better controlled HD today can be discharged from nephrology point of view Physical exam general: AAOX3, NAD , Rt eye patch Neck; Supple, No elevated JVD hear: RRR, normal S1,2 no murmur or rub Chest: CTAB, no rlaes or wheezes Abdomen: Soft , Nt Extremities No edema or ulcer End-stage renal disease, HD MWF HD today renal dose meds Hypertension with questionable of renal artery stenosis. better controlled cont current meds HD MWF Carotid stenosis, as by Cardiology. Questionable of amyloid. We will follow up as outpatient with Dr. Gates. Diplopia stable f/u with opthalmologist as an OP Physical Examination - Vital Signs Temperature: 97.6 F Blood Pressure: 159/68 Pulse: 65 Respirations: 16 Pulse Ox (%): 95
[2020-02-03 17:00] VITALS: BP 160/80
--- NOTE | 2020-02-03 21:30 | P.DS ---
Admission Date: 01/29/20 Discharge Date: 02/04/20 Primary Care Provider: PCP- Delvis, Nephrology- Gina, Oncology- Anibal Disposition: ROUTINE DISCHARGE Discharge Condition: GOOD Reason for Admission: Maligninat HTN Consultations: Nephrology, Cardiology Procedures: CT - Head Brain Wo Cont - 01/29/2020 4:17 pm IMPRESSION: No acute intracranial finding identifiable. Moderate severity atrophy chronic ischemic change similar to comparison. CT - Stone Protocol - 01/29/2020 5:59 pm IMPRESSION: Patient has at least 1 large gallstone in a well filled gallbladder. No wall thickening or pericholecystic fluid. Additional stones could be occult. No biliary tree dilatation. No acute pancreatic process seen. No acute GI process seen. Moderate stool volume present throughout the colon. There is prominent sigmoid diverticulosis without diverticulitis. Significant enlargement of the prostate gland projecting into the base of a collapsed urinary bladder. Bladder cannot be adequately assessed in this setting. Full assessment is limited is the absence of IV contrast. CT - CT ANGIO ABD/PELVIS W CONTRAST - 01/31/2020 10:58 am IMPRESSION: Moderate stenosis proximal right renal artery estimated to be between 55-65% MRI - Brain Wo Cont - 02/01/2020 4:31 pm IMPRESSION: No acute abnormality is displayed US - CP - 02/01/2020 8:32 am IMPRESSION: Bilateral carotid bulb, proximal right ICA and mid left ICA hard calcified plaques. The ICA/ CCA ratios are abnormally high suggesting 60-80% stenoses. However, visual inspection does not support this degree of luminal narrowing. True degree of luminal narrowing is estimated at 50%. If warranted, CT angiography or MR angiography could be performed for further characterization Problem List Malignant hypertension with headache (Hypertensive Urgency, with possible emerge ncy) End-stage renal disease on hemodialysis Thursday Diabetes mellitus type 2 Amyloid cancer Memory loss History CVA Brief History of Present Illness: 84-year-old male with history of end-stage renal disease on hemodialysis, hypertension, hyperlipidemia, diabetes mellitus type 2, and the like cancer presents emergency department with severe headache, significant hypertension, visual disturbances, vomiting. Patient reports he has been having the symptoms ongoing on and off for approximately 1 week. Patient with recent ED visit approximately 4 days ago where he was evaluated and discharged. Patient has since had worsening of his symptoms. During his evaluation in the emergency department patient was found to be hypertensive with blood pressure systolic around 210/100. Patient was given multiple rounds of IV blood pressure medications including hydralazine and labetalol, also some oral clonidine but his blood pressure maintained around 180s systolic. ED provider wishes to admit patient for further evaluation and management as he was significantly symptomatic upon time arrival. Patient also had CT scan of the head to rule out any intracranial bleeds or lesions. This was negative Hospital Course: Briefly, patient was admitted for further evaluation and management of his hypertensive urgency / possible emergency (visual disturbances). His hospitalization was complicated due to difficult to manage elevated BP and avoiding hypotension with dialysis. After further discussion and evaluation of his double vision, there was concern for possible stroke due to its association with elevated BP (severity of vision changes directly correlated with severity of hypertension). He underwent MRI which did not show acute pathology. Neurology was consulted for vision changes and recent history of worsening memory loss. Given MRI results, it was felt there was possibly a component of vascular dementia. He underwent CT angio: moderate ~55-60% one sided renal artery stenosis, which may be contributing to the complexity of his BP management. He reportedly was very sensitive to changes in his intravascular volume during dialysis yesterday. On the day prior to discharge, patient's daughter remembered patient had seen an sheet mill supervisor several weeks prior to admission and was told patient "had a weak eye muscle", however patient reports everything was normal at that time. He was instructed to follow-up with an sheet mill supervisor upon discharge regarding his double vision. Vital Signs/Physical Exam: Temp Pulse Resp BP Pulse Ox 97.6 F 70 16 160/80 H 97 02/03/20 15:56 02/03/20 16:30 02/03/20 15:56 02/03/20 16:30 02/03/20 15:56 General: Alert, In no apparent distress HEENT: PERRLA, EOMI, Sclerae nonicteric Neck: Supple, No LAD Respiratory: Clear to auscultation bilaterally, Normal air movement Cardiovascular: Regular rate/rhythm, Normal S1 S2 Gastrointestinal: Normal bowel sounds, No tenderness Musculoskeletal: No tenderness Integumentary: No rashes Neurological: Normal speech, Normal tone, Normal affect Laboratory Data at Discharge: WBC 5.0 K/uL (4.3-10.9) 02/02/20 05:11 Hgb 10.5 g/dL (13.6-17.9) L 02/02/20 05:11 Hct 31.0 % (39.6-49.0) L 02/02/20 05:11 Plt Count 150 K/uL (152-406) L 02/02/20 05:11 PT 10.9 SECONDS (9.5-12.5) 01/29/20 16:07 INR 0.92 01/29/20 16:07 Sodium 139 mmol/L (136-145) 02/03/20 04:15 Potassium 4.7 mmol/L (3.5-5.1) 02/03/20 04:15 BUN 31 mg/dL (7-18) H 02/03/20 04:15 Creatinine 7.48 mg/dL (0.55-1.3) H* D 02/03/20 04:15 Glucose 85 mg/dL (74-106) 02/03/20 04:15 Magnesium 2.4 mg/dL (1.8-2.4) 01/29/20 16:07 Total Bilirubin 0.5 mg/dL (0.2-1.0) 02/01/20 05:10 AST 18 U/L (15-37) 02/01/20 05:10 ALT 17 U/L (12-78) 02/01/20 05:10 Alkaline Phosphatase 72 U/L (45-117) 02/01/20 05:10 Troponin I 0.05 ng/mL (0.0-0.045) H 01/29/20 23:39 Home Medications: Levothyroxine [Synthroid*] 50 mcg PO DAILY 01/04/18 Sevelamer Carbonate [Renvela*] 3 tab PO SEECOM 09/15/18 Aspirin [Aspirin EC 81 MG] 1 tab PO DAILY 01/30/20 Cod Liver Oil 1 cap PO DAILY 01/30/20 Doxazosin [Cardura*] 1 mg PO BID 60 Days #30 tab 02/03/20 Hydralazine [Apresoline*] 100 mg PO TID 30 Days #90 tab 02/03/20 lisinopriL [Prinivil*] 20 mg PO BID 30 Days #60 tab 02/03/20 New Medications: Hydralazine [Apresoline*] 100 mg PO TID 30 Days #90 tab Doxazosin [Cardura*] 1 mg PO BID 60 Days #30 tab lisinopriL [Prinivil*] 20 mg PO BID 30 Days #60 tab Patient Discharge Instructions: follow up with PCP within 1 week. Continue dialysis Mondays, Wednesdays, and Fridays. Follow up with Ophthalmology. Follow up with Cardiology (Dr. Shipley) within 1 month Diet: Renal Activity: Fall precautions Followup: Lilly Mccormick MD [ACTIVE - CAN ADMIT] - Farhan Shipley MD [ACTIVE - CAN ADMIT] - Carlos Mendoza MD [ASSOCIATE-ACTIVE - CAN ADMIT] - Time spent managing pt's care (in minutes): 45
--- NOTE | 2020-02-06 14:55 | CON ---
Reason For Consultation: Consultation called because of altered mental status and headaches. History Of Present Illness: Mr. William is an 84-year-old patient with end-stage renal disease, o n hemodialysis; hypertension; dyslipidemia; and diabetes mellitus type 2, who comes in with episodes of malignant hypertension with severe headaches, some blurred and double vision, and vomiting. He wa s admitted to [facility] on 01/29/2020. He was seen on 01/31/2020. The symptoms have been ongoing for about a week prior to his admission. At [facility], his blood pressure was foun d to be in the 220s/100, and during that time, he had some disorientation and confusion . His head CT scan showed no acute ischemic or hemorrhagic change. Subsequent brain MRI stroke protoco l ruled out presence of an acute ischemic or hemorrhagic stroke. His carotid artery studies showed a bout 50% plaque in the bilateral carotid arteries and otherwise, no evidence of focal findings in ter ms of brain imaging. The patient's blood pressure actually improved to the 170s to 180s systolic. A t the time of my evaluation, he has been following all commands appropriately including commands acro ss the midline and knew who he was, where he was, and his reason for hospital admission. The brain M RI, it should be noted, did show [id number] small-vessel ischemic disease, probably related to his chronic hypertension, end-stage renal disease, and diabetes mellitus. Past Medical History: As indicated. In addition to tobacco use, it should be noted as well that the patient did have a history of multiple falls and imaging done on September 15, 2018, identifying severe L4-5 central canal stenosis down to 3-4 mm with severe left L5 and moderate right L5 nerve root steno sis. His brain MRI also noted on September 14, 2018, showed moderate diffuse atrophy and the more recent MRI was also consistent with that. The patient is not known to have back surgery. There is a report , however, of disk surgery, but that is not confirmed at this point. He has had cataract surgery and a fistula for dialysis. Allergies: GABAPENTIN. Medications: Medications at home levothyroxine 50 mcg daily, Renvela 800 mg 3 times daily, apresolin e 100 mg 3 times daily, lisinopril 20 mg twice daily, Lipitor 20 mg daily, Coreg 12.5 mg twice daily. Family History: Positive for heart disease, hypertension, kidney disease in father as well as mother . Social History: In addition to smoking in the past, he drinks alcohol and drinks caffeinated beverag es. Review of Systems: Does admit to the nausea, vomiting, intermittent headaches, double vision, blurred vision. It is oth erwise negative in terms of his 10 point systems review in terms of respiratory system, his genitouri nary system, his dermatological system. His skin or integument is intact without difficulty. No psy chiatric complaints. Physical Examination: Vital Signs: Blood pressure 160/70, pulse 69, respiratory rate 16, temperature 97.5, weight 150 poun ds, height 5 feet 7 inches. General: Mr. William is resting in bed. He is in no acute distress. HEENT: He appears normocephalic, atraumatic. His sclerae are anicteric. Oropharynx is moist and pi nk. Neck: Supple. Chest: Clear. Heart: Regular. Extremities: Show no cyanosis or edema. Fistula is in place for hemodialysis. Neurologic: He is alert and oriented to situation, place, and person. He does follow commands inclu ding crossing midline without difficulty. He said he knew he felt more disoriented or lost in the la st few days that was intermittent. Cranial nerves show no focal deficits on 2 through 12. Motor, he has no focal weakness in upper and lower extremities. Sensory exam, stocking-glove loss to light to uch, temperature, coordination slow and intact however in the upper and lower extremities. Reflexes are absent in upper and lower extremities, and gait, the patient no difficulty with his ba juan r and coordination. Laboratory Studies: Complete blood count with differential shows normal white blood cell count of 5. 6, hemoglobin 10.9, platelets 154. INR 0.92. Chemistries; sodium 135, potassium 4.5, chloride 99, c arbon dioxide 29, BUN and creatinine elevated at 8.39, he does have dialysis scheduled. _ , calcium low 8.0. He has hepatitis panel pending and his COVID-19 negative. Assessment: Mr. William is an 84-year-old patient with malignant hypertension, likely producing a false localizing findings in terms of cranial nerves where he may have intermittent double vision. My examination did not find any diplopia or significant loss of visual acuity. Also, his motor exami nation shows no focal deficits. Sensory exam showed no focal deficits as well. He does have a histo ry with imaging and history of multiple falls, severe spinal stenosis, not yet had a surgical managem ent for that. Plan: Continue with more aggressive management of hypertension, but not a precipitous drop over the next 5 days. His blood pressure should be back more towards 130-140 systolic. He should continue on medications for stroke risk reduction, which should include if there is no cont raindication at least aspirin 81 mg daily and benefit from folic acid or folate 1 mg daily. Continue high dose statin and continue with the agents of blood thinners, which appear to be controlled. At some point, he will need a surgical evaluation. The neurosurgeon is in the area Dr. Keith Che. I nformation was given to the patient's hospitalist, Dr. Syed the patient followup possibly this Thursday in Dr. Che's office. May follow up with Dr. Che in 1 month after his discharge. NANCY/BELLE Voice ID: [id number] Report ID: [id number]
== END 2020-02-03 16:58 | disposition home or self-care (01) ==
LOC: ER 15:18 → ERHOLD 19:10 → INTOOBSV 19:10 → 2ND 20:57
PROVIDERS: ADMIT Hospitalist; ATTEND Hospitalist
DX: I16.9 Hypertensive crisis, unspecified (principal); I12.0 Hypertensive chronic kidney disease with stage 5 chronic kidney disease or end stage renal disease; E11.22 Type 2 diabetes mellitus with diabetic chronic kidney disease; N18.6 End stage renal disease; D63.1 Anemia in chronic kidney disease; N25.0 Renal osteodystrophy; I70.1 Atherosclerosis of renal artery; E85.89 Other amyloidosis; Z99.2 Dependence on renal dialysis; R11.10 Vomiting, unspecified; Z20.828 Contact with and (suspected) exposure to other viral communicable diseases; R41.3 Other amnesia; R79.89 Other specified abnormal findings of blood chemistry; M48.061 Spinal stenosis, lumbar region without neurogenic claudication; N25.81 Secondary hyperparathyroidism of renal origin; K80.20 Calculus of gallbladder without cholecystitis without obstruction; K57.30 Diverticulosis of large intestine without perforation or abscess without bleeding; N40.0 Benign prostatic hyperplasia without lower urinary tract symptoms; I65.23 Occlusion and stenosis of bilateral carotid arteries; E78.5 Hyperlipidemia, unspecified; F90.9 Attention-deficit hyperactivity disorder, unspecified type; Z79.82 Long term (current) use of aspirin; Z79.899 Other long term (current) drug therapy; Z86.73 Personal history of transient ischemic attack (TIA), and cerebral infarction without residual deficits; Z87.891 Personal history of nicotine dependence; Z91.81 History of falling; Z82.49 Family history of ischemic heart disease and other diseases of the circulatory system
CPT/HCPCS: 93005; 85025 ×3; 80048 ×5; 36415 ×4; 83735; 85610; 82947 ×19; 80076; 84443; 83036; 85027 ×3; 84484 ×2; 84439; 80053; 86704; 83880; 87340; 86706; 86803; 70450; 76377; 74176; 71045; 74174; 90935 ×3; 93880; 70551; 97116; 97161; 96375; 96374; 99285; U0003; Q9967; J0360; J1644 ×8; C9113 ×4; G0378 ×8; J7050; J2405 ×4

== ENCOUNTER 2020-07-04 13:51 | Emergency (ER) | payer OTHER ==
--- OUTSIDE RECORDS SUMMARY | 2020-07-04 14:35 | XMS REPORT | Clinical Summary ---
:1935 Author Organization [facility] Address [address] [place] [id number] Care Team Providers Name Role Phone Yobani Edmondson DO Primary Care Provider [phone] Allergies Active Allergy Reactions Severity Noted Date [...] Hyperkalemia 01/15/2019 Anemia of chronic illness 01/15/2019 Surgical History Surgery Date Site/Laterality Comments INSERTION, CATHETER, CENTRAL Right VENOUS, TUNNELED, FOR HEMODIALYSIS CREATION, AV FISTULA, USING 06/28/2018 Arm Upper/Left Proc edure: CREATION, AV GRAFT FISTULA,LEFT UPP ER EXTREMITY; Surg noa: Kyung Navarro MD; Location: [facility] OR; Service: Vascula r; Laterality: Left ; EYE SURGERY INSERTION, CATHETER, CENTRAL 01/17/2019 Chest/Right Pro cedure: Tunnelled VENOUS, TUNNELED, WITH PORT, katty lysis catheter insertion WITH C-ARM FLUOROSCOPIC right ch est; Surgeon: Paco Mann MD; Location: [facility] OR; Service: Cardiot horacic; Laterality: Righ t; Medical devices from this surgery are in t he Implants section. Medical History Medical History Date Comments Type 2 diabetes mellitus (HCC) Renal failure Stroke (HCC) 2010 Amyloid disease (HCC) Hypertension Social History Tobacco Use Types Packs/Day Years Used Date Former Smoker Cigars 15 Smokeless Tobacco: Never Used Alcohol Use Drinks/Week oz/Week Comments Defer Sex Assigned at Date Recorded Not on file Last Filed Vital Signs Not on file Plan of Treatment Health Maintenance Due Date Last Done Comments DIABETES: RETINAL EYE EXAM 1944 DIABETIC FOOT EXAM 1944 URINE MICROALBUMIN 1944 COVID-19 VACCINE (1 of 2) 1950 SHINGLES VACCINES (#1) 1984 65+ PNEUMOCOCCAL VACCINE (1 of 1 - PPSV23) 1999 INFLUENZA VACCINE 01/07/2020 Implants Implanted Type Area Catheter Builder Device Shelf Model / Identifier Expiration Serial / Date Lot Catheter Hmodial Dura-Flow Prcrv Bsc Valved Pelbl Shth 28cm - [id number] Central N/A: N/A ANGIODYNAMICS [id number] / Implanted: 01/17/2019 at [facility] (Quantity not on file) Venous INC / Catheters Results Not on fileafter 07/04/2019 Insurance Payer Benefit Plan / Subscriber ID Effective Dates Phone Addre ss Type Group MEDICARE MEDICARE PART A [id number] 1999-Present [facility] [place] Medicare AND B FOR LIFE [id number] 2001-Present [facility] SUPPLEMENT Advance Directives For more information, please contact: [phone] Type Date Recorded 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
--- NOTE | 2020-07-04 16:05 | ER ---
Nurse's Notes [facility] Name: Sina William Age: 85 yrs Sex: Male : 1935 Arrival Date: 07/04/2020 Time: 13:53 Bed 27 Private MD: Diagnosis: Left Forearm Skin Tear Presentation: 07/04 14:20 Chief complaint: Patient states: "the dog jumped on my arm and cut my skin". Skin tear aa5 noted to left FA, dressing applied. Coronavirus screen: Client denies travel out of the [place] in the last 14 days. Ebola Screen: Patient negative for fever greater than or equal to 101.5 degrees Fahrenheit, and additional compatible Ebola Virus Disease symptoms. Initial Sepsis Screen: Does the patient meet any 2 criteria? No. Patient's initial sepsis screen is negative. Does the patient have a suspected source of infection? No. Patient's initial sepsis screen is negative. Risk Assessment: Do you want to hurt yourself or someone else? Patient reports no desire to harm self or others. Onset of symptoms was July 04, 2020. 14:20 Method Of Arrival: Wheelchair aa5 14:20 Acuity: CLYDE 5 aa5 Historical: - Allergies: 14:23 GABAPENTIN; aa5 - PMHx: 14:23 ADD/ADHD; Amyloid CA; Anemia; Arthritis; CVA; Diabetes - NIDDM; HD - //Sat; aa5 Hypertension; Osteoporosis; Dementia; Vital Signs: 14:25 BP 150 / 73; Pulse 75; Resp 18; Temp 97.9; Pulse Ox 97% on R/A; aa5 ED Course: 13:53 Patient arrived in ED. as 14:20 Arm band placed on. aa5 14:27 Triage completed. aa5 15:26 Ted Fernando PA is PHCP. cp 15:26 Faraz Chaney MD is Attending Physician. cp 15:33 Crystal Parkinson, VERNON is Primary Nurse. iw 16:01 Wound care: to skin tear located on left arm was dressed with Neosporin, 4X4s, Kerlix. 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 Exp: iw 08/28/2020. Lot #: [id number]. } Route: IM; Site: right deltoid; Outcome: 16:03 Discharge ordered by . cp 17:04 Patient left the ED. iw Signatures: Chacha Fletcher Irene RN RN iw Arya Fletcher em1 Cherrie Segura RN RN aa5 Ted Fernando PA PA cp Corrections: (The following items were deleted from the chart) 14:27 14:23 Arm band placed on aa5 aa5
--- NOTE | 2020-07-04 16:05 | EDPHYS ---
Physician Documentation [facility] Name: Sina William Age: 85 yrs Sex: Male : 1935 Arrival Date: 07/04/2020 Time: 13:53 Bed 27 Private MD: ED Physician Faraz Chaney HPI: 07/04 15:50 This 85 yrs old Male presents to ER via Wheelchair with complaints of Skin cp Tear(s). 15:50 The patient or guardian complains of skin tear. cp 15:50 The complaints affect the dorsal aspect of left forearm. Context: Patient reports cp family dog jumped into lap causing skin tear to left forearm. Denies bite wound. Onset: The symptoms/episode began/occurred today. Treatment prior to arrival includes: wound dressed. Associated signs and symptoms: Pertinent negatives: active bleeding. Historical: - Allergies: 14:23 GABAPENTIN; aa5 - PMHx: 14:23 ADD/ADHD; Amyloid CA; Anemia; Arthritis; CVA; Diabetes - NIDDM; HD - //Thu; aa5 Hypertension; Osteoporosis; Dementia; ROS: 15:55 Skin: Positive for of the left forearm, skin tear. cp 15:55 Constitutional: Negative for fever. cp 15:55 Cardiovascular: Negative for chest pain. 15:55 Respiratory: Negative for cough, shortness of breath. 15:55 All other systems are negative. Exam: 15:58 Constitutional: The patient appears in no acute distress, alert, awake, non-toxic, well cp developed, well nourished. 15:58 Cardiovascular: Rate: normal, Dialysis shunt: with palpable thrill. cp 15:58 Respiratory: the patient does not display signs of respiratory distress, Respirations: normal. 15:58 Skin: injury, that can be described as clean, no foreign body, irregular, without bleeding, noted to left forearm, skin tear. Vital Signs: 14:25 BP 150 / 73; Pulse 75; Resp 18; Temp 97.9; Pulse Ox 97% on R/A; aa5 MDM: 15:36 Patient medically screened. cp 16:00 Differential diagnosis: open fracture, laceration, skin tear. cp 16:03 Data reviewed: vital signs, nurses notes. cp 16:03 Counseling: I had a detailed discussion with the patient and/or guardian regarding: the cp historical points, exam findings, and any diagnostic results supporting the discharge/admit diagnosis, to return to the emergency department if symptoms worsen or persist or if there are any questions or concerns that arise at home. ED course: VSS. Wound cleaned and dressed. Tetanus updated. Will discharge to home for continued monitoring. 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 Exp: iw 08/28/2020. Lot #: [id number]. } Route: IM; Site: right deltoid; Disposition: 16:15 Chart complete. cp Disposition: 07/04/20 16:03 Discharged to Home. Impression: Left Forearm Skin Tear. - Condition is Stable. - Discharge Instructions: Skin Tear Care. - Prescriptions for Augmentin 875- 125 mg Oral Tablet - take 1 tablet by ORAL route every 12 hours for 7 days; 14 tablet. - Medication Reconciliation Form, Thank You Letter, Antibiotic Education, Prescription Opioid Use form. - Follow up: Private Physician; When: 1 - 2 days; Reason: Wound Recheck. - Problem is new. - Symptoms have improved. Addendum: 07/07/2020 07:10 Co-signature as Attending Physician, Faraz Chaney MD. m a2 Signatures: Crystal Parkinson RN VERNON Cherrie Segura RN RN aa5 Ted Fernando PA PA Faraz Chaney MD MD ma2 Corrections: (The following items were deleted from the chart) 07/04 17:04 16:03 07/04/2020 16:03 Discharged to Home. Impression: Left Forearm Skin Tear. iw Condition is Stable. Forms are Medication Reconciliation Form, Thank You Letter, Antibiotic Education, Prescription Opioid Use. Follow up: Private Physician; When: 1 - 2 days; Reason: Wound Recheck. Problem is new. Symptoms have improved. cp
[2020-07-04] MEDS ORDERED: TETANUS & DIPHTHERIA TOX,ADULT 0.5 ML VIAL ONE (17:11)
[2020-07-04 17:19] VITALS: BP 150/73; TEMP 97.9; O2SAT 97
== END 2020-07-04 17:04 | disposition home or self-care (01) ==
LOC: ER 13:51
DX: S51.812A Laceration without foreign body of left forearm, initial encounter (principal); W54.0XXA Bitten by dog, initial encounter; Y93.9 Activity, unspecified; Z23 Encounter for immunization
CPT/HCPCS: 90471; 90714; 99283

== ENCOUNTER 2020-09-21 09:31 | Emergency (ER) | payer OTHER ==
[2020-09-21] MEDS ORDERED: ACETAMINOPHEN 325 MG TABLET ONE (10:43)
[2020-09-21] MEDS ORDERED: TRAMADOL HCL 50 MG TAB ONE (10:46)
--- NOTE | 2020-09-21 11:09 | RAD REPORT ---
EXAM DESCRIPTION: RAD - Humerus Right - 09/21/2020 10:59 am CLINICAL HISTORY: fall;Pain COMPARISON: Clavicle Right dated 09/21/2020 FINDINGS: Right humerus and right clavicle - multiple projections are submitted No clavicular fracture evident. Mild AC joint and glenohumeral joint arthritic changes are present. N o acute fracture or dislocation is seen. Moderate soft tissue swelling is seen adjacent to the olecra non process.
--- NOTE | 2020-09-21 11:20 | ER ---
Nurse's Notes [facility] Name: Sina William Age: 85 yrs Sex: Male : 1935 Arrival Date: 09/21/2020 Time: 09:35 Bed 13 Private MD: Diagnosis: Pain in right shoulder-from fall;Pain in right elbow-from fall Presentation: 09/21 09:45 Chief complaint: Patient's son or daughter states: pt fell a few days ago while sitting iw in his wheelchair, fell back, did not hit his head but did land no his right shoulder and elbow. Coronavirus screen: At this time, the client does not indicate any symptoms associated with coronavirus-19. Ebola Screen: Patient negative for fever greater than or equal to 101.5 degrees Fahrenheit, and additional compatible Ebola Virus Disease symptoms Patient denies exposure to infectious person. Patient denies travel to an Ebola-affected area in the 21 days before illness onset. No symptoms or risks identified at this time. Initial Sepsis Screen: Does the patient meet any 2 criteria? No. Patient's initial sepsis screen is negative. Does the patient have a suspected source of infection? No. Patient's initial sepsis screen is negative. Risk Assessment: Do you want to hurt yourself or someone else? Patient reports no desire to harm self or others. Onset of symptoms was September 18, 2020. 09:45 Method Of Arrival: Wheelchair iw 09:45 Acuity: CLYDE 4 iw Triage Assessment: 12:25 General: Appears in no apparent distress. uncomfortable, Behavior is calm, cooperative, bw appropriate for age. Historical: - Allergies: 09:48 GABAPENTIN; iw - Home Meds: 09:48 aspirin 81 mg Oral chew 1 tab once daily [Active]; cod liver oil Oral cap daily iw [Active]; hydralazine 100 mg Oral tab 1 tab 2 times per day [Active]; levothyroxine 50 mcg tab 1 tab once daily [Active]; Lipitor Oral [Active]; lisinopril 10 mg Oral tab 1 tab twice a day [Active]; nifedipine 30 mg Oral TbER 1 tab once daily [Active]; sevelamer HCl 800 mg Oral 3 tabs with each meal [Active]; - PMHx: 09:48 ADD/ADHD; Amyloid CA; Anemia; Arthritis; CVA; Dementia; Diabetes - NIDDM; HD - iw //Sat; Hypertension; Osteoporosis; - Immunization history:: Adult Immunizations up to date, Client reports receiving the 2nd dose of the Covid vaccine. - Social history:: Smoking status: Patient denies any tobacco usage or history of. Screenin:21 Abuse screen: Denies threats or abuse. Nutritional screening: No deficits noted. bw Tuberculosis screening: No symptoms or risk factors identified. Fall Risk None identified. Assessment: 10:21 Pain: Complains of pain in right shoulder right elbow. Neuro: No deficits noted. bw Cardiovascular: No deficits noted. Respiratory: No deficits noted. GI: No signs and/or symptoms were reported involving the gastrointestinal system. Musculoskeletal: Reports pain in right shoulder and elbow. 11:03 Reassessment: Patient appears in no apparent distress at this time. Patient and/or bw family updated on plan of care and expected duration. Pain level reassessed. Patient is alert, oriented x 3, equal unlabored respirations, skin warm/dry/pink. 12:25 Reassessment: Patient appears in no apparent distress at this time. Patient and/or bw family updated on plan of care and expected duration. Pain level reassessed. Patient is alert, oriented x 3, equal unlabored respirations, skin warm/dry/pink. Vital Signs: 09:45 BP 116 / 62; Pulse 62; Resp 16; Pulse Ox 98% on R/A; Weight 63.5 kg; Height 5 ft. 7 in. iw (170.18 cm); Pain 10/10; 11:03 BP 118 / 64; Pulse 68; Resp 16; Pulse Ox 98% on R/A; bw 09:45 Body Mass Index 21.93 (63.50 kg, 170.18 cm) ED Course: 09:35 Patient arrived in ED. as 09:47 Triage completed. iw 09:48 Arm band placed on. iw 09:54 Ted Fernando PA is PHCP. cp 09:55 Mike Menjivar MD is Attending Physician. cp 10:21 Stephanie Kovacs RN is Primary Nurse. bw 10:21 Patient has correct armband on for positive identification. Bed in low position. Call bw light in reach. Side rails up X 1. Pulse ox on. NIBP on. Warm blanket given. 10:21 No provider procedures requiring assistance completed. bw 10:59 XRAY Clavicle RIGHT In Process Unspecified. EDMS 10:59 XRAY Humerus RIGHT In Process Unspecified. EDMS 12:25 Patient did not have IV access during this emergency room visit. bw Administered Medications: 10:29 Drug: Tylenol 650 mg Route: PO; bw 10:29 Drug: UltRAM 50 mg Route: PO; Outcome: 11:20 Discharge ordered by MD. cp 12:25 Discharged to home via wheelchair, with family. 12: Condition: stable 12:25 Discharge instructions given to patient, family. 12:25 Patient left the ED. ca1 Signatures: Dispatcher [employer] Chacha Wahl Irene, RN RN iw Ted Fernando PA PA cp Hermelinda Resendez RN RN ca1 Stephanie Kovacs RN RN
--- NOTE | 2020-09-21 11:20 | EDPHYS ---
Physician Documentation [facility] Name: Sina William Age: 85 yrs Sex: Male : 1935 Arrival Date: 09/21/2020 Time: 09:35 Bed 13 Private MD: ED Physician Mike Menjivar HPI: 09/21 10:10 This 85 yrs old Male presents to ER via Wheelchair with complaints of Shoulder cp Pain, Elbow Pain. 10:10 The patient or guardian complains of an injury, pain, that is acute. right shoulder. cp Context: resulted from a fall, from wheelchair. Associated signs and symptoms: Pertinent positives: right elbow pain. 10:10 Onset: The symptoms/episode began/occurred few days ago. cp 10:10 Modifying factors: The symptoms are aggravated by lifting weight, rotation of arm. cp Historical: - Allergies: 09:48 GABAPENTIN; iw - Home Meds: 09:48 aspirin 81 mg Oral chew 1 tab once daily [Active]; cod liver oil Oral cap daily iw [Active]; hydralazine 100 mg Oral tab 1 tab 2 times per day [Active]; levothyroxine 50 mcg tab 1 tab once daily [Active]; Lipitor Oral [Active]; lisinopril 10 mg Oral tab 1 tab twice a day [Active]; nifedipine 30 mg Oral TbER 1 tab once daily [Active]; sevelamer HCl 800 mg Oral 3 tabs with each meal [Active]; - PMHx: 09:48 ADD/ADHD; Amyloid CA; Anemia; Arthritis; CVA; Dementia; Diabetes - NIDDM; HD - iw //Thu; Hypertension; Osteoporosis; - Immunization history:: Adult Immunizations up to date, Client reports receiving the 2nd dose of the Covid vaccine. - Social history:: Smoking status: Patient denies any tobacco usage or history of. ROS: 10:15 Constitutional: Negative for body aches, chills, fever, poor PO intake. cp 10:15 Eyes: Negative for injury, pain, redness, and discharge. cp 10:15 Neck: Negative for pain with movement, pain at rest, stiffness. 10:15 Cardiovascular: Negative for chest pain. 10:15 Respiratory: Negative for cough, shortness of breath, wheezing. 10:15 Abdomen/GI: Negative for abdominal pain, nausea, vomiting, and diarrhea. 10:15 Back: Negative for pain at rest, pain with movement. Exam: 10:20 Head/Face: Normocephalic, atraumatic. cp 10:20 Constitutional: The patient appears in no acute distress, alert, awake, non-diaphoretic, non-toxic, well developed, well nourished. 10:20 Neck: C-spine: vertebral tenderness, is not appreciated, crepitus, is not appreciated, ROM/movement: is normal, is supple, without pain, no range of motions limitations. 10:20 Chest/axilla: Inspection: normal, Palpation: crepitus, is not appreciated, tenderness, that is mild, of the right clavicle. 10:20 Cardiovascular: Rate: normal, Pulses: Pulses are 2+ in right radial artery. Edema: is not appreciated. 10:20 Respiratory: the patient does not display signs of respiratory distress, Respirations: normal, no use of accessory muscles, no retractions, labored breathing, is not present, Breath sounds: are clear throughout, no decreased breath sounds. 10:20 Abdomen/GI: Exam negative for discomfort, distension, guarding, Inspection: abdomen appears normal. 10:20 Back: pain, is absent, ROM is normal. 10:20 Musculoskeletal/extremity: Extremities: grossly normal except: noted in the right shoulder: pain, tenderness, noted in the right elbow: pain, swelling, tenderness, ROM: limited passive range of motion due to pain, in the right shoulder and right elbow, Sensation intact. 10:20 Neuro: Orientation: to person, place \T\ time. Mentation: is normal. Vital Signs: 09:45 BP 116 / 62; Pulse 62; Resp 16; Pulse Ox 98% on R/A; Weight 63.5 kg; Height 5 ft. 7 in. iw (170.18 cm); Pain 10/10; 11:03 BP 118 / 64; Pulse 68; Resp 16; Pulse Ox 98% on R/A; bw 09:45 Body Mass Index 21.93 (63.50 kg, 170.18 cm) iw Procedures: 12:27 Splinting: Splint applied to right shoulder using sling, applied by nurse. Patient cp tolerated well. MDM: 10:01 Patient medically screened. cp 10:30 Differential diagnosis: Anterior dislocation with fracture, Anterior dislocation cp without fracture, Posterior dislocation with fracture, Posterior dislocation without fracture, fracture, contusion. 11:15 Data reviewed: vital signs, nurses notes, radiologic studies, plain films. Test cp interpretation: by ED physician or midlevel provider: xrays of right clavicle negative for fracture and xrays of right humerus negative for fracture. 11:20 Counseling: I had a detailed discussion with the patient and/or guardian regarding: the cp historical points, exam findings, and any diagnostic results supporting the discharge/admit diagnosis, radiology results, to return to the emergency department if symptoms worsen or persist or if there are any questions or concerns that arise at home. 11:20 Response to treatment: the patient's symptoms have markedly improved after treatment, cp and as a result, I will discharge patient. 09/21 10:03 Order name: XRAY Clavicle RIGHT cp 09/21 10:03 Order name: XRAY Humerus RIGHT; Complete Time: 11:16 cp 09/21 11:16 Interpretation: Report reviewed. cp 09/21 11:16 Order name: Sling cp Administered Medications: 10:29 Drug: Tylenol 650 mg Route: PO; bw 10:29 Drug: UltRAM 50 mg Route: PO; bw Disposition: 18:45 Co-signature as Attending Physician, Mike Menjivar MD I agree with the assessment and tw4 plan of care. Disposition: 09/21/20 11:20 Discharged to Home. Impression: Pain in right shoulder - from fall, Pain in right elbow - from fall. - Condition is Stable. - Discharge Instructions: Shoulder Pain, Elbow Contusion, Shoulder Range of Motion Exercises. - Medication Reconciliation Form, Thank You Letter, Antibiotic Education, Prescription Opioid Use form. - Follow up: Private Physician; When: 1 week; Reason: Recheck today's complaints. - Problem is new. - Symptoms have improved. Signatures: Dispatcher [employer] EDCrystal Sadler RN RN iw Page, Corey, PA PA cp Wadley, Terrence, MD MD 4 Hermelinda Resendez RN RN ca1 Stephanie Kovacs RN RN Corrections: (The following items were deleted from the chart) 12:25 11:20 09/21/2020 11:20 Discharged to Home. Impression: Pain in right shoulder - from ca1 fall; Pain in right elbow - from fall. Condition is Stable. Forms are Medication Reconciliation Form, Thank You Letter, Antibiotic Education, Prescription Opioid Use. Follow up: Private Physician; When: 1 week; Reason: Recheck today's complaints. Problem is new. Symptoms have improved. cp 09/22 10:10 Constitutional: The patient appears in no acute distress, alert, awake, cp non-diaphoretic, non-toxic, well developed, well nourished, cp 09/22 10:10 Head/Face: Normocephalic, atraumatic. cp cp 09/22 10:10 Chest/axilla: Inspection: normal, Palpation: crepitus, is not appreciated, cp tenderness, that is mild, of the right clavicle, cp 09/22 10:10 Cardiovascular: Rate: normal, Pulses: Pulses are 2+ in right radial artery. cp Edema: is not appreciated, cp 09/22 10:10 Respiratory: the patient does not display signs of respiratory distress, cp Respirations: normal, no use of accessory muscles, no retractions, labored breathing, is not present, Breath sounds: are clear throughout, no decreased breath sounds, cp 09/22 10:10 Neck: C-spine: vertebral tenderness, is not appreciated, crepitus, is not cp appreciated, ROM/movement: is normal, is supple, without pain, no range of motions limitations, cp 09/22 10:10 Abdomen/GI: Exam negative for discomfort, distension, guarding, Inspection: cp abdomen appears normal, cp 09/22 10:10 Back: pain, is absent, ROM is normal, cp cp 09/22 10:10 Musculoskeletal/extremity: Extremities: grossly normal except: noted in the cp right shoulder: pain, tenderness, noted in the right elbow: pain, swelling, tenderness, ROM: limited passive range of motion due to pain, in the right shoulder and right elbow, Sensation intact. cp 09/22 10:10 Neuro: Orientation: to person, place \T\ time. Mentation: is normal, cp cp
[2020-09-21 12:31] VITALS: O2SAT 98
[2020-09-21 12:32] VITALS: BP 118/64
--- NOTE | 2020-09-21 14:31 | RAD REPORT ---
EXAM DESCRIPTION: RAD - Clavicle Right - 09/21/2020 10:58 am CLINICAL HISTORY: Fall;Pain COMPARISON: Clavicle Right dated 09/21/2020 FINDINGS: Right humerus and right clavicle - multiple projections are submitted No clavicular fracture evident. Mild AC joint and glenohumeral joint arthritic changes are present. N o acute fracture or dislocation is seen. Moderate soft tissue swelling is seen adjacent to the olecra non process.
== END 2020-09-21 12:25 | disposition home or self-care (01) ==
LOC: ER 09:31
DX: M25.511 Pain in right shoulder (principal); M25.521 Pain in right elbow; W05.0XXA Fall from non-moving wheelchair, initial encounter; Y93.9 Activity, unspecified; Y92.9 Unspecified place or not applicable; Z79.82 Long term (current) use of aspirin; Z99.2 Dependence on renal dialysis; Z88.8 Allergy status to other drugs, medicaments and biological substances; I10 Essential (primary) hypertension; E11.9 Type 2 diabetes mellitus without complications; F03.90 Unspecified dementia, unspecified severity, without behavioral disturbance, psychotic disturbance, mood disturbance, and anxiety
CPT/HCPCS: 99283

== ENCOUNTER 2020-11-20 15:42 | Emergency (ER) | payer OTHER ==
--- OUTSIDE RECORDS SUMMARY | 2020-11-20 15:44 | XMS REPORT | Continuity of Care Document ---
:1935 Author Organization [facility] t Address [address] [place] [address] Care Team Providers Name Role Phone Yobani Edmondson DO Primary Care Physician [phone] Problems Condition Condition Condition Status Onset Resolution Last Treating Co mments Source Name Details Category Date Date Treatment Clinician Date Hypertensi Hypertensi Disease Active Demond sawyer on on 01-15 [facility] 00:00: st 00 Type 2 Type 2 Disease Active [place] diabetes diabetes 01-15 [facility] mellitus mellitus 00:00: st 00 ESRD (end ESRD (end Disease Active Nathan stomike stage stage 01-15 [facility] renal renal 00:00: st disease) disease) 00 on on dialysis dialysis H/O: H/O: Disease Active [place] stroke stroke 01-15 [facility] 00:00: st 00 Hyperkalem Hyperkalem Disease Active silverio ia ia 01-15 [facility] 00:00: st 00 Anemia of Anemia of Disease Active Nathan ston chronic chronic 01-15 [facility] illness illness 00:00: st 00 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 01-15 [facility] graft for graft for 00:00: st dialysis dialysis 00 Allergies, Adverse Reactions, Alerts Allergy Allergy Status Severity Reaction(s) Onset Inactive Treating Comm ents Source Name Type Date Date Clinician Gabapent Propensi Active [place] in ty to 8-10 [facility] adverse 00:00: st reaction 00 s to drug Social History Social Habit Start Date Stop Date Quantity Comments Source History of tobacco Cigar Smoker [place] [facility] use Tobacco use and 2019-01-19 2019-01-19 Never used Aneesh Posadas [facility] exposure 00:00:00 00:00:00 Alcohol intake 2019-01-19 2019-01-19 [facility] Keyes [facility] 00:00:00 00:00:00 Sex [birth year] Aneesh dunne 00:00:00 00:00:00 Smoking Status Start Date Stop Date Source Former smoker 2019-01-19 00:00:00 2019-01-19 00:00:00 [facility] Medications Ordered Filled Start Stop Current Ordering Indication Dosage Frequency Signature Comments Components Source Medication Medication Date Date Medication? Clinician (SIG) Name Name hydrALAZINE Yes 100mg [id number] Take 100 Melendrez (APRESOLINE 8-14 [id number] mg by Cuauhtemoc castanon ) 100 MG 13:34: 3D mouth 3 st tablet 48 (three) times a day. aspirin 2018- Yes 81mg QD Take 81 mg [place] (ECOTRIN) 8-14 by mouth Method i 81 MG 13:34: daily. st enteric 48 coated tablet lisinopril 2018- Yes 20mg Q.5D Take 20 mg [place] (PRINIVIL,Z 8-14 by mouth 2 Me thodi ESTRIL) 20 13:34: (two) st mg tablet 48 times a day. carvedilol 2018- Yes 6.25mg Q.5D Take 6.25 Melendrez (COREG) 8-14 mg by [facility] 6.25 MG 13:34: mouth 2 st tablet 48 (two) times a day with meals. vit B 2019- Yes 1{tbl} QD Take 1 Melendrez complex-vit 8-14 tablet by Met sanders gupta 13:34: mouth st C-folic 48 daily. acid (NEPHRO-VIT E OTC) 0.8 mg tablet NON 2019- Yes 1{tbl} QD Take 1 Melendrez FORMULARY 8-14 tablet by Metho di 13:34: mouth st 48 daily. Calcium lactate NON 2019-0 Yes 1{tbl} QD Take 1 Melendrez FORMULARY 8-14 tablet by Metho di 13:34: mouth st 48 daily. Tumeric triple gold sevelamer 2018- Yes take 1 [place] (RENVELA) 1-04 tablet [facility] 800 mg 00:00: with each st tablet 00 meal and 1 tablet with each snack cyclophosph Yes [place] n amide 1-03 [facility] (CYTOXAN) 00:00: st 50 mg chemo 00 capsule amLODIPine 2017-06 Yes TK 1 T PO [place] (NORVASC) 5 2-31 QD [facility] mg tablet 00:00: st 00 dexamethaso 2017-06 Yes Aylin mckeon ne 2-14 [facility] (DECADRON) 00:00: st 4 MG tablet 00 acyclovir 2017-06 Yes [facility] (ZOVIRAX) 1-23 [facility] 200 MG 00:00: st capsule 00 levothyroxi 2017-06 Yes TK 1 T PO [place] ne 1-03 QAM ON [facility] (SYNTHROID, 00:00: EMPTY st LEVOXYL) 50 00 STOMACH mcg tablet Procedures This patient has no known procedures. Plan of Care Planned Activity Planned Date Details Comments Source Future Scheduled 2021-01-06 INFLUENZA VACCINE [facility] 00:00:00 [code = INFLUENZA VACCINE] Future Scheduled 1984 SHINGLES VACCINES (#1) [place] [facility] 00:00:00 [code = SHINGLES VACCINES (#1)] Future Scheduled 1946 COVID-19 VACCINE (1) [place] [facility] 00:00:00 [code = COVID-19 VACCINE (1)] Future Scheduled 1944 DIABETES: RETINAL EYE [place] [facility] 00:00:00 EXAM [code = DIABETES: RETINAL EYE EXAM] Future Scheduled 1944 DIABETIC FOOT EXAM [place] [facility] 00:00:00 [code = DIABETIC FOOT EXAM] Future Scheduled 1944 URINE MICROALBUMIN [place] [facility] 00:00:00 [code = URINE MICROALBUMIN] Future Scheduled 1940 65+ PNEUMOCOCCAL [place] [facility] Test 00:00:00 VACCINE (1 of 4 - PCV13) [code = 65+ PNEUMOCOCCAL VACCINE (1 of 4 - PCV13)] Results This patient has no known results.
[2020-11-20 16:20] LABS: Absolute Lymphocytes (CBC) 0.9 K/uL (0.7-4.9); Hematocrit 33.5 % (39.6-49.0); Lymphocytes % 21.8 % (15.3-44.8); MPV 8.8 fL (7.6-11.3); RBC Red Blood Cell Count 3.32 M/uL (4.33-5.43)
[2020-11-20] MEDS ORDERED: NA CHLORIDE 0.9% 1,000 ML ONE (16:27)
[2020-11-20 16:29] LABS: Protime INR 0.97
[2020-11-20 16:51] LABS: Albumin 3.4 g/dL (3.4-5.0); Bilirubin Direct 0.2 mg/dL (0-0.2); Bilirubin Total 0.5 mg/dL (0.2-1.0); Magnesium 2.3 mg/dL (1.8-2.4); Potassium 3.9 mmol/L (3.5-5.1); Troponin (Emerg Dept Use Only) 0.03 ng/mL (0.0-0.045)
--- NOTE | 2020-11-20 16:55 | RAD REPORT ---
EXAM DESCRIPTION: Manuel Single View11/20/2020 4:38 pm CLINICAL HISTORY: Cough COMPARISON: 2019 FINDINGS: The lungs appear clear of acute infiltrate. The heart is mildly enlarged IMPRESSION: No acute abnormalities displayed
--- NOTE | 2020-11-20 17:08 | EDPHYS ---
Physician Documentation [facility] Name: Sina William Age: 85 yrs Sex: Male : 1935 Arrival Date: 11/20/2020 Time: 15:46 Bed 6 Private MD: ED Physician Ted Carrillo HPI: 11/20 16:05 This 85 yrs old Male presents to ER via EMS with complaints of General elizabeth Weakness. 16:05 weak after dialysis, near syncope. The patient has experienced near-syncope, almost elizabeth passed out, felt dizzy, felt faint. Onset: The symptoms/episode began/occurred just prior to arrival. Duration: This was a single episode, that lasted 30 second(s), that is still ongoing, but improving. Context: the episode(s) was witnessed, by a bystander, occurred leaving dialysis. Associated injury: The patient did not suffer any apparent associated injury. Associated signs and symptoms: Pertinent positives: lightheadedness. Current symptoms: legs mildly weak. Severity of symptoms: At their worst the symptoms were moderate in the emergency department the symptoms have improved. Historical: - Allergies: 15:50 GABAPENTIN; hb - Home Meds: 15:50 levothyroxine 50 mcg tab 1 tab once daily [Active]; Lipitor Oral [Active]; lisinopril hb 10 mg Oral tab 1 tab twice a day [Active]; nifedipine 30 mg Oral TbER 1 tab once daily [Active]; sevelamer HCl 800 mg Oral 3 tabs with each meal [Active]; cod liver oil Oral cap daily [Active]; aspirin 81 mg Oral chew 1 tab once daily [Active]; hydralazine 100 mg Oral tab 1 tab 2 times per day [Active]; - PMHx: 15:50 ADD/ADHD; Arthritis; Anemia; Amyloid CA; CVA; Dementia; Diabetes - NIDDM; HD - hb //Thu; Hypertension; Osteoporosis; - Immunization history:: Adult Immunizations up to date. - Social history:: Smoking status: Patient denies any tobacco usage or history of. - Family history:: not pertinent. ROS: 16:05 Constitutional: Negative for fever, chills, and weight loss, Eyes: Negative for injury, elizabeth pain, redness, and discharge, ENT: Negative for injury, pain, and discharge, Neck: Negative for injury, pain, and swelling, Cardiovascular: Negative for chest pain, palpitations, and edema, Respiratory: Negative for shortness of breath, cough, wheezing, and pleuritic chest pain, Abdomen/GI: Negative for abdominal pain, nausea, vomiting, diarrhea, and constipation, Back: Negative for injury and pain, : Negative for injury, bleeding, discharge, and swelling, MS/Extremity: Negative for injury and deformity, Skin: Negative for injury, rash, and discoloration, Psych: Negative for depression, anxiety, suicide ideation, homicidal ideation, and hallucinations, Allergy/Immunology: Negative for hives, rash, and allergies, Endocrine: Negative for neck swelling, polydipsia, polyuria, polyphagia, and marked weight changes, Hematologic/Lymphatic: Negative for swollen nodes, abnormal bleeding, and unusual bruising. 16:05 Neuro: Positive for near syncope, weakness. Exam: 16:05 Constitutional: This is a well developed, well nourished patient who is awake, alert, elizabeth and in no acute distress. Head/Face: Normocephalic, atraumatic. Eyes: Pupils equal round and reactive to light, extra-ocular motions intact. Lids and lashes normal. Conjunctiva and sclera are non-icteric and not injected. Cornea within normal limits. Periorbital areas with no swelling, redness, or edema. ENT: Nares patent. No nasal discharge, no septal abnormalities noted. Tympanic membranes are normal and external auditory canals are clear. Oropharynx with no redness, swelling, or masses, exudates, or evidence of obstruction, uvula midline. Mucous membranes moist. Neck: Trachea midline, no thyromegaly or masses palpated, and no cervical lymphadenopathy. Supple, full range of motion without nuchal rigidity, or vertebral point tenderness. No Meningismus. Chest/axilla: Normal chest wall appearance and motion. Nontender with no deformity. No lesions are appreciated. Cardiovascular: Regular rate and rhythm with a normal S1 and S2. No gallops, murmurs, or rubs. Normal PMI, no JVD. No pulse deficits. Respiratory: Lungs have equal breath sounds bilaterally, clear to auscultation and percussion. No rales, rhonchi or wheezes noted. No increased work of breathing, no retractions or nasal flaring. Abdomen/GI: Soft, non-tender, with normal bowel sounds. No distension or tympany. No guarding or rebound. No evidence of tenderness throughout. Back: No spinal tenderness. No costovertebral tenderness. Full range of motion. Male : Normal genitalia with no discharge or lesions. Skin: Warm, dry with normal turgor. Normal color with no rashes, no lesions, and no evidence of cellulitis. MS/ Extremity: Pulses equal, no cyanosis. Neurovascular intact. Full, normal range of motion. Neuro: Awake and alert, GCS 15, oriented to person, place, time, and situation. Cranial nerves II-XII grossly intact. Motor strength 5/5 in all extremities. Sensory grossly intact. Cerebellar exam normal. Normal gait. Psych: Awake, alert, with orientation to person, place and time. Behavior, mood, and affect are within normal limits. 16:14 ECG was reviewed by the Attending Physician. elizabeth Vital Signs: 15:46 BP 94 / 67; Pulse 62; Resp 15; Temp 97.8; Pulse Ox 99% on R/A; Pain 3/10; hb 16:20 BP 94 / 56; Pulse 60; Resp 18; Pulse Ox 99% on R/A; ld1 17:13 BP 133 / 58 Supine; Pulse 54; hb 17:18 BP 120 / 53 Sitting; Pulse 60; hb 17:22 BP 104 / 49 Standing; Pulse 58; hb 18:08 BP 139 / 62; Pulse 58; Resp 17; Pulse Ox 100% on R/A; ld1 NIH Stroke Scale Scores: 16:05 NIHSS Score: 0 elizabeth MDM: 15:48 Patient medically screened. elizabeth 16:12 Differential Diagnosis: cardiac arrhythmia, idiopathic syncope, transient ischemic elizabeth attack, vasovagal episode. Data reviewed: vital signs, nurses notes, lab test result(s), cardiac enzymes, CBC, electrolytes, hepatic panel, EKG, radiologic studies, plain films. Data interpreted: Pulse oximetry: on room air is 99 %. Test interpretation: by ED physician or midlevel provider: ECG, plain radiologic studies. Counseling: I had a detailed discussion with the patient and/or guardian regarding: the historical points, exam findings, and any diagnostic results supporting the discharge/admit diagnosis, lab results, radiology results. 11/20 16:05 Order name: Basic Metabolic Panel; Complete Time: 17:03 [facility] 11/20 16:05 Order name: CBC with Diff; Complete Time: 16:51 [facility] 11/20 16:05 Order name: LFT's; Complete Time: 17:03 [facility] 11/20 16:05 Order name: Magnesium; Complete Time: 17:03 [facility] 11/20 16:05 Order name: NT PRO-BNP; Complete Time: 17:03 [facility] 11/20 16:05 Order name: PT-INR; Complete Time: 16:51 [facility] 11/20 16:05 Order name: Troponin (emerg Dept Use Only); Complete Time: 17:03 [facility] 11/20 16:05 Order name: XRAY Chest (1 view); Complete Time: 17:03 [facility] 11/20 16:05 Order name: EKG; Complete Time: 16:06 [facility] 11/20 16:05 Order name: Cardiac monitoring; Complete Time: 16:05 [facility] 11/20 16:05 Order name: EKG - Nurse/Tech; Complete Time: 16:13 [facility] 11/20 16:05 Order name: IV Saline Lock; Complete Time: 16:05 [facility] 11/20 16:05 Order name: Labs collected and sent; Complete Time: 16:13 [facility] 11/20 16:05 Order name: O2 Per Protocol; Complete Time: 16:05 [facility] 11/20 16:05 Order name: O2 Sat Monitoring; Complete Time: 16:05 [facility] 11/20 17:05 Order name: Orthostatics; Complete Time: 17:19 [facility] EC:14 Rate is 62 beats/min. Rhythm is regular. QRS [place] is Normal. OR interval is prolonged elizabeth at 292 msec. QRS interval is normal. QT interval is normal. No Q waves. T waves are Normal. No ST changes noted. Clinical impression: 1st degree heart block and No evidence of ischemia. Interpreted by me. Reviewed by me. Administered Medications: 16:13 Drug: NS 0.9% 250 ml Route: IV; Rate: bolus; Site: right antecubital; hb 16:27 Follow up: Response: No adverse reaction; IV Status: Completed infusion; IV Intake: tw2 250ml 16:27 Drug: NS 0.9% 1000 ml Route: IV; Rate: 125 ml/hr; Site: right antecubital; tw2 Disposition: 11/20/20 17:07 Discharged to Home. Impression: Weakness, End stage renal disease - ON HD Tu,Th, Sat, Hypotension of hemodialysis. - Condition is Stable. - Discharge Instructions: Hypotension, Weakness, Dialysis, End-Stage Kidney Disease, Hypotension, Gxzu-ej-[id number], Weakness, Lxzu-mf-Vran, Hemodialysis, Hemodialysis, Care After. - Medication Reconciliation Form, Thank You Letter, Antibiotic Education, Prescription Opioid Use form. - Follow up: Private Physician; When: 5 - 6 days; Reason: Recheck today's complaints, Continuance of care, Re-evaluation by your physician. Follow up: Lilly Mccormick MD; When: 2 - 3 days; Reason: Recheck today's complaints, Continuance of care, Re-evaluation by your physician. - Problem is new. - Symptoms have improved. NIH Stroke Scale - NIH Stroke Score Date: 11/20/2020 Time: 16:05 Total Score = 0 1a. Level of Consciousness (LOC) - 0(Alert) 1b. Level of Consciousness (LOC) (Year \T\ Age) - 0(Both) 1c. LOC Commands (Open \T\ Closes Eyes/Lasting Room Machine Operator) - 0(Both) 2. Best Gaze (Lateral Gaze Paresis) - 0(Normal) 3. Visual Field Loss - 0(No visual loss) 4. Facial Palsy - 0(Normal) 5a. Left Arm: Motor (10-second hold) - 0(No drift) 5b. Right Arm: Motor (10-second hold) - 0(No drift) 6a. Left Leg: Motor (5-second hold - always test supine) - 0(No drift) 6b. Right Leg: Motor (5-second hold - always test supine) - 0(No drift) 7. Limb Ataxia (finger/nose \T\ heel/norris - test with eyes open) - 0(Absent) 8. Sensory Loss (pinprick arms/legs/face) - 0(Normal) 9. Best Language: Aphasia (description/naming/reading) - 0(No aphasia) 10. Dysarthria (speech clarity - read or repeat words) - 0(Normal) 11. Extinction and Inattention (visual/tactile/auditory/spatial/personal) - 0(No abnormality) Initials: elizabeth Signatures: Dispatcher [employer] Ted Weiss MD MD cha Baxter, Heather, RN RN Marivel Verde RN RN tw2 Corrections: (The following items were deleted from the chart) 17:09 17:07 11/20/2020 17:07 Discharged to Home. Impression: Weakness; End stage elizabeth renal disease - ON HD Tu,Th, Sat; Hypotension of hemodialysis. Condition is Stable. Forms are Medication Reconciliation Form, Thank You Letter, Antibiotic Education, Prescription Opioid Use. Follow up: Private Physician; When: 5 - 6 days; Reason: Recheck today's complaints, Continuance of care, Re-evaluation by your physician. Problem is new. Symptoms have improved. elizabeth 18:34 17:09 11/20/2020 17:07 Discharged to Home. Impression: Weakness; End stage tw2 renal disease - ON HD Tu,Th, Sat; Hypotension of hemodialysis. Condition is Stable. Discharge Instructions: Hypotension, Weakness, Dialysis, End-Stage Kidney Disease, Hypotension, [id number]-[id number], Weakness, Kphd-wl-Zvew, Hemodialysis, Hemodialysis, Care After. Forms are Medication Reconciliation Form, Thank You Letter, Antibiotic Education, Prescription Opioid Use. Follow up: Private Physician; When: 5 - 6 days; Reason: Recheck today's complaints, Continuance of care, Re-evaluation by your physician. Follow up: Lilly Mccormick; When: 2 - 3 days; Reason: Recheck today's complaints, Continuance of care, Re-evaluation by your physician. Problem is new. Symptoms have improved. elizabeth
--- NOTE | 2020-11-20 17:08 | ER ---
Nurse's Notes [facility] Name: Sina William Age: 85 yrs Sex: Male : 1935 Arrival Date: 11/20/2020 Time: 15:46 Bed 6 Private MD: Diagnosis: Weakness;End stage renal disease-ON HD Tu,Th, Sat;Hypotension of hemodialysis Presentation: 11/20 15:46 Chief complaint: EMS states: Generalized weakness after HD this afternoon. Pt reports hb he "legs just gave out" when ambulating with walker in driveway when he returned from dialysis. Coronavirus screen: At this time, the client does not indicate any symptoms associated with coronavirus-19. Ebola Screen: No symptoms or risks identified at this time. Initial Sepsis Screen: Does the patient meet any 2 criteria? No. Patient's initial sepsis screen is negative. Does the patient have a suspected source of infection? No. Patient's initial sepsis screen is negative. Risk Assessment: Do you want to hurt yourself or someone else? Patient reports no desire to harm self or others. Onset of symptoms was November 20, 2020. 15:46 Method Of Arrival: EMS: [facility] hb 15:46 Acuity: CLYDE 3 hb Triage Assessment: 15:50 General: Appears in no apparent distress. Behavior is calm, cooperative. Pain: Pain hb currently is 3 out of 10 on a pain scale. EENT: No signs and/or symptoms were reported regarding the EENT system. Neuro: Level of Consciousness is awake, alert, obeys commands, Oriented to person, place, time, situation. Cardiovascular: Patient's skin is warm and dry. Rhythm is regular. Respiratory: Respiratory effort is even, unlabored, Respiratory pattern is regular, symmetrical. GI: No signs and/or symptoms were reported involving the gastrointestinal system. : No signs and/or symptoms were reported regarding the genitourinary system. Derm: Skin is pink, warm \\T\\ dry. Musculoskeletal: Reports generalized weakness. Historical: - Allergies: 15:50 GABAPENTIN; hb - Home Meds: 15:50 levothyroxine 50 mcg tab 1 tab once daily [Active]; Lipitor Oral [Active]; lisinopril hb 10 mg Oral tab 1 tab twice a day [Active]; nifedipine 30 mg Oral TbER 1 tab once daily [Active]; sevelamer HCl 800 mg Oral 3 tabs with each meal [Active]; cod liver oil Oral cap daily [Active]; aspirin 81 mg Oral chew 1 tab once daily [Active]; hydralazine 100 mg Oral tab 1 tab 2 times per day [Active]; - PMHx: 15:50 ADD/ADHD; Arthritis; Anemia; Amyloid CA; CVA; Dementia; Diabetes - NIDDM; HD - hb Tu/Th/Sat; Hypertension; Osteoporosis; - Immunization history:: Adult Immunizations up to date. - Social history:: Smoking status: Patient denies any tobacco usage or history of. - Family history:: not pertinent. Screenin:51 Abuse screen: Denies threats or abuse. Denies injuries from another. Nutritional hb screening: No deficits noted. Tuberculosis screening: No symptoms or risk factors identified. Fall Risk None identified. Assessment: 15:51 General: see triage assessment. hb 16:00 Reassessment: provider at bedside at this time. hb 17:00 Reassessment: Patient appears in no apparent distress at this time. Patient and/or ld1 family updated on plan of care and expected duration. Pain level reassessed. Patient is alert, oriented x 3, equal unlabored respirations, skin warm/dry/pink. 17:32 Reassessment: Discharge pending completion of IV fluids. ld1 18:08 Reassessment: Patient appears in no apparent distress at this time. Patient and/or ld1 family updated on plan of care and expected duration. Pain level reassessed. Patient is alert, oriented x 3, equal unlabored respirations, skin warm/dry/pink. Vital Signs: 15:46 BP 94 / 67; Pulse 62; Resp 15; Temp 97.8; Pulse Ox 99% on R/A; Pain 3/10; hb 16:20 BP 94 / 56; Pulse 60; Resp 18; Pulse Ox 99% on R/A; ld1 17:13 BP 133 / 58 Supine; Pulse 54; hb 17:18 BP 120 / 53 Sitting; Pulse 60; hb 17:22 BP 104 / 49 Standing; Pulse 58; hb 18:08 BP 139 / 62; Pulse 58; Resp 17; Pulse Ox 100% on R/A; ld1 NIH Stroke Scale Scores: 16:05 NIHSS Score: 0 elizabeth ED Course: 15:46 Patient arrived in ED. hb 15:46 Maintain EMS IV. Dressing intact. Good blood return noted. Site clean \\T\\ dry. Gauge \\T\\ hb site: 18 g RIGHT AC. 15:48 Ted Carrillo MD is Attending Physician. elizabeth 15:50 Arm band placed on. hb 15:51 Patient has correct armband on for positive identification. Call light in reach. Side hb rails up X 1. 15:59 Triage completed. hb 16:06 Yvette Rolon, VERNON is Primary Nurse. ld1 16:38 XRAY Chest (1 view) In Process Unspecified. EDMS 17:08 Lilly Mccormick MD is Referral Physician. elizabeth 17:35 Awaiting: completion of IV fluids prior to discharge. tw2 18:34 No provider procedures requiring assistance completed. IV discontinued, intact, tw2 bleeding controlled, No redness/swelling at site. Pressure dressing applied. Administered Medications: 16:13 Drug: NS 0.9% 250 ml Route: IV; Rate: bolus; Site: right antecubital; hb 16:27 Follow up: Response: No adverse reaction; IV Status: Completed infusion; IV Intake: tw2 250ml 16:27 Drug: NS 0.9% 1000 ml Route: IV; Rate: 125 ml/hr; Site: right antecubital; tw2 Intake: 16:27 IV: 250ml; Total: 250ml. tw2 Outcome: 17:07 Discharge ordered by . elizabeth 18:34 Discharged to home ambulatory, with family. tw2 18:34 Condition: stable 18:34 Discharge instructions given to patient, family, Instructed on discharge instructions, follow up and referral plans. Demonstrated understanding of instructions, follow-up care. 18:34 Patient left the ED. tw2 NIH Stroke Scale - NIH Stroke Score Date: 11/20/2020 Time: 16:05 Total Score = 0 1a. Level of Consciousness (LOC) - 0(Alert) 1b. Level of Consciousness (LOC) (Year \\T\\ Age) - 0(Both) 1c. LOC Commands (Open \\T\\ Closes Eyes/Lumber Mover) - 0(Both) 2. Best Gaze (Lateral Gaze Paresis) - 0(Normal) 3. Visual Field Loss - 0(No visual loss) 4. Facial Palsy - 0(Normal) 5a. Left Arm: Motor (10-second hold) - 0(No drift) 5b. Right Arm: Motor (10-second hold) - 0(No drift) 6a. Left Leg: Motor (5-second hold - always test supine) - 0(No drift) 6b. Right Leg: Motor (5-second hold - always test supine) - 0(No drift) 7. Limb Ataxia (finger/nose \\T\\ heel/norris - test with eyes open) - 0(Absent) 8. Sensory Loss (pinprick arms/legs/face) - 0(Normal) 9. Best Language: Aphasia (description/naming/reading) - 0(No aphasia) 10. Dysarthria (speech clarity - read or repeat words) - 0(Normal) 11. Extinction and Inattention (visual/tactile/auditory/spatial/personal) - 0(No abnormality) Initials: elizabeth Signatures: Dispatcher [employer] Ted Weiss MD MD cha Baxter, Heather, RN RN hb Marivel Verde, RN RN tw2 Yvette Rolon RN RN ld1
[2020-11-20 18:40] VITALS: TEMP 97.8
[2020-11-20 18:47] VITALS: BP 139/62; O2SAT 100
--- NOTE | 2020-11-21 07:38 | EKG ---
Test Date: 2020-11-20 Test Time: 16:08:09 Reviewer Sales: ERNIE MEASUREMENT RESULTS: Intervals: Rate: 62 NC: 292 QRSD: 138 QT: 490 QTc: 497 [place]: P: -37 NC: 292 QRS: -43 T: 40 INTERPRETIVE STATEMENTS: Unusual P axis, possible ectopic atrial rhythm Left axis deviation Right bundle branch block Septal infarct, age undetermined Abnormal ECG Compared to ECG 01/29/2020 16:49:50 Left-axis deviation now present Myocardial infarct finding now present Sinus rhythm no longer present Atrial premature complex(es) no longer present Electronically Signed On 11-21-20 07:35:55 CDT by Farhan Shipley
== END 2020-11-20 18:34 | disposition home or self-care (01) ==
LOC: ER 15:42
DX: I95.3 Hypotension of hemodialysis (principal); E11.22 Type 2 diabetes mellitus with diabetic chronic kidney disease; I12.0 Hypertensive chronic kidney disease with stage 5 chronic kidney disease or end stage renal disease; N18.6 End stage renal disease; Z99.2 Dependence on renal dialysis; Z79.82 Long term (current) use of aspirin; Z88.8 Allergy status to other drugs, medicaments and biological substances; Z86.73 Personal history of transient ischemic attack (TIA), and cerebral infarction without residual deficits
CPT/HCPCS: 85025; 80048; 36415; 83735; 85610; 80076; 84484; 83880; 71045; J7030; 93005

== ENCOUNTER 2021-01-01 16:04 | Emergency (ER) | payer OTHER ==
--- OUTSIDE RECORDS SUMMARY | 2021-01-01 16:07 | XMS REPORT | Continuity of Care Document ---
:1935 Author Organization [facility] t Address [address] [place] [address] Care Team Providers Name Role Phone Yobani Edmondson DO Primary Care Physician [phone] Problems Condition Condition Condition Status Onset Resolution Last Treating Co mments Source Name Details Category Date Date Treatment Clinician Date Hypertensi Hypertensi Disease Active Demond sawyer on on 01-15 [facility] 00:00: st 00 Type 2 Type 2 Disease Active [place] diabetes diabetes 01-15 [facility] mellitus mellitus 00:00: st 00 ESRD (end ESRD (end Disease Active Nathan anand stage stage 01-15 [facility] renal renal 00:00: st disease) disease) 00 on on dialysis dialysis H/O: H/O: Disease Active [place] stroke stroke 01-15 [facility] 00:00: st 00 [...] History of tobacco Cigar Smoker [place] [facility] use Tobacco use and 2019-01-19 2019-01-19 Never used Aneesh Posadas ethodist exposure 00:00:00 00:00:00 Alcohol intake 2019-01-19 2019-01-19 Aneesh Keyes thodist 00:00:00 00:00:00 Sex [birth year] Aneesh dunne 00:00:00 00:00:00 Smoking Status Start Date Stop Date Source Former smoker 2019-01-19 00:00:00 2019-01-19 00:00:00 [facility] Medications Ordered Filled Start Stop Current Ordering Indication Dosage Frequency Signature Comments Components Source Medication Medication Date Date Medication? Clinician (SIG) Name Name hydrALAZINE Yes 100mg [id number] Take 100 [facility] (APRESOLINE 8-14 [id number] mg by Cuauhtemoc castanon ) 100 MG 13:34: 3D mouth 3 st tablet 48 (three) times a day. aspirin Yes 81mg QD Take 81 mg [place] (ECOTRIN) 8-14 by mouth Method i 81 MG 13:34: daily. st enteric 48 coated tablet lisinopril Yes 20mg Q.5D Take 20 mg H oucheng (PRINIVIL,Z 8-14 by mouth 2 Me thodi [...] tablet with each snack cyclophosph 2018- Yes Nereydato n amide 1-03 [facility] (CYTOXAN) 00:00: st [...] Comments Source Future Scheduled 2021-01-06 INFLUENZA VACCINE [place] [facility] 00:00:00 [code = INFLUENZA VACCINE] Future Scheduled 1984 SHINGLES VACCINES (#1) [place] [facility] 00:00:00 [code = SHINGLES VACCINES (#1)] Future Scheduled 1946 COVID-19 VACCINE (1) [place] [facility] Test 00:00:00 [code = COVID-19 VACCINE (1)] Future Scheduled 1944 DIABETES: RETINAL EYE [place] [facility] 00:00:00 EXAM [code = DIABETES: RETINAL EYE EXAM] Future Scheduled 1944 DIABETIC FOOT EXAM [place] [facility] 00:00:00 [code = DIABETIC FOOT EXAM] Future Scheduled 1944 URINE MICROALBUMIN [place] [facility] 00:00:00 [code = URINE MICROALBUMIN] Future Scheduled 1940 65+ PNEUMOCOCCAL [facility] [facility] Test 00:00:00 VACCINE (1 of 4 - PCV13) [code = 65+ PNEUMOCOCCAL VACCINE (1 of 4 - PCV13)] Results This patient has no known results.
--- NOTE | 2021-01-01 18:50 | RAD REPORT ---
EXAM DESCRIPTION: RAD - Shoulder Right 2 View - 01/01/2021 6:39 pm CLINICAL HISTORY: r/o fracuture Fall, shoulder pain COMPARISON: No comparisons FINDINGS: Diffuse osteopenia is seen. High-riding humeral head noted likely indicating underlying ro tator cuff pathology. No acute fracture or dislocation seen.
--- NOTE | 2021-01-01 18:51 | RAD REPORT ---
EXAM DESCRIPTION: RAD - Humerus Right - 01/01/2021 6:39 pm CLINICAL HISTORY: r/o fracture Trauma, pain COMPARISON: Humerus Right dated 09/21/2020 FINDINGS: No acute fracture or dislocation seen.
--- NOTE | 2021-01-01 18:52 | RAD REPORT ---
EXAM DESCRIPTION: RAD - Forearm Right - 01/01/2021 6:39 pm CLINICAL HISTORY: r/o fracture Trauma, pain COMPARISON: No comparisons FINDINGS: No acute fracture or dislocation seen. Vascular atherosclerosis.
--- NOTE | 2021-01-01 20:13 | ER ---
Nurse's Notes [facility] Name: Sina William Age: 85 yrs Sex: Male : 1935 Arrival Date: 01/01/2021 Time: 16:58 Bed 28 Private MD: Diagnosis: Pain in right shoulder Presentation: 01/01 17:04 Chief complaint: Patient states: Bruising and pain in RUE. Pt and daughter denies kg falling but has dementia and stated he was confused last night. Coronavirus screen: Client denies travel out of the [place] in the last 14 days. At this time, unable to obtain information related to travel outside the [place] At this time, the client does not indicate any symptoms associated with coronavirus-19. Ebola Screen: Patient negative for fever greater than or equal to 101.5 degrees Fahrenheit, and additional compatible Ebola Virus Disease symptoms Patient denies exposure to infectious person. Patient denies travel to an Ebola-affected area in the 21 days before illness onset. Initial Sepsis Screen: Does the patient meet any 2 criteria? No. Patient's initial sepsis screen is negative. Does the patient have a suspected source of infection? No. Patient's initial sepsis screen is negative. Risk Assessment: Do you want to hurt yourself or someone else? Patient reports no desire to harm self or others. Onset of symptoms was January 01, 2021 at 10:00. 17:04 Method Of Arrival: Wheelchair kg 17:04 Acuity: CLYDE 4 kg Triage Assessment: 17:07 General: Appears in no apparent distress. Behavior is calm, cooperative, appropriate kg for age, quiet. Pain: Complains of pain in anterior aspect of right shoulder, right bicep, right antecubital area, posterior aspect of right shoulder, right tricep and right elbow Pain radiates to right arm Pain currently is 7 out of 10 on a pain scale. at worst was 9 out of 10 on a pain scale. level that patient reports is acceptable is 3 out of 10 on a pain scale. 17:07 Musculoskeletal:. Injury Description: Bruise sustained to anterior aspect of right kg shoulder, right bicep, right antecubital area, posterior aspect of right shoulder, right tricep and right elbow. Historical: - Allergies: 17:07 GABAPENTIN; kg - Home Meds: 17:07 aspirin 81 mg Oral chew 1 tab once daily [Active]; lisinopril 10 mg Oral tab 1 tab kg twice a day [Active]; levothyroxine 50 mcg tab 1 tab once daily [Active]; sevelamer HCl 800 mg Oral 3 tabs with each meal [Active]; hydralazine 100 mg Oral tab 1 tab 2 times per day [Active]; - PMHx: 17:07 ADD/ADHD; Amyloid CA; Anemia; Arthritis; CVA; Dementia; Diabetes - NIDDM; HD - kg //Thu; Hypertension; Osteoporosis; - PSHx: 17:07 fistula graft; kg - Immunization history:: Adult Immunizations up to date, Client reports receiving the 2nd dose of the Covid vaccine. - Social history:: Smoking status: Patient uses alcohol, occasionally. - Family history:: not pertinent. Screenin:12 Abuse screen: Denies threats or abuse. Denies injuries from another. Nutritional kg screening: No deficits noted. Tuberculosis screening: No symptoms or risk factors identified. Fall Risk Fall in past 12 months (25 points). Secondary diagnosis (15 points) dementia, impaired mobility, No IV (0 pts). Ambulatory Aid- Crutches/Cane/Walker (15 pts). Gait- Weak (10 pts.). Mental Status- Oriented to own ability (0 pts). Total Gonzalez Fall Scale indicates Low Risk Score (25-44 pts). Fall prevention measures have been instituted. Side Rails Up X 2 Placed close to Nursing Station Frequent Obs/Assesments occuring Family Present and informed to notify staff if they need to leave bedside As available Patient and Family Educated on Fall Prevention Program and strategies. Vital Signs: 17:04 BP 131 / 61; Pulse 57; Resp 20; Temp 98.1(O); Pulse Ox 98% on R/A; Weight 63.5 kg; kg Height 5 ft. 7 in. (170.18 cm); Pain 7/10; 17:04 Body Mass Index 21.93 (63.50 kg, 170.18 cm) kg ED Course: 16:58 Patient arrived in ED. am2 17:07 Triage completed. kg 17:12 Patient has correct armband on for positive identification. kg 18:38 Forearm Right In Process Unspecified. EDMS 18:39 Humerus Right In Process Unspecified. EDMS 18:39 Shoulder Right 2 View In Process Unspecified. EDMS 19:17 Ibis Adamson, RN is Primary Nurse. bs2 19:17 Faraz Chaney MD is Attending Physician. ma2 Administered Medications: No medications were administered Outcome: 20:12 Discharge ordered by . ma2 20:31 Patient left the ED. mw2 Signatures: Dispatcher [employer] EDMS Keren Castillo am2 Faraz Chaney MD MD ma2 Iris Toribio 2 Sirena Bolanos RN RN kg Ibis Adamson, VERNON RN bs2 Corrections: (The following items were deleted from the chart) 17:10 17:07 Home Meds: nifedipine 30 mg Oral TbER 1 tab once daily; kg kg
--- NOTE | 2021-01-01 20:13 | EDPHYS ---
Physician Documentation [facility] Name: Sina William Age: 85 yrs Sex: Male : 1935 Arrival Date: 01/01/2021 Time: 16:58 Bed 28 Private MD: ED Physician Faraz Chaney HPI: 01/01 20:10 This 85 yrs old Male presents to ER via Wheelchair with complaints of Arm ma2 Pain, Shoulder Pain. 20:10 The patient or guardian complains of decreased range of motion. The complaints affect ma2 the anterior aspect of right shoulder. Onset: The symptoms/episode began/occurred suddenly, 1 day(s) ago. Associated signs and symptoms: Pertinent negatives: fever, numbness, swelling, tingling. Severity of symptoms: At their worst the symptoms were mild, in the emergency department the symptoms are unchanged. The patient has experienced similar episodes in the past. Historical: - Allergies: 17:07 GABAPENTIN; kg - Home Meds: 17:07 aspirin 81 mg Oral chew 1 tab once daily [Active]; lisinopril 10 mg Oral tab 1 tab kg twice a day [Active]; levothyroxine 50 mcg tab 1 tab once daily [Active]; sevelamer HCl 800 mg Oral 3 tabs with each meal [Active]; hydralazine 100 mg Oral tab 1 tab 2 times per day [Active]; - PMHx: 17:07 ADD/ADHD; Amyloid CA; Anemia; Arthritis; CVA; Dementia; Diabetes - NIDDM; HD - kg //Thu; Hypertension; Osteoporosis; - PSHx: 17:07 fistula graft; kg - Immunization history:: Adult Immunizations up to date, Client reports receiving the 2nd dose of the Covid vaccine. - Social history:: Smoking status: Patient uses alcohol, occasionally. - Family history:: not pertinent. ROS: 20:10 Constitutional: Negative for fever, chills, and weight loss. ma2 20:10 All other systems are negative. Exam: 20:10 Constitutional: This is a well developed, well nourished patient who is awake, alert, ma2 and in no acute distress. Head/Face: Normocephalic, atraumatic. Eyes: Pupils equal round and reactive to light, extra-ocular motions intact. Lids and lashes normal. Conjunctiva and sclera are non-icteric and not injected. Cornea within normal limits. Periorbital areas with no swelling, redness, or edema. ENT: Nares patent. No nasal discharge, no septal abnormalities noted. Tympanic membranes are normal and external auditory canals are clear. Oropharynx with no redness, swelling, or masses, exudates, or evidence of obstruction, uvula midline. Mucous membranes moist. Neck: Trachea midline, no thyromegaly or masses palpated, and no cervical lymphadenopathy. Supple, full range of motion without nuchal rigidity, or vertebral point tenderness. No Meningismus. Chest/axilla: Normal chest wall appearance and motion. Nontender with no deformity. No lesions are appreciated. Cardiovascular: Regular rate and rhythm with a normal S1 and S2. No gallops, murmurs, or rubs. Normal PMI, no JVD. No pulse deficits. Respiratory: Lungs have equal breath sounds bilaterally, clear to auscultation and percussion. No rales, rhonchi or wheezes noted. No increased work of breathing, no retractions or nasal flaring. Abdomen/GI: Soft, non-tender, with normal bowel sounds. No distension or tympany. No guarding or rebound. No evidence of tenderness throughout. Back: No spinal tenderness. No costovertebral tenderness. Full range of motion. MS/ Extremity: Right shoulder limited range of motion due to pain, however there is no signs of septic joint, no redness effusion or increased warmth, there is ecchymosis on the right upper arm but no tenderness, pulses equal, no cyanosis. Neurovascular intact. Full, normal range of motion. Neuro: Awake and alert, GCS 15, oriented to person, place, time, and situation. Cranial nerves II-XII grossly intact. Motor strength 5/5 in all extremities. Sensory grossly intact. Cerebellar exam normal. Normal gait. Vital Signs: 17:04 BP 131 / 61; Pulse 57; Resp 20; Temp 98.1(O); Pulse Ox 98% on R/A; Weight 63.5 kg; kg Height 5 ft. 7 in. (170.18 cm); Pain 7/10; 17:04 Body Mass Index 21.93 (63.50 kg, 170.18 cm) kg MDM: 20:10 Differential diagnosis: closed fracture, contusion, abrasion, tendonitis. Data ma2 reviewed: vital signs, nurses notes. Counseling: I had a detailed discussion with the patient and/or guardian regarding: the historical points, exam findings, and any diagnostic results supporting the discharge/admit diagnosis, the presence of at least one elevated blood pressure reading (>120/80) during this emergency department visit, the need for outpatient follow up. Response to treatment: the patient's symptoms have markedly improved after treatment. 20:12 Patient medically screened. ma2 01/01 17:54 Order name: Forearm Right; Complete Time: 19:24 EDMS 01/01 17:55 Order name: Humerus Right; Complete Time: 19:24 EDMS 01/01 17:55 Order name: Shoulder Right 2 View; Complete Time: 19:24 EDMS 01/01 20:02 Order name: Sling; Complete Time: 20:13 ma2 Administered Medications: No medications were administered Disposition Summary: 01/01/21 20:12 Discharge Ordered Location: Home ma2 Condition: Stable ma2 Diagnosis - Pain in right shoulder ma2 Followup: ma2 - With: Private Physician - When: Tomorrow - Reason: Continuance of care Discharge Instructions: - Discharge Summary Sheet ma2 - Shoulder Pain, [id number] ma2 Forms: - Medication Reconciliation Form ma2 - Thank You Letter ma2 - Antibiotic Education ma2 - Prescription Opioid Use ma2 Signatures: Dispatcher [employer] EDFaraz Pedro MD MD ma2 Sirena Bolanos, RN RN kg Corrections: (The following items were deleted from the chart) 17:10 17:07 Home Meds: nifedipine 30 mg Oral TbER 1 tab once daily; kg kg 18:00 17:57 Shoulder Right 2 View+RAD.RAD.BRZ ordered. EDMS EDMS 18:00 17:57 Humerus Right+RAD.RAD.BRZ ordered. EDMS EDMS 18:00 17:57 Forearm Right+RAD.RAD.BRZ ordered. EDMS EDMS
[2021-01-03 02:15] VITALS: BP 131/61; TEMP 98.1; O2SAT 98
== END 2021-01-01 20:31 | disposition home or self-care (01) ==
LOC: ER 16:04
DX: M25.511 Pain in right shoulder (principal); F90.9 Attention-deficit hyperactivity disorder, unspecified type; F03.90 Unspecified dementia, unspecified severity, without behavioral disturbance, psychotic disturbance, mood disturbance, and anxiety; E11.22 Type 2 diabetes mellitus with diabetic chronic kidney disease; I12.0 Hypertensive chronic kidney disease with stage 5 chronic kidney disease or end stage renal disease; N18.6 End stage renal disease; Z99.2 Dependence on renal dialysis; D63.1 Anemia in chronic kidney disease; M19.90 Unspecified osteoarthritis, unspecified site; Z86.73 Personal history of transient ischemic attack (TIA), and cerebral infarction without residual deficits; M81.0 Age-related osteoporosis without current pathological fracture

== ENCOUNTER 2021-12-04 21:40 | Emergency (ER) | payer OTHER ==
--- NOTE | 2021-12-05 00:24 | ER ---
Nurse's Notes [facility] Name: Sina William Age: 86 yrs Sex: Male : 1935 Arrival Date: 12/04/2021 Time: 21:47 Bed 2 Private MD: Diagnosis: Fall on same level from slipping, tripping and stumbling without subsequent striking against object;Pain in right foot;Skin tear ball of right foot Presentation: 12/04 21:48 Chief complaint: EMS states: mechanical fall in the shower. patient "eased himself to kd3 the ground". denies LOC, no head strike. pt is only complaining of right foot pain. Coronavirus screen: Vaccine status: Patient reports receiving the 2nd dose of the covid vaccine. Ebola Screen: No symptoms or risks identified at this time. Initial Sepsis Screen: Does the patient meet any 2 criteria? No. Patient's initial sepsis screen is negative. Does the patient have a suspected source of infection? No. Patient's initial sepsis screen is negative. Risk Assessment: Do you want to hurt yourself or someone else? Patient reports no desire to harm self or others. Onset of symptoms was December 04, 2021. 21:48 Method Of Arrival: EMS: [facility] kd3 21:48 Acuity: CLYDE 3 kd3 Triage Assessment: 21:49 General: Appears in no apparent distress. Behavior is calm, cooperative. Pain: kd3 Complains of pain in right foot. Historical: - Allergies: 21:49 GABAPENTIN; kd3 - Home Meds: 21:49 sevelamer HCl 800 mg Oral 3 tabs with each meal [Active]; lisinopril 10 mg Oral tab 1 kd3 tab twice a day [Active]; nifedipine 30 mg Oral TbER 1 tab once daily [Active]; levothyroxine 50 mcg tab 1 tab once daily [Active]; cod liver oil Oral cap daily [Active]; aspirin 81 mg Oral chew 1 tab once daily [Active]; hydralazine 100 mg Oral tab 1 tab 2 times per day [Active]; Lipitor Oral [Active]; - PMHx: 21:49 ADD/ADHD; Amyloid CA; Anemia; Dementia; HD - //Sat; Osteoporosis; Hypertension; kd3 CVA; Arthritis; Diabetes - NIDDM; - PSHx: 21:49 fistula graft; kd3 - Immunization history:: Adult Immunizations up to date. - Social history:: Smoking status: unknown. Screenin:50 Abuse screen: Denies threats or abuse. Denies injuries from another. Nutritional kd3 screening: No deficits noted. Tuberculosis screening: No symptoms or risk factors identified. Fall Risk Fall in past 12 months (25 points). Vital Signs: 21:59 BP 155 / 89; Pulse 56; Resp 18; Temp 98.2; Pulse Ox 99% on R/A; Weight 65.77 kg; Height kd3 5 ft. 6 in. (167.64 cm); Pain 5/10; 23:34 BP 184 / 79; Pulse 56; Resp 18 S; Pulse Ox 98% on R/A; as6 12/05 00:36 BP 184 / 84; Pulse 88; Resp 18 S; Pulse Ox 97% on R/A; as6 12/04 21:59 Body Mass Index 23.40 (65.77 kg, 167.64 cm) kd3 ED Course: 12/04 21:47 Patient arrived in ED. kd3 21:49 Triage completed. kd3 21:49 Arm band placed on right wrist. kd3 21:54 Julia Manning FNP-C is [facility]. kb 21:54 Sushant Garcia MD is Attending Physician. kb 21:59 Amy Baires, VERNON is Primary Nurse. kd3 22:00 Patient has correct armband on for positive identification. kd3 22:26 Humerus Left XRAY In Process Unspecified. EDMS 22:26 Foot Right 3 View XRAY In Process Unspecified. EDMS 22:35 CT Head C Spine In Process Unspecified. EDMS 12/05 00:37 No provider procedures requiring assistance completed. Patient did not have IV access as6 during this emergency room visit. Administered Medications: No medications were administered Medication: 00:36 VIS not applicable for this client. as6 Outcome: 00:24 Discharge ordered by . kb 00:37 Discharged to home via wheelchair, with family. as6 00:37 Condition: stable 00:37 Discharge instructions given to patient, family, Instructed on discharge instructions, follow up and referral plans. Demonstrated understanding of instructions, follow-up care. 00:37 Patient left the ED. as6 Signatures: Dispatcher [employer] EDJulia Alegria, SALES AND MARKETING AGENT-C SALES AND MARKETING AGENT-Ckb Alon Holman, RN RN as6 Amy Baires, RN RN kd3
--- NOTE | 2021-12-05 00:24 | EDPHYS ---
Physician Documentation [facility] Name: Sina William Age: 86 yrs Sex: Male : 1935 Arrival Date: 12/04/2021 Time: 21:47 Bed 2 Private MD: ED Physician Sushant Garcia HPI: 12/05 00:27 This 86 yrs old Male presents to ER via EMS with complaints of fall, foot pain.kb 00:27 Details of fall: The patient fell from an upright position, while standing. Onset: The kb symptoms/episode began/occurred just prior to arrival. Associated injuries: The patient sustained right foot, painful injury. Severity of symptoms: At their worst the symptoms were mild, moderate. The patient has not experienced similar symptoms in the past. The patient has not recently seen a physician. Pt states he was in the shower and stepped on the drain causing a cut on his foot. States he started to fall, but lowered himself to the ground. Reports pain to right foot only. Denies hitting head, denies loc. Daughter states he has brittle bones so she wants him checked out. States she thinks he did hit his head because of the way he was laying in the shower. . Historical: - Allergies: 12/04 21:49 GABAPENTIN; kd3 - Home Meds: 21:49 sevelamer HCl 800 mg Oral 3 tabs with each meal [Active]; lisinopril 10 mg Oral tab 1 kd3 tab twice a day [Active]; nifedipine 30 mg Oral TbER 1 tab once daily [Active]; levothyroxine 50 mcg tab 1 tab once daily [Active]; cod liver oil Oral cap daily [Active]; aspirin 81 mg Oral chew 1 tab once daily [Active]; hydralazine 100 mg Oral tab 1 tab 2 times per day [Active]; Lipitor Oral [Active]; - PMHx: 21:49 ADD/ADHD; Amyloid CA; Anemia; Dementia; HD - //Sat; Osteoporosis; Hypertension; kd3 CVA; Arthritis; Diabetes - NIDDM; - PSHx: 21:49 fistula graft; kd3 - Immunization history:: Adult Immunizations up to date. - Social history:: Smoking status: unknown. ROS: 12/05 00:26 Constitutional: Negative for fever, chills, and weight loss. kb MS/extremity: Positive for pain, of the right foot. Skin: Positive for of the ball of right foot, skin tear. All other systems are negative. Exam: 00:26 Constitutional: This is a well developed, well nourished patient who is awake, alert, kb and in no acute distress. Head/Face: Normocephalic, atraumatic. ENT: Moist Mucous membranes Chest/axilla: Normal chest wall appearance and motion. Cardiovascular: Regular rate and rhythm with a normal S1 and S2. No gallops, murmurs, or rubs. No pulse deficits. Respiratory: Respirations even and unlabored. No increased work of breathing. Talking in full sentences Abdomen/GI: Soft, non-tender. No distention Back: No spinal tenderness. No costovertebral tenderness. Full range of motion. Neuro: Awake and alert, GCS 15, oriented to person, place, time, and situation. Moves all extremities. Normal gait. Psych: Awake, alert, with orientation to person, place and time. Behavior, mood, and affect are within normal limits. 00:26 Musculoskeletal/extremity: Extremities: grossly normal except: noted in the right foot: pain, noted in the left upper arm: tenderness, ROM: no acute changes, Circulation is intact in all extremities. Sensation intact. 00:26 Skin: skin tear, size of dime, to ball of right foot. Vital Signs: 12/04 21:59 BP 155 / 89; Pulse 56; Resp 18; Temp 98.2; Pulse Ox 99% on R/A; Weight 65.77 kg; Height kd3 5 ft. 6 in. (167.64 cm); Pain 5/10; 23:34 BP 184 / 79; Pulse 56; Resp 18 S; Pulse Ox 98% on R/A; as6 12/05 00:36 BP 184 / 84; Pulse 88; Resp 18 S; Pulse Ox 97% on R/A; as6 12/04 21:59 Body Mass Index 23.40 (65.77 kg, 167.64 cm) kd3 MDM: 12/04 21:54 Patient medically screened. kb 12/05 00:25 Data reviewed: vital signs, nurses notes. Data interpreted: Pulse oximetry: on room air kb is 98 %. Interpretation: normal. Counseling: I had a detailed discussion with the patient and/or guardian regarding: the historical points, exam findings, and any diagnostic results supporting the discharge/admit diagnosis, radiology results, the need for outpatient follow up, a family practitioner, to return to the emergency department if symptoms worsen or persist or if there are any questions or concerns that arise at home. 12/04 22:01 Order name: CT Head C Spine kb 12/04 22:01 Order name: Humerus Left XRAY kb 12/04 22:01 Order name: Foot Right 3 View XRAY kb Administered Medications: No medications were administered Disposition Summary: 12/05/21 00:24 Discharge Ordered Location: Home kb Condition: Stable kb Diagnosis - Fall on same level from slipping, tripping and stumbling without subsequent kb striking against object - Pain in right foot kb - Skin tear ball of right foot kb Followup: kb - With: Emergency Department - When: As needed - Reason: Worsening of condition Followup: kb - With: Private Physician - When: 2 - 3 days - Reason: Recheck today's complaints, Continuance of care, Re-evaluation by your physician Discharge Instructions: - Discharge Summary Sheet kb - Musculoskeletal Pain kb - Skin Tear, [id number] kb Forms: - Medication Reconciliation Form kb - Thank You Letter kb - Antibiotic Education kb - Prescription Opioid Use kb Addendum: 12/06/2021 07:20 Co-signature as Attending Physician, Sushant Garcia MD I agree with the assessment and k dr plan of care. Signatures: Dispatcher [employer] Julia Reyna, MAIN ENTREE COOK AND CASHIER-C MAIN E[employer] COOK [employer] CASHIER-Sushant Houston MD MD [facility] Amy Baires, RN RN kd3
[2021-12-05 01:57] VITALS: TEMP 98.2
[2021-12-05 02:00] VITALS: BP 184/84; O2SAT 97
--- NOTE | 2021-12-05 16:46 | RAD REPORT ---
EXAM DESCRIPTION: RAD - Foot Right 3 View - 12/04/2021 10:25 pm CLINICAL HISTORY: 86 years Male, PAIN COMPARISON: None. FINDINGS: No evidence of an acute fracture of the right foot. No dislocation. Osteopenia is present. There is suggestion of pes planus. No evidence of osseous erosive changes. Small plantar calcaneal s pur noted. Vascular calcifications are noted. IMPRESSION: 1. No evidence of an acute fracture of the right foot. 2. Osteopenia. Electronically signed by: Ronnell Diaz MD 12/04/2021 11:08 PM CDT Due to temporary technical issues with the PACS/Fluency reporting system, reports are being signed by the in house radiologists without. review as a courtesy to insure prompt reporting. The interpreting radiologist is fully responsible for the content of the report.
--- NOTE | 2021-12-05 16:49 | RAD REPORT ---
EXAM DESCRIPTION: RAD - Humerus Left - 12/04/2021 10:25 pm CLINICAL HISTORY: 86-year-old male with pain. TECHNIQUE: Two views of the LEFT humerus were obtained in AP and lateral projection. COMPARISON: None. FINDINGS: There is no fracture or dislocation. The joint spaces are preserved. No soft tissue abnorm alities are seen. Vascular calcification present throughout the soft tissues. IMPRESSION: No acute radiographic abnormality. Electronically signed by: Chantelle Marie MD 12/04/2021 11:00 PM CDT Due to temporary technical issues with the PACS/Fluency reporting system, reports are being signed by the in house radiologists without. review as a courtesy to insure prompt reporting. The interpreting radiologist is fully responsible for the content of the report.
--- NOTE | 2021-12-05 16:58 | RAD REPORT ---
EXAM DESCRIPTION: CT - Head C Spine Mpr Wo Con - 12/05/2021 6:00 am CLINICAL HISTORY: 86-year-old male status post fall. COMPARISON: None. TECHNIQUE: CT brain without contrast. This exam was performed according to our departmental dose opt imization program which includes use of automated exposure control, adjustment of the mA and/or kV ac cording to patient size and/or use of iterative reconstruction technique. FINDINGS: Multifocal regions of patchy hypoattenuation are present in a subcortical and periventricu lar deep white matter distribution, nonspecific; however, most likely represent small vessel ischemic disease, age indeterminate. The ventricles, and sulci are prominent compatible with underlying volume loss. Prominence of the bif rontal extra-axial space suspected secondary to volume loss. The pruitt-white matter differentiation is preserved. There is no mass effect, midline shift, intra- or extra-axial fluid collection/acute he morrhage. The osseous structures are unremarkable. The paranasal sinuses and mastoid air cells ar e clear. IMPRESSION: 1. No acute intracranial abnormalities. Nonspecific white matter change most likely sm all vessel ischemic disease, age indeterminate. 2. CT is insensitive for early evaluation of acute stroke. If there is clinical concern for acute ischemia, an MRI may be considered. TECHNIQUE: Cervical spine CT was performed without contrast. Multiplanar reformatted images were pro vided. This exam was performed according to our departmental dose optimization program which includes use of automated exposure control, adjustment of the mA and/or kV according to patient size and/or u se of iterative reconstruction technique. COMPARISON: None. FINDINGS: Grade 1 anterolisthesis of C3 relative to C4 suspected secondary to facet degenerative elizabeth nge at that level. There is normal alignment of the cervical spine without fracture or subluxation. The facets are marianne l in alignment bilaterally. The posterior elements including the spinous processes are intact. Straig htening of the cervical spine which may be secondary to positioning for the examination. Morphology and attenuation of the vertebral bodies and intervertebral disk spaces is compatible with multilevel degenerative change. Multilevel loss of intervertebral disk height. Multilevel posterior osseous spurring results in neuro foraminal narrowing throughout the cervical spine. Posterior osseous spurring results in mild effacement of the ventral thecal sac and mild central spin al canal narrowing at C5-6 and C6-7 vertebral levels. The pre-and paravertebral soft tissues are within normal limits. IMPRESSION: 1. Straightening of the cervical spine which may be secondary to positioning for the exa mination versus spasm. 2. No fracture or acute subluxation. Electronically signed by: Chantelle Marie MD 12/04/2021 11:09 PM CDT Due to temporary technical issues with the PACS/Fluency reporting system, reports are being signed by the in house radiologists without. review as a courtesy to insure prompt reporting. The interpreting radiologist is fully responsible for the content of the report.
== END 2021-12-05 00:37 | disposition home or self-care (01) ==
LOC: ER 21:40
DX: S91.311A Laceration without foreign body, right foot, initial encounter (principal); W01.0XXA Fall on same level from slipping, tripping and stumbling without subsequent striking against object, initial encounter; E11.9 Type 2 diabetes mellitus without complications; F03.90 Unspecified dementia, unspecified severity, without behavioral disturbance, psychotic disturbance, mood disturbance, and anxiety; I10 Essential (primary) hypertension; Z99.2 Dependence on renal dialysis; Z86.73 Personal history of transient ischemic attack (TIA), and cerebral infarction without residual deficits; Z79.82 Long term (current) use of aspirin; Z88.8 Allergy status to other drugs, medicaments and biological substances
CPT/HCPCS: 70450; 72125; 99283

== ENCOUNTER 2021-12-10 14:17 | Emergency (ER) | payer OTHER ==
[2021-12-10 15:26] LABS: Absolute Lymphocytes (CBC) 1.1 K/uL (0.7-4.9); Hematocrit 37.3 % (39.6-49.0); Lymphocytes % 18.8 % (15.3-44.8); MCV 97.8 fL (80-100); MPV 8.3 fL (7.6-11.3); RBC Red Blood Cell Count 3.81 M/uL (4.33-5.43)
--- NOTE | 2021-12-10 15:34 | RAD REPORT ---
EXAM DESCRIPTION: CT - Head Brain Wo Cont - 12/10/2021 3:28 pm CLINICAL HISTORY: general weakness Headache, drowsiness COMPARISON: Head Brain Wo Cont dated 01/29/2020; Head Brain Wo Cont dated 01/25/2020 TECHNIQUE: All CT scans are performed using dose optimization technique as appropriate and may inclu de automated exposure control or mA/KV adjustment according to patient size. FINDINGS: No intracranial hemorrhage, hydrocephalus or extra-axial fluid collection.Advanced general ized brain atrophy is present with moderate periventricular and deep white matter chronic microvascul ar ischemic changes.No areas of brain edema or evidence of midline shift. The paranasal sinuses and mastoids are clear. The calvarium is intact. Mild vertebral atherosclerosis . IMPRESSION: No acute intracranial abnormality.
--- NOTE | 2021-12-10 15:35 | RAD REPORT ---
EXAM DESCRIPTION: RAD - Chest Single View - 12/10/2021 3:23 pm CLINICAL HISTORY: weakness Chest pain. COMPARISON: Chest Single View dated 11/20/2020; Chest Single View dated 01/29/2020; Chest Single View dated 01/25/2020; Chest Single View dated 06/30/2019 FINDINGS: Portable technique limits examination quality. The lungs are grossly clear. The heart is upper limit of normal in size. No displaced fractures.Aorti c atherosclerosis. IMPRESSION: No acute intrathoracic process suspected.
[2021-12-10 15:43] LABS: Albumin 3.6 g/dL (3.4-5.0); Bilirubin Direct 0.2 mg/dL (0-0.2); Bilirubin Total 0.5 mg/dL (0.2-1.0); Magnesium 2.7 mg/dL (1.8-2.4); Potassium 4.4 mmol/L (3.5-5.1); Protein, Total 7.4 g/dL (6.4-8.2); Troponin High Sensitivity 38.6 pg/mL (<58.9)
[2021-12-10 16:32] LABS: Protime INR 1.07
--- NOTE | 2021-12-10 17:15 | RAD REPORT ---
EXAM DESCRIPTION: CT - Abdomen Pelvis Wo Contrast - 12/10/2021 5:04 pm CLINICAL HISTORY: Abdominal pain. Epigastric pain COMPARISON: CT ANGIO ABD/PELVIS W CONTRAST dated 01/31/2020 TECHNIQUE: CT imaging of the abdomen and pelvis was performed without contrast. Solid organ, bowel a nd vascular assessment is limited due to lack of IV and oral contrast. All CT scans are performed using dose optimization technique as appropriate and may include automated exposure control or mA/KV adjustment according to patient size. FINDINGS: The lower lung pereira are clear. The liver, spleen, pancreas, adrenal glands are within normal limits for a limited non-contrast exami nation.Small cysts are present in both kidneys, benign in appearance. Cholelithiasis. No bowel obstruction, free air, free fluid or abscess. Sigmoid diverticulosis coli is present without diverticulitis. The appendix is normal. Hardware is present proximal right femur.Mild compression deformity affects the L3 vertebral body. Mi ld degenerative anterolisthesis L4 on 5. IMPRESSION: Cholelithiasis. Prominent diverticulosis coli of the sigmoid colon with moderate retained stool. Mild compression deformity affects the L3 vertebral body, age uncertain but favored to be subacute. A limited non-contrast examination was performed as detailed.
--- NOTE | 2021-12-10 18:32 | ER ---
Nurse's Notes [facility] Name: Sina William Age: 86 yrs Sex: Male : 1935 Arrival Date: 12/10/2021 Time: 14:19 Bed 13 Private MD: Diagnosis: Weakness Presentation: 12/10 14:33 Chief complaint: Patient states: Black tarry stools for over 1 month. Pt thought he was ld1 eating "too many black beans." Family reports pt having appetite but still losing weight. Coronavirus screen: At this time, the client does not indicate any symptoms associated with coronavirus-19. Ebola Screen: No symptoms or risks identified at this time. Initial Sepsis Screen: Does the patient meet any 2 criteria? No. Patient's initial sepsis screen is negative. Does the patient have a suspected source of infection? No. Patient's initial sepsis screen is negative. Risk Assessment: Do you want to hurt yourself or someone else? Patient reports no desire to harm self or others. Onset of symptoms was December 10, 2021. 14:33 Method Of Arrival: Wheelchair ld1 14:33 Acuity: CLYDE 3 ld1 Triage Assessment: 14:34 General: Appears in no apparent distress. comfortable, Behavior is calm, cooperative, ld1 appropriate for age. Pain: Denies pain. EENT: No signs and/or symptoms were reported regarding the EENT system. Neuro: Level of Consciousness is awake, alert, obeys commands, Oriented to person, place, time, situation, Reports weakness. Cardiovascular: Capillary refill < 3 seconds Patient's skin is warm and dry. Respiratory: Airway is patent Respiratory effort is even, unlabored. GI: Abdomen is flat, non-distended. : No signs and/or symptoms were reported regarding the genitourinary system. Derm: No signs and/or symptoms reported regarding the dermatologic system. Musculoskeletal: No signs and/or symptoms reported regarding the musculoskeletal system. Historical: - Allergies: 14:34 GABAPENTIN; ld1 - PMHx: 14:34 ADD/ADHD; HD - //Thu; Osteoporosis; Hypertension; Dementia; Diabetes - NIDDM; CVA; ld1 Amyloid CA; Anemia; Arthritis; Dialysis M/W/F; - PSHx: 14:34 fistula graft; ld1 - Immunization history:: Adult Immunizations up to date, Client reports receiving the 2nd dose of the Covid vaccine. - Social history:: Smoking status: Patient denies any tobacco usage or history of. Patient uses alcohol, occasionally. Screenin:00 Abuse screen: Denies threats or abuse. Denies injuries from another. jh6 15:00 Nutritional screening: No deficits noted. Tuberculosis screening: No symptoms or risk jh6 factors identified. Fall Risk None identified. Assessment: 15:00 General: Appears in no apparent distress. comfortable, Behavior is calm, cooperative. jh6 15:00 GI: Abdomen is flat, non-distended, Bowel sounds present X 4 quads. Abd is soft and non jh6 tender X 4 quads. Reports dark tar colored stools x 1mo. when asked pt stated no blood noted but family wanted him to get ckd out. Vital Signs: 14:33 BP 96 / 54; Pulse 51; Resp 18; Temp 98.9(TE); Pulse Ox 96% on R/A; Weight 65.77 kg; ld1 Height 5 ft. 7 in. (170.18 cm); Pain 0/10; 17:00 BP 135 / 63; Pulse 48; Resp 16; Pulse Ox 100% ; Pain 0/10; jh6 14:33 Body Mass Index 22.71 (65.77 kg, 170.18 cm) ld1 ED Course: 14:19 Patient arrived in ED. rg4 14:23 Ted Fernando PA is PHCP. cp 14:23 Brayan Root DO is Attending Physician. cp 14:34 Triage completed. ld1 14:34 Arm band placed on right wrist. ld1 15:00 Placed in gown. Bed in low position. Call light in reach. Side rails up X2. Adult w/ jh6 patient. 15:01 Anne Wood, RN is Primary Nurse. jh6 15:08 Inserted saline lock: 18 gauge in left antecubital area, using aseptic technique. duran 15:25 XRAY Chest (1 view) In Process Unspecified. EDMS 15:30 CT Head Brain wo Cont In Process Unspecified. EDMS 16:[address] via stretcher. jh6 17:05 Abdomen In Process Unspecified. EDMS 18:30 Brady Ballesteros MD is Referral Physician. cp 19:11 No provider procedures requiring assistance completed. IV discontinued, intact, lg3 bleeding controlled, No redness/swelling at site. Pressure dressing applied. 19:24 Primary Nurse role handed off by Anne Wood RN mw2 Administered Medications: 16:12 CANCELLED (Physician Discretion): NS 0.9% 250 ml IV at bolus once cp Medication: 16:59 VIS not applicable for this client. jh6 Outcome: 18:31 Discharge ordered by MD. cp 19:11 Discharged to home ambulatory, with family. lg3 19:11 Condition: stable 19:11 Discharge instructions given to patient, family, Instructed on discharge instructions, follow up and referral plans. Demonstrated understanding of instructions, follow-up care. 19:45 Patient left the ED. lg3 Signatures: Dispatcher [employer] EDMS Ted Fernando PA PA cp Garcia, Rubi rg4 Iris Toribio mw2 Hollie Alan RN RN lg3 Yvette Rolon RN RN ld1 Anne Wood RN RN 6 Helen-StagerBeatriz RN RN duran Corrections: (The following items were deleted from the chart) 14:35 14:33 Chief complaint: Patient states: Black tarry stools for over 1 month. Pt thought ld1 he was eating "too many black beans." ld1
--- NOTE | 2021-12-10 18:32 | EDPHYS ---
Physician Documentation [facility] Name: Sina William Age: 86 yrs Sex: Male : 1935 Arrival Date: 12/10/2021 Time: 14:19 Bed 13 Private MD: ED Physician Brayan Root HPI: 12/10 14:55 This 86 yrs old Male presents to ER via Wheelchair with complaints of cp Black/Tarry Stools, Weakness. Historical: - Allergies: 14:34 GABAPENTIN; ld1 - PMHx: 14:34 ADD/ADHD; HD - //Sat; Osteoporosis; Hypertension; Dementia; Diabetes - NIDDM; CVA; ld1 Amyloid CA; Anemia; Arthritis; Dialysis M/W/F; - PSHx: 14:34 fistula graft; ld1 - Immunization history:: Adult Immunizations up to date, Client reports receiving the 2nd dose of the Covid vaccine. - Social history:: Smoking status: Patient denies any tobacco usage or history of. Patient uses alcohol, occasionally. Exam: 15:13 : Rectal exam: Stool: black, hard, Guaiac testing: results were negative for occult cp blood. Vital Signs: 14:33 BP 96 / 54; Pulse 51; Resp 18; Temp 98.9(TE); Pulse Ox 96% on R/A; Weight 65.77 kg; ld1 Height 5 ft. 7 in. (170.18 cm); Pain 0/10; 17:00 BP 135 / 63; Pulse 48; Resp 16; Pulse Ox 100% ; Pain 0/10; jh6 14:33 Body Mass Index 22.71 (65.77 kg, 170.18 cm) ld1 MDM: 14:38 Patient medically screened. cp 12/10 14:53 Order name: Basic Metabolic Panel; Complete Time: 16:10 cp 12/10 16:10 Interpretation: Normal except: NA 135; GLUC 141; BUN 48; CRE 6.30; GFR 8. cp 12/10 14:53 Order name: CBC with Diff; Complete Time: 16:10 cp 12/10 16:11 Interpretation: Normal except: RBC 3.81; HGB 12.2; HCT 37.3; RDW 15.7. cp 12/10 14:53 Order name: LFT's; Complete Time: 16:10 cp 12/10 16:11 Interpretation: Normal except: AST 12; GLOB 3.8; A/G 0.9. 12/10 14:53 Order name: Magnesium; Complete Time: 16:10 12/10 14:53 Order name: NT PRO-BNP; Complete Time: 16:10 12/10 16:38 Interpretation: Abnormal: NT PRO-BNP 47620. 12/10 14:53 Order name: PT-INR; Complete Time: 16:38 12/10 14:53 Order name: Troponin HS; Complete Time: 16:10 12/10 14:53 Order name: XRAY Chest (1 view); Complete Time: 16:10 12/10 14:53 Order name: EKG; Complete Time: 14:54 12/10 14:54 Order name: Ptt, Activated; Complete Time: 16:10 12/10 15:00 Order name: CT Head Brain wo Cont; Complete Time: 16:10 12/10 16:21 Order name: CT Abd/Pelvis - Without Contrast 12/10 16:25 Order name: Abdomen ; Complete Time: 18:23 EDMS 12/10 14:53 Order name: Cardiac monitoring; Complete Time: 15:58 12/10 14:53 Order name: EKG - Nurse/Tech; Complete Time: 15:58 12/10 14:53 Order name: IV Saline Lock; Complete Time: 15:06 12/10 14:53 Order name: Labs collected and sent; Complete Time: 15:07 12/10 14:53 Order name: O2 Per Protocol; Complete Time: 15:07 12/10 14:53 Order name: O2 Sat Monitoring; Complete Time: 15:07 12/10 16:13 Order name: Vital Signs: please update to include blood pressure; Complete Time: 19:11 cp Administered Medications: 16:12 CANCELLED (Physician Discretion): NS 0.9% 250 ml IV at bolus once cp Disposition Summary: 12/10/21 18:31 Discharge Ordered Location: Home cp Problem: new cp Symptoms: have improved cp Condition: Stable cp Diagnosis - Weakness cp Followup: cp - With: Brady Ballesteros MD - When: 2 - 3 days - Reason: Recheck today's complaints Discharge Instructions: - Discharge Summary Sheet cp - Weakness cp Forms: - Medication Reconciliation Form cp - Thank You Letter cp - Antibiotic Education cp - Prescription Opioid Use cp Signatures: Dispatcher [employer] EDMS Ted Fernando PA PA cp Dibbern, Lauren RN RN ld1 Corrections: (The following items were deleted from the chart) 16:12 16:12 NS 0.9% 250 ml IV at bolus once ordered. cp cp
[2021-12-10 20:02] VITALS: TEMP 98.9
[2021-12-10 20:08] VITALS: BP 135/63; O2SAT 100
--- NOTE | 2021-12-11 11:08 | EKG ---
Test Date: 2021-12-10 Test Time: 15:51:15 Field Irrigation Worker: FUENTES MEASUREMENT RESULTS: Intervals: Rate: 49 ND: 244 QRSD: 146 QT: 528 QTc: 476 Gepp: P: 12 ND: 244 QRS: -8 T: 19 INTERPRETIVE STATEMENTS: Sinus bradycardia with 1st degree AV block Right bundle branch block Abnormal ECG Compared to ECG 11/20/2020 16:08:09 First degree AV block now present Left-axis deviation no longer present Myocardial infarct finding no longer present Electronically Signed On 12-11-21 11:06:35 CDT by Kevan Thomas
== END 2021-12-10 19:45 | disposition home or self-care (01) ==
LOC: ER 14:17
DX: R53.1 Weakness (principal); E11.9 Type 2 diabetes mellitus without complications; I10 Essential (primary) hypertension; F03.90 Unspecified dementia, unspecified severity, without behavioral disturbance, psychotic disturbance, mood disturbance, and anxiety; Z86.73 Personal history of transient ischemic attack (TIA), and cerebral infarction without residual deficits; Z99.2 Dependence on renal dialysis; Z88.8 Allergy status to other drugs, medicaments and biological substances
CPT/HCPCS: 93005; 85025; 80048; 36415; 83735; 85610; 80076; 85730; 84484; 83880; 70450; 74176; 71045; Q9967

== ENCOUNTER 2022-03-22 11:44 | Emergency (ER) | payer OTHER ==
[2022-03-22] MEDS ORDERED: DOPAMINE/D5W 400 MG/250 ML BAG IV ONE (12:15)
[2022-03-22 12:21] LABS: Absolute Lymphocytes (CBC) 1.1 K/uL (0.7-4.9); Hematocrit 29.6 % (39.6-49.0); Lymphocytes % 22.6 % (15.3-44.8); MCV 102.3 fL (80-100); MPV 8.9 fL (7.6-11.3); RBC Red Blood Cell Count 2.89 M/uL (4.33-5.43)
[2022-03-22 12:36] LABS: SARS-CoV-2 Antigen Rapid Res Negative (Negative)
[2022-03-22 12:43] LABS: Potassium 4.7 mmol/L (3.5-5.1); Troponin High Sensitivity 76.3 pg/mL (<58.9)
--- NOTE | 2022-03-22 12:49 | EDPHYS ---
Physician Documentation [facility] Name: Sina William Age: 86 yrs Sex: Male : 1935 Arrival Date: 03/22/2022 Time: 11:51 Bed 17 Private MD: ED Physician Sushant Garcia HPI: 03/22 12:49 This 86 yrs old Male presents to ER via EMS with complaints of Weakness and kdr hypotension. 12:49 The patient's daughter reports that he had felt cold in the house this morning and had kdr gone outside. Short time later she found the patient on the ground outside and he was weak and unable to get up. He also seemed mildly confused. Patient does have a reported history of dementia. EMS was called to the scene and noted that the patient was bradycardic and hypotensive. His rate was in the 30s and 40s and his blood pressure was in the 70s and 80s. He did have a brief episode of systolic blood pressure less than 70. EMS attempted atropine without effect.. Onset: The symptoms/episode began/occurred suddenly, just prior to arrival. Severity of symptoms: At their worst the symptoms were incapacitating in the emergency department the symptoms are unchanged. The patient has not experienced similar symptoms in the past. The patient has not recently seen a physician. Historical: - Allergies: 12:08 GABAPENTIN; mb8 - PMHx: 12:08 ADD/ADHD; Amyloid CA; Anemia; Arthritis; CVA; Dementia; Diabetes - NIDDM; Dialysis mb8 M/W/F; HD - //Thu; Hypertension; Osteoporosis; - PSHx: 12:08 fistula graft; mb8 - Social history:: Smoking status: unknown. ROS: 12:49 Constitutional: Negative for fever, chills, and weight loss, Eyes: Negative for injury, kdr pain, redness, and discharge, ENT: Negative for injury, pain, and discharge, Neck: Negative for injury, pain, and swelling, Respiratory: Negative for shortness of breath, cough, wheezing, and pleuritic chest pain, Abdomen/GI: Negative for abdominal pain, nausea, vomiting, diarrhea, and constipation, Back: Negative for injury and pain, : Negative for injury, bleeding, discharge, and swelling, MS/Extremity: Negative for injury and deformity, Skin: Negative for injury, rash, and discoloration, Psych: Negative for depression, anxiety, suicide ideation, homicidal ideation, and hallucinations, Allergy/Immunology: Negative for hives, rash, and allergies, Endocrine: Negative for neck swelling, polydipsia, polyuria, polyphagia, and marked weight changes, Hematologic/Lymphatic: Negative for swollen nodes, abnormal bleeding, and unusual bruising. 12:49 Cardiovascular: Positive for palpitations, Negative for chest pain, edema, palpitations. Exam: 12:49 Constitutional: This is a well developed, well nourished patient who is awake, alert, kdr and in no acute distress. Head/Face: Normocephalic, atraumatic. Eyes: Pupils equal round and reactive to light, extra-ocular motions intact. Lids and lashes normal. Conjunctiva and sclera are non-icteric and not injected. Cornea within normal limits. Periorbital areas with no swelling, redness, or edema. Neck: Trachea midline, no thyromegaly or masses palpated, and no cervical lymphadenopathy. Supple, full range of motion without nuchal rigidity, or vertebral point tenderness. No Meningismus. Chest/axilla: Normal chest wall appearance and motion. Nontender with no deformity. No lesions are appreciated. Respiratory: Lungs have equal breath sounds bilaterally, clear to auscultation and percussion. No rales, rhonchi or wheezes noted. No increased work of breathing, no retractions or nasal flaring. Abdomen/GI: Soft, non-tender, with normal bowel sounds. No distension or tympany. No guarding or rebound. No evidence of tenderness throughout. Back: No spinal tenderness. No costovertebral tenderness. Full range of motion. Skin: Warm, dry with normal turgor. Normal color with no rashes, no lesions, and no evidence of cellulitis. MS/ Extremity: Pulses equal, no cyanosis. Neurovascular intact. Full, normal range of motion. Neuro: Awake and alert, GCS 15, oriented to person, place, time, and situation. Cranial nerves II-XII grossly intact. Motor strength 5/5 in all extremities. Sensory grossly intact. Cerebellar exam normal. Normal gait. Psych: Awake, alert, with orientation to person, place and time. Behavior, mood, and affect are within normal limits. 12:49 Cardiovascular: Rate: bradycardic, actual rate is 40 bpm, Rhythm: irregularly irregular, Pulses: no pulse deficits are appreciated, Heart sounds: normal, Edema: is not appreciated. 12:49 ECG was reviewed by the Attending Physician. Vital Signs: 11:50 BP 76 / 44; Pulse 33; Resp 16; Temp 97.9; Pulse Ox 88% on R/A; Pain 0/10; mb8 12:00 BP 75 / 49; Pulse 29; Resp 16; Pulse Ox 92% on 2 lpm NC; mb8 12:05 BP 58 / 42; Pulse 32; mb8 12:10 BP 72 / 49; Pulse 40; Pulse Ox 98% on 2 lpm NC; mb8 12:15 BP 83 / 56; Pulse 31; Resp 18; Pulse Ox 96% on 2 lpm NC; mb8 12:20 BP 82 / 48; Pulse 34; Resp 14; Pulse Ox 96% on 2 lpm NC; mb8 12:24 Weight 65.4 kg; mb8 12:25 BP 80 / 47; Pulse 37; mb8 12:30 BP 70 / 49; Pulse 38; mb8 12:35 BP 82 / 61; Pulse 39; mb8 12:40 BP 74 / 47; Pulse 38; Resp 13; Pulse Ox 95% on 2 lpm NC; mb8 12:45 BP 77 / 47; Pulse 42; mb8 12:50 BP 82 / 46; Pulse 38; mb8 12:30 Dopeamine increased to 5mcg mb8 MDM: 12:49 Patient medically screened. kdr 13:34 Data reviewed: vital signs, nurses notes, lab test result(s), radiologic studies. kdr Counseling: I had a detailed discussion with the patient and/or guardian regarding: the historical points, exam findings, and any diagnostic results supporting the discharge/admit diagnosis, lab results, radiology results, the need for outpatient follow up. 03/22 11:52 Order name: Basic Metabolic Panel; Complete Time: 13:35 kdr 03/22 11:52 Order name: CBC with Diff; Complete Time: 13:35 kdr 03/22 11:52 Order name: Troponin HS; Complete Time: 13:35 kdr 03/22 11:52 Order name: XRAY Chest (1 view); Complete Time: 13:35 kdr 03/22 12:05 Order name: SARS RAPID; Complete Time: 13:35 eb 03/22 11:52 Order name: EKG; Complete Time: 11:53 kdr 03/22 11:52 Order name: Cardiac monitoring; Complete Time: 12:20 kdr 03/22 11:52 Order name: EKG - Nurse/Tech; Complete Time: 12:20 kdr 03/22 11:52 Order name: IV Saline Lock; Complete Time: 12:20 kdr 03/22 11:52 Order name: Labs collected and sent; Complete Time: 12:20 kdr 03/22 11:52 Order name: O2 Per Protocol; Complete Time: 12:20 kdr 03/22 11:52 Order name: O2 Sat Monitoring; Complete Time: 12:20 kdr EC:49 Rate is 40 beats/min. Rhythm is irregularly irregular, A fib with 3rd degree heart kdr block. QRS [place] is Normal. [place] interval is normal. QRS interval is normal. QT interval is normal. Clinical impression: Atrial Fibrillation and Low ventricular response. Administered Medications: 12:20 Drug: DOPamine 3 mcg/kg/min Route: IV; Rate: calculated rate; Site: left hand; mb8 Disposition Summary: 03/22/22 12:49 Transfer Ordered Transfer Location: [facility] kdr Reason: Higher level of care kdr Condition: Serious kdr Problem: new kdr Symptoms: have improved kdr Accepting Physician: Dr. Lyles(03/22/22 13:08) mb8 Diagnosis - Unspecified atrial fibrillation kdr - Other specified heart block kdr - Hypotension, unspecified kdr Discharge Instructions: - Discharge Summary Sheet mb8 Forms: - Medication Reconciliation Form kdr - SBAR form mb8 Signatures: Dispatcher [employer] EDSushant Griffith MD MD kdr Maninder Hennessy RN RN mb8 Corrections: (The following items were deleted from the chart) 13: 12:49 Dr. Lyles kdr mb8
--- NOTE | 2022-03-22 12:49 | ER ---
Nurse's Notes [facility] Name: Sina William Age: 86 yrs Sex: Male : 1935 Arrival Date: 03/22/2022 Time: 11:51 Bed 17 Private MD: Diagnosis: Unspecified atrial fibrillation;Other specified heart block;Hypotension, unspecified Presentation: 03/22 11:50 Chief complaint: Patient states: denies any pain at this time EMS states: they found mb8 patient on the ground outside, low HR in the 30s onscene, gave 0.5mg Atropine and 300ml of NS. 20ga right hand. Ebola Screen: Patient negative for fever greater than or equal to 101.5 degrees Fahrenheit, and additional compatible Ebola Virus Disease symptoms Patient denies exposure to infectious person. Patient denies travel to an Ebola-affected area in the 21 days before illness onset. 11:50 Method Of Arrival: EMS mb8 12:00 Initial Sepsis Screen: Does the patient meet any 2 criteria? Mean Arterial Pressure mb8 (MAP) < 65. No. Patient's initial sepsis screen is negative. Does the patient have a suspected source of infection? No. Patient's initial sepsis screen is negative. Risk Assessment: Do you want to hurt yourself or someone else? Patient reports no desire to harm self or others. Onset of symptoms was March 22, 2022. 12:00 Acuity: CLYDE 2 mb8 12:16 Acuity: CLYDE 1 kr3 Triage Assessment: 12:19 General: Appears ill, Behavior is calm, cooperative, appropriate for age. Pain: Denies mb8 pain. Historical: - Allergies: 12:08 GABAPENTIN; mb8 - PMHx: 12:08 ADD/ADHD; Amyloid CA; Anemia; Arthritis; CVA; Dementia; Diabetes - NIDDM; Dialysis mb8 M/W/F; HD - //Thu; Hypertension; Osteoporosis; - PSHx: 12:08 fistula graft; mb8 - Social history:: Smoking status: unknown. Screenin:22 Abuse screen: Denies threats or abuse. Denies injuries from another. Nutritional mb8 screening: No deficits noted. Tuberculosis screening: No symptoms or risk factors identified. Fall Risk None identified. Assessment: 12:21 Cardiovascular: Reports shortness of breath, Denies chest pain, lightheadedness, mb8 nausea, palpitations, Capillary refill is > 3 seconds Patient's skin is warm and dry. Chest pain is denied. Respiratory: No deficits noted. Reports shortness of breath at rest Breath sounds are clear bilaterally. Vital Signs: 11:50 BP 76 / 44; Pulse 33; Resp 16; Temp 97.9; Pulse Ox 88% on R/A; Pain 0/10; mb8 12:00 BP 75 / 49; Pulse 29; Resp 16; Pulse Ox 92% on 2 lpm NC; mb8 12:05 BP 58 / 42; Pulse 32; mb8 12:10 BP 72 / 49; Pulse 40; Pulse Ox 98% on 2 lpm NC; mb8 12:15 BP 83 / 56; Pulse 31; Resp 18; Pulse Ox 96% on 2 lpm NC; mb8 12:20 BP 82 / 48; Pulse 34; Resp 14; Pulse Ox 96% on 2 lpm NC; mb8 12:24 Weight 65.4 kg; mb8 12:25 BP 80 / 47; Pulse 37; mb8 12:30 BP 70 / 49; Pulse 38; mb8 12:35 BP 82 / 61; Pulse 39; mb8 12:40 BP 74 / 47; Pulse 38; Resp 13; Pulse Ox 95% on 2 lpm NC; mb8 12:45 BP 77 / 47; Pulse 42; mb8 12:50 BP 82 / 46; Pulse 38; mb8 12:30 Dopeamine increased to 5mcg mb8 Vitals: 12:10 Cardiac Rhythm Assessment Sinus adri. mb8 ED Course: 11:45 Inserted saline lock: 20 gauge in right hand, using aseptic technique. ,using aseptic mb8 technique. EMS IV. 11:50 Inserted saline lock: 18 gauge in right antecubital area, using aseptic technique. mb8 Blood collected. Oxygen administration via nasal cannula \T\ 2L/min. 11:50 Patient has correct armband on for positive identification. Placed in gown. Bed in low mb8 position. Call light in reach. Side rails up X2. Client placed on continuous cardiac and pulse oximetry monitoring. NIBP monitoring applied. hall monitor on. d-fib pads on patient. 11:51 Patient arrived in ED. eb 11:52 Sushant Garcia MD is Attending Physician. kdr 12:06 Maninder Hennessy RN is Primary Nurse. mb8 12:08 Triage completed. mb8 12:08 initiated a transfer with Caterina Bolden Rn from the [facility]. eb 12:[address] Eb Lyles the bead trimmer liquefaction supervisor for [facility] with Dr. Radha degroot for patient transfer consultation. 12:31 Administrative approval given by Caterina Bolden Rn/ patient has been accepted to [facility] CCU 6105/ Dr. Eb Lyles has accepted the patient in transfer/ report to be called to [phone]. 12:33 [facility] [employer] flight called eta 20 min. eb 12:57 XRAY Chest (1 view) In Process Unspecified. EDMS Administered Medications: 12:20 Drug: DOPamine 3 mcg/kg/min Route: IV; Rate: calculated rate; Site: left hand; mb8 Medication: 12:22 VIS not applicable for this client. mb8 Outcome: 12:49 ER care complete, transfer ordered by MD. kdr 12:56 Transferred by helicopter Transfer form completed. mb8 12:56 Transferred Note: Report given to Monica JUNIOR 12:56 critical 13:08 Patient left the ED. mb8 Signatures: Dispatcher [employer] EDMS Sushant Garcia MD MD kdr Botello, Elizabeth eb Reid, Kelley, VERNON RN kr3 Maninder Hennessy, VERNON RN mb8 Corrections: (The following items were deleted from the chart) 12:39 12:20 BP 80 / 47; Pulse 34bpm; Resp 14bpm; Pulse Ox 96% 2 lpm Nasal Cannula; mb8 mb8 12:51 12:30 BP 70 / 49; Pulse 38bpm; mb8 mb8
--- NOTE | 2022-03-22 13:04 | RAD REPORT ---
EXAM DESCRIPTION: Manuel Single View03/22/2022 12:56 pm CLINICAL HISTORY: Chest pain COMPARISON: December 1021 FINDINGS: Artifact overlies lower left chest obscuring detail. The visualized lungs appear clear of acute infiltrate. The heart is mildly to moderately enlarged IMPRESSION: No acute abnormalities displayed
[2022-03-22 13:45] VITALS: TEMP 97.9
[2022-03-22 13:55] VITALS: O2SAT 95
[2022-03-22 13:57] VITALS: BP 82/46
--- NOTE | 2022-03-24 16:12 | EKG ---
Test Date: 2022-03-22 Test Time: 12:00:54 [employer]: MEASUREMENT RESULTS: Intervals: Rate: 40 CO: QRSD: 142 QT: 550 QTc: 448 Bradley: P: CO: QRS: 63 T: -34 INTERPRETIVE STATEMENTS: Atrial fibrillation with slow ventricular response Right bundle branch block Inferior infarct, age undetermined Abnormal ECG Compared to ECG 12/10/2021 15:51:15 Myocardial infarct finding now present Sinus bradycardia no longer present First degree AV block no longer present Electronically Signed On 03-24-22 16:09:12 CDT by Kevan Thomas
== END 2022-03-22 13:08 | disposition short-term general hospital (02) ==
LOC: ER 11:44
DX: I45.5 Other specified heart block (principal); I95.9 Hypotension, unspecified; I48.91 Unspecified atrial fibrillation; Z88.8 Allergy status to other drugs, medicaments and biological substances; F03.90 Unspecified dementia, unspecified severity, without behavioral disturbance, psychotic disturbance, mood disturbance, and anxiety; Z99.2 Dependence on renal dialysis; E11.9 Type 2 diabetes mellitus without complications; I10 Essential (primary) hypertension; Z86.73 Personal history of transient ischemic attack (TIA), and cerebral infarction without residual deficits; Z20.822 Contact with and (suspected) exposure to COVID-19
CPT/HCPCS: 93005; 85025; 80048; 36415; 84484; 71045; 96374; 99291; 87811; J1265